=== PATIENT | female | born 1955 | race Caucasian/White ===

== ENCOUNTER → 2020-04-24 09:17 | Outpatient (BNVA) | payer BC, SELFPAY | PROVIDERS: Visit Provider Internal Medicine ==

== ENCOUNTER → 2020-07-05 14:10 | Outpatient (BNVA) | payer BC, SELFPAY | PROVIDERS: PCP Physician Assistant; Visit Provider Surgery Vascular Surgery ==

== ENCOUNTER 2020-07-18 12:45 | Outpatient (REF) | payer MEDICARE, SELFPAY ==
--- NOTE | ~2020-07-18 | US_ITS ---
EXAMINATION: US BILATERAL LOWER EXTREMITY VENOUS ULTRASOUND (REFLUX EXAM) CLINICAL INDICATION: Lower extremity varicose veins. COMPARISON: None. TECHNIQUE: Color flow triplex imaging and compression Doppler was performed to evaluate both the deep and the superficial systems bilaterally. To evaluate the superficial system, the examination was performed in the upright position. Color-flow Doppler ultrasound and compression ultrasound were utilized. In addition, maneuvers were utilized to demonstrate reflux. FINDINGS: 1. DEEP VENOUS ULTRASOUND OF THE RIGHT LOWER EXTREMITY: Common Femoral Vein: Compressible, normal respiratory variation and augmented flow. Femoral Vein: Compressible, normal color flow and augmentation. Popliteal Vein: Compressible, normal augmentation. Deep Reflux: There is no evidence of reflux in the deep system in either the common femoral vein or the popliteal vein. There is a right-sided Dent's cyst measuring 1.9 x 0.6 x 1.1 cm. 2. SUPERFICIAL ULTRASOUND WITH DOPPLER OF RIGHT LOWER EXTREMITY GREAT SAPHENOUS VEIN: Saphenofemoral junction: 0.4 cm; greater is than 1.7 seconds of reflux. Proximal/Mid thigh: 0.4 cm; greater than 2.3 seconds of reflux. Above knee: 0.4 cm; greater than 3 seconds of reflux. At knee: 0.3 cm; greater than 2.7 seconds of reflux. Below knee: 0.3 cm; greater than 1.1 seconds of reflux. Mid calf: 0.3 cm; greater than 0.7 seconds of reflux. Ankle: 0.2 cm; No evidence of reflux. DUPLICATED GREAT SAPHENOUS VEIN: Lateral: 0.2 cm, no evidence of reflux. SMALL SAPHENOUS VEIN: Saphenopopliteal junction/proximal small saphenous: 0.2 cm; greater than 1 second of reflux. Mid calf: 0.3 cm; greater than 1 second of reflux. Distal calf: 0.3 cm; greater than 1.5 seconds of reflux. VEIN OF GIACOMINI: None imaged. PERFORATORS: Distal thigh arising from the great saphenous vein, 0.3 cm, no reflux. Distal thigh arising from the great saphenous vein, 0.2 cm, no evidence of reflux. Midcalf: 0.2 cm, no evidence of reflux. VARICOSITIES: Mid thigh: 0.3 cm, no reflux. 3. DEEP VENOUS ULTRASOUND OF THE LEFT LOWER EXTREMITY: Common Femoral Vein: Compressible, normal respiratory variation and augmented flow. Femoral Vein: Compressible, normal color flow and augmentation. Popliteal Vein: Compressible, normal augmentation. Deep Reflux: There is no evidence of reflux in the deep system in either the common femoral vein or the popliteal vein. There is no evidence of a Dent's cyst. 4. SUPERFICIAL ULTRASOUND WITH DOPPLER OF LEFT LOWER EXTREMITY: GREAT SAPHENOUS VEIN: Saphenofemoral junction: 0.8 cm; greater than 1.4 seconds of venous reflux. The saphenous vein within the thigh is not identified. At knee: 0.6 cm; greater than 2.7 seconds of reflux. Below knee: 0.3 cm; greater than 2.4 seconds of reflux. Mid calf: 0.2 cm; greater than 0.8 seconds of reflux. Ankle: 0.2 cm; greater than 0.6 seconds of reflux. DUPLICATED GREAT SAPHENOUS VEIN: None. SMALL SAPHENOUS VEIN: Saphenopopliteal junction: 0.2 cm; No evidence of reflux. Mid calf: 0.2 cm; No evidence of reflux. Distal calf: 0.2 cm; No evidence of reflux. VEIN OF GIACOMINI: None Imaged. PERFORATORS: Proximal calf, 0.2 cm, no reflux. Proximal calf, 0.2 cm, greater than 3.0 seconds of reflux. Distal thigh, 0.1 cm, no reflux. VARICOSITIES: Proximal thigh: 0.4 cm, greater than 1.7 seconds of reflux. Mid thigh: 0.7 cm, greater than 1.4 seconds of reflux. At knee: 0.5 cm, greater than 2.5 seconds of reflux. At knee: 0.4 cm, greater than 1.4 seconds of reflux. US/US venous duplex LE BI IMPRESSION: 1. Right great saphenous venous insufficiency. 2. Left great saphenous venous insufficiency. Of note, the great saphenous vein on the left within the thigh is not identified, perhaps related to prior treatment. 3. Right small saphenous venous insufficiency. 4. No evidence of left small saphenous venous insufficiency. 5. Bilateral lower extremity varicosities. There are multiple refluxing varicosities within the left lower extremity. 6. Right Dent's cyst measuring up to 1.9 cm. 7. No evidence of DVT or deep venous reflux.
== END 2020-07-18 12:46 | disposition home or self-care (01) ==
LOC: HO.US 12:45
PROVIDERS: PCP Physician Assistant; Visit Provider Surgery Vascular Surgery
DX: I83.893 Varicose veins of bilateral lower extremities with other complications (principal)
CPT/HCPCS: 93970

== ENCOUNTER → 2020-08-14 09:46 | Outpatient (BNVA) | payer MEDICARE, SELFPAY | PROVIDERS: PCP Physician Assistant; Visit Provider Surgery Vascular Surgery | DX: I83.12 Varicose veins of left lower extremity with inflammation (principal) | CPT/HCPCS: 99212 ==

== ENCOUNTER → 2020-08-24 10:25 | Outpatient (BNVA) | payer MEDICARE, SELFPAY | PROVIDERS: PCP Physician Assistant; Visit Provider Surgery Vascular Surgery | DX: I83.12 Varicose veins of left lower extremity with inflammation (principal) | CPT/HCPCS: 36482 ==

== ENCOUNTER 2020-08-27 11:04 | Outpatient (REF) | payer MEDICARE, SELFPAY ==
--- NOTE | ~2020-08-27 | US_ITS ---
EXAMINATION: TRIPLEX SCANNING OF LEFT LOWER EXTREMITY; SUPERFICIAL ULTRASOUND WITH DOPPLER OF LEFT LOWER EXTREMITY CLINICAL INFORMATION: The patient is status post VenaSeal closure of the distal left great saphenous. COMPARISON: Bilateral venous reflux study on 07/18/2020. TECHNIQUE: Color flow triplex imaging and compression Doppler were performed as well as superficial ultrasound with Doppler. FINDINGS: LEFT LOWER EXTREMITY DEEP VENOUS SYSTEM: Respiratory variation, normal compression and augmented flow are noted throughout the lower extremity. The visualized common femoral vein, femoral vein, profunda femoral vein, popliteal vein and the calf veins show no evidence of deep venous thrombosis. There is no evidence of Dent's cyst. SUPERFICIAL VENOUS SYSTEM: The proximal left great saphenous vein is patent from the saphenofemoral junction to the mid/distal thigh. The left great saphenous vein is occluded from the level of the knee to the proximal calf. The very distal great saphenous vein at the level of the distal calf and ankle is patent. US/US venous duplex LE LT IMPRESSION: 1. No evidence of DVT. 2. The left great saphenous vein is occluded from the level of the knee to the proximal calf. The left great saphenous vein remains patent from the saphenofemoral junction to the midthigh and at the distal calf and ankle.
== END 2020-08-27 11:05 | disposition home or self-care (01) ==
LOC: HO.US 11:04
PROVIDERS: Visit Provider Surgery Vascular Surgery
DX: M79.605 Pain in left leg (principal)
CPT/HCPCS: 93971

== ENCOUNTER → 2020-09-04 10:46 | Outpatient (BNVA) | payer MEDICARE, SELFPAY | PROVIDERS: PCP Physician Assistant; Visit Provider Surgery Vascular Surgery | DX: I83.12 Varicose veins of left lower extremity with inflammation (principal) | CPT/HCPCS: 99212 ==

== ENCOUNTER 2020-09-17 06:15 | Day surgery (SDC) | payer MEDICARE, SELFPAY ==
--- NOTE | 2020-09-13 11:47 | P.CONAN_ITS ---
Documented by User: Elena Trejo 09/13/20 11:49 HPI - Anesthesia Eval Consult details Narrative: 65yo F for Left Micro Phlebectomy PMFSH Active Problems Active Problems: All Active Problems (Updated 07/05/20 @ 14:43 by Cristóbal Nixon MD) Varicose veins of left lower extremity with inflammation (Acute) MDD (major depressive disorder), recurrent episode, moderate (Acute) Varicosities of leg (Acute) HLD (hyperlipidemia) (Acute) Smoker (Acute) HTN (hypertension) (Acute) Pulmonary nodules (Acute) COPD (chronic obstructive pulmonary disease) (Acute) Past Medical History Medical History COPD (chronic obstructive pulmonary disease) HLD (hyperlipidemia) HTN (hypertension) MDD (major depressive disorder), recurrent episode, moderate Pulmonary nodules Family History Family History Father Lung cancer Mother Heart attack Social History Social History Alcohol intake: current Patient Tobacco Use Status: Current someday Tobacco user Cigarette Packs Per Day: 0.5 Cigarettes Per Day: 10 Use of substances other than those prescribed or required for medical reasons: No Are you DNR?: No Advance Directives: Yes Advance Directives on File: Yes Advance Directives Date on File: 09/17/20 Current occupational status: employed Current occupation: [employer] Allergies Allergy/AdvReac Type Severity Reaction Status Date / Time Iodinated Contrast Media Allergy Mild HIVES AND Verified 09/04/20 10:52 [IV Dye, Iodine Containing] RASH propoxyphene [From Darvon] Allergy Mild N/V Verified 09/04/20 10:52 Home Medications Medication Instructions Recorded Confirmed Last Taken Type ascorbate calcium (vitamin C) 500 1,000 mg PO DAILY tab 06/20/20 06/20/20 Unknown History mg tablet cholecalciferol (vitamin D3) 50 50 mcg PO DAILY 06/20/20 06/20/20 Unknown History mcg (2,000 unit) tablet Exam Exam Date and Time: September 13, 2020 1147 Assessment and Plan Assessment Anesthesia Assessment: Chart Reviewed Documented by User: Charu Stern 09/17/20 07:54 PMFSH Past Medical History Medical History COPD (chronic obstructive pulmonary disease) HLD (hyperlipidemia) HTN (hypertension) MDD (major depressive disorder), recurrent episode, moderate Pulmonary nodules Family History Family History Father Lung cancer Mother Heart attack Social History Social History Alcohol intake: current Patient Tobacco Use Status: Current someday Tobacco user Cigarette Packs Per Day: 0.5 Cigarettes Per Day: 10 Use of substances other than those prescribed or required for medical reasons: No Are you DNR?: No Advance Directives: Yes Advance Directives on File: Yes Advance Directives Date on File: 09/17/20 Current occupational status: employed Current occupation: [employer] Allergies Allergy/AdvReac Type Severity Reaction Status Date / Time Iodinated Contrast Media Allergy Mild HIVES AND Verified 09/04/20 10:52 [IV Dye, Iodine Containing] RASH propoxyphene [From Darvon] Allergy Mild N/V Verified 09/04/20 10:52 Home Medications Medication Instructions Recorded Confirmed Last Taken Type ascorbate calcium (vitamin C) 500 1,000 mg PO DAILY tab 06/20/20 06/20/20 Unknown History mg tablet cholecalciferol (vitamin D3) 50 50 mcg PO DAILY 06/20/20 06/20/20 Unknown History mcg (2,000 unit) tablet Exam Airway Mallampati Class: II TM Dist: >3cm Neck ROM: Full Assessment and Plan Assessment Anesthesia Assessment: Anesthesia Plan Discussed, Smoking Cess. Discussed and Chart Reviewed Final Anesthetic Review NPO: Yes ASA Class: III Final Preanesthetic Review: No Changes in Pt Med Stat, Meds/Allgs Chart Reviewed, Consent Obtained/Reviewed and Anes Risks/Benef Reviewed Patient Risk: Intermediate Procedure Risk: Low Assessment/Block/Sedation in SS: Assess/Block/Sedation-SS Anesthetic Plan Anesthetic Plan: MAC: Disposition: Standard PACU
[2020-09-17 06:33] VITALS: BP 109/50; PULSE 65; RESP 18; TEMP 36.3; O2SAT 95; BMI 17.2
[2020-09-17] MEDS: Lactated Ringers 1,000 ML 100 ML IVCONT (07:15)
[2020-09-17 08:40] VITALS: BP 105/48; PULSE 63; RESP 16; TEMP 36.2; O2SAT 98
--- NOTE | 2020-09-17 08:51 | MHC.SHP ---
Pre-Procedural Eval Section B Chief Complaint: varicose vein Allergies: Allergies Allergy/AdvReac Type Severity Reaction Status Date / Time Iodinated Contrast Media Allergy Mild HIVES AND Verified 09/04/20 10:52 [IV Dye, Iodine Containing] RASH propoxyphene [From Darvon] Allergy Mild N/V Verified 09/04/20 10:52 Plan I have reviewed the history and physical and performed a pertinent physical examination on my patient. No changes have occurred unless specified.
--- NOTE | 2020-09-17 08:54 | W.PM.OPN ---
Operative Note Operative Note Date of Service: 09/17/20 Narrative: Diagnosis: Left Leg varicose veins with inflammation Procedure: 1. Left leg Microphlebectomy (21) 2. Ligation of venous cluster Anesthesia: Local with sedation Varicose veins were marked in the standing position on the left leg and the patient was then placed in the supine position. The left lower extremity was prepared and draped to allow knee flexion in the sterile field. The patient had large superficial varicose veins with significant symptoms of pain. It was therefore determined to perform microphlebectomies of the clusters of varicose veins. The patient had bulging varicose veins which were previously marked in the standing position. A small stab incision was made longitudinally directly overlying the varicose vein in the calf and the varicose vein was grasped with a hemostat aided by a vein hook. It was then dissected as far proximally and distally as possible and avulsed. A total of 21 stab incisions were made and the procedure of stab phlebectomies was repeated 21 times. In addition cluster was noted in left thigh. Was ligated and removed. Resudual varicosities was removed as well. Hemostasis was checked and stab incision sites were closed with steri-strips and sterile dressing was given with gauze and kerilex wrap followed by an sindhu bandage. There were no complications and blood loss was minimal. Post-Op instructions were given and a follow-up appointment was recommended.
[2020-09-17 08:58] VITALS: BP 108/66; PULSE 57; RESP 16; TEMP 36.2; O2SAT 95
== END 2020-09-17 09:46 | disposition home or self-care (01) ==
PROVIDERS: PCP Physician Assistant; Visit Provider Surgery Vascular Surgery
PROC: (CPT 37766; principal; 2020-09-17 07:30)
DX: I83.12 Varicose veins of left lower extremity with inflammation (principal); I10 Essential (primary) hypertension
CPT/HCPCS: 37766; 37785; 88304; J0690; J1100; J2370; J2405; J3010

== ENCOUNTER 2020-10-16 09:07 | Outpatient (REF) | payer MEDICARE, SELFPAY ==
[2020-10-16 10:45] LABS: Hemoglobin 14.4 g/dl (12.0-16.0); Mean Corpuscular HGB Conc 32.7 g/dl (31.0-35.0); Mean Corpuscular Hemoglobin 31.7 pg (27.0-33.0); Mean Corpuscular Volume 96.9 fL (80-98); Platelet Count 260 X10*3/uL (160-400); Red Blood Count 4.54 X10*6/uL (4.20-5.50); Red Cell Distribution Width 13.1 % (11.0-16.0); White Blood Count 7.9 X10*3/uL (4.8-10.8)
[2020-10-16 10:57] LABS: Estimated Average Glucose 114 mg/dL; Hemoglobin A1c % 5.6 %
[2020-10-16 11:00] LABS: Creatinine Urine 66.05 mg/dL; Microalbum/Creatinine Ratio Ur 13.6 ug/mg cr
[2020-10-16 11:11] LABS: Alanine Aminotransferase 17 U/L (0-31); Albumin Level 4.1 g/dL (3.5-5.0); Alkaline Phosphatase 72 U/L (39-117); Anion Gap 16 (12-20); Aspartate Amino Transferase 25 U/L (5-31); Bilirubin Total 0.5 mg/dL (0.0-1.0); Blood Urea Nitrogen 20 mg/dL (9-16); Calcium 9.8 mg/dL (8.4-10.2); Carbon Dioxide 24 mmol/L (22-29); Chloride 108 mmol/L (96-108); Cholesterol 205 mg/dL; Estimated Glomerular Filt Rate > 60; Glucose Fasting 90 mg/dL (60-99); HDL Cholesterol 73 mg/dL; LDL Cholesterol Calculated 112 mg/dl; Potassium 4.8 mmol/L (3.3-5.1); Sodium 143 mmol/L (135-145); Total Protein 6.8 g/dL (6.5-8.0); Triglycerides 101 mg/dL
[2020-10-16 11:21] LABS: TSH reflex Free T4 1.02 uIU/mL (0.32-4.0)
== END 2020-10-16 09:08 | disposition home or self-care (01) ==
LOC: HO.LAB 09:07
PROVIDERS: PCP Physician Assistant; Visit Provider Physician Assistant
DX: J44.9 Chronic obstructive pulmonary disease, unspecified (principal); I10 Essential (primary) hypertension; E78.2 Mixed hyperlipidemia; R91.8 Other nonspecific abnormal finding of lung field; F17.200 Nicotine dependence, unspecified, uncomplicated; Z71.6 Tobacco abuse counseling
CPT/HCPCS: 36415; 80053; 80061; 82043; 83036; 84443; 85027; 99212

== ENCOUNTER → 2020-10-18 10:08 | Outpatient (BNVA) | payer MEDICARE, SELFPAY | PROVIDERS: PCP Physician Assistant; Visit Provider Surgery Vascular Surgery | DX: I83.12 Varicose veins of left lower extremity with inflammation (principal) | CPT/HCPCS: 99212 ==

== ENCOUNTER 2020-12-05 10:39 | Outpatient (REF) | payer MEDICARE, SELFPAY ==
--- NOTE | ~2020-12-05 | CT_ITS ---
EXAMINATION: CT CHEST SCREENING CLINICAL INFORMATION: Current smoker. 40 pack year history. COMPARISON: Previous chest CT scans most recent September 2019 TECHNIQUE: Multidetector volumetric CT imaging of the chest is performed without contrast using low dose technique. Additional 2D coronal and sagittal reformatted images and axial 3D maximum intensity projection (MIP) images are generated on the CT workstation. This CT examination was performed using dose optimization techniques as appropriate, variously including the following: *Automated exposure control *Adjustment of mA and/or kV according to patient size (this includes techniques or standardized protocols for targeted exams where dose is matched to indication/reason for exam; i.e. extremities or head) *Use of iterative reconstruction technique DLP: 33 mGy-cm FINDINGS: LUNGS: There is evidence of emphysema. There is mild biapical pleural and parenchymal scarring. The right upper lobe nodules are stable. Largest nodules are a 5 mm peripheral or subpleural right upper lobe solid nodule axial image 49 series 5 and a heterogeneous partially cystic partially groundglass attenuation right upper lobe nodule axial image 105 series 5 that is stable. There are clustered peribronchial nodules and bronchial wall thickening in the right upper lobe suggestive of airways disease for example axial image 217 series 5 that is stable. There are subtler changes seen in the lateral segment of the right middle lobe that appears improved compared to September 2019 exam. There is evidence of mild airways disease with clustered peribronchial nodules and bronchial wall thickening in the inferior segment of the lingula that appears unchanged. No new pulmonary nodules are seen. MEDIASTINUM: There is evidence of atherosclerotic disease. The heart does not appear enlarged. There is mild coronary artery calcification. There is no pericardial effusion. The thoracic aorta is normal in caliber. There are no enlarged hilar or mediastinal lymph nodes. PLEURA: There is no pleural effusion. No pleural mass or thickening. AXILLA: No lymphadenopathy. UPPER ABDOMEN: Unremarkable OSSEOUS STRUCTURES: There are degenerative changes of the spine. CT/CT lung screening IMPRESSION: Emphysema. Mild biapical pleural parenchymal scarring. Stable right upper lobe nodules. Scattered areas of disease with clustered peribronchial nodules and bronchial wall thickening. ASSESSMENT: Lung-RADS category 2: Benign RECOMMENDATION: Annual low-dose chest CT follow-up recommended.
== END 2020-12-05 10:40 | disposition home or self-care (01) ==
LOC: HO.CT 10:39
PROVIDERS: Visit Provider Physician Assistant Medical
DX: Z12.2 Encounter for screening for malignant neoplasm of respiratory organs (principal); Z87.891 Personal history of nicotine dependence
CPT/HCPCS: 71271

== ENCOUNTER 2020-12-29 10:16 | Outpatient (REF) | payer MEDICARE, SELFPAY ==
--- NOTE | ~2020-12-29 | MM_ITS ---
EXAMINATION: MM SCREENING DIGITAL BREAST TOMOSYNTHESIS, BILATERAL CLINICAL INFORMATION: Screening. Asymptomatic. The lifetime risk of breast cancer based on the Tyrer-Cuzick Model is 7%. COMPARISON: Mammography: 11/07/2019, 11/01/2018, 07/15/2017 TECHNIQUE: Digital breast tomosynthesis is performed in both the craniocaudal and mediolateral oblique views along with computer-aided detection (CAD). Synthesized 2D images are generated from the tomosynthesis. FINDINGS: There are scattered areas of fibroglandular density (ACR BI-RADS breast composition Category b). There are no significant masses, abnormal calcifications, or other abnormalities. Breast tissue composition borders on heterogeneously dense. Parenchymal pattern is similar to prior studies. There are dermal lesions again seen overlying the posterior upper left breast and anterior upper outer right breast. MM/MM tomosynthesis screening BI IMPRESSION: No mammographic evidence of malignancy. ASSESSMENT: BI-RADS 2: Benign RECOMMENDATION: Routine annual mammography screening. This patient's information was entered into a reminder system with a target due date for their next mammogram.
== END 2020-12-29 10:17 | disposition home or self-care (01) ==
LOC: HO.MAMMO 10:16
PROVIDERS: PCP Physician Assistant; Visit Provider Physician Assistant
DX: Z12.31 Encounter for screening mammogram for malignant neoplasm of breast (principal)
CPT/HCPCS: 77063; 77067

== ENCOUNTER 2021-02-14 09:18 | Outpatient (REF) | payer MEDICARE, SELFPAY ==
[2021-02-14 10:08] LABS: Appearance Urine CLOUDY; Color Urine YELLOW; Glucose Urine UA NEG (NEG); Leukocyte Esterase Urine 2+ (NEG); Nitrite Urine POS (NEG); Specific Gravity - Urine 1.025 (1.005-1.025); UACC Culture Trigger YES; Urine Blood 1+ (NEG); Urine Ketones 5 MG/DL (NEG); Urine Protein 2+ MG/DL (NEG-TRACE)
[2021-02-14 10:13] LABS: Hematocrit 40.9 % (37.0-47.0); Hemoglobin 13.1 g/dl (12.0-16.0); Mean Corpuscular Hemoglobin 31.8 pg (27.0-33.0); Mean Corpuscular Volume 99.3 fL (80.0-98.0); Mean Platelet Volume 9.7 fL (9.4-12.3); Platelet Count 380 X10*3/uL (160-400); Red Blood Count 4.12 X10*6/uL (4.20-5.50); Red Cell Distribution Width 12.7 % (11.0-16.0); White Blood Count 10.6 X10*3/uL (4.8-10.8)
[2021-02-14 10:20] LABS: Bacteria Urine 2+ /LPF; Squamous Epithelial Cell Urine 2+ /LPF; WBC Urine 50-75 /HPF (0-4)
[2021-02-14 10:51] LABS: Alanine Aminotransferase 13 U/L (0-31); Albumin Level 3.5 g/dL (3.5-5.0); Alkaline Phosphatase 87 U/L (39-117); Anion Gap 11 (12-20); Aspartate Amino Transferase 19 U/L (5-31); Bilirubin Total 0.2 mg/dL (0.0-1.0); Blood Urea Nitrogen 17 mg/dL (9-16); Calcium 9.2 mg/dL (8.4-10.2); Carbon Dioxide 29 mmol/L (22-29); Chloride 105 mmol/L (96-108); Cholesterol 134 mg/dL; Estimated Glomerular Filt Rate > 60; Glucose Fasting 101 mg/dL (60-99); HDL Cholesterol 43 mg/dL; LDL Cholesterol Calculated 69 mg/dl; Potassium 4.5 mmol/L (3.3-5.1); Sodium 140 mmol/L (135-145); Total Protein 6.3 g/dL (6.5-8.0); Triglycerides 110 mg/dL
== END 2021-02-14 09:19 | disposition home or self-care (01) ==
LOC: HO.LAB 09:18
PROVIDERS: PCP Physician Assistant; Visit Provider Physician Assistant
DX: E78.2 Mixed hyperlipidemia (principal); I10 Essential (primary) hypertension
CPT/HCPCS: 36415; 80053; 80061; 81001; 85027; 87086; 87088; 87186

== ENCOUNTER 2021-03-18 13:06 | Outpatient (REF) | payer MEDICARE, SELFPAY ==
--- NOTE | ~2021-03-18 | XR_ITS ---
EXAMINATION: XR RIBS, LEFT CLINICAL INFORMATION: Pleurodynia. COMPARISON: Chest radiograph done on 03/01/2019. TECHNIQUE: 3 views of the left ribs were obtained. The site of the left lower hemithoracic pain as was pointed out with the patient was marked with a cutaneous BB marker corresponding to posterolateral aspect of the left 11th rib. FINDINGS: Corresponding to the site of the BB marker adjacent to the posterolateral aspect of the left 11th rib, no underlying osseous abnormalities including fracture and/or cortical destruction or soft tissue mass identified. The remainder of the entire left hemithorax appears asymmetric as compared to the contralateral right side and appear unremarkable. No evidence of any hemopneumothorax or lung contusion. Cardiac mediastinal silhouette is within normal limit. Overall, no significant change since 03/01/2019. XR/XR ribs LT min 3V w CXR1V IMPRESSION: 1. No radiographic evidence of any displaced rib fracture or osseous or soft tissue abnormalities identified corresponding to the site of the left lower posterior lateral hemithoracic pain which was marked with a cutaneous BB marker corresponding to left 11th rib. 2. Overall, no significant change since 03/01/2019.
== END 2021-03-18 13:07 | disposition home or self-care (01) ==
LOC: HO.XRAY 13:06
PROVIDERS: PCP Physician Assistant; Visit Provider Physician Assistant
DX: R07.81 Pleurodynia (principal)
CPT/HCPCS: 71101

== ENCOUNTER 2021-05-23 10:34 | Outpatient (REF) | payer MEDICARE, SELFPAY ==
--- NOTE | ~2021-05-23 | MM_ITS ---
EXAMINATION: BONE DENSITOMETRY CLINICAL INDICATION: Asymptomatic menopausal state. COMPARISON: Baseline BD dated 09/07/2009. TECHNIQUE: Using a [employer] DXA System (software version: 13.1) manufactured by [employer], dual-energy x-ray absorptiometry was performed of the lumbar spine and left hip. The images are of good technical quality. Summary results are attached. FINDINGS: AP SPINE L1-L4 (excluding L3): The data of L1-L4 has been changed to exclude the L3 vertebral body, because degenerative changes at this level may cause overestimation of lumbar spine density. Current: BMD 1.054 g/cm2, Z-score 1.3, T-score -1.0, normal, 12.7% decrease from baseline (<5% change is not significant). Baseline: BMD 1.208 g/cm2. LEFT FEMUR, NECK: Current: BMD 0.739 g/cm2, Z-score -0.2, T-score -2.2, osteopenia. Baseline: BMD 0.822 g/cm2. LEFT FEMUR, TOTAL: Current: BMD 0.780 g/cm2, Z-score 0.0, T-score -1.8, osteopenia, 19.5% decrease from baseline (<5% change is not significant). Baseline: BMD 0.969 g/cm2. IDENTIFIED RISK FACTORS: Low body weight, tobacco use (current smoker), history of fracture (adult), menopause. HISTORY OF FRACTURE: Pelvis. MEDICATIONS: Calcium supplements or multivitamin, vitamin D. MM/XR DEXA axial skeleton IMPRESSION: 1. DIAGNOSIS: Osteopenia based on the lowest T-score value of -2.2 in the femoral neck applying World Health Organization criteria. 2. 10-YEAR FRACTURE RISK PREDICTION, FRAX: Major osteoporotic fracture (clinical spine, forearm, hip or shoulder) 16.5%. Hip fracture 5.3%. 3. Treatment Recommendations: NOF guidelines recommend consideration for treatment in postmenopausal women and men age 50 and older presenting with the following: -A hip or vertebral (clinical or morphometric) fracture. -T-score less than or equal to -2.5 at the femoral neck or spine after appropriate evaluation to exclude secondary causes. -Low bone mass at the hip or spine and a 10-year fracture probability by FRAX of greater than or equal to 3% for hip fracture or greater than or equal to 20% for major osteoporotic fracture based on the [place] adapted WHO algorithm. 4. Other Recommendations: All treatment decisions require clinical judgment and consideration of individual patient factors, including patient preferences, comorbidities, previous drug use, risk factors not captured in the FRAX model (e.g. frailty, falls, vitamin D deficiency, increased bone turnover, interval significant decline in bone density) and possible under or overestimation of fracture risk by FRAX. Additional medical evaluation for secondary cause of low bone mineral density may be appropriate. FUTURE SCAN RECOMMENDATION: People with diagnosed cases of osteoporosis or at high risk for fracture should have regular bone mineral density tests. For patients eligible for Medicare, routine testing is allowed once every 2 years. The testing frequency can be increased to one year for patients who have rapidly progressing disease, those who are receiving or discontinuing medical therapy to restore bone mass, or have additional risk factors.
== END 2021-05-23 10:35 | disposition home or self-care (01) ==
LOC: HO.MAMMO 10:34
PROVIDERS: PCP Physician Assistant; Visit Provider Physician Assistant
DX: Z13.820 Encounter for screening for osteoporosis (principal); Z78.0 Asymptomatic menopausal state; M85.80 Other specified disorders of bone density and structure, unspecified site; Z79.899 Other long term (current) drug therapy
CPT/HCPCS: 77080

== ENCOUNTER 2021-10-21 06:10 | Outpatient (REF) | payer MEDICARE, SELFPAY ==
[2021-10-21 07:50] LABS: Alanine Aminotransferase 16 U/L (0-31); Albumin Level 3.8 g/dL (3.5-5.0); Alkaline Phosphatase 77 U/L (39-117); Anion Gap 11 (12-20); Aspartate Amino Transferase 24 U/L (5-31); Bilirubin Total 0.3 mg/dL (0.0-1.0); Blood Urea Nitrogen 19 mg/dL (9-16); Calcium 8.8 mg/dL (8.4-10.2); Carbon Dioxide 27 mmol/L (22-29); Chloride 107 mmol/L (96-108); Cholesterol 162 mg/dL; Estimated Glomerular Filt Rate > 60; Glucose Fasting 102 mg/dL (60-99); HDL Cholesterol 71 mg/dL; LDL Cholesterol Calculated 73 mg/dl; Potassium 3.8 mmol/L (3.3-5.1); Sodium 141 mmol/L (135-145); Total Protein 6.4 g/dL (6.5-8.0); Triglycerides 91 mg/dL
[2021-10-21 09:38] LABS: Appearance Urine HAZY; Color Urine YELLOW; Glucose Urine UA NEG (NEG); Leukocyte Esterase Urine NEG (NEG); Nitrite Urine NEG (NEG); Specific Gravity - Urine >= 1.030 (1.005-1.025); UACC Culture Trigger NO; Urine Blood 3+ (NEG); Urine Ketones 5 MG/DL (NEG); Urine Protein 1+ MG/DL (NEG-TRACE)
[2021-10-21 09:45] LABS: Squamous Epithelial Cell Urine TRACE /LPF; WBC Urine 0 /HPF (0-4)
[2021-10-21 09:46] LABS: Hyaline Casts Urine 0-2 /LPF; Mucus Urine TRACE /LPF
[2021-10-21 09:54] LABS: Creatinine Urine 330.72 mg/dL
== END 2021-10-21 06:11 | disposition home or self-care (01) ==
LOC: HO.LAB 06:10
PROVIDERS: PCP Physician Assistant; Visit Provider Physician Assistant
DX: E78.2 Mixed hyperlipidemia (principal); I10 Essential (primary) hypertension
CPT/HCPCS: 36415; 80053; 80061; 81001; 82043

== ENCOUNTER 2021-10-27 10:14 | Emergency (ER) | payer MEDICARE, SELFPAY ==
--- NOTE | ~2021-10-27 | CT_ITS ---
EXAMINATION: CT ABDOMEN AND PELVIS WITHOUT CONTRAST CLINICAL INFORMATION: Pain and diarrhea COMPARISON: None TECHNIQUE: Multidetector volumetric imaging was performed from the superior aspect of the liver through the pubic symphysis. Sagittal and coronal reformatted images were obtained on the technologist's workstation. This CT examination was performed using dose optimization techniques as appropriate, variously including the following: *Automated exposure control *Adjustment of mA and/or kV according to patient size (this includes techniques or standardized protocols for targeted exams where dose is matched to indication/reason for exam; i.e. extremities or head) *Use of iterative reconstruction technique DLP: 276 mGy-cm FINDINGS: LUNG BASES: The visualized lung bases are unremarkable. LIVER, GALLBLADDER, AND BILIARY TREE: The liver is normal in size, shape, and attenuation. No focal hepatic lesion or biliary ductal dilatation is present. The gallbladder is unremarkable with no evidence of radiopaque gallstones, gallbladder wall thickening, or obvious pericholecystic inflammatory changes. PANCREAS: Unremarkable. SPLEEN: Unremarkable. ADRENAL GLANDS: Unremarkable. KIDNEYS AND URETERS: The kidneys are normal in size, shape, and attenuation. No hydronephrosis, hydroureter, or calculi seen. No perinephric stranding. BLADDER: Unremarkable. GASTROINTESTINAL TRACT: There is large amount of retained feces in the colon but no evidence of colitis, or diverticulitis. Scattered diverticula are present in the sigmoid colon is unremarkable. No signs of small bowel obstruction. Appendix is unremarkable ABDOMINAL WALL: No significant hernia is appreciated. LYMPH NODES: Normal. VASCULAR: Unremarkable. PELVIC VISCERA: Uterus is retroverted OSSEOUS STRUCTURES: There are degenerative changes in lumbar spine CT/CT abdomen pelvis wo con IMPRESSION: Constipation. No acute abnormalities Fleischner guidelines were followed.
[2021-10-27 10:43] VITALS: BP 123/80; PULSE 84; RESP 16; O2SAT 97; BMI 16.9
--- NOTE | 2021-10-27 12:05 | ED_ITS ---
HPI - Abdominal Pain General Chief Complaint: Abdominal Pain Stated Complaint: reaction to medicine, black bowel Time Seen by Provider: 10/27/21 10:17 Source: patient Mode of arrival: ambulatory Limitations: no limitations History of Present Illness HPI narrative: Patient presents emergency department for evaluation of abdominal pain, diarrhea, black stools. Patient reports that she has been experiencing left lo wer quadrant abdominal pain with multiple episodes of diarrhea daily for the past few weeks. She was evaluated by her primary care provider 3 days ago, at that time she was started on antibiotics for possible colitis, was given a prescription for Cipro and Flagyl. She reports taking 3 doses of each medication but she felt that this was actually worsening her diarrhea. She contacted her primary care office again, she was advised to discontinue these antibiotics, was given a prescription for Augmentin. She states that since yesterday she has been having frequent loose black stools. Denies bright red blood. Denies fevers or chills. Has some associated nausea but no vomiting. Reports last colonoscopy was in 2019, stating that she had polyps removed at that time. Denies family history of colon cancer. She does report history of similar ?episodes? with weeks of diarrhea typically self resolve. Denies upper abdominal pain, chest pain, palpitations, shortness of breath, difficulty b reathing, dysuria urinary frequency/urgency/hesitancy, pelvic pain, abnormal vaginal discharge. Related Data Home Medications Medication Instructions Recorded Confirmed ascorbate calcium (vitamin C) 500 1,000 mg PO DAILY 06/20/20 10/24/21 mg tablet cholecalciferol (vitamin D3) 50 50 mcg PO DAILY 06/20/20 10/24/21 mcg (2,000 unit) tablet Previous Rx's Medication Instructions Recorded ipratropium 0.5 mg-albuterol 3 mg 3 ml inhalation Q4-6H PRN 10/16/20 (2.5 mg base)/3 mL nebulization wheezing/copd 30 days #90 mL soln atorvastatin 40 mg tablet 40 mg PO DAILY 90 days #90 tabs 01/09/21 carvedilol 3.125 mg tablet 3.125 mg PO BID 90 days #180 tabs 04/10/21 albuterol sulfate 90 mcg/actuation 2 puff PO Q6H PRN for wheezing 09/17/21 aerosol inhaler #25.5 grams sertraline 100 mg tablet 100 mg PO DAILY 90 days #90 tabs 10/10/21 blood pressure test kit-small #1 ea 10/24/21 amoxicillin 875 mg-potassium 1 tab PO Q12H 7 days #14 tabs 10/25/21 clavulanate 125 mg tablet Allergies Allergy/AdvReac Type Severity Reaction Status Date / Time Iodinated Contrast Media Allergy Mild HIVES AND Verified 10/24/21 09:55 [IV Dye, Iodine Containing] RASH propoxyphene [From Darvon] Allergy Mild N/V Verified 10/24/21 09:55 Review of Systems Review of Systems Constitutional : No Weight loss, No Fever, No Chills ENT/Mouth :? No sore throat, No Rhinorrhea Eyes: No Swelling, No Redness Cardiovascular : No Chest Pain, No SOB, No Edema Respiratory : No Cough, No Sputum, No Wheezing Gastrointestinal : Positive Nausea, no Vomiting, positive Diarrhea, positive abdominal pain, No Hematochezia, positive Melena Genitourinary : No Dysuria, No Urinary Frequency, No Hematuria, No Urgency? Musculoskeletal : No joint pain, No Myalgias, No Joint Swelling Skin : No Skin Lesions, No rash Neuro : No Weakness, No Numbness, No Dizziness, No Headache Psych : No Anxiety/Panic, No Depression Heme/Lymph: No Bruising, No Lymphadenopathy Endocrine : No Polyuria, No Polydipsia Yes all other systems are reviewed and are negative [facility], [facility] Past Medical History Attestation statement: The following information was validated with the patient. Source: old records reviewed Medical History COPD (chronic obstructive pulmonary disease) HLD (hyperlipidemia) HTN (hypertension) MDD (major depressive disorder), recurrent episode, moderate Pulmonary nodules Family History Family History Father Lung cancer Mother Heart attack Social History Social History Housing: Apartment Alcohol intake: current Alcohol intake frequency: a few times a month Alcohol type: beer Patient Tobacco Use Status: Current everyday Tobacco user Cigarette Packs Per Day: 0.5 Cigarettes Per Day: 10 e-Cigarette/Vaping Use: Never Used Second Hand Smoke Exposure: No Advance Directives: No Advance Directives Information Provided: Yes Advance Directives Date on File: 09/17/20 service: No Current occupational status: employed Current occupation: [employer] Cognitive needs: No Hearing needs: No Vision needs: No Physical Exam ED Vital Signs: Vital Signs - 24 hr 10/27/21 10:43 10/27/21 12:13 Temperature 97.7 F Pulse Rate 84 61 Respiratory Rate 16 16 Blood Pressure 123/80 138/67 Pulse Oximetry 97 97 Oxygen Delivery Method Room Air Room Air BMI result Body Mass Index 16.9 Vital signs have been reviewed as normal and appeared to be correct. Blood pressure normal.? Heart rate normal.? Respiration rate normal. Temperature normal 97.7.? Oxygen saturation normal. Appearance: Alert.?Oriented to person, place and time. No acute distress.?Normal affect. Eyes: Pupils equal, round and reactive to light.? ENT: Pharynx normal.?? Neck: Normal inspection.? Neck supple.?? CVS: Heart sounds normal. Normal heart rate and rhythm.? Pulses normal.?? Respiratory: No respiratory distress.? Lung sounds clear to auscultation bi laterally?? Abdomen: Soft with tenderness to palpation of the left lower quadrant. Normoactive bowel sounds. No pulsatile mass. No guarding. No rebound tenderness.?? Rectal: Performed with excel analyst ED RN, external hemorrhoids present, no active bleeding, stool obtained from rectum brown in color. Skin: Skin warm and dry.? Normal skin color.? ?? Extremities: No lower extremity edema.? Neuro: Moves all extremities spontaneously. Sensation intact bilaterally. CN II- XII intact. No focal neuro deficits. Ambulates with normal steady gait. Course Course Course Narrative: Patient is a 66-year-old female with a past medical history of hypertension, hyperlipidemia, COPD, pulmonary nodules presenting to emergency department for evaluation of abdominal pain and diarrhea. She is overall well appearing, vital signs are stable, in no apparent distress. Abdominal exam is significant for left lower quadrant tenderness, however no guarding or rebound. Exam concerning for diverticulitis versus colitis verses bowel obstruction, less likely appendicitis, cholecystitis, pancreatitis. Will obtain CBC to evaluate for leukocytosis/ anemia, CMP and lipase to evaluate for abnormal electrolytes /abnormal renal function/ abnormal hepatic/biliary function, Urinalysis, CT of the abdomen and pelvis, IV fluids, antiemetic, and Toradol. Disposition will be pending results. Reevaluation(s) Reevaluation #1: CBC is overall unremarkable no leukocytosis and no anemia. CMP is unremarkable. Lipase normal. No Lactic acidosis. Occult stool is negative. Declined to provide urinalysis as she had one last week, and has had no urinary symptoms. CT of the abdomen reveals a large amount of retained feces in the colon without evidence of colitis or diverticulitis, no signs of small-bowel obstruction, appendix is unremarkable, and otherwise no acute abnormalities. Discussed these findings with patient, recommended discontinuation of antibiotics at this time, staying well hydrated, bland diet, outpatient follow-up with her primary care provider within 1-2 days, reviewed worrisome signs and symptoms to return back to the emergency department for, all questions were answered, she is discharged home in stable condition. Time: 13:08 [facility] - Abdominal Pain Medical Records Attestation: I reviewed the patient's medical records. Lab Data Attestation: I reviewed the patient's lab results. Result diagrams: 10/27/21 12:26 10/27/21 12:26 Labs: Lab Results 10/27/21 10/27/21 10/27/21 Range/Units 12:26 12:26 12:26 WBC 8.5 (4.8-10.8) X10*3/uL RBC 4.58 (4.20-5.50) X10*6/uL Hgb 14.4 (12.0-16.0) g/dl Hct 45.0 (37.0-47.0) % MCV 98.3 H (80.0-98.0) fL MCH 31.4 (27.0-33.0) pg MCHC 32.0 (31.0-35.0) g/dl RDW 12.9 (11.0-16.0) % Plt Count 239 D (160-400) X10*3/uL MPV 9.6 (9.4-12.3) fL Immature Gran % (Auto) 0.1 (0.0-0.4) % Neut % (Auto) 61.1 (45-73) % Lymph % (Auto) 21.6 (20-40) % [place] % (Auto) 10.0 (2-11) % Eos % (Auto) 6.4 H (0-4) % Baso % (Auto) 0.8 (0-2) % Lymph # (Auto) 1.8 (1.2-4.9) X10*3/uL [place] # (Auto) 0.9 (0.1-1.2) X10*3/uL Eos # (Auto) 0.5 H (0.0-0.4) X10*3/uL Baso # (Auto) 0.1 (0.0-0.2) X10*3/uL Abs Immat Gran (auto) 0.01 (0.00-0.03) X10*3/uL Absolute Neuts (auto) 5.2 (2.0-8.3) x10*3/uL Absolute Nucleated RBC 0.000 (0.0-0.012) X10*3/uL Nucleated RBC % (auto) 0.0 (0.0-0.2) /100WBC Sodium 140 (135-145) mmol/L Potassium 4.3 (3.3-5.1) mmol/L Chloride 105 (96-108) mmol/L Carbon Dioxide 28 (22-29) mmol/L Anion Gap 11 L (12-20) BUN 14 (9-16) mg/dL Creatinine 0.77 (0.5-1.4) mg/dL Estim Creat Clear Calc 50.2 Estimated GFR > 60 Random Glucose 88 (60-115) mg/dL Lactic Acid (0.5-2.0) mmol/L Calcium 9.3 (8.4-10.2) mg/dL Magnesium 1.8 (1.6-2.6) mg/dL Total Bilirubin 0.3 (0.0-1.0) mg/dL Direct Bilirubin 0.2 (0.0-0.5) mg/dL AST 28 (5-31) U/L ALT 20 (0-31) U/L Alkaline Phosphatase 73 (39-117) U/L Total Protein 6.7 (6.5-8.0) g/dL Albumin 3.9 (3.5-5.0) g/dL Lipase 60 (8-78) U/L Stool Occult Blood (NEGATIVE) 10/27/21 10/27/21 Range/Units 12:26 12:26 WBC (4.8-10.8) X10*3/uL RBC (4.20-5.50) X10*6/uL Hgb (12.0-16.0) g/dl Hct (37.0-47.0) % MCV (80.0-98.0) fL MCH (27.0-33.0) pg MCHC (31.0-35.0) g/dl RDW (11.0-16.0) % Plt Count (160-400) X10*3/uL MPV (9.4-12.3) fL Immature Gran % (Auto) (0.0-0.4) % Neut % (Auto) (45-73) % Lymph % (Auto) (20-40) % [place] % (Auto) (2-11) % Eos % (Auto) (0-4) % Baso % (Auto) (0-2) % Lymph # (Auto) (1.2-4.9) X10*3/uL [place] # (Auto) (0.1-1.2) X10*3/uL Eos # (Auto) (0.0-0.4) X10*3/uL Baso # (Auto) (0.0-0.2) X10*3/uL Abs Immat Gran (auto) (0.00-0.03) X10*3/uL Absolute Neuts (auto) (2.0-8.3) x10*3/uL Absolute Nucleated RBC (0.0-0.012) X10*3/uL Nucleated RBC % (auto) (0.0-0.2) /100WBC Sodium (135-145) mmol/L Potassium (3.3-5.1) mmol/L Chloride (96-108) mmol/L Carbon Dioxide (22-29) mmol/L Anion Gap (12-20) BUN (9-16) mg/dL Creatinine (0.5-1.4) mg/dL Estim Creat Clear Calc Estimated GFR Random Glucose (60-115) mg/dL Lactic Acid 0.7 (0.5-2.0) mmol/L Calcium (8.4-10.2) mg/dL Magnesium (1.6-2.6) mg/dL Total Bilirubin (0.0-1.0) mg/dL Direct Bilirubin (0.0-0.5) mg/dL AST (5-31) U/L ALT (0-31) U/L Alkaline Phosphatase (39-117) U/L Total Protein (6.5-8.0) g/dL Albumin (3.5-5.0) g/dL Lipase (8-78) U/L Stool Occult Blood NEGATIVE (NEGATIVE) Imaging Data CT scan - abdomen: Radiologist's impression: CT/CT abdomen pelvis wo con IMPRESSION: Constipation. No acute abnormalities Discharge Plan Discharge Clinical Impression: Diarrhea Patient Disposition: Home, Self-Care Instructions: Acute Diarrhea (ED) Additional Instructions: As we discussed your lab work was all normal. There is no evidence of blood in your stool. This CT scan of your abdomen did not show any inflammation or infectious concerns, therefore we discussed stopping all antibiotics at this time, as they may actually worsen your diarrhea. CT scan does show that there is a large amount of stool retained in your colon, however as we discussed I would not recommend taking laxatives given your current state of diarrhea, additionally avoid Imodium over the counter. Be sure to stay well hydrated. Follow a bland diet, increase fiber intake follow-up with your primary care doctor within 2 days. You may return to emergency department with any new or worsening symptoms or co ncerns. Prescriptions: No Action atorvastatin 40 mg tablet 40 mg PO DAILY 90 Days Qty: 90 2RF carvedilol 3.125 mg tablet 3.125 mg PO BID 90 Days Qty: 180 2RF Rx Instructions: must administer with a meal/food albuterol sulfate 90 mcg/actuation HFA aerosol inhaler 2 puff PO Q6H PRN (Reason: for wheezing) Qty: 25.5 0RF sertraline 100 mg tablet 100 mg PO DAILY 90 Days Qty: 90 2RF amoxicillin-pot clavulanate 875-125 mg tablet 1 tab PO Q12H 7 Days Qty: 14 0RF (DME) blood pressure test kit-small Kit See Rx Instructions .Route Qty: 1 0RF Rx Instructions: As directed cholecalciferol (vitamin D3) 50 mcg (2,000 unit) tablet 50 mcg PO DAILY ascorbate calcium (vitamin C) 500 mg tablet 1,000 mg PO DAILY ipratropium-albuterol 0.5 mg-3 mg(2.5 mg base)/3 mL solution for nebulization 3 ml inhalation Q4-6H PRN (Reason: wheezing/copd) 30 Days Qty: 90 3RF Referrals: Ernst Huerta PA-C [Primary Care Provider] - 2 days Interventions: ED Discharge Assessment Last Done: 10/27/21 14:15 Discharge Date/Time: 10/27/21 14:16
[2021-10-27 12:13] VITALS: BP 138/67; PULSE 61; RESP 16; TEMP 36.5; O2SAT 97
[2021-10-27 12:32] LABS: Basophils Absolute Auto 0.1 X10*3/uL (0.0-0.2); Basophils Percent Auto 0.8 % (0-2); Eosinophils Absolute Auto 0.5 X10*3/uL (0.0-0.4); Eosinophils Percent Auto 6.4 % (0-4); Hemoglobin 14.4 g/dl (12.0-16.0); Imm Gran Abs Auto 0.01 X10*3/uL (0.00-0.03); Imm Gran Pct Auto 0.1 % (0.0-0.4); Lymphocytes Absolute Auto 1.8 X10*3/uL (1.2-4.9); Lymphocytes Percent Auto 21.6 % (20-40); MANUAL DIFF FLAG NO; Mean Corpuscular Hemoglobin 31.4 pg (27.0-33.0); Mean Corpuscular Volume 98.3 fL (80.0-98.0); Mean Platelet Volume 9.6 fL (9.4-12.3); Monocytes Absolute Auto 0.9 X10*3/uL (0.1-1.2); Neutrophils Absolute Auto 5.2 x10*3/uL (2.0-8.3); Neutrophils Percent Auto 61.1 % (45-73); Platelet Count 239 X10*3/uL (160-400); Red Blood Count 4.58 X10*6/uL (4.20-5.50); Red Cell Distribution Width 12.9 % (11.0-16.0); White Blood Count 8.5 X10*3/uL (4.8-10.8)
[2021-10-27] MEDS: ondansetron HCL 4 MG/2 ML VIAL IVPUSH (12:32)
[2021-10-27] MEDS: Ketorolac Tromethamine 15 MG/ML VIAL IVPUSH (12:32)
[2021-10-27] MEDS: 0.9 % Sodium Chloride 1,000 ML 999 ML IV (12:33)
[2021-10-27 12:36] LABS: OBS Int Ctl Valid YES; OBS1 NEGATIVE (NEGATIVE)
[2021-10-27 12:51] LABS: Lactic Acid 0.7 mmol/L (0.5-2.0)
[2021-10-27 12:53] LABS: Anion Gap 11 (12-20); Blood Urea Nitrogen 14 mg/dL (9-16); Calcium 9.3 mg/dL (8.4-10.2); Carbon Dioxide 28 mmol/L (22-29); Chloride 105 mmol/L (96-108); Creatinine Clr Calc Pharmacy 50.2; Estimated Glomerular Filt Rate > 60; Glucose Random 88 mg/dL (60-115); Potassium 4.3 mmol/L (3.3-5.1); Sodium 140 mmol/L (135-145)
[2021-10-27 12:56] LABS: Alanine Aminotransferase 20 U/L (0-31); Albumin Level 3.9 g/dL (3.5-5.0); Alkaline Phosphatase 73 U/L (39-117); Aspartate Amino Transferase 28 U/L (5-31); Bilirubin Direct 0.2 mg/dL (0.0-0.5); Bilirubin Total 0.3 mg/dL (0.0-1.0); Lipase 60 U/L (8-78); Magnesium 1.8 mg/dL (1.6-2.6); Total Protein 6.7 g/dL (6.5-8.0)
== END 2021-10-27 14:16 | disposition home or self-care (01) ==
PROVIDERS: Nurse Practitioner Family; Emergency Provider Emergency Medicine; PCP Physician Assistant
DX: R19.7 Diarrhea, unspecified (principal); I10 Essential (primary) hypertension; R10.9 Unspecified abdominal pain; F17.210 Nicotine dependence, cigarettes, uncomplicated; Z71.6 Tobacco abuse counseling; Z79.899 Other long term (current) drug therapy
CPT/HCPCS: 36415; 74176; 80048; 80076; 82272; 83605; 83690; 83735; 85025; 96374; 96375; 99284; J1885; J2405

== ENCOUNTER 2021-10-31 12:19 | Emergency (ER) | payer MEDICARE, SELFPAY ==
--- NOTE | ~2021-10-31 | CT_ITS ---
EXAMINATION: CT ABDOMEN AND PELVIS WITHOUT CONTRAST CLINICAL INFORMATION: Worsening abdominal pain and diarrhea COMPARISON: CT abdomen pelvis 10/27/2021 TECHNIQUE: Multidetector volumetric imaging was performed from the superior aspect of the liver through the pubic symphysis. Sagittal and coronal reformatted images were obtained on the technologist's workstation. This CT examination was performed using dose optimization techniques as appropriate, variously including the following: *Automated exposure control *Adjustment of mA and/or kV according to patient size (this includes techniques or standardized protocols for targeted exams where dose is matched to indication/reason for exam; i.e. extremities or head) *Use of iterative reconstruction technique DLP: 267 mGy-cm FINDINGS: LUNG BASES: The visualized lung bases are unremarkable. LIVER, GALLBLADDER, AND BILIARY TREE: The liver is normal in size, shape, and attenuation. No focal hepatic lesion or biliary ductal dilatation is present. The gallbladder is unremarkable with no evidence of radiopaque gallstones, gallbladder wall thickening, or obvious pericholecystic inflammatory changes. PANCREAS: Unremarkable. SPLEEN: Unremarkable. ADRENAL GLANDS: Unremarkable. KIDNEYS AND URETERS: The kidneys are normal in size, shape, and attenuation. No hydronephrosis, hydroureter, or calculi seen. No perinephric stranding. BLADDER: Diffusely thick-walled appearance favored due to limited distention. GASTROINTESTINAL TRACT: No dilated bowel loops. Sigmoid diverticulosis. Minimal pericolonic fat stranding in the left hemipelvis on series 2-52, suspicious for mild acute diverticulitis. No definite bowel wall thickening. Normal appendix. No ascites or free air. ABDOMINAL WALL: No significant hernia is appreciated. LYMPH NODES: No lymphadenopathy. VASCULAR: Moderate vascular calcifications. Normal caliber abdominal aorta. PELVIC VISCERA: Small 1.1 cm simple/benign appearing left adnexal cyst, unchanged. Gynecologic structures otherwise unremarkable. OSSEOUS STRUCTURES: No acute fracture or suspicious osseous lesion. Multilevel degenerative disc disease most advanced at L2-L3 and L5-S1. CT/CT abdomen pelvis wo con IMPRESSION: 1. Findings suspicious for mild acute sigmoid diverticulitis. Correlate clinically. No perforation or abscess.
[2021-10-31 13:21] VITALS: BP 127/67; PULSE 60; RESP 18; TEMP 36.9; O2SAT 97; BMI 17.9
[2021-10-31 13:26] LABS: MANUAL DIFF FLAG NO
[2021-10-31 13:27] LABS: Basophils Absolute Auto 0.1 X10*3/uL (0.0-0.2); Eosinophils Absolute Auto 0.5 X10*3/uL (0.0-0.4); Eosinophils Percent Auto 6.5 % (0-4); Hematocrit 39.8 % (37.0-47.0); Imm Gran Abs Auto 0.01 X10*3/uL (0.00-0.03); Imm Gran Pct Auto 0.1 % (0.0-0.4); Lymphocytes Absolute Auto 2.2 X10*3/uL (1.2-4.9); Lymphocytes Percent Auto 27.3 % (20-40); Mean Corpuscular HGB Conc 32.7 g/dl (31.0-35.0); Mean Corpuscular Hemoglobin 31.5 pg (27.0-33.0); Mean Corpuscular Volume 96.4 fL (80.0-98.0); Mean Platelet Volume 9.9 fL (9.4-12.3); Monocytes Absolute Auto 0.8 X10*3/uL (0.1-1.2); Monocytes Percent Auto 9.5 % (2-11); Neutrophils Absolute Auto 4.5 x10*3/uL (2.0-8.3); Neutrophils Percent Auto 55.6 % (45-73); Platelet Count 209 X10*3/uL (160-400); Red Blood Count 4.13 X10*6/uL (4.20-5.50); Red Cell Distribution Width 12.8 % (11.0-16.0); White Blood Count 8.1 X10*3/uL (4.8-10.8)
[2021-10-31 13:40] LABS: Appearance Urine CLEAR; Color Urine YELLOW; Glucose Urine UA NEG (NEG); Leukocyte Esterase Urine NEG (NEG); Nitrite Urine NEG (NEG); Specific Gravity - Urine 1.025 (1.005-1.025); Urine Blood NEG (NEG); Urine Ketones NEG (NEG); Urine Protein NEG (NEG-TRACE)
[2021-10-31 14:00] LABS: Anion Gap 11 (12-20); Blood Urea Nitrogen 19 mg/dL (9-16); Carbon Dioxide 25 mmol/L (22-29); Chloride 109 mmol/L (96-108); Creatinine Clr Calc Pharmacy 49.5; Estimated Glomerular Filt Rate > 60; Glucose Random 89 mg/dL (60-115); Potassium 4.1 mmol/L (3.3-5.1); Sodium 141 mmol/L (135-145)
[2021-10-31 16:22] LABS: Alanine Aminotransferase 19 U/L (0-31); Albumin Level 3.9 g/dL (3.5-5.0); Alkaline Phosphatase 81 U/L (39-117); Aspartate Amino Transferase 26 U/L (5-31); Bilirubin Direct 0.2 mg/dL (0.0-0.5); Bilirubin Total 0.3 mg/dL (0.0-1.0); Total Protein 6.4 g/dL (6.5-8.0)
[2021-10-31 16:59] LABS: Leukocytes Stool Qualitative FEW: < 2/OIF (NEGATIVE)
--- NOTE | 2021-10-31 17:31 | ED.ABDPAIN ---
HPI - Abdominal Pain General Chief Complaint: Abdominal Pain Stated Complaint: nausea headache back pain Time Seen by Provider: 10/31/21 15:34 Source: patient Mode of arrival: ambulatory Limitations: no limitations History of Present Illness HPI narrative: 66-year-old female with a past medical history of COPD, pulmonary nodules, hypertension who is presenting to the ER with complaints of diffuse abdominal pain/bloating/cramping associated light brown diarrhea that is now forming that has been present for the past 4 weeks/1 month. She reports she was seen here on 10/27/2021 and had labs and a CT scan of her abdomen and pelvis and then she was sent home although no symptomatic relief she was not sent home with anything and she continues to have the diarrhea. She also went to her PCP on 10/24/2021 and told them she was also having diarrhea and they placed her on Cipro and Flagyl and she had worsening symptoms therefore they told her to discontinue the antibiotics per the patient. She had a colonoscopy in 2019 which revealed a polyp otherwise no other acute processes that she was aware of. She reports that she has not been on any recent antibiotics, she denies any recent travel or sick contacts, she denies any possible bad food exposure, she denies any others with similar symptoms, she denies any fevers, nausea/vomiting, chest pain or shortness of breath, dyspnea on exertion, orthopnea, back pain, flank pain, dysuria, hematuria, abnormal vaginal discharge, black or bloody stools, constipation or any other symptoms complaints or concerns at this time. She denies a history of C diff that she is aware of. She reports that the stool was not mucousy. MD elicited complaint: abdominal pain Pertinent past history: other (See above) Onset (ago): month(s) (1) Pain Consistency: constant Location: diffuse Severity: moderate Quality: cramping, aching and fullness Radiation: none Migration to: no migration Exacerbating factors: eating Relieving factors: nothing Associated symptoms: diarrhea Related Data Home Medications Medication Instructions Recorded Confirmed ascorbate calcium (vitamin C) 500 1,000 mg PO DAILY 06/20/20 10/24/21 mg tablet cholecalciferol (vitamin D3) 50 50 mcg PO DAILY 06/20/20 10/24/21 mcg (2,000 unit) tablet Previous Rx's Medication Instructions Recorded ipratropium 0.5 mg-albuterol 3 mg 3 ml inhalation Q4-6H PRN 10/16/20 (2.5 mg base)/3 mL nebulization wheezing/copd 30 days #90 mL soln atorvastatin 40 mg tablet 40 mg PO DAILY 90 days #90 tabs 01/09/21 carvedilol 3.125 mg tablet 3.125 mg PO BID 90 days #180 tabs 04/10/21 albuterol sulfate 90 mcg/actuation 2 puff PO Q6H PRN for wheezing 09/17/21 aerosol inhaler #25.5 grams sertraline 100 mg tablet 100 mg PO DAILY 90 days #90 tabs 10/10/21 blood pressure test kit-small #1 ea 10/24/21 amoxicillin 875 mg-potassium 1 tab PO Q12H 7 days #14 tabs 10/25/21 clavulanate 125 mg tablet levofloxacin 750 mg tablet 750 mg PO DAILY 10 days #10 tabs 10/31/21 metronidazole 500 mg tablet 500 mg PO BID 10 days #20 tabs 10/31/21 Allergies Allergy/AdvReac Type Severity Reaction Status Date / Time Iodinated Contrast Media Allergy Mild HIVES AND Verified 10/24/21 09:55 [IV Dye, Iodine Containing] RASH propoxyphene [From Darvon] Allergy Mild N/V Verified 10/24/21 09:55 Review of Systems Review of Systems Constitutional : No Fever, No Chills, No Night Sweats, No Fatigue, No Malaise Cardiovascular : No Chest Pain, No SOB Respiratory : No Cough, No Sputum, No Wheezing, No Dyspnea Gastrointestinal : + Nausea, + Vomiting, No Diarrhea, + abdominal Pain, No Hematochezia, No Melena Genitourinary : No irregular bleeding, No Dysuria, No Urinary Frequency, No Hematuria,No Urinary Incontinence, No Urgency, No Flank Pain Musculoskeletal : No joint pain, No Myalgias, No Joint Swelling Skin : No Skin Lesions, No rash Neuro : No Weakness, No Numbness, No Paresthesias, No Loss of Consciousness, No Dizziness, No Headache Heme/Lymph: No Lymphadenopathy Endocrine : No Temperature Intolerance Yes all other systems are reviewed and are negative FOR[facility]LY [facility] Past Medical History Attestation statement: The following information was validated with the patient. Source: old records reviewed and nursing notes reviewed Medical History COPD (chronic obstructive pulmonary disease) HLD (hyperlipidemia) HTN (hypertension) MDD (major depressive disorder), recurrent episode, moderate Pulmonary nodules Family History Family History Father Lung cancer Mother Heart attack Social History Social History Housing: Apartment Alcohol intake: current Alcohol intake frequency: a few times a month Alcohol type: beer Patient Tobacco Use Status: Current everyday Tobacco user Cigarette Packs Per Day: 0.5 Cigarettes Per Day: 10 e-Cigarette/Vaping Use: Never Used Second Hand Smoke Exposure: No Advance Directives: No Advance Directives Information Provided: No Advance Directives Date on File: 09/17/20 service: No Current occupational status: employed Current occupation: [employer] Cognitive needs: No Hearing needs: No Vision needs: No Physical Exam ED Vital Signs: Vital Signs - 24 hr 10/31/21 13:21 Temperature 98.4 F Pulse Rate 60 Respiratory Rate 18 Blood Pressure 127/67 Pulse Oximetry 97 Oxygen Delivery Method Room Air BMI result Body Mass Index 17.9 Vital signs have been reviewed and all within normal limits Appearance: Alert. Oriented X3. No acute distress. Head: Normal external exam. Normocephalic. Eyes: PERRLA. EOMI. Conjunctiva and sclera normal. Eyelids normal. ENT: Pharynx normal. Uvula midline. Moist mucous membranes. No trismus noted. No drooling noted. No muffled voice noted. Neck: Normal inspection. Neck supple. FROM. No adenopathy. No meningeal signs. CVS: Normal heart rate and rhythm. Heart sound normal. No murmurs noted. Pulses normal throughout. Respiratory: No respiratory distress. Painless inspiration. Breath sounds normal. No wheezes/rales/rhonchi noted. Chest nontender. No accessory muscle usage noted or decreased air movement noted. Abdomen: Soft and moderate tenderness diffusely. Nondistended. No guarding. No rigidity. Bowel sounds normal in all 4 quadrants. No distention noted. No organomegaly noted. No visible injury noted. No rebound tenderness. Negative Rovsing sign. Negative obturator's sign. Negative psoas sign. Negative Rose sign. Back: No CVA tenderness. Full range of motion noted. Skin: Skin warm and dry. Normal skin color. Normal skin turgor. No rashes/lesions/lacerations noted. Extremities: Extremities exhibit normal range of motion. Extremities nontender. Neuro: Oriented X 3. No motor deficit. No sensory deficit. Reflexes normal. Normal steady gait. CN's II-XII intact bilaterally? Course Course Course Narrative: 13:15pm - 66-year-old female with a past medical history of COPD, pulmonary nodules, hypertension who is presenting to the ER with complaints of diffuse abdominal pain/bloating/cramping associated light brown diarrhea that is now forming that has been present for the past 4 weeks/1 month. She reports she was seen here on 10/27/2021 and had labs and a CT scan of her abdomen and pelvis and then she was sent home although no symptomatic relief she was not sent home with anything and she continues to have the diarrhea. She also went to her PCP on 10/24/2021 and told them she was also having diarrhea and they placed her on Cipro and Flagyl and she had worsening symptoms therefore they told her to discontinue the antibiotics per the patient. She had a colonoscopy in 2019 which revealed a polyp otherwise no other acute processes that she was aware of. She reports that she has not been on any recent antibiotics before her PCP placed her on some. Plan: Will obtain labs, C diff stool sample, stool sample for GI panel, UA, CT scan abdomen pelvis without IV contrast and re-evaluate Reevaluation(s) Reevaluation #1: - labs returned patient's chloride 109. Anion gap 11. BUN 19. Total protein 6.4. All other labs are within normal limits. UA within normal limits no evidence of UTI. - patient positive for C diff. - today CT scan shows now mild acute sigmoid diverticulitis no perforation or abscess. - therefore patient will be placed on Flagyl and Levaquin for C diff/diverticulitis and instructions to follow-up based PCP and will refer to gastroenterology and instructions return if any new or worsening symptoms. Patient understands agrees with this plan. Time: 18:17 [facility] - Abdominal Pain Medical Records Attestation: I reviewed the patient's medical records. Lab Data Attestation: I reviewed the patient's lab results. Result diagrams: 10/31/21 13:18 10/31/21 13:18 Labs: Lab Results 10/31/21 10/31/21 10/31/21 Range/Units 13:18 13:18 13:33 WBC 8.1 (4.8-10.8) X10*3/uL RBC 4.13 L (4.20-5.50) X10*6/uL Hgb 13.0 (12.0-16.0) g/dl Hct 39.8 (37.0-47.0) % MCV 96.4 (80.0-98.0) fL MCH 31.5 (27.0-33.0) pg MCHC 32.7 (31.0-35.0) g/dl RDW 12.8 (11.0-16.0) % Plt Count 209 (160-400) X10*3/uL MPV 9.9 (9.4-12.3) fL Immature Gran % (Auto) 0.1 (0.0-0.4) % Neut % (Auto) 55.6 (45-73) % Lymph % (Auto) 27.3 (20-40) % Berg[place] % (Auto) 9.5 (2-11) % Eos % (Auto) 6.5 H (0-4) % Baso % (Auto) 1.0 (0-2) % Lymph # (Auto) 2.2 (1.2-4.9) X10*3/uL Berg[place] # (Auto) 0.8 (0.1-1.2) X10*3/uL Eos # (Auto) 0.5 H (0.0-0.4) X10*3/uL Baso # (Auto) 0.1 (0.0-0.2) X10*3/uL Abs Immat Gran (auto) 0.01 (0.00-0.03) X10*3/uL Absolute Neuts (auto) 4.5 (2.0-8.3) x10*3/uL Absolute Nucleated RBC 0.000 (0.0-0.012) X10*3/uL Nucleated RBC % (auto) 0.0 (0.0-0.2) /100WBC Sodium 141 (135-145) mmol/L Potassium 4.1 (3.3-5.1) mmol/L Chloride 109 H (96-108) mmol/L Carbon Dioxide 25 (22-29) mmol/L Anion Gap 11 L (12-20) BUN 19 H (9-16) mg/dL Creatinine 0.75 (0.5-1.4) mg/dL Estim Creat Clear Calc 49.5 Estimated GFR > 60 Random Glucose 89 (60-115) mg/dL Calcium 9.0 (8.4-10.2) mg/dL Total Bilirubin 0.3 (0.0-1.0) mg/dL Direct Bilirubin 0.2 (0.0-0.5) mg/dL AST 26 (5-31) U/L ALT 19 (0-31) U/L Alkaline Phosphatase 81 (39-117) U/L Total Protein 6.4 L (6.5-8.0) g/dL Albumin 3.9 (3.5-5.0) g/dL Urine Color YELLOW Urine Appearance CLEAR Urine pH 6.0 (5.0-8.0) Ur Specific Paragon 1.025 (1.005-1.025) Urine Protein NEG (NEG-TRACE) MG/DL Urine Glucose (UA) NEG (NEG) MG/DL Urine Ketones NEG (NEG) MG/DL Urine Blood NEG (NEG) Urine Nitrite NEG (NEG) Ur Leukocyte Esterase NEG (NEG) Stool Leukocytes, Qual (NEGATIVE) C. difficile Tox B Gene (Negative) 10/31/21 10/31/21 Range/Units 16:19 16:19 WBC (4.8-10.8) X10*3/uL RBC (4.20-5.50) X10*6/uL Hgb (12.0-16.0) g/dl Hct (37.0-47.0) % MCV (80.0-98.0) fL MCH (27.0-33.0) pg MCHC (31.0-35.0) g/dl RDW (11.0-16.0) % Plt Count (160-400) X10*3/uL MPV (9.4-12.3) fL Immature Gran % (Auto) (0.0-0.4) % Neut % (Auto) (45-73) % Lymph % (Auto) (20-40) % Bergen % (Auto) (2-11) % Eos % (Auto) (0-4) % Baso % (Auto) (0-2) % Lymph # (Auto) (1.2-4.9) X10*3/uL Berg[place] # (Auto) (0.1-1.2) X10*3/uL Eos # (Auto) (0.0-0.4) X10*3/uL Baso # (Auto) (0.0-0.2) X10*3/uL Abs Immat Gran (auto) (0.00-0.03) X10*3/uL Absolute Neuts (auto) (2.0-8.3) x10*3/uL Absolute Nucleated RBC (0.0-0.012) X10*3/uL Nucleated RBC % (auto) (0.0-0.2) /100WBC Sodium (135-145) mmol/L Potassium (3.3-5.1) mmol/L Chloride (96-108) mmol/L Carbon Dioxide (22-29) mmol/L Anion Gap (12-20) BUN (9-16) mg/dL Creatinine (0.5-1.4) mg/dL Estim Creat Clear Calc Estimated GFR Random Glucose (60-115) mg/dL Calcium (8.4-10.2) mg/dL Total Bilirubin (0.0-1.0) mg/dL Direct Bilirubin (0.0-0.5) mg/dL AST (5-31) U/L ALT (0-31) U/L Alkaline Phosphatase (39-117) U/L Total Protein (6.5-8.0) g/dL Albumin (3.5-5.0) g/dL Urine Color Urine Appearance Urine pH (5.0-8.0) Ur Specific Paragon (1.005-1.025) Urine Protein (NEG-TRACE) MG/DL Urine Glucose (UA) (NEG) MG/DL Urine Ketones (NEG) MG/DL Urine Blood (NEG) Urine Nitrite (NEG) Ur Leukocyte Esterase (NEG) Stool Leukocytes, Qual FEW: < 2/OIF (NEGATIVE) C. difficile Tox B Gene POSITIVE A* (Negative) Imaging Data CT scan abdomen pelvis with IV contrast: Attestation: I personally reviewed and interpreted this imaging study as follows: Radiologist's impression: FINDINGS: LUNG BASES: The visualized lung bases are unremarkable.? LIVER, GALLBLADDER, AND BILIARY TREE: The liver is normal in size, shape, and attenuation. No focal hepatic lesion or biliary ductal dilatation is present. The gallbladder is unremarkable with no evidence of radiopaque gallstones, gallbladder wall thickening, or obvious pericholecystic inflammatory changes.? PANCREAS: Unremarkable.? SPLEEN: Unremarkable.? ADRENAL GLANDS: Unremarkable.? KIDNEYS AND URETERS: The kidneys are normal in size, shape, and attenuation. No hydronephrosis, hydroureter, or calculi seen. No perinephric stranding. ? BLADDER: Diffusely thick-walled appearance favored due to limited distention.? GASTROINTESTINAL TRACT: No dilated bowel loops. Sigmoid diverticulosis. Minimal pericolonic fat stranding in the left hemipelvis on series 2-52, suspicious for mild acute diverticulitis. No definite bowel wall thickening. Normal appendix. No ascites or free air. ABDOMINAL WALL: No significant hernia is appreciated.? LYMPH NODES: No lymphadenopathy. VASCULAR: Moderate vascular calcifications. Normal caliber abdominal aorta. PELVIC VISCERA: Small 1.1 cm simple/benign appearing left adnexal cyst, unchanged. Gynecologic structures otherwise unremarkable.? OSSEOUS STRUCTURES: No acute fracture or suspicious osseous lesion. Multilevel degenerative disc disease most advanced at L2-L3 and L5-S1. CT/CT abdomen pelvis wo con IMPRESSION: ? 1. Findings suspicious for mild acute sigmoid diverticulitis. Correlate clinically. No perforation or abscess. ? Critical Care Time Critical Care Time Critical Care Time: Yes Total Critical Care Time: 60 Attestation: I personally attest to this time spent taking care of the patient Discharge Plan Discharge Clinical Impression: Diverticulitis, C. difficile colitis Patient Disposition: Home, Self-Care Instructions: Diverticulitis (ED), C. Diff (Clostridioides Difficile) Infection (ED), Diverticulitis Diet (ED) Prescriptions: New metronidazole 500 mg tablet 500 mg PO BID 10 Days Qty: 20 0RF levofloxacin 750 mg tablet 750 mg PO DAILY 10 Days Qty: 10 0RF No Action atorvastatin 40 mg tablet 40 mg PO DAILY 90 Days Qty: 90 2RF carvedilol 3.125 mg tablet 3.125 mg PO BID 90 Days Qty: 180 2RF Rx Instructions: must administer with a meal/food albuterol sulfate 90 mcg/actuation HFA aerosol inhaler 2 puff PO Q6H PRN (Reason: for wheezing) Qty: 25.5 0RF sertraline 100 mg tablet 100 mg PO DAILY 90 Days Qty: 90 2RF amoxicillin-pot clavulanate 875-125 mg tablet 1 tab PO Q12H 7 Days Qty: 14 0RF (DME) blood pressure test kit-small Kit See Rx Instructions .Route Qty: 1 0RF Rx Instructions: As directed cholecalciferol (vitamin D3) 50 mcg (2,000 unit) tablet 50 mcg PO DAILY ascorbate calcium (vitamin C) 500 mg tablet 1,000 mg PO DAILY ipratropium-albuterol 0.5 mg-3 mg(2.5 mg base)/3 mL solution for nebulization 3 ml inhalation Q4-6H PRN (Reason: wheezing/copd) 30 Days Qty: 90 3RF Referrals: Ernst Huerta PA-C [Primary Care Provider] - 2 days Tomas Bryant MD [Physician] - 1 week Stand Alone Forms: Work/School Release Print Language: Kyrgyz
[2021-10-31 17:46] LABS: CDiff Gene PCR POSITIVE (Negative)
[2021-10-31 18:23] LABS: CDIFF Internal ctrl Dots and bkg OK (V)
[2021-10-31 18:26] LABS: CDiff Toxin Positive (Negative)
== END 2021-10-31 19:07 | disposition home or self-care (01) ==
PROVIDERS: Physician Assistant Medical; Emergency Provider Student in an Organized Health Care Education/Training Program; PCP Physician Assistant
DX: K57.92 Diverticulitis of intestine, part unspecified, without perforation or abscess without bleeding (principal); A04.72 Enterocolitis due to Clostridium difficile, not specified as recurrent; R10.9 Unspecified abdominal pain; I10 Essential (primary) hypertension; Z79.899 Other long term (current) drug therapy; F17.210 Nicotine dependence, cigarettes, uncomplicated; Z71.6 Tobacco abuse counseling
CPT/HCPCS: 36415; 74176; 80048; 80076; 81003; 85025; 87324; 87493; 89055; 99282; 99284

== ENCOUNTER 2021-11-05 11:47 | Outpatient (REF) | payer MEDICARE, SELFPAY ==
[2021-11-05 12:45] LABS: Hematocrit 46.6 % (37.0-47.0); Hemoglobin 15.2 g/dl (12.0-16.0); Mean Corpuscular HGB Conc 32.6 g/dl (31.0-35.0); Mean Corpuscular Hemoglobin 31.5 pg (27.0-33.0); Mean Corpuscular Volume 96.7 fL (80.0-98.0); Mean Platelet Volume 10.2 fL (9.4-12.3); Platelet Count 255 X10*3/uL (160-400); Red Blood Count 4.82 X10*6/uL (4.20-5.50); Red Cell Distribution Width 12.4 % (11.0-16.0); White Blood Count 8.7 X10*3/uL (4.8-10.8)
[2021-11-05 13:14] LABS: C Reactive Protein 0.39 mg/dL (< or = 0.50)
[2021-11-05 13:37] LABS: TSH reflex Free T4 1.69 uIU/mL (0.32-4.0)
[2021-11-05 13:47] LABS: Folate 13.2 ng/mL (> or = 4.0); Vitamin B12 397 pg/mL (200-900)
[2021-11-05 14:02] LABS: Appearance Urine HAZY; Color Urine DK YELLOW; Glucose Urine UA NEG (NEG); Leukocyte Esterase Urine NEG (NEG); Nitrite Urine POS (NEG); Specific Gravity - Urine >= 1.030 (1.005-1.025); UACC Culture Trigger YES; Urine Blood NEG (NEG); Urine Ketones 5 MG/DL (NEG); Urine Protein 1+ MG/DL (NEG-TRACE)
[2021-11-05 14:11] LABS: Bacteria Urine TRACE /LPF; Mucus Urine 3+ /LPF; RBC Urine 0-2 /HPF (0); Squamous Epithelial Cell Urine 2+ /LPF
[2021-11-05 14:12] LABS: Calcium Oxalate Crystals Urine 4+ /LPF
[2021-11-09 13:56] LABS: Vitamin D 25-OH, D2 <4 ng/mL; Vitamin D 25-OH, D3 24 ng/mL; Vitamin D 25-OH, Total 24 ng/mL (30-100)
== END 2021-11-05 11:48 | disposition home or self-care (01) ==
LOC: HO.LAB 11:47
PROVIDERS: PCP Physician Assistant; Visit Provider Nurse Practitioner Family
DX: A09 Infectious gastroenteritis and colitis, unspecified (principal); A04.72 Enterocolitis due to Clostridium difficile, not specified as recurrent; R10.32 Left lower quadrant pain; K58.9 Irritable bowel syndrome, unspecified; E55.9 Vitamin D deficiency, unspecified
CPT/HCPCS: 36415; 81001; 82306; 82607; 82746; 84443; 85027; 86140; 87086; 99202; 99212

== ENCOUNTER 2021-11-12 08:00 | Outpatient (REF) | payer MEDICARE, SELFPAY ==
[2021-11-12 10:55] LABS: Leukocytes Stool Qualitative NEGATIVE (NEGATIVE)
[2021-11-12 11:10] LABS: CDiff Gene PCR NEGATIVE (Negative)
[2021-11-12 13:05] LABS: Adenovirus F 40/41 Not Detected (Not Detect.); Astrovirus Not Detected (Not Detect.); Campylobacter Not Detected (Not Detect.); Cryptosporidium Not Detected (Not Detect.); Cyclospora cayetanensis Not Detected (Not Detect.); E. coli EAEC Not Detected (Not Detect.); E. coli EPEC Not Detected (Not Detect.); E. coli ETEC Not Detected (Not Detect.); E. coli STEC Not Detected (Not Detect.); Entamoeba histolytica Not Detected (Not Detect.); Giardia lamblia Not Detected (Not Detect.); Norovirus GI/GII Not Detected (Not Detect.); Plesiomonas shigelloides Not Detected (Not Detect.); Rotavirus A Not Detected (Not Detect.); Salmonella Not Detected (Not Detect.); Sapovirus Not Detected (Not Detect.); Shigella sp./EIEC Not Detected (Not Detect.); Vibrio Not Detected (Not Detect.); Vibrio Cholerae Not Detected (Not Detect.); Yersinia enterocolitica Not Detected (Not Detect.)
== END 2021-11-12 08:01 | disposition home or self-care (01) ==
LOC: HO.LNP 08:00
PROVIDERS: Physician Assistant; Visit Provider Nurse Practitioner Family
DX: R30.0 Dysuria (principal); R19.7 Diarrhea, unspecified
CPT/HCPCS: 36415; 81003; 82705; 87177; 87209; 87493; 87507; 89055

== ENCOUNTER → 2021-11-15 13:04 | Outpatient (BNVA) | payer MEDICARE, SELFPAY | PROVIDERS: PCP Physician Assistant; Visit Provider Nurse Practitioner Family | DX: Z01.818 Encounter for other preprocedural examination (principal); K59.00 Constipation, unspecified; R10.32 Left lower quadrant pain; A04.72 Enterocolitis due to Clostridium difficile, not specified as recurrent | CPT/HCPCS: 99212 ==

== ENCOUNTER 2021-11-29 11:46 | Day surgery (SDC) | payer MEDICARE, SELFPAY ==
[2021-11-29 12:03] VITALS: BMI 16.0
[2021-11-29 12:16] VITALS: BP 145/79; PULSE 72; RESP 18; TEMP 36.6; O2SAT 99
[2021-11-29] MEDS: Lactated Ringers 1,000 ML 100 ML IVCONT (12:29)
--- NOTE | 2021-11-29 13:01 | HO.ANESPROP2 ---
HPI - Anesthesia Eval Consult details Narrative: 66 yo female patient for colonoscopy PMF Active Problems Active Problems: All Active Problems (Updated 11/05/21 @ 11:53 by Jessica Ruth [facility]) C. difficile colitis (Acute) Dark stools (Acute) Microalbuminuria (Acute) LLQ abdominal pain (Acute) Postmenopausal (Acute) Costochondritis (Acute) HTN (hypertension) (Acute) Screening for osteoporosis (Acute) Rib pain on left side (Acute) Rib pain on right side (Acute) UTI (urinary tract infection) (Acute) HLD (hyperlipidemia) (Acute) Annual physical exam (Acute) Varicose veins of left lower extremity with inflammation (Acute) Varicosities of leg (Acute) Smoker (Acute)- Last cigarette this am Pulmonary nodules (Acute) COPD (chronic obstructive pulmonary disease) (Acute)- moderately severe. Uses inhaler prn Depression Past Medical History Medical History C. difficile colitis COPD (chronic obstructive pulmonary disease) HLD (hyperlipidemia) HTN (hypertension) MDD (major depressive disorder), recurrent episode, moderate Pulmonary nodules Family History Family History Father Lung cancer Mother Heart attack Family history of problems with anesthesia: No Surgical History History of Problems with Anesthesia: No Social History Social History (Updated 11/29/21 @ 13:09 by Miley Ramirez MD) Housing: Apartment Alcohol intake: current Alcohol intake frequency: a few times a month Alcohol type: beer Patient Tobacco Use Status: Current everyday Tobacco user Tobacco use type: Cigarette Cigarette Packs Per Day: 0.5 Cigarettes Per Day: 12.0 Smoked in Last 30 Days: Yes e-Cigarette/Vaping Use: Never Used Second Hand Smoke Exposure: No Use of substances other than those prescribed or required for medical reasons: No Are you DNR?: No Advance Directives: No Advance Directives Information Provided: Yes Advance Directives on File: No Advance Directives Date on File: 09/17/20 service: No Current occupational status: employed Current occupation: [employer] Cognitive needs: No Hearing needs: No Vision needs: No Meds Allergies Allergy/AdvReac Type Severity Reaction Status Date / Time Iodinated Contrast Media Allergy Mild HIVES AND Verified 11/15/21 13:19 [IV Dye, Iodine Containing] RASH propoxyphene [From Darvon] Allergy Mild N/V Verified 11/15/21 13:19 Active Medications: Current Medications Albuterol Sulfate (Albuterol Sulfate (0.083%) 2.5 Mg/3 Ml Vial.Neb) 2.5 mg INHALE ONCE PRN PRN Reason: Shortness of Breath/Wheezing Lactated Ringer's (Lr) 1,000 mls @ 100 mls/hr IVCONT .Q10H OTONIEL Last Admin: 11/29/21 12:29 Dose: 100 mls/hr Home Medications Medication Instructions Recorded Confirmed Last Taken Type ascorbate calcium (vitamin C) 500 1,000 mg PO DAILY 06/20/20 10/24/21 Unknown History mg tablet cholecalciferol (vitamin D3) 50 50 mcg PO DAILY 06/20/20 10/24/21 Unknown History mcg (2,000 unit) tablet Exam Exam Date and Time: November 29, 2021 1301 Height,Weight and Vital Signs: Height 5 ft 4 in Weight 42.184 kg Last Vital Signs Temp 97.8 F 11/29/21 12:16 Pulse 72 11/29/21 12:16 Resp 18 11/29/21 12:16 BP 145/79 H 11/29/21 12:16 Pulse Ox 99 11/29/21 12:16 O2 Del Method 11/29/21 12:16 Airway Mallampati Class: II TM Dist: >3cm Neck ROM: Full Partial: Upper and Lower Heart: RRR Lungs: CTAB Assessment and Plan Final Anesthetic Review Family History of Problems with Anesthesia: No History of Problems with Anesthesia: No NPO: Yes ASA Class: III Final Preanesthetic Review: No Changes in Pt Med Stat, Meds/Allgs Chart Reviewed, Consent Obtained/Reviewed and Anes Risks/Benef Reviewed Patient Risk: Intermediate Procedure Risk: Low Assessment/Block/Sedation in SS: Assess/Block/Sedation-SS Anesthetic Plan Anesthetic Plan: MAC: Disposition: Standard PACU
--- NOTE | 2021-11-29 13:41 | MHC.SHP ---
Pre-Procedural Eval Section A Date of Service: 11/29/21 The patient is an INPATIENT: No Changes since office visit: Yes Patient answered all questions; No Cold of Flu in the past 2 weeks, No New Medical Problems and No Changes in Medication The History & Physical has been completed within 30 days and I have reviewed it.: Yes Section B Chief Complaint: LLQ pain,enterocolitis Allergies: Allergies Allergy/AdvReac Type Severity Reaction Status Date / Time Iodinated Contrast Media Allergy Mild HIVES AND Verified 11/15/21 13:19 [IV Dye, Iodine Containing] RASH propoxyphene [From Darvon] Allergy Mild N/V Verified 11/15/21 13:19 Plan I have reviewed the history and physical and performed a pertinent physical examination on my patient. No changes have occurred unless specified.
--- NOTE | 2021-11-29 13:41 | PM.OP ---
Brief Operative Note Date of Service: 11/29/21 Pre-op diagnosis: abdominal pain, diarrhea, history of hyperplastic colon polyps Post-op diagnosis: other ( colon polyps, diverticulosis, hemorrhoids) Procedure: COLONOSCOPY TILL CECUM WITH BIOPSIES AND SNARE POLYPECTOMY Consent: Indications for the procedure and potential complications of bleeding, perforation, reaction to medications and missed diagnosis were discussed with the patient and informed consent was obtained. Instrument: Olympus PCF H 190 L variable stiffness pediatric colonoscope Monitoring: Vital signs and clinical assessment, intermittent blood pressure monitoring, continuous EKG monitoring, Pulse oximetry and Carbon Dioxide monitoring were done throughout the procedure. Colon withdrawl time was 18 minutes. Procedure: The patient was placed in the left lateral decubitis position and pre-procedure medications were administered. After a digital rectal examination of the ano-rectum, the video colonoscope was inserted into the rectum and advanced through the colon to the cecum. The colonoscope was slowly withdrawn in a retrograde panoramic fashion and the colon mucosa was carefully examined including a retroflexed view of the rectum. Findings and interventions are described below. Procedure Difficulty: colon was long and tortuous and there was spasm in some loop formation, no maneuvers were required Findings: Terminal Ileum: Not evaluated Cecum: Normal Ascending Colon: Two 5 to 6 mm diminutive appearing polyp in the proximal ascending colon removed with a cold biopsy. scattered moderate diverticulosis throughout the colon Transverse Colon: Two 8 to 12 mm sessile polyps removed with a hot snare. A 4-5 mm diminutive appearing polyp removed with a cold biopsy. Multiple 5 to 12 mm hyperplastic appearing polyps in the transverse, descending and sigmoid colon. Scattered moderate diverticulosis throughout the colon Descending Colon: Multiple 5 to 12 mm hyperplastic appearing polyps in the transverse, descending and sigmoid colon. moderate diverticulosis. Sigmoid Colon: Severe diverticulosis with luminal narrowing Rectum: Normal Ano-rectum: Moderate internal hemorrhoids Colon preparation: Good after some irrigation Impression and Post Procedure Diagnosis: Colonoscopy Findings: Five small to medium sized polyps removed (pt has a hx of hyperplastic polyps on past colonoscopies) Random biopsies were obtained from the right and left colon to check for microscopic colitis Moderate to severe diverticulosis seen in the entire colon, Lt > Rt Moderate hemorrhoids on retroflexed exam. Plan: Await pathology results Patient has an appointment on 12/13/21 in the GI Clinic with Jessica Ruth FNP-BC. Repeat Colonoscopy interval based on path results - in 3-5 years if polyps are adenomatous and 10 years if polyps are hyperplastic. Above findings were reviewed with the patient and colon polyps and diverticulosis handouts were given in the discharge area Surgeon: Clinton Ogden MD Anesthesia: MAC Was an Pump Attendant used for this Procedure?: Yes Pump Attendant: Charisma Torres Estimated blood loss (mL): 0 Pathology: other (A. ascending colon polyps (2) B. right colon bxs, R/O microscopic colitis C. transverse colon polyps (3) D. left colon bxs, R/O microscopic colitis) Condition: stable Disposition: PACU
--- NOTE | 2021-11-29 13:42 | W.PM.OPN ---
Operative Note Operative Note Date of Service: 11/29/21 Narrative: Pre-op diagnosis: abdominal pain, diarrhea,? history of hyperplastic colon polyps Post-op diagnosis:?other ( colon polyps, diverticulosis, hemorrhoids) Procedure: COLONOSCOPY TILL CECUM WITH BIOPSIES AND SNARE POLYPECTOMY Consent: Indications for the procedure and potential complications of bleeding, perforation, reaction to medications and missed diagnosis were discussed with the patient and informed consent was obtained. Instrument: Olympus PCF H 190 L variable stiffness pediatric colonoscope Monitoring: Vital signs and clinical assessment, intermittent blood pressure monitoring, continuous EKG monitoring, Pulse oximetry and Carbon Dioxide monitoring were done throughout the procedure. Colon withdrawl time was 18 minutes. Procedure: The patient was placed in the left lateral decubitis position and pre-procedure medications were administered. After a digital rectal examination of the ano-rectum, the video colonoscope was inserted into the rectum and advanced through the colon to the cecum. The colonoscope was slowly withdrawn in a retrograde panoramic fashion and the colon mucosa was carefully examined including a retroflexed view of the rectum. Findings and interventions are described below. Procedure Difficulty: ? colon was long and tortuous and there was spasm in some loop formation, no maneuvers were required Findings: Terminal Ileum: Not evaluated Cecum:? Normal Ascending Colon:? Two 5 to 6 mm? diminutive appearing polyp in the proximal ascending colon removed with a cold biopsy. ?scattered moderate diverticulosis throughout the colon Transverse Colon:? Two 8 to 12 mm? sessile polyps removed with a hot snare.? A 4-5 mm diminutive appearing polyp removed with a cold biopsy. Multiple 5 to 12 mm hyperplastic appearing polyps in the? transverse,? descending and sigmoid colon.? Scattered moderate diverticulosis throughout the colon Descending Colon:? Multiple 5 to 12 mm hyperplastic appearing polyps in the? transverse,? descending and sigmoid colon. ?moderate diverticulosis. Sigmoid Colon:? Severe diverticulosis with luminal narrowing Rectum:? Normal Ano-rectum:? Moderate internal hemorrhoids Colon preparation:? Good after some irrigation Impression and Post Procedure Diagnosis: Colonoscopy Findings: Five small to medium sized polyps removed (pt has a hx of hyperplastic polyps on past colonoscopies) Random biopsies were obtained from the right and left colon to check for microscopic colitis Moderate to severe diverticulosis seen in the entire colon, Lt > Rt Moderate hemorrhoids on retroflexed exam. Plan: Await pathology results Patient has an appointment on 12/13/21 in the GI Clinic with Jessica Ruth FNP-BC. Repeat Colonoscopy interval based on path results - in 3-5 years if polyps are adenomatous or hyperplastic. Above findings were reviewed with the patient and colon polyps and diverticulosis handouts were given in the discharge area From Uptodate: In patients with hyperplastic polyps > 10 mm, a repeat colonoscopy is suggested in three to five years. If there is concern about consistency in the distinction between SSP and HP locally, adequacy of the bowel preparation, or complete excision, we suggest a three-year follow-up interval. Otherwise a five-year interval is favored. Surgeon: Clinton Ogden MD Anesthesia:?MAC Was an Venetian Blind Tape Cutter used for this Procedure?:?Yes Venetian Blind Tape Cutter:?Charisma Torres Estimated blood loss (mL):?0 Pathology:?other (A. ascending colon polyps (2)? B. right colon bxs, R/O microscopic colitis? C. transverse colon polyps (3)? D. left colon bxs, R/O microscopic colitis) Condition:?stable Disposition:?PACU
[2021-11-29 14:25] VITALS: BP 119/55; PULSE 65; RESP 16; TEMP 36.4; O2SAT 100
[2021-11-29 14:40] VITALS: BP 120/72; PULSE 64; RESP 16; O2SAT 100
[2021-11-29 14:55] VITALS: BP 140/70; PULSE 64; RESP 16; TEMP 36.4; O2SAT 100
== END 2021-11-29 15:33 ==
LOC: HO.SSS 11:47
PROVIDERS: PCP Physician Assistant; Visit Provider Internal Medicine Gastroenterology
PROC: 0DJD8ZZ Inspection of Lower Intestinal Tract, Via Natural or Artificial Opening Endoscopic (ICD-10-PCS; CPT 45378; principal; 2021-11-29 13:10)
DX: R10.32 Left lower quadrant pain (principal); R19.7 Diarrhea, unspecified; A04.72 Enterocolitis due to Clostridium difficile, not specified as recurrent; D12.2 Benign neoplasm of ascending colon; K63.5 Polyp of colon; K57.30 Diverticulosis of large intestine without perforation or abscess without bleeding; K64.8 Other hemorrhoids; I10 Essential (primary) hypertension; E78.5 Hyperlipidemia, unspecified; J44.9 Chronic obstructive pulmonary disease, unspecified; R91.8 Other nonspecific abnormal finding of lung field; F33.1 Major depressive disorder, recurrent, moderate; Z79.899 Other long term (current) drug therapy; Z91.041 Radiographic dye allergy status; Z88.8 Allergy status to other drugs, medicaments and biological substances; F17.210 Nicotine dependence, cigarettes, uncomplicated
CPT/HCPCS: 45385; 45380; 88305

== ENCOUNTER → 2021-12-13 10:54 | Outpatient (BNVA) | payer MEDICARE, SELFPAY | PROVIDERS: PCP Physician Assistant; Visit Provider Nurse Practitioner Family | DX: D12.2 Benign neoplasm of ascending colon (principal); K63.5 Polyp of colon; K57.30 Diverticulosis of large intestine without perforation or abscess without bleeding; R10.32 Left lower quadrant pain; R19.7 Diarrhea, unspecified; K59.00 Constipation, unspecified; Z98.890 Other specified postprocedural states | CPT/HCPCS: 99212 ==

== ENCOUNTER 2021-12-16 17:10 | Outpatient (REF) | payer MEDICARE, SELFPAY ==
[2021-12-21 23:57] LABS: Pancreatic Elastase-1 >500 mcg/g
== END 2021-12-16 17:11 | disposition home or self-care (01) ==
LOC: HO.LNP 17:10
PROVIDERS: Visit Provider Nurse Practitioner Family
DX: R10.9 Unspecified abdominal pain (principal)
CPT/HCPCS: 82656

== ENCOUNTER → 2022-02-03 11:43 | Outpatient (BNVA) | payer MEDICARE, SELFPAY | PROVIDERS: PCP Physician Assistant; Visit Provider Nurse Practitioner Family | DX: K57.90 Diverticulosis of intestine, part unspecified, without perforation or abscess without bleeding (principal); K58.0 Irritable bowel syndrome with diarrhea | CPT/HCPCS: 99212 ==

== ENCOUNTER 2022-03-06 13:55 | Outpatient (REF) | payer MEDICARE, SELFPAY ==
--- NOTE | ~2022-03-06 | MM_ITS ---
EXAMINATION: MM SCREENING DIGITAL BREAST TOMOSYNTHESIS, BILATERAL CLINICAL INFORMATION: Screening. Asymptomatic. The lifetime risk of breast cancer based on the Tyrer-Cuzick Model is 4.2%. COMPARISON: Mammography: December 29, 2020 and studies dating back to July 06, 2015 TECHNIQUE: Digital breast tomosynthesis is performed in both the craniocaudal and mediolateral oblique views along with computer-aided detection (CAD). Synthesized 2D images are generated from the tomosynthesis. FINDINGS: The breasts are heterogeneously dense, which may obscure small masses (ACR BI-RADS breast composition Category c). There are no significant masses, abnormal calcifications, or other abnormalities. MM/MM tomosynthesis screening BI IMPRESSION: No significant changes from prior exam. ASSESSMENT: BI-RADS 1: Negative RECOMMENDATION: Routine annual mammography screening. This patient's information was entered into a reminder system with a target due date for their next mammogram.
== END 2022-03-06 13:56 | disposition home or self-care (01) ==
LOC: HO.MAMMO 13:55
PROVIDERS: PCP Physician Assistant; Visit Provider Physician Assistant
DX: Z12.31 Encounter for screening mammogram for malignant neoplasm of breast (principal)
CPT/HCPCS: 77063; 77067

== ENCOUNTER → 2022-06-03 13:43 | Outpatient (BNVA) | payer MEDICARE, SELFPAY | PROVIDERS: PCP Physician Assistant; Visit Provider Internal Medicine | DX: J41.0 Simple chronic bronchitis (principal); R91.8 Other nonspecific abnormal finding of lung field; F17.210 Nicotine dependence, cigarettes, uncomplicated | CPT/HCPCS: 99212 ==

== ENCOUNTER → 2022-08-01 10:58 | Outpatient (BNVA) | payer MEDICARE, SELFPAY | PROVIDERS: PCP Physician Assistant; Visit Provider Nurse Practitioner Family | DX: K58.9 Irritable bowel syndrome, unspecified (principal); R10.32 Left lower quadrant pain | CPT/HCPCS: 99212 ==

== ENCOUNTER 2022-09-17 13:10 | Outpatient (REF) | payer MEDICARE, SELFPAY ==
--- NOTE | ~2022-09-17 | XR_ITS ---
EXAMINATION: Lumbar spine and sacroiliac joint x-rays CLINICAL INFORMATION: Pain. Right-sided sciatica COMPARISON: None. TECHNIQUE: 3 views of the lumbar spine 3 views of the sacroiliac joints FINDINGS: Lumbar spine: There is curvature of the lower lumbar spine to the left. Bone alignment is otherwise normal. There is multilevel degenerative disc disease and spondylosis. There is lower lumbar spine facet arthritis. There is atherosclerotic disease. Sacroiliac joints are normal. No evidence of sacroiliitis. Small osteophytes at the bilateral hip joints. XR/XR sacroiliac joint 1-2V IMPRESSION: Lumbar spine: Mild scoliosis and multilevel degenerative changes. Normal sacroiliac joints.
--- NOTE | ~2022-09-17 | XR_ITS ---
EXAMINATION: Lumbar spine and sacroiliac joint x-rays CLINICAL INFORMATION: Pain. Right-sided sciatica COMPARISON: None. TECHNIQUE: 3 views of the lumbar spine 3 views of the sacroiliac joints FINDINGS: Lumbar spine: There is curvature of the lower lumbar spine to the left. Bone alignment is otherwise normal. There is multilevel degenerative disc disease and spondylosis. There is lower lumbar spine facet arthritis. There is atherosclerotic disease. Sacroiliac joints are normal. No evidence of sacroiliitis. Small osteophytes at the bilateral hip joints. XR/XR lumbar spine 2-3V IMPRESSION: Lumbar spine: Mild scoliosis and multilevel degenerative changes. Normal sacroiliac joints.
== END 2022-09-17 13:11 | disposition home or self-care (01) ==
LOC: HO.XRAY 13:10
PROVIDERS: PCP Physician Assistant; Visit Provider Physician Assistant
DX: M54.31 Sciatica, right side (principal)
CPT/HCPCS: 72100; 72200

== ENCOUNTER 2022-10-30 10:05 | Outpatient (AMB) | payer MEDICARE, SELFPAY ==
[2022-10-30 10:09] VITALS: BP 112/68; PULSE 87; O2SAT 96; BMI 15.9
--- NOTE | 2022-10-30 10:09 | MHC.PC.OV ---
Vital Signs 10/30/22 10:09 Height 5 ft 3 in Weight 90 lb BMI 15.9 BP 112/68 Blood Pressure Location Lt brachial Position Sitting Pulse 87 Pulse Source Pulse Oximeter Pulse Oximetry (%) 96 Oxygen Delivery Method Room Air Intake Visit Reasons: PE Allergies Iodinated Contrast Media [IV Dye, Iodine Containing] Allergy (Mild, Verified 10/30/22 10:31) HIVES AND RASH propoxyphene [From Darvon] Allergy (Mild, Verified 10/30/22 10:31) N/V Medication List - Last Reconciled 10/30/22 by Ernst Huerta PA-C albuterol sulfate 90 mcg/actuation 2 puffs PO Q6H PRN ascorbate calcium (vitamin C) 1,000 mg (2 x 500 mg) PO DAILY 90 days atorvastatin 40 mg PO DAILY 90 days azithromycin For 250 mg dose pack: take 500 mg today (day 1), then 250 mg for 4 days (days 2-5) PO benzonatate 100 mg PO BID PRN 7 days blood pressure test kit-small As directed carvedilol 3.125 mg PO BID 90 days cholecalciferol (vitamin D3) 50 mcg PO DAILY cyclobenzaprine 10 mg PO BEDTIME 14 days dicyclomine 10 mg PO TID PRN fluticasone propionate 50 mcg/actuation (Flonase Allergy Relief) 2 sprays intranasal DAILY ibuprofen 600 mg PO TID PRN 15 days ipratropium-albuterol 0.5 mg-3 mg(2.5 mg base)/3 mL 3 mL inhalation Q4-6H PRN 30 days loratadine 10 mg PO DAILY 60 days prednisone 10 mg PO DAILY sertraline 100 mg PO DAILY 90 days Tobacco use date assessed: 10/10/22 Fall risk assessment: No Falls in past year Last assessed Fall Risk: 10/30/22 Dental Screening Dental Screen Date: 10/30/22 Did you have a dental visit in the last 12 months?: Yes Did you have a dental problem in the last 6 months where you did not have access to dental care?: No Was dental information given to patient?: Patient has dentist HPI PE HPI Details Partient? is a 67-year-old female here today for an annual physical..? Patient has a past medical history significant for COPD, pulmonary nodules, hypertension. TODAY IN OFFICE APPEARS ILL DOES NOT HAVE HEARING AIDS SO IS VERY HARD OF HEARING AND IS READING LIPS. COMES IN WITH A FRIEND WHOM PRESENTS MOST OF THE HISTORY. PATIENT VERY UNSTABLE ON FEET. HAS RECENTLY BEEN STARTED ON ANTIBIOTIC FOR SINUS INFECTION THOUGH HAS NOT BEEN CLINICALLY IMPROVING. ADVISED TO GO TO ER CHRONIC MEDICAL CONDITIONS--> ? 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 Breathing has been stable, .. HTN: Doesn't check her BP at home.? Today in office blood pressures stableslightly elevated.? Has been on carvedilol for many years now with good results.? Denies any chest discomfort, palpitations, headaches. .. Low BMI:? She does report having low BMI for along time now and believes is due to stress.? Will continue to follow her weight. Vaccines:? Up-to-date pneumonia, up-to-date with COVID vaccine, up-to-date flu vac, Need Tdap. Colorectal cancer screening: done in 2019 Polyp found [facility] Medical History C. difficile colitis COPD (chronic obstructive pulmonary disease) Diverticulosis HLD (hyperlipidemia) HTN (hypertension) Irritable bowel syndrome without diarrhea LLQ abdominal pain MDD (major depressive disorder), recurrent episode, moderate Nicotine dependence, cigarettes, uncomplicated Osteopenia (~2009) Pulmonary nodules Tubular adenoma of colon Varicosities of leg Surgical History History of blepharoplasty History of colonoscopy History of ear surgery History of laparotomy History of pelvic surgery History of surgery on lower extremity Family History Father Lung cancer Mother Heart attack Social History Housing: Apartment Alcohol intake: current Alcohol intake frequency: a few times a month Alcohol type: beer Patient Tobacco Use Status: Former Tobacco user (3 months) Tobacco use type: Cigarette Cigarette Packs Per Day: 0.5 Cigarettes Per Day: 10 e-Cigarette/Vaping Use: Never Used Second Hand Smoke Exposure: No Advance Directives Date on File: 09/17/20 service: No Current occupational status: employed Current occupation: [employer] Cognitive needs: No Hearing needs: Yes Vision needs: Yes Questionnaire PHQ-9 Over the last 2 weeks, how often have you been bothered by any of the following problems? 1. Little interest or pleasure in doing things: not at all 2. Feeling down, depressed, or hopeless: not at all 3. Trouble falling or staying asleep, or sleeping too much: not at all 4. Feeling tired or having little energy: not at all 5. Poor appetite or overeating: not at all 6. Feeling bad about yourself - or that you are a failure or have let yourself or your family down: not at all 7. Trouble concentrating on things, such as reading the newspaper or watching television: not at all 8. Moving or speaking so slowly that other people could have noticed. Or the opposite - being so fidgety or restless that you have been moving around a lot more than usual: not at all 9. Thoughts that you would be better off or of hurting yourself in some way: not at all Total score: 0 Depression Screening Interpretation: Negative 20247 - PHQ-9 Billing: Yes Source: Developed by Drs. Julio Cornejo, Taina Brady, Ranulfo Anderson and colleagues, with an educational cleo from [employer]. Thrive Questionnaire Date Thrive assessed: 07/07/22 AUDIT C Alcohol Use Questionnaire (AUDIT-C) 1. How often do you have a drink containing alcohol?: Monthly or less 3. How often do you have six or more drinks on one occasion?: Never Total Score: 1 Score Reviewed/Action Taken: No JORGE-7 AMB Questionnaire JORGE-7 Date JORGE - 7 assessed: 07/07/22 Source: Developed by Drs. Julio Cornejo, Ranulfo Gonzales and colleagues, with an educational cleo from [employer]. Review of Systems Const Denies body aches, Denies chills, Denies excessive sweating, Denies fatigue, Denies fever(s) and Denies headache(s) Eyes Denies blurry vision ENT Denies dysphagia, Denies vertigo, Denies dizziness, Denies headache(s), Denies hearing loss and Denies tinnitus Card Denies chest pain, Denies chest pain with activity, Denies syncope, Denies irregular heart rhythm and Denies dyspnea Resp Denies chest congestion, Denies cough, Denies hemoptysis, Denies dyspnea and Denies wheezing GI Denies abdominal pain, Denies melena, Denies hematochezia, Denies coffee ground emesis, Denies dysphagia, Denies diarrhea, Denies nausea and Denies vomiting Denies urinary frequency, Denies dysuria, Denies urinary hesitancy and Denies urinary urgency Musc Denies arthralgias, Denies limited range of motion, Denies muscle cramps and Denies muscle weakness Skin/Breast Denies rash and Denies skin ulcer Neuro Denies Abnormal speech present, Denies confusion, Denies vertigo, Denies dizziness, Denies syncope, Denies headache(s), Denies memory loss and Denies seizure-like activity Psych Denies anxiety, Denies confusion, Denies depression, Denies memory loss, Denies panic attacks and Denies paranoia Endo Denies excessive sweating, Denies fatigue, Denies flushing, Denies polydipsia and Denies polyuria Aller/Immun Denies wheezing Physical exam (Primary Care) Vital Signs: Last Vital Signs Pulse 87 10/30/22 10:09 BP 112/68 10/30/22 10:09 Pulse Ox 96 10/30/22 10:09 Oxygen Delivery Method Room Air 10/30/22 10:09 BMI result Body Mass Index 15.9 BMI Assessment/Plan discussion: Low Tobacco/Smoking Status: Tobacco use Status Tobacco use date assessed 10/10/22 10/30/22 10:16 Patient Tobacco Use Status Former Tobacco user (3 10/30/22 10:16 months) Tobacco use type Cigarette 10/30/22 10:16 e-Cigarette/Vaping Use Never Used 10/30/22 10:16 PHQ-9: PHQ-9 Score PHQ-9: Total score 0 10/30/22 10:33 Depression Screening Interpretation: Negative Thrive Assessment: Date of Thrive Assessment Date Thrive assessed 07/07/22 10/30/22 10:16 Const Other: APPEARS THIN, DOES APPEAR SOMEWHAT PALE AND FATIGUED. General: cooperative, comfortable, no acute distress, alert and awake; No confusion Orientation/consciousness: oriented to person, oriented to place, patient oriented x3 and No confusion HENMT Head: Yes normocephalic Ears: external ears normal and TM's normal bilaterally Face and sinus: No sinus tenderness Mouth: Normal oral and palatal mucosa present and tongue normal Teeth and gingiva: dentition normal and gingiva normal Throat: Yes posterior oropharynx normal, Yes tonsils normal and Yes uvula midline Eyes Conjunctivae: conjunctivae normal Sclerae: sclerae normal Pupils: Equal, round and reactive pupils present EOM: EOMs intact bilaterally Direct Ophthalmoscopy: No no photophobia Neck Neck: Yes no lymphadenopathy, No tender and Yes no JVD Thyroid: Thyroid normal Carotids: no bruits Chest Chest palpation & inspection: no tenderness Resp Effort & Inspection: normal respiratory effort, no audible wheezes, not labored and no stridor Auscultation: no crackles, no rales, no rhonchi and no wheezes Cardio Jugular venous distension: no JVD Rate: regular rate, not bradycardic and not tachycardic Rhythm: regular rhythm Bruits: no carotid bruits Peripheral pulses: Peripheral pulses 2+ throughout GI Inspection: Yes normal to inspection, No abdominal wall ecchymosis and No visible herniation Palpation (GI): Soft to palpation, nontender, no guarding, not rigid and No hepatosplenomegaly present Auscultation: normoactive bowel sounds General: Yes no CVA tenderness Back/Spine/Pelvis Back: no CVA tenderness and No back tenderness Cervical Spine: cervical ROM normal Thoracic/Lumbar Spine: thoracic and lumbar spine normal to inspection, straight leg raise negative bilaterally, No thoraco-lumbar ROM limited and No lumbar spinal tenderness Skin Lesions: no lesions Rashes: no rashes Wounds: no wounds Neuro General: oriented to person, oriented to place, patient oriented x3, CN's II-XI intact bilaterally and No confusion Cranial nerves: Yes Equal, round and reactive pupils present and Yes Normal accommodation reflex present Cognition (Neuro): normal cognition Speech: No Abnormal speech present Gait exam (Neuro): Normal gait present Motor exam (neuro): 5/5 motor strength present throughout Extrem Right upper extremity: full ROM; no cyanosis Left upper extremity: full ROM; no cyanosis Right lower extremity: no edema Left lower extremity: no edema Psych Appearance: grossly normal Mental Status: mental status grossly normal Affect: normal affect Attitude: cooperative Thought process: Normal thought process present Assessment and Plan Assessment & Plan (1) Annual physical exam: Code(s): Z00.00 - Encounter for general adult medical examination without abnormal findings (2) Headache: Code(s): R51.9 - Headache, unspecified Qualifiers: Headache type: unspecified Headache chronicity pattern: acute headache Intractability: intractable Qualified Code(s): R51.9 - Headache, unspecified Plan: PATIENT CONTINUES TO HAVE HEADACHE AND NECK PAIN EVEN WITH BEING TREATED FOR THE SINUS INFECTION. APPEARS SOMEWHAT ILL TODAY IN OFFICE. HAS LOST 9 LB SINCE LAST OFFICE VISIT OVER LAST 2 WEEKS. FAILURE TO THRIVE. ADVISED TO GO TO ER. (3) HTN (hypertension): Code(s): I10 - Essential (primary) hypertension Qualifiers: Hypertension type: essential hypertension Qualified Code(s): I10 - Essential (primary) hypertension Plan: Blood pressure slightly low today in office. Has been somewhat ill over the last several weeks and likely not in taking fluids adequately. (4) COPD (chronic obstructive pulmonary disease): Comment: She is fully aware of the fact that she has moderately severe COPD. Symptoms are somewhat aggravated due to smoking. Advised to protects herself from the main triggers such as cold air and dust, Quit smoking. Meds : Duo Neb UDs tid . and use Albuterol inhalor as less as possible . Scrips are reviewed Code(s): J44.9 - Chronic obstructive pulmonary disease, unspecified Qualifiers: COPD type: chronic bronchitis Chronic bronchitis type: simple Qualified Code(s): J41.0 - Simple chronic bronchitis Plan: Followed by pulmonology. Previous smoker. Does use albuterol inhaler on a p.r.n. basis. Also has ipratropium albuterol solution for nebulizer that she uses on occasion. He (5) HLD (hyperlipidemia): Code(s): E78.5 - Hyperlipidemia, unspecified Qualifiers: Hyperlipidemia type: mixed hyperlipidemia Qualified Code(s): E78.2 - Mixed hyperlipidemia Plan: Continues on statin therapy. Will try to get fasting lipid panel in near future (6) Lumbar radiculopathy, acute: Code(s): M54.16 - Radiculopathy, lumbar region Plan: Has upcoming MRI lumbar spine due to continued lumbar spine radiculopathy (7) Weight loss: Code(s): R63.4 - Abnormal weight loss Plan: As above lost significant amount of weight over the last several weeks. Not eating due to feeling ill Medications: New ibuprofen 800 mg PO Q8H 7 days 21 tabs 0RF M54.16 - Radiculopathy, lumbar region Discontinued ibuprofen Discontinued Reason: Doctor's Order 600 mg PO TID 15 days PRN 45 tabs 0RF pain M54.31 - Sciatica, right side Coding Level of Care Code Est Pt Prev Care >65y(35936) Diagnoses Annual physical exam Z00.00 Headache R51.9 Headache type: unspecified Headache chronicity pattern: acute headache Intractability: intractable HTN (hypertension) I10 Hypertension type: essential hypertension COPD (chronic obstructive pulmonary disease) J41.0 COPD type: chronic bronchitis Chronic bronchitis type: simple HLD (hyperlipidemia) E78.2 Hyperlipidemia type: mixed hyperlipidemia Lumbar radiculopathy, acute M54.16 Weight loss R63.4
== END 2022-10-30 11:00 | disposition home or self-care (01) ==
PROVIDERS: Visit Provider Physician Assistant
DX: Z00.00 Encounter for general adult medical examination without abnormal findings (principal); I10 Essential (primary) hypertension; J41.0 Simple chronic bronchitis; R51.9 Headache, unspecified; E78.2 Mixed hyperlipidemia; M54.16 Radiculopathy, lumbar region; R63.4 Abnormal weight loss
CPT/HCPCS: 99397

== ENCOUNTER 2022-10-30 11:12 | Emergency (ER) | payer MEDICARE, SELFPAY ==
--- NOTE | ~2022-10-30 | CT_ITS ---
EXAMINATION: CT HEAD WITHOUT CONTRAST CLINICAL INFORMATION: New onset headache. COMPARISON: Head CT scan dated 05/20/2018. TECHNIQUE: Contiguous axial imaging was performed from the skull base to vertex without intravenous administration of contrast. Coronal and sagittal reformatted images were obtained. This CT examination was performed using dose optimization techniques as appropriate, variously including the following: *Automated exposure control *Adjustment of mA and/or kV according to patient size (this includes techniques or standardized protocols for targeted exams where dose is matched to indication/reason for exam; i.e. extremities or head) *Use of iterative reconstruction technique DLP: 575 mGy-cm FINDINGS: The cortical sulci are normal. The lateral ventricles are symmetrical. The third and fourth ventricles are in their normal midline position. The basilar and prepontine cisterns are unremarkable. There is no acute intra or extracerebral abnormality. There is no mass effect or midline shift. Sections through the bony calvarium are unremarkable. The paranasal sinuses are clear. Postsurgical changes are seen in the left mastoid air cells with hyperaeration. Hypoaeration of the mastoid air cells on the right. The bony orbits and orbital contents are unremarkable. CT/CT head/brain wo IV con IMPRESSION: No acute intracranial pathology.
[2022-10-30 11:40] VITALS: BP 157/74; PULSE 60; RESP 18; TEMP 36.6; O2SAT 98; BMI 16.5
--- NOTE | 2022-10-30 11:43 | ED.GENADULT ---
HPI - General Adult General Chief complaint: Headache Stated complaint: headache Time Seen by Provider: 10/30/22 18:18 Source: patient Mode of arrival: ambulatory Limitations: no limitations History of Present Illness HPI narrative: Patient is a 67-year-old female who presents emergency department for evaluation of nausea, generalized weakness, headache, neck pain, dizziness with onset of symptoms 2 weeks ago. She is currently on antibiotics for presumed sinus infection. Denies any fevers or chills. She was seen at her primary care provider's office today was advised to come to the emergency department. She is additionally reporting a 9 lb weight loss in the past 2 weeks, although she does admit that she has not been eating or drinking much as she does not have much of an appetite due to her chronic pain; lumbar radiculopathy for which she is awaiting outpatient MRI which is scheduled in 5 days. Denies lower abdominal pain, constipation, diarrhea, bloody or dark stools, hematuria, urinary frequency/urgency/hesitancy, bladder or bowel dysfunction. Related Data Previous Rx's Medication Instructions Recorded blood pressure test kit-small #1 ea 10/24/21 ascorbate calcium (vitamin C) 500 1,000 mg PO DAILY 90 days #180 tabs 02/17/22 mg tablet atorvastatin 40 mg tablet 40 mg PO DAILY 90 days #90 tabs 02/17/22 carvedilol 3.125 mg tablet 3.125 mg PO BID 90 days #180 tabs 02/17/22 cholecalciferol (vitamin D3) 50 50 mcg PO DAILY #90 tabs 02/17/22 mcg (2,000 unit) tablet albuterol sulfate 90 mcg/actuation 2 puff PO Q6H PRN for wheezing 06/03/22 aerosol inhaler #25.5 grams ipratropium 0.5 mg-albuterol 3 mg 3 ml inhalation Q4-6H PRN 06/03/22 (2.5 mg base)/3 mL nebulization wheezing/copd 30 days #90 mL soln dicyclomine 10 mg capsule 10 mg PO TID PRN abdominal 08/01/22 discomfort #90 caps benzonatate 100 mg capsule 100 mg PO BID PRN cough 7 days #14 08/19/22 caps sertraline 100 mg tablet 100 mg PO DAILY 90 days #90 tabs 08/19/22 fluticasone propionate 50 2 spray intranasal DAILY #16 grams 09/10/22 mcg/actuation nasal spray,suspension (Flonase Allergy Relief) loratadine 10 mg tablet 10 mg PO DAILY 60 days #60 tabs 09/15/22 cyclobenzaprine 10 mg tablet 10 mg PO BEDTIME 14 days #14 tabs 10/10/22 prednisone 10 mg tablet 10 mg PO DAILY #18 tabs 10/10/22 azithromycin 250 mg tablet See Rx Instructions PO .COMPLEX #6 10/27/22 tabs ibuprofen 800 mg tablet 800 mg PO Q8H 7 days #21 tabs 10/30/22 Allergies Allergy/AdvReac Type Severity Reaction Status Date / Time Iodinated Contrast Media Allergy Mild HIVES AND Verified 10/30/22 10:31 [IV Dye, Iodine Containing] RASH propoxyphene [From Darvon] Allergy Mild N/V Verified 10/30/22 10:31 Review of Systems Review of Systems: Constitutional: Positive weight loss. No fever. No chills. Positive generalized weakness. Positive fatigue. Eye: No swelling. No redness. ENT: No sore throat. No rhinorrhea. Positive nasal congestion. No sore throat. No difficulty swallowing. Skin: No rash. No itching. Cardiovascular: No chest pain. No chest pressure. No palpitations. No pedal edema. Respiratory: No shortness of breath. No cough. No sputum production. Gastrointestinal: Positive anorexia. Positive nausea. No vomiting. No diarrhea. No abdominal pain. No blood in stool. Genitourinary: No burning micturition. No urinary frequency. No incontinence. Neurologic: Positive headache. Positive dizziness. No pre-syncope/ syncope. No unilateral weakness. No ataxia. No change in bowel or bladder control. Musculoskeletal: No muscle pain. No back pain. No joint pain. No stiffness. Yes all other systems are reviewed and are negative PMFSH Past Medical History Attestation statement: The following information was validated with the patient. Source: old records reviewed Medical History C. difficile colitis COPD (chronic obstructive pulmonary disease) Diverticulosis HLD (hyperlipidemia) HTN (hypertension) Irritable bowel syndrome without diarrhea LLQ abdominal pain MDD (major depressive disorder), recurrent episode, moderate Nicotine dependence, cigarettes, uncomplicated Osteopenia (~2009) Pulmonary nodules Tubular adenoma of colon Varicosities of leg Surgical History History of blepharoplasty History of colonoscopy History of ear surgery History of laparotomy History of pelvic surgery History of surgery on lower extremity Family History Family History Father Lung cancer Mother Heart attack Social History Social History Housing: Apartment Alcohol intake: current Alcohol intake frequency: holidays/special occasions only Alcohol type: beer Patient Tobacco Use Status: Former Tobacco user (3 months) Tobacco use type: Cigarette Cigarette Packs Per Day: 0.5 Cigarettes Per Day: 10 Smoked in Last 30 Days: Yes e-Cigarette/Vaping Use: Never Used Second Hand Smoke Exposure: No Use of substances other than those prescribed or required for medical reasons: No Advance Directives: No Advance Directives Information Provided: No Advance Directives Date on File: 09/17/20 service: No Current occupational status: employed Current occupation: [employer] Cognitive needs: No Hearing needs: Yes Vision needs: Yes Physical Exam ED Vital Signs: Vital Signs - 24 hr 10/30/22 11:40 10/30/22 17:51 10/30/22 20:13 Temperature 97.8 F 98.5 F Pulse Rate 60 83 63 Respiratory Rate 18 19 18 Blood Pressure 157/74 H 149/68 H 148/49 H Pulse Oximetry 98 96 98 Oxygen Delivery Method Room Air Room Air Room Air BMI result Body Mass Index 16.5 Appearance: Alert.?Oriented to person, place and time. No acute distress.?Normal affect. Eyes: Pupils equal, round and reactive to light.? EOMI. No nystagmus. ENT: Pharynx normal.??TM normal bilaterally Neck: Normal inspection.? Neck supple.??No midline cervical spine tenderness, step-offs, deformities. CVS: Heart sounds normal. Normal heart rate and rhythm.? Pulses normal.?? Respiratory: No respiratory distress.? Lung sounds clear to auscultation bilaterally?? Abdomen: Soft and non-tender. Normoactive bowel sounds. ?? Skin: Skin warm and dry.? Normal skin color.? Extremities: No lower extremity edema.? No calf ttp? Neuro: Moves all extremities spontaneously. Sensation intact bilaterally. CN II-XII intact. No focal neuro deficits. No meningismus, negative Brudzinski and Kernig sign. Ambulates with slow antalgic gait gait. Course Course Course Narrative: This is an RME: Additional HPI, ROS, PE not included below will be deferred to primary provider. This is a [id number], hard of hearing - reads lips, and a past medical history of COPD, pulmonary nodules, hypertension who is presenting to the ER with complaints of nausea, weakness, headache, neck pain, dizziness x 2 weeks. On ABX for presumed sinus infection. Was sent in as an expect by Matthew Huerta. Hx of mastoid problems. Has lost 9lbs in 2 weeks. No chest pain or SOB. VSS in department. Plan: Labs, EKG, UA ordered. Further ED evaluation required. Reevaluation(s) Reevaluation #1: CBC reveals a mild leukocytosis of 12.9, likely reactive, urinalysis is without evidence of. CMP is overall unremarkable, elevated BUN normal creatinine, likely secondary to mild dehydration given poor oral intake. She received 1 L normal saline IV fluids while in the emergency department. Regarding the pain in the lumbar region of her spine, at this time feel that pain is most consistent with chronic lumbar radiculopathy, although cannot completely exclude herniated disc. There has been no recent injury. On neurological exam there are no deficits. Not consistent with spinal fracture, spinal infection, epidural abscess, AAA, or dissection. No high risk past medical history including incontinence, fever, immunosuppression, recent surgery or lumbar puncture, coagulopathy, significant trauma, pulsatile mass, history of cancer, history of TB, history of IV drug use that would warrant MRI or CT. Not consistent with pyelonephritis, urinary tract infection, renal calculi, pelvic infection, appendicitis, diverticulitis. On exam no concern for cauda equina syndrome. She has an outpatient MRI scheduled in 5 days for further evaluation of her chronic lumbar spine pain. CT of the head reveals no acute intracranial pathology. Headache with significant improvement after receiving IV fluids, Toradol, and tramadol, currently pain is 3/10. Reviewed these findings with patient, generalized weakness, headache, nausea, vomiting are likely due to her poor oral intake/biliary to thrive. Patient was offered evaluation by physical therapy/case management for potential short-term rehab. However patient declined. Would like to return home today. We reviewed worrisome signs and symptoms that would warrant re-evaluation in the emergency department. All questions were answered. Patient advised to contact her primary care provider for further follow-up. Time: 21:00 Medications Administered Discontinued Medications Generic Name Dose Route Start Last Admin Trade Name Ede PRN Reason Stop Dose Admin Sodium Chloride 1,000 mls @ 999 mls/hr 10/30/22 19:30 10/30/22 20:52 Ns IV 10/30/22 20:30 Infused .Q1H1M OTONIEL Infusion Ketorolac Tromethamine 15 mg 10/30/22 19:27 10/30/22 19:54 Ketorolac Tromethamine 15 Mg/Ml Vial IVPUSH 10/30/22 19:28 15 mg ONCE ONE Administration Ondansetron HCl 4 mg 10/30/22 19:27 10/30/22 19:54 Ondansetron Hcl 4 Mg/2 Ml Vial IVPUSH 10/30/22 19:28 4 mg ONCE ONE Administration Tramadol HCl 50 mg 10/30/22 19:27 10/30/22 19:47 Tramadol Hcl 50 Mg Tablet PO 10/30/22 19:28 50 mg ONCE ONE Administration Medical Decision Making Medical Decision Making MDM Narrative: Patient is a 59-year-old female with past medical history of COPD, hyperlipidemia, hypertension, IBS, depression, osteopenia, lumbar radiculopathy presenting to emergency department for evaluation of multiple complaints as per HPI. At the time of my examination she appears fatigued. She is significantly hard of hearing, she has a friend present with her who confirms her history. She was evaluated at her primary care doctor's office today was advised to come to the emergency department for intractable headache, I have reviewed the primary care office note, there was concern for adult failure to thrive additionally. Will obtain CBC to evaluate for leukocytosis/ anemia, CMP to evaluate for abnormal electrolytes /abnormal renal function/ abnormal hepatic function, EKG and troponin to evaluate for ischemia/ACS, CT of the head to evaluate for ICH/SAH/intracranial mass/infarct and Urinalysis. Differential Diagnosis Differential Diagnoses: The differential diagnosis associated with the presentation includes (As noted above) Admission/Observation Consideration of admission/observation: Escalation of care including admission/observation considered (I considered admission to the hospital for intractable headache. See course narrative for further evaluation) Lab Data MDM Lab Attestation statement: I reviewed the patient's lab results. (See course narrative) 10/30/22 12:07 10/30/22 12:07 Labs: Lab Results 10/30/22 10/30/22 10/30/22 Range/Units 12:07 12:07 12:07 WBC 12.9 H (4.8-10.8) X10*3/uL RBC 4.85 (4.20-5.50) X10*6/uL Hgb 15.2 (12.0-16.0) g/dl Hct 44.7 (37.0-47.0) % MCV 92.2 (80.0-98.0) fL MCH 31.3 (27.0-33.0) pg MCHC 34.0 (31.0-35.0) g/dl RDW 12.3 (11.0-16.0) % Plt Count 299 (160-400) X10*3/uL MPV 9.3 L (9.4-12.3) fL Immature Gran % (Auto) 0.3 (0.0-0.4) % Neut % (Auto) 74.6 H (45-73) % Lymph % (Auto) 17.9 L (20-40) % [place] % (Auto) 5.4 (2-11) % Eos % (Auto) 1.1 (0-4) % Baso % (Auto) 0.7 (0-2) % Lymph # (Auto) 2.3 (1.2-4.9) X10*3/uL [place] # (Auto) 0.7 (0.1-1.2) X10*3/uL Eos # (Auto) 0.1 (0.0-0.4) X10*3/uL Baso # (Auto) 0.1 (0.0-0.2) X10*3/uL Abs Immat Gran (auto) 0.04 H (0.00-0.03) X10*3/uL Absolute Neuts (auto) 9.6 H (2.0-8.3) x10*3/uL Absolute Nucleated RBC 0.000 (0.0-0.012) X10*3/uL Nucleated RBC % (auto) 0.0 (0.0-0.2) /100WBC Sodium 135 (135-145) mmol/L Potassium 3.6 (3.3-5.1) mmol/L Chloride 99 (96-108) mmol/L Carbon Dioxide 23 (22-29) mmol/L Anion Gap 17 (12-20) BUN 22 H (9-16) mg/dL Creatinine 0.85 (0.5-1.4) mg/dL Estim Creat Clear Calc 40.8 Estimated GFR > 60 Random Glucose 118 H (60-115) mg/dL Calcium 10.0 D (8.4-10.2) mg/dL Magnesium 1.9 (1.6-2.6) mg/dL Total Bilirubin 0.7 (0.0-1.0) mg/dL Direct Bilirubin 0.1 (0.0-0.5) mg/dL AST 26 (5-31) U/L ALT 13 (0-31) U/L Alkaline Phosphatase 65 (39-117) U/L Troponin I High Sens 4.3 (<3.5-17.0) ng/L Total Protein 7.5 (6.5-8.0) g/dL Albumin 3.9 (3.5-5.0) g/dL Urine Color Urine Appearance Urine pH (5.0-9.0) Ur Specific [place] (1.005-1.025) Urine Protein (Neg-Trace) mg/dL Urine Glucose (UA) (Negative) mg/dL Urine Ketones (Negative) mg/dL Urine Blood (Negative) Urine Nitrite (Negative) Ur Leukocyte Esterase (Negative) Urine RBC (0-2) /HPF Urine WBC (0-5) /HPF Ur Squamous Epith Cells (0-2) /HPF Calcium Oxalate Crystal Urine Bacteria (None Seen) Hyaline Casts (0-2) /LPF 10/30/22 Range/Units 18:40 WBC (4.8-10.8) X10*3/uL RBC (4.20-5.50) X10*6/uL Hgb (12.0-16.0) g/dl Hct (37.0-47.0) % MCV (80.0-98.0) fL MCH (27.0-33.0) pg MCHC (31.0-35.0) g/dl RDW (11.0-16.0) % Plt Count (160-400) X10*3/uL MPV (9.4-12.3) fL Immature Gran % (Auto) (0.0-0.4) % Neut % (Auto) (45-73) % Lymph % (Auto) (20-40) % [place] % (Auto) (2-11) % Eos % (Auto) (0-4) % Baso % (Auto) (0-2) % Lymph # (Auto) (1.2-4.9) X10*3/uL [place] # (Auto) (0.1-1.2) X10*3/uL Eos # (Auto) (0.0-0.4) X10*3/uL Baso # (Auto) (0.0-0.2) X10*3/uL Abs Immat Gran (auto) (0.00-0.03) X10*3/uL Absolute Neuts (auto) (2.0-8.3) x10*3/uL Absolute Nucleated RBC (0.0-0.012) X10*3/uL Nucleated RBC % (auto) (0.0-0.2) /100WBC Sodium (135-145) mmol/L Potassium (3.3-5.1) mmol/L Chloride (96-108) mmol/L Carbon Dioxide (22-29) mmol/L Anion Gap (12-20) BUN (9-16) mg/dL Creatinine (0.5-1.4) mg/dL Estim Creat Clear Calc Estimated GFR Random Glucose (60-115) mg/dL Calcium (8.4-10.2) mg/dL Magnesium (1.6-2.6) mg/dL Total Bilirubin (0.0-1.0) mg/dL Direct Bilirubin (0.0-0.5) mg/dL AST (5-31) U/L ALT (0-31) U/L Alkaline Phosphatase (39-117) U/L Troponin I High Sens (<3.5-17.0) ng/L Total Protein (6.5-8.0) g/dL Albumin (3.5-5.0) g/dL Urine Color Dark Yellow Urine Appearance Cloudy Urine pH 5.5 (5.0-9.0) Ur Specific [place] >= 1.030 H (1.005-1.025) Urine Protein 30 (1+) H (Neg-Trace) mg/dL Urine Glucose (UA) Negative (Negative) mg/dL Urine Ketones Trace (Negative) mg/dL Urine Blood Negative (Negative) Urine Nitrite Negative (Negative) Ur Leukocyte Esterase Trace H (Negative) Urine RBC 11-20 H (0-2) /HPF Urine WBC 0-5 (0-5) /HPF Ur Squamous Epith Cells 11-20 (0-2) /HPF Calcium Oxalate Crystal Present Urine Bacteria Trace (None Seen) Hyaline Casts >20 (0-2) /LPF Radiology Impression Discussion of test interpretation with radiology: I have reviewed the radiologist's reading. Radiologist Impression: CT/CT head/brain wo IV con IMPRESSION: No acute intracranial pathology. External Record Review External record reviewed: Outpatient record (As noted above) Tests considered The following testing was considered but not selected: Lumbar spine MRI; see course narrative Chronic Conditions Patient?s care impacted by: Hypertension Discharge Plan Discharge Clinical Impression: Headache, Lumbar radiculopathy Patient Disposition: Home, Self-Care Instructions: Acute Headache (ED), Lumbar Radiculopathy (ED) Additional Instructions: The CT scan of your head today did not reveal any abnormality. Your blood work revealed that you were mildly dehydrated. As discussed, it is important to eat small frequent meals and be sure to stay well hydrated. You can take Tylenol 500 mg, 2 tablets (1,000mg) every 4-6 hours as needed for pain, but not to exceed 3 doses daily (3,000mg).? You were offered to be evaluated by our physical therapy to department for potential recommendations of outpatient physical therapy versus short-term rehab however you declined. Please follow-up with your primary care provider for further management/treatment, and having your outpatient MRI as scheduled. Return back to emergency department any new or worsening symptoms or concerns. Prescriptions: No Action sertraline 100 mg tablet 100 mg PO DAILY 90 Days Qty: 90 2RF fluticasone propionate [Flonase Allergy Relief] 50 mcg/actuation spray,suspension 2 spray intranasal DAILY Qty: 16 3RF Rx Instructions: administer into each nostril loratadine 10 mg tablet 10 mg PO DAILY 60 Days Qty: 60 0RF azithromycin 250 mg tablet See Rx Instructions PO .COMPLEX Qty: 6 0RF Rx Instructions: For 250 mg dose pack: take 500 mg today (day 1), then 250 mg for 4 days (days 2-5) PO (DME) blood pressure test kit-small Kit See Rx Instructions .Route Qty: 1 0RF Rx Instructions: As directed atorvastatin 40 mg tablet 40 mg PO DAILY 90 Days Qty: 90 2RF ascorbate calcium (vitamin C) 500 mg tablet 1,000 mg PO DAILY 90 Days Qty: 180 2RF carvedilol 3.125 mg tablet 3.125 mg PO BID 90 Days Qty: 180 2RF Rx Instructions: must administer with a meal/food cholecalciferol (vitamin D3) 50 mcg (2,000 unit) tablet 50 mcg PO DAILY Qty: 90 2RF benzonatate 100 mg capsule 100 mg PO BID PRN (Reason: cough) 7 Days Qty: 14 0RF cyclobenzaprine 10 mg tablet 10 mg PO BEDTIME 14 Days Qty: 14 0RF prednisone 10 mg tablet 10 mg PO DAILY Qty: 18 0RF Rx Instructions: Take 3 tablets for 3 days then, Take 2 tablets 3 days then, Take 1 tablet 3 days and stop ibuprofen 800 mg tablet 800 mg PO Q8H 7 Days Qty: 21 0RF dicyclomine 10 mg capsule 10 mg PO TID PRN (Reason: abdominal discomfort) Qty: 90 2RF ipratropium-albuterol 0.5 mg-3 mg(2.5 mg base)/3 mL solution for nebulization 3 ml inhalation Q4-6H PRN (Reason: wheezing/copd) 30 Days Qty: 90 3RF albuterol sulfate 90 mcg/actuation HFA aerosol inhaler 2 puff PO Q6H PRN (Reason: for wheezing) Qty: 25.5 0RF Referrals: Ernst Huerta PA-C [Primary Care Provider] - Interventions: ED Discharge Assessment Last Done: 10/30/22 22:42 Discharge Date/Time: 10/30/22 22:44
--- NOTE | 2022-10-30 11:46 | ECG_ITS ---
Test Reason : WEAKNESS Blood Pressure : / mmHG Vent. Rate : 054 BPM Atrial Rate : 054 BPM P-R Int : 140 ms QRS Dur : 072 ms QT Int : 456 ms P-R-T Axes : 074 -51 037 degrees QTc Int : 432 ms Sinus bradycardia Left anterior fascicular block Abnormal ECG When compared with ECG of 20-MAY-2018 09:36, No significant change was found Referred By: Cheri Herrera Electronically Signed By:DIEGO HAYES MD
[2022-10-30 12:14] LABS: MANUAL DIFF FLAG NO
[2022-10-30 12:19] LABS: Basophils Absolute Auto 0.1 X10*3/uL (0.0-0.2); Basophils Percent Auto 0.7 % (0-2); Eosinophils Absolute Auto 0.1 X10*3/uL (0.0-0.4); Eosinophils Percent Auto 1.1 % (0-4); Hematocrit 44.7 % (37.0-47.0); Hemoglobin 15.2 g/dl (12.0-16.0); Imm Gran Abs Auto 0.04 X10*3/uL (0.00-0.03); Imm Gran Pct Auto 0.3 % (0.0-0.4); Lymphocytes Absolute Auto 2.3 X10*3/uL (1.2-4.9); Lymphocytes Percent Auto 17.9 % (20-40); Mean Corpuscular Hemoglobin 31.3 pg (27.0-33.0); Mean Corpuscular Volume 92.2 fL (80.0-98.0); Mean Platelet Volume 9.3 fL (9.4-12.3); Monocytes Absolute Auto 0.7 X10*3/uL (0.1-1.2); Monocytes Percent Auto 5.4 % (2-11); Neutrophils Absolute Auto 9.6 x10*3/uL (2.0-8.3); Neutrophils Percent Auto 74.6 % (45-73); Platelet Count 299 X10*3/uL (160-400); Red Blood Count 4.85 X10*6/uL (4.20-5.50); Red Cell Distribution Width 12.3 % (11.0-16.0); White Blood Count 12.9 X10*3/uL (4.8-10.8)
[2022-10-30 12:59] LABS: Troponin-I High Sensitivity 4.3 ng/L (<3.5-17.0)
[2022-10-30 13:04] LABS: Alanine Aminotransferase 13 U/L (0-31); Albumin Level 3.9 g/dL (3.5-5.0); Alkaline Phosphatase 65 U/L (39-117); Anion Gap 17 (12-20); Aspartate Amino Transferase 26 U/L (5-31); Bilirubin Direct 0.1 mg/dL (0.0-0.5); Bilirubin Total 0.7 mg/dL (0.0-1.0); Blood Urea Nitrogen 22 mg/dL (9-16); Carbon Dioxide 23 mmol/L (22-29); Chloride 99 mmol/L (96-108); Creatinine Clr Calc Pharmacy 40.8; Estimated Glomerular Filt Rate > 60; Glucose Random 118 mg/dL (60-115); Magnesium 1.9 mg/dL (1.6-2.6); Potassium 3.6 mmol/L (3.3-5.1); Sodium 135 mmol/L (135-145); Total Protein 7.5 g/dL (6.5-8.0)
[2022-10-30 17:51] VITALS: BP 149/68; PULSE 83; RESP 19; TEMP 36.9; O2SAT 96
[2022-10-30 18:47] LABS: Appearance Urine Cloudy; Color Urine Dark Yellow; Glucose Urine UA Negative (Negative); Leukocyte Esterase Urine Trace (Negative); Nitrite Urine Negative (Negative); PH 5.5 (5.0-9.0); Specific Gravity - Urine >= 1.030 (1.005-1.025); UMIC TRIGGER UACC YES; Urine Blood Negative (Negative); Urine Ketones Trace mg/dL (Negative); Urine Protein 30 (1+) mg/dL (Neg-Trace)
[2022-10-30 18:57] LABS: Bacteria Urine Trace (None Seen); Calcium Oxalate Crystals Urine Present; Hyaline Casts Urine >20 /LPF (0-2); WBC Urine 0-5 /HPF (0-5)
[2022-10-30] MEDS: traMADoL HCL 50 MG TABLET PO (19:47)
[2022-10-30] MEDS: 0.9 % Sodium Chloride 1,000 ML 999 ML IV (19:54)
[2022-10-30] MEDS: ondansetron HCL 4 MG/2 ML VIAL IVPUSH (19:54)
[2022-10-30] MEDS: Ketorolac Tromethamine 15 MG/ML VIAL IVPUSH (19:54)
[2022-10-30 20:13] VITALS: BP 148/49; PULSE 63; RESP 18; O2SAT 98
== END 2022-10-30 22:44 | disposition home or self-care (01) ==
PROVIDERS: Physician Assistant Medical; Emergency Provider Internal Medicine; PCP Physician Assistant
DX: R51.9 Headache, unspecified (principal); M54.16 Radiculopathy, lumbar region; R00.1 Bradycardia, unspecified; F17.210 Nicotine dependence, cigarettes, uncomplicated; Z71.6 Tobacco abuse counseling; Z79.899 Other long term (current) drug therapy
CPT/HCPCS: 36415; 70450; 80048; 80076; 81001; 83735; 84484; 85025; 93005; 96361; 96374; 96375; 99284; 99285; J1885; J2405

== ENCOUNTER → 2022-10-30 11:46 | Outpatient (BNV) | payer SELFPAY | PROVIDERS: PCP Physician Assistant; Visit Provider Internal Medicine Cardiovascular Disease | DX: R53.1 Weakness (principal) | CPT/HCPCS: 93010 ==

== ENCOUNTER 2022-11-04 19:13 | Outpatient (REF) | payer MEDICARE, SELFPAY ==
--- NOTE | ~2022-11-04 | MR_ITS ---
EXAMINATION: MR LUMBAR SPINE WITHOUT CONTRAST CLINICAL INFORMATION: Radiculopathy COMPARISON: Lumbar radiographs of 09/17/2022 TECHNIQUE: MRI of the lumbar spine was obtained using routine sequences without contrast. FINDINGS: Dextrocurvature of the lumbar spine, apex at L2-L3. Milder compensatory levocurvature at L4-L5. Straightening of the normal lumbar lordosis. Grade 1 retrolisthesis at L2-L3 greater than L5-S1 and grade 1 anterolisthesis at L3-L4. Vertebral body heights are maintained. There is no suspicious osseous lesion. There is diffuse disc desiccation with disc height loss most pronounced and severe eccentric to the left at L2-L3, moderate eccentric to the left at L1-L2, and severe marginally at L5-S1. Diffuse small endplate Schmorl's nodes with patchy type I and II Modic endplate changes, including type I Modic endplate changes most pronounced and eccentric to the left at L1-L2. Small spiculated STIR hyperintense lesion in the anterior L4 vertebral body may reflect focal red marrow. Multilevel anterior osteophytic spurring is seen.There are multilevel degenerative changes with level by level detail as follows: L1-L2: Annular disc bulge with left greater than right subarticular zone narrowing and abutment along the traversing left and possibly also right L2 nerve roots. No spinal canal or neural foraminal stenosis. L2-L3: Retrolisthesis with annular disc bulge and right foraminal/far lateral disc protrusion, left eccentric osteophytic ridging, and mild to moderate bilateral facet arthrosis with ligamentum flavum thickening. Minimal spinal canal narrowing and left greater than right subarticular zone narrowing with abutment along the traversing left L3 nerve root. Mild right and minimal left neural foraminal narrowing with encroachment upon the extraforaminal right L2 nerve root. L3-L4: Uncovered posterior disc material/disc bulge with advanced bilateral facet arthrosis and ligamentum flavum thickening. Mild spinal canal stenosis and subarticular zone narrowing with abutment along the traversing right L4 nerve root. Mild left greater than right neural foraminal narrowing. L4-L5: Annular disc bulge and moderate bilateral facet arthrosis with ligamentum flavum thickening. Mild spinal canal narrowing and subarticular zone stenosis with abutment along the traversing right greater than left L5 nerve roots. Mild right greater than left neural foraminal narrowing. L5-S1: Prominence of the epidural fat completely effaces the thecal sac. Disc osteophyte complex and moderate bilateral facet arthrosis with ligamentum flavum thickening. Disc osteophyte impresses upon the traversing left S1 nerve root in the subarticular zone. Severe right neural foraminal stenosis with compression of the exiting right L5 nerve root and mild left neural foraminal stenosis. The conus medullaris terminates at the level of L1. The distal spinal cord is normal in appearance. . No epidural fluid collection, hematoma, or mass. There is mild fatty atrophy of the paraspinal musculature. Limited evaluation of the intra-abdominal structures without significant abnormalities. The abdominal aorta is of normal contour and caliber. MR/MR lumbar spine wo con IMPRESSION: Dextrocurvature of the lumbar spine, apex at L2-L3, and mild compensatory levocurvature at L4-L5. Multilevel lumbar spondylosis with mild spinal canal narrowing at L3-L4 and L4-L5. Varying degrees of subarticular zone and neural foraminal stenosis throughout the lumbar spine. Of note, prominent epidural fat at L5-S1 completely effaces the thecal sac. At L5-S1, there is severe right neural foraminal stenosis with compression of the exiting right L5 nerve root. Disc osteophyte complex also impresses upon the traversing left S1 nerve root in the subarticular zone at this level. At L2-L3, a right foraminal/far lateral disc protrusion encroaches upon the extraforaminal right L2 nerve root.
== END 2022-11-04 19:14 | disposition home or self-care (01) ==
LOC: HO.MRI 19:13
PROVIDERS: PCP Physician Assistant; Visit Provider Physician Assistant
DX: M54.16 Radiculopathy, lumbar region (principal)
CPT/HCPCS: 72148

== ENCOUNTER 2022-11-10 08:23 | Outpatient (AMB) | payer BC, SELFPAY ==
[2022-11-10 08:31] VITALS: BP 128/76; PULSE 78; O2SAT 98; BMI 17.6
--- NOTE | 2022-11-10 08:31 | MHC.PC.OV ---
Vital Signs 11/10/22 08:31 Height 5 ft 2 in Weight 96 lb BMI 17.6 BP 128/76 Blood Pressure Location Lt brachial Position Sitting Pulse 78 Pulse Source Pulse Oximeter Pulse Oximetry (%) 98 Oxygen Delivery Method Room Air Intake Visit Reasons: F/u headaches Allergies Iodinated Contrast Media [IV Dye, Iodine Containing] Allergy (Mild, Verified 11/10/22 08:41) HIVES AND RASH propoxyphene [From Darvon] Allergy (Mild, Verified 11/10/22 08:41) N/V Medication List - Last Reconciled 11/10/22 by NOVA Islas-Alycia albuterol sulfate 90 mcg/actuation 2 puffs PO Q6H PRN ascorbate calcium (vitamin C) 1,000 mg (2 x 500 mg) PO DAILY 90 days atorvastatin 40 mg PO DAILY 90 days blood pressure test kit-small As directed carvedilol 3.125 mg PO BID 90 days cholecalciferol (vitamin D3) 50 mcg PO DAILY cyclobenzaprine 10 mg PO BEDTIME 14 days dicyclomine 10 mg PO TID PRN fluticasone propionate 50 mcg/actuation (Flonase Allergy Relief) 2 sprays intranasal DAILY ibuprofen 800 mg PO Q8H 7 days ipratropium-albuterol 0.5 mg-3 mg(2.5 mg base)/3 mL 3 mL inhalation Q4-6H PRN 30 days loratadine 10 mg PO DAILY 60 days sertraline 100 mg PO DAILY 90 days Tobacco use date assessed: 10/10/22 Fall risk assessment: No Falls in past year Last assessed Fall Risk: 11/10/22 Dental Screening Dental Screen Date: 11/10/22 Did you have a dental visit in the last 12 months?: Yes Did you have a dental problem in the last 6 months where you did not have access to dental care?: No Was dental information given to patient?: Patient has dentist HPI F/u headaches HPI Details Patient is a 67-year-old female here today for follow-up visit. Patient has a past medical history significant for hypertension, COPD, low BMI. Recently seen at the ER for acute weakness and dizziness. CT of head with without abnormalities. Patient was found to be somewhat dehydrated and was treated with IV fluids. She continues to have lower lumbar spine pain and unsteadiness on her feet. MRI of lumbar spine has been done though no radiology read out at this time. Has done physical therapy though felt it made her lower lumbar spine pain worse. Using medications such as NSAIDs, Tylenol and muscle relaxers without much relief. Also now has had a migraines over the least week. Has been using Tylenol and ibuprofen without much relief. Leaves her migraines were likely triggered by her dehydration and her chronic lumbar spine pain. [facility] Medical History (Updated 11/10/22 @ 08:58 by Ernst Huerta PA-C) C. difficile colitis COPD (chronic obstructive pulmonary disease) Diverticulosis HLD (hyperlipidemia) HTN (hypertension) Irritable bowel syndrome without diarrhea LLQ abdominal pain MDD (major depressive disorder), recurrent episode, moderate Nicotine dependence, cigarettes, uncomplicated Osteopenia (~2009) Pulmonary nodules Tubular adenoma of colon Varicosities of leg Surgical History History of blepharoplasty History of colonoscopy History of ear surgery History of laparotomy History of pelvic surgery History of surgery on lower extremity Family History Father Lung cancer Mother Heart attack Social History Housing: Apartment Alcohol intake: current Alcohol intake frequency: holidays/special occasions only Alcohol type: beer Patient Tobacco Use Status: Former Tobacco user (3 months) Tobacco use type: Cigarette Cigarette Packs Per Day: 0.5 Cigarettes Per Day: 10 e-Cigarette/Vaping Use: Never Used Second Hand Smoke Exposure: No Advance Directives Date on File: 09/17/20 service: No Current occupational status: employed Current occupation: [employer] Cognitive needs: No Hearing needs: Yes Vision needs: Yes Questionnaire PHQ-9 Over the last 2 weeks, how often have you been bothered by any of the following problems? 1. Little interest or pleasure in doing things: not at all 2. Feeling down, depressed, or hopeless: not at all 3. Trouble falling or staying asleep, or sleeping too much: not at all 4. Feeling tired or having little energy: not at all 5. Poor appetite or overeating: not at all 6. Feeling bad about yourself - or that you are a failure or have let yourself or your family down: not at all 7. Trouble concentrating on things, such as reading the newspaper or watching television: not at all 8. Moving or speaking so slowly that other people could have noticed. Or the opposite - being so fidgety or restless that you have been moving around a lot more than usual: not at all 9. Thoughts that you would be better off or of hurting yourself in some way: not at all Total score: 0 Depression Screening Interpretation: Negative [id number] - PHQ-9 Billing: Yes Source: Developed by Drs. Julio Cornejo, Taina Brady, Ranulfo Anderson and colleagues, with an educational cleo from [employer]. Thrive Questionnaire Date Thrive assessed: 07/07/22 AUDIT C Alcohol Use Questionnaire (AUDIT-C) 1. How often do you have a drink containing alcohol?: Monthly or less 3. How often do you have six or more drinks on one occasion?: Never Total Score: 1 Score Reviewed/Action Taken: No JORGE-7 AMB Questionnaire JORGE-7 Date JORGE - 7 assessed: 07/07/22 Source: Developed by Drs. Julio Cornejo, Taina Brady, Ranulfo Anderson and colleagues, with an educational cleo from [employer]. Review of Systems Const Denies headache(s) Eyes Denies loss of vision ENT Denies vertigo, Denies dizziness, Denies headache(s) and Denies sore throat Card Denies chest pain, Denies leg edema and Denies lightheadedness Resp Denies cough, Denies hemoptysis and Denies wheezing GI Denies abdominal pain, Denies melena, Denies constipation, Denies diarrhea and Denies vomiting Denies urinary frequency, Denies dysuria and Denies urinary urgency Musc Denies arthralgias, Denies joint swelling, Denies numbness and Denies tingling Neuro Denies Abnormal speech present, Denies behavioral changes, Denies vertigo, Denies dizziness, Denies headache(s), Denies loss of vision, Denies memory loss, Denies numbness and Denies tingling Psych Denies anxiety, Denies behavioral changes, Denies depression, Denies memory loss and Denies panic attacks Xiang/Lymph Denies easy bleeding and Denies easy bruising Aller/Immun Denies wheezing Physical exam (Primary Care) Vital Signs: Last Vital Signs Pulse 78 11/10/22 08:31 BP 128/76 11/10/22 08:31 Pulse Ox 98 11/10/22 08:31 Oxygen Delivery Method Room Air 11/10/22 08:31 BMI result Body Mass Index 17.6 Tobacco/Smoking Status: Tobacco use Status Tobacco use date assessed 10/10/22 11/10/22 08:38 Patient Tobacco Use Status Former Tobacco user (3 11/10/22 08:38 months) Tobacco use type Cigarette 11/10/22 08:38 e-Cigarette/Vaping Use Never Used 11/10/22 08:38 PHQ-9: PHQ-9 Score PHQ-9: Total score 0 11/10/22 08:45 Depression Screening Interpretation: Negative Thrive Assessment: Date of Thrive Assessment Date Thrive assessed 07/07/22 11/10/22 08:38 Const General: healthy appearing, no acute distress, alert and awake Nutritional Appearance: well nourished Orientation/consciousness: oriented to person, oriented to place and oriented to time HENMT Ears: TM's normal bilaterally General nose exam: Normal nasal mucous membranes and turbinates present Eyes Conjunctivae: conjunctivae normal Sclerae: sclerae normal Pupils: Equal, round and reactive pupils present Neck Neck: Yes no lymphadenopathy and Yes no JVD Thyroid: Thyroid normal Carotids: no bruits Resp Effort & Inspection: normal respiratory effort and not tachypneic Auscultation: no crackles, no rales, no rhonchi and no wheezes Cardio Rate: regular rate Rhythm: regular rhythm Heart sounds: no murmurs and normal S1 and S2 GI Palpation (GI): Soft to palpation, nontender, no hepatomegaly and no splenomegaly Auscultation: normal bowel sounds Skin General skin exam: no rashes or lesions noted and dry skin Neuro General: oriented to person, oriented to place and oriented to time Cranial nerves: Yes Equal, round and reactive pupils present Speech: No Abnormal speech present Gait exam (Neuro): Normal gait present Motor exam (neuro): no tremor noted Extrem Right upper extremity: full ROM Left upper extremity: full ROM Right lower extremity: full ROM; no edema Left lower extremity: full ROM; no edema Psych Mental Status: mental status grossly normal Speech and movement: Normal speech and movement present Affect: normal affect Attitude: cooperative Thought process: Normal thought process present Assessment and Plan Assessment & Plan (1) Headache: Code(s): R51.9 - Headache, unspecified Qualifiers: Headache type: new daily persistent Qualified Code(s): G44.52 - New daily persistent headache (NDPH) Plan: Has been having a new daily persistent headache since ER visit week and half ago. CT head without any intracranial pathology. Has been using Tylenol and ibuprofen without much relief. Will supply patient with your stat to use on a p.r.n. basis. (2) Lumbar radiculopathy, acute: Code(s): M54.16 - Radiculopathy, lumbar region Plan: Patient continues to have lower lumbar spine pain with radiculopathy symptoms in left lower extremity. Continues to have balance issue.. Physical therapy and medications have not been helpful. Pending MRI lumbar spine concerns for disc herniation and lower lumbar spine. (3) HTN (hypertension): Code(s): I10 - Essential (primary) hypertension Qualifiers: Hypertension type: essential hypertension Qualified Code(s): I10 - Essential (primary) hypertension Plan: Blood pressure acceptable today in office. Will continue her current dose of antihypertensive medication with goal blood pressure remain below 140/90. Orders: Orders Comprehensive [place]. Panel Fast 6 Months I10 - Essential (primary) hypertension Lipid Panel 6 Months E78.2 - Mixed hyperlipidemia Microalbumin, Random (w Creat) 6 Months R80.9 - Proteinuria, unspecified Complete Blood Count no Diff 6 Months I10 - Essential (primary) hypertension Referrals Pain Management Referral M54.16 - Radiculopathy, lumbar region Neurosurgery Referral M54.16 - Radiculopathy, lumbar region Medications: New dngptgezfr-bzitdixwikhlo-gtch 50-325-40 mg 1 cap PO Q6H 3 days 12 caps 0RF pain G43.909 - Migraine, unspecified, not intractable, without status migrainosus, R51.9 - Headache, unspecified riboflavin (vitamin B2) 50 mg PO DAILY 30 days 30 tabs 1RF R51.9 - Headache, unspecified magnesium oxide 400 mg PO DAILY 30 tabs 1RF 30 days G44.52 - New daily persistent headache (NDPH) Refilled sertraline 100 mg PO DAILY 90 days 90 tabs 2RF F33.1 - Major depressive disorder, recurrent, moderate atorvastatin 40 mg PO DAILY 90 days 90 tabs 2RF E78.2 - Mixed hyperlipidemia Coding Level of Care Code Est Pt Level 4 (79167) Diagnoses Headache G44.52 Headache type: new daily persistent Lumbar radiculopathy, acute M54.16 HTN (hypertension) I10 Hypertension type: essential hypertension
== END 2022-11-10 09:00 | disposition home or self-care (01) ==
PROVIDERS: PCP Physician Assistant; Visit Provider Physician Assistant
DX: G44.52 New daily persistent headache (NDPH) (principal); M54.16 Radiculopathy, lumbar region; I10 Essential (primary) hypertension
CPT/HCPCS: 99214

== ENCOUNTER 2022-11-19 11:20 | Outpatient (AMB) | payer BC, SELFPAY ==
--- NOTE | 2022-11-19 11:47 | MHC.OFFVIS ---
Intake Vital Signs 11/19/22 11:59 Height 5 ft 2 in Weight 95 lb 2 oz BMI 17.4 BP 136/86 Blood Pressure Location Lt brachial Position Sitting Respiration 14 Pulse 69 Pulse Source Pulse Oximeter Pulse Oximetry (%) 96 Oxygen Delivery Method Room Air Intake Visit Reasons: Radiculopathy, lumbar region Intake Note: patient comes in for initial visit was referred by Primary care doctor. Allergies Iodinated Contrast Media [IV Dye, Iodine Containing] Allergy (Mild, Verified 11/10/22 08:41) HIVES AND RASH propoxyphene [From Darvon] Allergy (Mild, Verified 11/10/22 08:41) N/V HPI HPI Comments History of Present Illness Details Kim is very pleasant 67 years old female who is in my office with complaining on severe lower back pain radiating into the bilateral lower extremities but mostly to the left lower extremity all the way down to the foot with sensation of the pins and needles and tingling in the toes. 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 She reports associated numbness in cough and awkwardness and weakness in the left lower extremity. She reports that prolong sitting aggravates her pain as well as climbing up stairs and flexing forward aggravates her pain. She reports that she cannot sleep normally cannot do activities of daily living she can take care of herself and she can not function more less normally. This is not workman's comp case. She reports applications of the heat and cold make slight improvement of her pain while she is position in bed and applies the temperature. If she gets up her pain becomes more severe. Pain is not variable during the daytime, and it is constant she reports her pain in terms of tissue damage is throbbing, shooting, pinching, pulling, tingling, aching, tiring, punishing. She tried ibuprofen for her pain 800 mg twice a day prescribed by primary care physician and she did not receive any pain relief from this medication she tried cyclobenzaprine with no help. She went for 8 sessions of physical therapy and she reports that the each session makes her pain only worse. She tries acupuncture and 6 sessions of acupuncture brought no help to her. She tries 10 unit and she use it 5-6 I am without improvement. She never had any injections. She had an MRI of the lumbar spine results of which dictated as below. Her past medical history significant for headaches hypertension and depression her past surgical history significant for of 4 surgeries on mastoids bilaterally 2 at each year. She is partially deaf. She admits smoking cigarettes 10 cigarettes a day she drinks about 3 beers a week. She denies recreational drugs. [facility] Medical History (Updated 11/19/22 @ 13:33 by Antoine Martinez MD) C. difficile colitis COPD (chronic obstructive pulmonary disease) Diverticulosis HLD (hyperlipidemia) HTN (hypertension) Irritable bowel syndrome without diarrhea LLQ abdominal pain MDD (major depressive disorder), recurrent episode, moderate Nicotine dependence, cigarettes, uncomplicated Osteopenia (~2009) Pulmonary nodules Tubular adenoma of colon Varicosities of leg Surgical History History of blepharoplasty History of colonoscopy History of ear surgery History of laparotomy History of pelvic surgery History of surgery on lower extremity Family History Father Lung cancer Mother Heart attack Social History Housing: Apartment Alcohol intake: current Alcohol intake frequency: holidays/special occasions only Alcohol type: beer Patient Tobacco Use Status: Former Tobacco user (3 months) Tobacco use type: Cigarette Cigarette Packs Per Day: 0.5 Cigarettes Per Day: 10 e-Cigarette/Vaping Use: Never Used Second Hand Smoke Exposure: No Advance Directives Date on File: 09/17/20 service: No Current occupational status: employed Current occupation: [employer] Cognitive needs: No Hearing needs: Yes Vision needs: Yes Review of Systems Const All systems reviewed & are unremarkable except as noted in HPI and below Reports no additional complaints Eyes Reports no additional complaints ENT Reports as per HPI and Denies Normal hearing present Card Reports no additional complaints Resp Reports no additional complaints GI Reports no additional complaints Musc Reports as per HPI Neuro Reports as per HPI, Denies Normal hearing present, Denies Abnormal speech present and Denies Sensory deficit (Neuro) Physical Exam Vital Signs: Last Vital Signs Pulse 69 11/19/22 11:59 Resp 14 11/19/22 11:59 BP 136/86 11/19/22 11:59 Pulse Ox 96 11/19/22 11:59 Oxygen Delivery Method Room Air 11/19/22 11:59 BMI result Body Mass Index 17.4 Const General: alert, Physically active, in distress, anxious and well groomed Nutritional Appearance: thin and underweight Orientation/consciousness: patient oriented x3 Eyes General: appearance normal, both eyes and all related structures Pupils: Equal, round and reactive pupils present EOM: EOMs intact bilaterally Neck Neck: Yes full ROM Chest Chest palpation & inspection: normal inspection of the chest Resp Effort & Inspection: normal respiratory effort, able to speak in complete sentences, normal respiratory pattern, no audible wheezes and no cough Cardio Jugular venous distension: no JVD GI Inspection: Yes normal to inspection Back/Spine/Pelvis Other: She is able to stand on bilateral tiptoes and on bilateral heels without difficulty she is able to lift her great off of the ground without lifting the rest of the toes bilaterally without difficulty this demonstrates normal strength of bilateral lower extremities. He is able to flex forward and backwards and both of these maneuvers aggravate her pain in the same extent. Loading test is negative bilaterally. SLR is positive on the left. Lassegue test is positive on the left. Sudarshan test is positive on the left. Pelvic compression test is positive on the left but not pelvic distruction test. Stinchfield test is positive on the left. Gaenslen test is positive on the left. Neuro General: patient oriented x3 and gait normal Cranial nerves: Yes CN's II-XII intact bilaterally, Yes Equal, round and reactive pupils present, No Normal hearing present and Yes Ability to bilaterally elevate shoulders present Speech: No Abnormal speech present Gait exam (Neuro): Normal gait present Motor exam (neuro): 5/5 motor strength present throughout Sensory Exam: No Sensory deficit (Neuro) Extrem General: No pedal edema Psych Speech and movement: Normal speech and movement present Affect: normal affect Attitude: cooperative Thought process: Normal thought process present Thought content: Normal thought content present Insight: Good insight present (Psych) Judgement: Good judgement present (Psych) Results Reviewed Results Reviewed: MR LUMBAR SPINE WITHOUT CONTRAST CLINICAL INFORMATION: Radiculopathy COMPARISON: Lumbar radiographs of 09/17/2022 TECHNIQUE: MRI of the lumbar spine was obtained using routine sequences without contrast. FINDINGS: Dextrocurvature of the lumbar spine, apex at L2-L3. Milder compensatory levocurvature at L4-L5. Straightening of the normal lumbar lordosis. Grade 1 retrolisthesis at L2-L3 greater than L5-S1 and grade 1 anterolisthesis at L3-L4. Vertebral body heights are maintained. There is no suspicious osseous lesion. There is diffuse disc desiccation with disc height loss most pronounced and severe eccentric to the left at L2-L3, moderate eccentric to the left at L1-L2, and severe marginally at L5-S1. Diffuse small endplate Schmorl's nodes with patchy type I and II Modic endplate changes, including type I Modic endplate changes most pronounced and eccentric to the left at L1-L2. Small spiculated STIR hyperintense lesion in the anterior L4 vertebral body may reflect focal red marrow. Multilevel anterior osteophytic spurring is seen.There are multilevel degenerative changes with level by level detail as follows: L1-L2: Annular disc bulge with left greater than right subarticular zone narrowing and abutment along the traversing left and possibly also right L2 nerve roots. No spinal canal or neural foraminal stenosis. L2-L3: Retrolisthesis with annular disc bulge and right foraminal/far lateral disc protrusion, left eccentric osteophytic ridging, and mild to moderate bilateral facet arthrosis with ligamentum flavum thickening. Minimal spinal canal narrowing and left greater than right subarticular zone narrowing with abutment along the traversing left L3 nerve root. Mild right and minimal left neural foraminal narrowing with encroachment upon the extraforaminal right L2 nerve root.? ? L3-L4: Uncovered posterior disc material/disc bulge with advanced bilateral facet arthrosis and ligamentum flavum thickening. Mild spinal canal stenosis and subarticular zone narrowing with abutment along the traversing right L4 nerve root. Mild left greater than right neural foraminal narrowing.? L4-L5: Annular disc bulge and moderate bilateral facet arthrosis with ligamentum flavum thickening. Mild spinal canal narrowing and subarticular zone stenosis with abutment along the traversing right greater than left L5 nerve roots. Mild right greater than left neural foraminal narrowing. L5-S1: Prominence of the epidural fat completely effaces the thecal sac. Disc osteophyte complex and moderate bilateral facet arthrosis with ligamentum flavum thickening. Disc osteophyte impresses upon the traversing left S1 nerve root in the subarticular zone. Severe right neural foraminal stenosis with compression of the exiting right L5 nerve root and mild left neural foraminal stenosis. The conus medullaris terminates at the level of L1.? The distal spinal cord is normal in appearance.? . No epidural fluid collection, hematoma, or mass. There is mild fatty atrophy of the paraspinal musculature.? Limited evaluation of the intra-abdominal structures without significant abnormalities. The abdominal aorta is of normal contour and caliber. IMPRESSION: ? Dextrocurvature of the lumbar spine, apex at L2-L3, and mild compensatory levocurvature at L4-L5. Multilevel lumbar spondylosis with mild spinal canal narrowing at L3-L4 and L4-L5. Varying degrees of subarticular zone and neural foraminal stenosis throughout the lumbar spine. Of note, prominent epidural fat at L5-S1 completely effaces the thecal sac. At L5-S1, there is severe right neural foraminal stenosis with compression of the exiting right L5 nerve root. Disc osteophyte complex also impresses upon the traversing left S1 nerve root in the subarticular zone at this level. At L2-L3, a right foraminal/far lateral disc protrusion encroaches upon the extraforaminal right L2 nerve root. ? Assessment & Plan Assessment & Plan (1) Spondylosis of lumbar spine: Code(s): M47.816 - Spondylosis without myelopathy or radiculopathy, lumbar region (2) Disc degeneration, lumbar: Code(s): M51.36 - Other intervertebral disc degeneration, lumbar region (3) Radiculopathy, lumbar region: Code(s): M54.16 - Radiculopathy, lumbar region (4) Chronic pain syndrome: Code(s): G89.4 - Chronic pain syndrome (5) Sacroiliitis: Code(s): M46.1 - Sacroiliitis, not elsewhere classified (6) Sacroiliac joint dysfunction of left side: Code(s): M53.3 - Sacrococcygeal disorders, not elsewhere classified Plan On physical exam some of the pain of the patient possibly related to left sacroiliitis. However most of the pain radiating down to the lower extremity most likely related to the nerve root compression of the passing S1 left nerve root. This patient had extensive physical therapy, conservative treatments with NSAIDs and muscle relaxants, acupuncture, 10s unit none of it was effective for the patient's pain. She exhausted conservative measures. She is not on any blood thinners. I would like to schedule her for left diagnostic sacroiliac joint injection. In 2 weeks interval I would like to perform after sacroiliac joint injection the other injection of the transforaminal epidural steroid injection L5-S1 on the left. potentially some of her the pain of the patient is coming from the Modic type changes 1 and 2. and vertebra genic in nature. She is allergic to IV contrast dyes and she will receive 25 mg of Benadryl deep intramuscularly 20 minutes before the procedure. I would like to start her on gabapentin moderate dose 300 mg t.i.d. to help her pain. Side effects of gabapentin including nausea vomiting dizziness drowsiness weight gain and depression exacerbation were explained to the patient. Needs for dose adjustment of depression medication if gabapentin causes a depression exacerbation explained to the patient. Medications: New gabapentin 300 mg PO TID 90 caps 8RF 30 days Coding Level of Care Code New Pt Level 4 (41543) Diagnoses 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 Disc degeneration, lumbar M51.36 Radiculopathy, lumbar region M54.16 Chronic pain syndrome G89.4 Sacroiliitis M46.1 Sacroiliac joint dysfunction of left side M53.3
[2022-11-19 11:59] VITALS: BP 136/86; PULSE 69; RESP 14; O2SAT 96; BMI 17.4
== END 2022-11-19 12:43 | disposition home or self-care (01) ==
PROVIDERS: PCP Physician Assistant; Visit Provider Anesthesiology
DX: M47.816 Spondylosis without myelopathy or radiculopathy, lumbar region (principal); M51.36 Other intervertebral disc degeneration, lumbar region; M54.16 Radiculopathy, lumbar region; G89.4 Chronic pain syndrome; M46.1 Sacroiliitis, not elsewhere classified; M53.3 Sacrococcygeal disorders, not elsewhere classified
CPT/HCPCS: 99204

== ENCOUNTER → 2022-11-19 11:20 | Outpatient (BNVA) | payer BC, SELFPAY | PROVIDERS: PCP Physician Assistant; Visit Provider Anesthesiology ==

== ENCOUNTER 2022-12-03 15:23 | Outpatient (REF) | payer MEDICARE, SELFPAY ==
--- NOTE | ~2022-12-03 | CT_ITS ---
EXAMINATION: CT CHEST SCREENING CLINICAL INFORMATION: Nicotine dependence, cigarettes, uncomplicated; current smoker with 30 pack year history of smoking COMPARISON: 12/05/2020 TECHNIQUE: Multidetector volumetric CT imaging of the chest is performed without contrast using low dose technique. Additional 2D coronal and sagittal reformatted images and axial 3D maximum intensity projection (MIP) images are generated on the CT workstation. This CT examination was performed using dose optimization techniques as appropriate, variously including the following: *Automated exposure control *Adjustment of mA and/or kV according to patient size (this includes techniques or standardized protocols for targeted exams where dose is matched to indication/reason for exam; i.e. extremities or head) *Use of iterative reconstruction technique DLP: 30 mGy-cm FINDINGS: LUNGS: The lungs are well expanded. There is mild emphysematous change with an upper lobe predominance. Pleural and subpleural scarring at the lung apices appears stable. There is mild reticulonodular opacity in both anterior lung bases which is likely inflammatory. There is peribronchial thickening and occasional opacifying endobronchial secretions in the lower lungs. There is a 6 mm pleural-based nodule in the medial right upper lobe (6/61) which remains stable. There is an irregular part solid 5 x 4 mm nodular density centrally in the right upper lobe (6/110) which is unchanged. No developing lung nodules are identified. There is elongated endotracheal soft tissue density in the left posterior lateral aspect of the distal trachea and extending into the left main bronchus, appearing to represent mucous secretions. MEDIASTINUM: The mediastinum is normal. CORONARY ARTERY CALCIFICATION: None visualized on this study. PLEURA: There is no pleural effusion. No pleural mass or thickening. AXILLA: No lymphadenopathy. UPPER ABDOMEN: Unremarkable OSSEOUS STRUCTURES: Unremarkable. CT/CT lung screening IMPRESSION: Nodules in the right upper lung remain stable as described. Mild airway inflammatory changes are seen. Pulmonary emphysema ASSESSMENT: Lung-RADS category 2: Benign RECOMMENDATION: Routine annual low-dose CT screening in 12 months.
== END 2022-12-03 15:24 | disposition home or self-care (01) ==
LOC: HO.CT 15:23
PROVIDERS: PCP Physician Assistant; Visit Provider Physician Assistant Medical
DX: Z12.2 Encounter for screening for malignant neoplasm of respiratory organs (principal); F17.210 Nicotine dependence, cigarettes, uncomplicated
CPT/HCPCS: 71271

== ENCOUNTER 2022-12-04 13:14 | Outpatient (AMB) | payer MEDICARE, SELFPAY ==
--- NOTE | 2022-12-04 13:19 | MHC.PC.OV ---
Vital Signs 12/04/22 13:20 Height 5 ft 2 in Weight 97 lb BMI 17.7 BP 132/88 Blood Pressure Location Lt brachial Position Sitting Pulse 91 Pulse Source Pulse Oximeter Pulse Oximetry (%) 95 Oxygen Delivery Method Room Air Intake Visit Reasons: dizziness Intake Note: Pt is here today for experiencing dizziness. Rehabilitation Construction Specialist Required: No Accompanied by: Self / Same As Patient Allergies Iodinated Contrast Media [IV Dye, Iodine Containing] Allergy (Mild, Verified 12/04/22 13:26) HIVES AND RASH propoxyphene [From Darvon] Allergy (Mild, Verified 12/04/22 13:26) N/V Tobacco use date assessed: 10/10/22 Fall risk assessment: No Falls in past year Last assessed Fall Risk: 12/04/22 Dental Screening Dental Screen Date: 12/04/22 Did you have a dental visit in the last 12 months?: Yes Did you have a dental problem in the last 6 months where you did not have access to dental care?: No Was dental information given to patient?: Patient has dentist HPI HPI Comments History of Present Illness Details Patient is a 67-year-old female here today for follow-up visit.? Patient has a past medical history significant for hypertension, COPD, low BMI.? Recently seen at the ER for acute weakness and dizziness.? CT of head with without abnormalities.? Patient was found to be somewhat dehydrated and was treated with IV fluids. She continues to have lower lumbar spine pain and unsteadiness on her feet. Has done physical therapy though felt it made her lower lumbar spine pain worse.? Using medications such as NSAIDs, Tylenol and muscle relaxers without much relief. MRI Lumbar spine MR/MR lumbar spine wo con IMPRESSION: ? Dextrocurvature of the lumbar spine, apex at L2-L3, and mild compensatory levocurvature at L4-L5. Multilevel lumbar spondylosis with mild spinal canal narrowing at L3-L4 and L4-L5. Varying degrees of subarticular zone and neural foraminal stenosis throughout the lumbar spine. Of note, prominent epidural fat at L5-S1 completely effaces the thecal sac. At L5-S1, there is severe right neural foraminal stenosis with compression of the exiting right L5 nerve root. Disc osteophyte complex also impresses upon the traversing left S1 nerve root in the subarticular zone at this level. At L2-L3, a right foraminal/far lateral disc protrusion encroaches upon the extraforaminal right L2 nerve root. Patient reports has appointment with Neurosurgery scheduled for February. Patient reports today for of weird feeling in her head that it is difficult for her to explain, like a lightheaded feeling with a headache pain behind bilateral eyes. And she feels occasionally off balance. Denies any overt dizziness or room spinning, denies any visual changes. Denies any chest pain, palpitations shortness of breath or syncope. Patient takes [id number] Tylenol or ibuprofen as needed for pain with not much relief. Patient reports saw her ENT recently, no sinus infection. Denies recent eye exam, referral entered for harpoon engagement planning operator to ensure patient is not receiving bilateral frontal headache spine the high due to straining. [facility] Medical History (Updated 12/04/22 @ 13:38 by LEDY Nieves) C. difficile colitis COPD (chronic obstructive pulmonary disease) Diverticulosis HLD (hyperlipidemia) HTN (hypertension) Irritable bowel syndrome without diarrhea LLQ abdominal pain MDD (major depressive disorder), recurrent episode, moderate Nicotine dependence, cigarettes, uncomplicated Osteopenia (~2009) Pulmonary nodules Tubular adenoma of colon Varicosities of leg Surgical History History of blepharoplasty History of colonoscopy History of ear surgery History of laparotomy History of pelvic surgery History of surgery on lower extremity Family History Father Lung cancer Mother Heart attack Social History Housing: Apartment Alcohol intake: current Alcohol intake frequency: holidays/special occasions only Alcohol type: beer Patient Tobacco Use Status: Former Tobacco user (3 months) Tobacco use type: Cigarette Cigarette Packs Per Day: 0.5 Cigarettes Per Day: 10 e-Cigarette/Vaping Use: Never Used Second Hand Smoke Exposure: No Advance Directives Date on File: 09/17/20 service: No Current occupational status: employed Current occupation: [employer] Cognitive needs: No Hearing needs: Yes Vision needs: Yes Questionnaire Thrive Questionnaire Date Thrive assessed: 07/07/22 JORGE-7 AMB Questionnaire JORGE-7 Date JORGE - 7 assessed: 07/07/22 Source: Developed by Drs. Julio Cornejo, Taina Brady, Ranulfo Anderson and colleagues, with an educational cleo from [employer]. Review of Systems Const Denies chills, Denies fatigue, Denies fever(s) and Denies poor appetite Eyes Denies no additional complaints ENT Reports Normal hearing present Card Denies chest pain, Denies syncope, Denies rapid heart rate and Denies dyspnea Resp Denies cough and Denies dyspnea GI Denies change in stool character, Denies constipation, Denies diarrhea, Denies nausea and Denies vomiting Denies urinary frequency, Denies dysuria and Denies urinary urgency Neuro Reports Normal hearing present, Denies confusion and Denies syncope Psych Denies confusion Endo Denies fatigue Physical exam (Primary Care) Vital Signs: Last Vital Signs Pulse 91 12/04/22 13:20 BP 132/88 12/04/22 13:20 Pulse Ox 95 12/04/22 13:20 Oxygen Delivery Method Room Air 12/04/22 13:20 BMI result Body Mass Index 17.7 Tobacco/Smoking Status: Tobacco use Status Tobacco use date assessed 10/10/22 12/04/22 13:21 Patient Tobacco Use Status Former Tobacco user (3 12/04/22 13:21 months) Tobacco use type Cigarette 12/04/22 13:21 e-Cigarette/Vaping Use Never Used 12/04/22 13:21 Thrive Assessment: Date of Thrive Assessment Date Thrive assessed 07/07/22 12/04/22 13:21 Const General: No confusion Orientation/consciousness: No confusion HENMT Head: Yes normocephalic and Yes atraumatic Ears: external ears normal and TM's normal bilaterally General nose exam: Normal external nose present and Normal nasal mucous membranes and turbinates present Face and sinus: Yes normal facial exam and Yes sinuses nontender Eyes Conjunctivae: conjunctivae normal Sclerae: sclerae normal Pupils: Equal, round and reactive pupils present and Pupils normal by confrontation EOM: EOMs intact bilaterally Direct Ophthalmoscopy: normal light reflex Chest Chest palpation & inspection: normal inspection of the chest Resp Effort & Inspection: normal respiratory effort Auscultation: clear to auscultation bilaterally, no crackles, no rhonchi and no wheezes Cardio Rate: regular rate Rhythm: regular rhythm Heart sounds: S1 normal heart sound present and S2 normal heart sound present GI Inspection: Yes normal to inspection Neuro General: No confusion Cranial nerves: Yes Equal, round and reactive pupils present and Yes Normal hearing present Extrem General: No edema Assessment and Plan Assessment & Plan (1) Light-headed feeling: Code(s): R42 - Dizziness and giddiness Plan: CMP and CBC ordered to further evaluate for any anemia or possible dehydration. Patient advised to increase water intake. (2) Headache: Code(s): R51.9 - Headache, unspecified Qualifiers: Headache type: new daily persistent Qualified Code(s): G44.52 - New daily persistent headache (NDPH) Plan: Will trial a sumatriptan for migraine headache. Referral made to harpoon engagement planning operator for routine eye exam. (3) HTN (hypertension): Code(s): I10 - Essential (primary) hypertension Qualifiers: Hypertension type: essential hypertension Qualified Code(s): I10 - Essential (primary) hypertension Plan: Continue on carvedilol 3.125 mg b.i.d. Follow low-salt diet and exercise. (4) Spondylosis of lumbar spine: Code(s): M47.816 - Spondylosis without myelopathy or radiculopathy, lumbar region Plan: Keep scheduled appointment with Neurosurgery. Plan Keep scheduled follow-up with PCP or follow-up sooner if needed. Orders: Orders Comprehensive [place]. Panel Fast Today R42 - Dizziness and giddiness, R51.9 - Headache, unspecified Complete Blood Count Auto Diff Today R42 - Dizziness and giddiness, R51.9 - Headache, unspecified Referrals Ophthalmology Referral Z01.00 - Encounter for examination of eyes and vision without abnormal findings Medications: New sumatriptan succinate take 1 tab at onset of headache; if no relief may repeat 1 tab after at least 2 hrs; max = 4 tabs/24 hr PO 14 tabs 0RF Coding Level of Care Code Est Pt Level 4 (17881) Diagnoses Light-headed feeling R42 Headache G44.52 Headache type: new daily persistent HTN (hypertension) I10 Hypertension type: essential hypertension 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
[2022-12-04 13:20] VITALS: BP 132/88; PULSE 91; O2SAT 95; BMI 17.7
== END 2022-12-04 13:46 | disposition home or self-care (01) ==
PROVIDERS: PCP Physician Assistant; Visit Provider Nurse Practitioner Family
DX: R42 Dizziness and giddiness (principal); G44.52 New daily persistent headache (NDPH); I10 Essential (primary) hypertension; M47.816 Spondylosis without myelopathy or radiculopathy, lumbar region
CPT/HCPCS: 99214

== ENCOUNTER 2022-12-29 13:53 | Outpatient (AMB) | payer MEDICARE, SELFPAY ==
[2022-12-29 14:40] VITALS: BP 120/80; PULSE 65; O2SAT 97; BMI 18.1
--- NOTE | 2022-12-29 14:40 | MHC.OFFVIS ---
Intake Vital Signs 12/29/22 14:40 Height 5 ft 2 in Weight 99 lb BMI 18.1 BP 120/80 Blood Pressure Location Lt brachial Position Sitting Pulse 65 Pulse Source Pulse Oximeter Pulse Oximetry (%) 97 Oxygen Delivery Method Room Air Intake Visit Reasons: Obstructive sleep apnea Intake Note: pt is here for follow up and states she is little wheezy. Dealing with a back issue since July. Nursing Home Manager Required: No Allergies Iodinated Contrast Media [IV Dye, Iodine Containing] Allergy (Mild, Verified 12/29/22 15:00) HIVES AND RASH propoxyphene [From Darvon] Allergy (Mild, Verified 12/29/22 15:00) N/V Medication List - Last Reconciled 12/29/22 by Eleanor Sherwood MD albuterol sulfate 90 mcg/actuation 2 puffs PO Q6H PRN ascorbate calcium (vitamin C) 1,000 mg (2 x 500 mg) PO DAILY 90 days atorvastatin 40 mg PO DAILY 90 days blood pressure test kit-small As directed carvedilol 3.125 mg PO BID 90 days cholecalciferol (vitamin D3) 50 mcg PO DAILY fluticasone propionate 50 mcg/actuation (Flonase Allergy Relief) 2 sprays intranasal DAILY ibuprofen 800 mg PO Q8H 7 days ipratropium-albuterol 0.5 mg-3 mg(2.5 mg base)/3 mL 3 mL inhalation Q4-6H PRN 30 days loratadine 10 mg PO DAILY PRN magnesium oxide 400 mg PO DAILY 30 days riboflavin (vitamin B2) 50 mg PO DAILY 30 days sertraline 100 mg PO DAILY 90 days sumatriptan succinate take 1 tab at onset of headache; if no relief may repeat 1 tab after at least 2 hrs; max = 4 tabs/24 hr PO tizanidine 2 mg PO Q8H 10 days Do you need a note to return to daycare/school/sports/work: No HPI Obstructive sleep apnea HPI Details THIS 67 YEARS OLD FEMALE OF A THIN BUILD, HISTORY OF SMOKING FOR LONG TIME, HAS MODERATE DEGREE OF OBSTRUCTIVE AIRWAY DISORDER. COMING AFTER 6 MONTHS FOR FOLLOW-UP. CLAIMS THAT IN JULY OF THIS YEAR SHE HURT HER BACK, AND HAS NOT BEEN ABLE TO GO BACK TO WORK. BECAUSE SHE HAS BEEN HOMEBOUND MOSTLY, SHE WENT BACK TO SMOKING. SHE IS TRYING TO CONTROL IT TO NO MORE THAN HALF BACK IN 1 WEEK ( NO MORE THAN 2 OR 3 CIGARETTES A DAY) SHE IS OUT OF HER INHALATION SOLUTION, SO FEELS. LITTLE BIT MORE WHEEZY THAN USUAL SHE HAS HAD NO RECENT RESPIRATORY INFECTION. [facility]LY [facility], [facility] Medical History (Updated 12/29/22 @ 16:15 by Eleanor Sherwood MD) Smoker Irritable bowel syndrome without diarrhea Nicotine dependence, cigarettes, uncomplicated Tubular adenoma of colon Osteopenia (~2009) Diverticulosis C. difficile colitis LLQ abdominal pain MDD (major depressive disorder), recurrent episode, moderate Varicosities of leg HLD (hyperlipidemia) HTN (hypertension) Pulmonary nodules COPD (chronic obstructive pulmonary disease) Surgical History History of laparotomy History of pelvic surgery History of blepharoplasty History of colonoscopy History of surgery on lower extremity History of ear surgery Family History Father Lung cancer Mother Heart attack Social History Housing: Apartment Alcohol intake: current Alcohol intake frequency: holidays/special occasions only Alcohol type: beer Patient Tobacco Use Status: Former Tobacco user (3 months) Tobacco use type: Cigarette Cigarette Packs Per Day: 0.5 Cigarettes Per Day: 10 e-Cigarette/Vaping Use: Never Used Second Hand Smoke Exposure: No Advance Directives Date on File: 09/17/20 service: No Current occupational status: employed Current occupation: [employer] Cognitive needs: No Hearing needs: Yes Vision needs: Yes Review of Systems Const All systems reviewed & are unremarkable except as noted in HPI and below Card Reports dyspnea on exertion Resp Reports cough (mild intermittent ) and Reports dyspnea on exertion Physical Exam Vital Signs: Last Vital Signs Pulse 65 12/29/22 14:40 BP 120/80 12/29/22 14:40 Pulse Ox 97 12/29/22 14:40 Oxygen Delivery Method Room Air 12/29/22 14:40 BMI result Body Mass Index 18.1 Const Other: She is of a thin build, as usual, General: comfortable, no acute distress, alert and awake Orientation/consciousness: patient oriented x3 HEENT Head: Yes normal to inspection General nose exam: No nasal polyps present and No nasal discharge present Face and sinus: Yes sinuses nontender Mouth: oropharynx normal Throat: Yes posterior oropharynx normal Eyes General: appearance normal, both eyes and all related structures Neck Neck: Yes normal visual inspection, Yes no lymphadenopathy, Yes trachea midline and Yes no JVD Thyroid: Thyroid normal Chest Chest palpation & inspection: normal inspection of the chest, normal palpation of entire chest wall and no tenderness Resp Other: PERCUSSION NOTE IS HYPER-RESONANT, BREATH SOUNDS ARE EQUAL AND SLIGHTLY DISTANT ON BOTH SIDES. AFEW FINE EXP. WHEEZES ARE HEARD TODAY. NO CREPITATIONS OR RHONCHI ARE HEARD TODAY. Cardio Palpation: normal PMI Rate: regular rate Rhythm: regular rhythm Heart sounds: no gallops and no murmurs GI Palpation (GI): Soft to palpation, nontender, No hepatosplenomegaly present and no masses Auscultation: normal bowel sounds Back/Spine/Pelvis Thoracic/Lumbar Spine: thoracic and lumbar spine normal to inspection Skin General skin exam: no rashes or lesions noted Neuro General: patient oriented x3 and no focal motor deficits Cranial nerves: Yes CN's II-XII intact bilaterally Extrem General: Yes normal to inspection, Yes no clubbing, cyanosis or edema and Yes no calf tenderness Psych Speech and movement: Normal speech and movement present Assessment & Plan Assessment & Plan (1) COPD (chronic obstructive pulmonary disease): Comment: She is fully aware of the fact that she has moderately severe COPD. Symptoms are somewhat aggravated due to smoking. Advised to protects herself from the main triggers such as cold air and dust, Quit smoking. Meds : Duo Neb UDs tid . and use Albuterol inhalor as less as possible . Scrips are renewed. Code(s): J44.9 - Chronic obstructive pulmonary disease, unspecified Qualifiers: COPD type: chronic bronchitis Chronic bronchitis type: simple Qualified Code(s): J41.0 - Simple chronic bronchitis (2) Pulmonary nodules: Comment: She has had annual CT scans and, pulmonary nodules about 3 mm in size have remained stable, thus considered benign, Code(s): R91.8 - Other nonspecific abnormal finding of lung field (3) Smoker: Comment: Patient does have past history of smoking and she had. Stopped for a while Now, since July of 2022 after a back injury .she is more homebound She started smoking again. She is smoking about 2 or 3 cigarettes a day at this time. I have urged her to stop smoking completely. Code(s): F17.200 - Nicotine dependence, unspecified, uncomplicated Medications: Refilled ipratropium-albuterol 0.5 mg-3 mg(2.5 mg base)/3 mL 3 mL inhalation Q4-6H 30 days PRN 90 mL 3RF wheezing/copd albuterol sulfate 90 mcg/actuation 2 puffs PO Q6H PRN 25.5 grams 3RF for wheezing Coding Level of Care Code Est Pt Level 3 (59830) Diagnoses Simple chronic bronchitis J41.0 COPD type: chronic bronchitis Chronic bronchitis type: simple Pulmonary nodules R91.8 Smoker F17.200
== END 2022-12-29 15:01 | disposition home or self-care (01) ==
PROVIDERS: PCP Physician Assistant; Visit Provider Internal Medicine
DX: J41.0 Simple chronic bronchitis (principal); R91.8 Other nonspecific abnormal finding of lung field; F17.200 Nicotine dependence, unspecified, uncomplicated
CPT/HCPCS: 99213

== ENCOUNTER → 2022-12-29 13:53 | Outpatient (BNVA) | payer MEDICARE, SELFPAY | PROVIDERS: Visit Provider Internal Medicine | DX: J41.0 Simple chronic bronchitis (principal); R91.8 Other nonspecific abnormal finding of lung field; F17.210 Nicotine dependence, cigarettes, uncomplicated | CPT/HCPCS: 99212 ==

== ENCOUNTER 2023-05-05 13:27 | Outpatient (AMB) | payer MEDICARE, SELFPAY ==
--- NOTE | 2023-05-05 13:32 | MHC.OFFVIS ---
Intake Vital Signs 05/05/23 13:33 Height 5 ft 2 in Weight 102 lb BMI 18.7 BP 110/70 Blood Pressure Location Lt brachial Position Sitting Pulse 58 Pulse Source Pulse Oximeter Pulse Oximetry (%) 97 Oxygen Delivery Method Room Air Intake Visit Reasons: COPD follow-up Intake Note: pt is here for follow up and still dealing with back issues, seing pain management, sleeping and breathing is both doing okay Sample Preparation Supervisor Required: No Allergies Iodinated Contrast Media [IV Dye, Iodine Containing] Allergy (Mild, Verified 05/05/23 13:39) HIVES AND RASH propoxyphene [From Darvon] Allergy (Mild, Verified 05/05/23 13:39) N/V Medication List - Last Reconciled 05/05/23 by Eleanor Sherwood MD albuterol sulfate 90 mcg/actuation 2 puffs PO Q6H PRN amitriptyline 25 mg PO DAILY 30 days ascorbate calcium (vitamin C) 1,000 mg (2 x 500 mg) PO DAILY 90 days atorvastatin 40 mg PO DAILY 90 days blood pressure test kit-small As directed carvedilol 3.125 mg PO BID 90 days cholecalciferol (vitamin D3) 50 mcg PO DAILY fluticasone propionate 50 mcg/actuation (Flonase Allergy Relief) 2 sprays intranasal DAILY ibuprofen 800 mg PO Q8H 7 days ipratropium-albuterol 0.5 mg-3 mg(2.5 mg base)/3 mL 3 mL inhalation Q4-6H PRN 30 days loratadine 10 mg PO DAILY PRN magnesium oxide 400 mg PO DAILY 30 days riboflavin (vitamin B2) 50 mg PO DAILY 30 days sertraline 100 mg PO DAILY 90 days sumatriptan succinate take 1 tab at onset of headache; if no relief may repeat 1 tab after at least 2 hrs; max = 4 tabs/24 hr PO tizanidine 2 mg PO Q8H 10 days Do you need a note to return to daycare/school/sports/work: No HPI COPD follow-up HPI Details Kim , 67 years old female of a thin build, is here for 6 months follow-up for her COPD. She is still suffering from back pain and remains in the house mostly Smoking is down to only 2 cigarettes a day. Breathing is better and stable. She has her usual intermittent cough without much production. She gets short of breath only if she walks fast or climbs stairs but she does not do that much anyway. Overall breathing status is staying stable. [facility] Medical History (Updated 05/05/23 @ 13:51 by Eleanor Sherwood MD) Smoker Irritable bowel syndrome without diarrhea Nicotine dependence, cigarettes, uncomplicated Tubular adenoma of colon Osteopenia (~2009) Diverticulosis C. difficile colitis LLQ abdominal pain MDD (major depressive disorder), recurrent episode, moderate Varicosities of leg HLD (hyperlipidemia) HTN (hypertension) Pulmonary nodules COPD (chronic obstructive pulmonary disease) Surgical History History of laparotomy History of pelvic surgery History of blepharoplasty History of colonoscopy History of surgery on lower extremity History of ear surgery Family History Father Lung cancer Mother Heart attack Social History Housing: Apartment Alcohol intake: current Alcohol intake frequency: holidays/special occasions only Alcohol type: beer Patient Tobacco Use Status: Current someday Tobacco user (3 months) Tobacco use type: Cigarette Cigarette Packs Per Day: 0.5 Cigarettes Per Day: 2 e-Cigarette/Vaping Use: Never Used Second Hand Smoke Exposure: No Advance Directives Date on File: 09/17/20 service: No Current occupational status: employed Current occupation: [employer] Cognitive needs: No Hearing needs: Yes Vision needs: Yes Review of Systems Const All systems reviewed & are unremarkable except as noted in HPI and below Card Reports dyspnea on exertion Resp Reports cough (mild intermittent ) and Reports dyspnea on exertion Physical Exam Const Other: She is of a thin build, as usual, General: comfortable, no acute distress, alert and awake Orientation/consciousness: patient oriented x3 HEENT Head: Yes normal to inspection General nose exam: No nasal polyps present and No nasal discharge present Face and sinus: Yes sinuses nontender Mouth: oropharynx normal Throat: Yes posterior oropharynx normal Eyes General: appearance normal, both eyes and all related structures Neck Neck: Yes normal visual inspection, Yes no lymphadenopathy, Yes trachea midline and Yes no JVD Thyroid: Thyroid normal Chest Chest palpation & inspection: normal inspection of the chest, normal palpation of entire chest wall and no tenderness Resp Other: PERCUSSION NOTE IS HYPER-RESONANT, BREATH SOUNDS ARE EQUAL AND SLIGHTLY DISTANT ON BOTH SIDES. NO WHEEZES OR CREPITATIONS ARE HEARD TODAY. Cardio Palpation: normal PMI Rate: regular rate Rhythm: regular rhythm Heart sounds: no gallops and no murmurs GI Palpation (GI): Soft to palpation, nontender, No hepatosplenomegaly present and no masses Auscultation: normal bowel sounds Back/Spine/Pelvis Thoracic/Lumbar Spine: thoracic and lumbar spine normal to inspection Skin General skin exam: no rashes or lesions noted Neuro General: patient oriented x3 and no focal motor deficits Cranial nerves: Yes CN's II-XII intact bilaterally Extrem General: Yes normal to inspection, Yes no clubbing, cyanosis or edema and Yes no calf tenderness Psych Speech and movement: Normal speech and movement present Assessment & Plan Assessment & Plan (1) COPD (chronic obstructive pulmonary disease): Comment: MODERATELY SEVERE CHRONIC OBSTRUCTIVE PULMONARY DISEASE, RELATIVELY STABLE AT THIS TIME . She is using DuoNeb updrafts only once or twice a week. And albuterol HFA about once a day. Code(s): J44.9 - Chronic obstructive pulmonary disease, unspecified Qualifiers: COPD type: chronic bronchitis Chronic bronchitis type: simple Qualified Code(s): J41.0 - Simple chronic bronchitis Plan: Meds : Duo Neb UDs tid prn . and use Albuterol inhalor as less as possible . Scrips are renewed. (2) Pulmonary nodules: Comment: She has had annual CT scans and, pulmonary nodules about 3 mm in size have remained stable, thus considered benign, Code(s): R91.8 - Other nonspecific abnormal finding of lung field Plan: Advised to continue participating in annual lung screening program (3) Smoker: Comment: Patient does have past history of smoking and she had. Stopped for a while Now, since July of 2022 after a back injury .she is more homebound She started smoking again. She is smoking about 2 or 3 cigarettes a day at this time. I have urged her to stop smoking completely. Code(s): F17.200 - Nicotine dependence, unspecified, uncomplicated Plan: Once again urged to quit smoking completely, and at least 2 not go above 2 cigarettes a day. Medications: Refilled ipratropium-albuterol 0.5 mg-3 mg(2.5 mg base)/3 mL 3 mL inhalation Q4-6H PRN 90 mL 3RF wheezing/copd 30 days Coding Level of Care Code Est Pt Level 3 (37993) Diagnoses Simple chronic bronchitis J41.0 COPD type: chronic bronchitis Chronic bronchitis type: simple Pulmonary nodules R91.8 Smoker F17.200
[2023-05-05 13:33] VITALS: BP 110/70; PULSE 58; O2SAT 97; BMI 18.7
== END 2023-05-05 13:48 | disposition home or self-care (01) ==
PROVIDERS: PCP Physician Assistant; Visit Provider Internal Medicine
DX: J41.0 Simple chronic bronchitis (principal); R91.8 Other nonspecific abnormal finding of lung field; F17.200 Nicotine dependence, unspecified, uncomplicated
CPT/HCPCS: 99213

== ENCOUNTER → 2023-05-05 13:27 | Outpatient (BNVA) | payer MEDICARE, SELFPAY | PROVIDERS: PCP Physician Assistant; Visit Provider Internal Medicine | DX: J41.0 Simple chronic bronchitis (principal); R91.8 Other nonspecific abnormal finding of lung field; F17.210 Nicotine dependence, cigarettes, uncomplicated | CPT/HCPCS: 99212 ==

== ENCOUNTER 2023-09-07 10:26 | Outpatient (AMB) | payer MEDICARE, SELFPAY ==
[2023-09-07 10:35] VITALS: BP 118/58; PULSE 77; BMI 19.7
--- NOTE | 2023-09-07 10:35 | A.OFFVIS_ITS ---
Vital Signs 09/07/23 10:35 Height 5 ft 2 in Weight 107 lb 9.369 oz BMI 19.7 BP 118/58 L Blood Pressure Location Lt brachial Position Sitting Pulse 77 Intake Visit Reasons: IBS f/u Intake Note: Kim returns to in office follow up of IBS today. CC: Patient states that for the last month or two she has been feeling lousy and everything she puts in her mouths send her to the bathroom. Customer Service Administrator Required: No Allergies Iodinated Contrast Media [IV Dye, Iodine Containing] Allergy (Mild, Verified 09/07/23 10:38) HIVES AND RASH propoxyphene [From Darvon] Allergy (Mild, Verified 09/07/23 10:38) N/V HPI HPI IBS f/u: Details: LAST VISIT: 08/01/2022 LLQ abdominal pain Patient denies any abdominal discomfort. Patient is aware that she has to move her bowels. Patient was diagnosed with descending and sigmoid diverticulosis. Patient denies any nausea or vomiting. No diarrhea. Continue to monitor and continue to drink plenty fluids, increase activity to promote better bowel motility IBS (irritable bowel syndrome) Occasional abdominal cramping postprandially, however patient states that overall she has been feeling very well. Continue dicyclomine on as needed basis. Patient was instructed to be careful in using that as she can become more consti pated. She is aware that she to move her bowels and feel like she empties them completely. I will see her in 6 months, sooner on as needed basis. Patient is agreeable to this plan and verbalizes understanding of instructions. She was given the opportunity to ask questions and all questions answered. ? Thank you for allowing me to participate in her care Plan Medications Refilled dicyclomine 10 mg PO TID PRN 90 caps 2RF abdominal discomfort R10.32 - Left lower quadrant pain TODAY'S VISIT Patient is here today for requested visit. Patient reports past few weeks she has been having her symptoms of lower abdominal cramping and loose stools postprandially. Anything that she eats patient reports that she has to immediately go to the bathroom. Reports postprandial abdominal bloating. Patient denies any change in her diet. Denies recent travels or anyone around her with similar symptoms. Patient does have a history of C diff in the past and treated. No recent antibiotic therapy. Patient denies any nausea or vomiting. Denies any fever or chills. Occasional left abdominal cramping. Uses dicyclomine on as needed basis. Patient denies melena, hematochezia, unintentional weight loss or ribbon like stools. Patient gained few lb since the last time I have seen. Patient denies dyspepsia, dysphagia or odynophagia. [facility] Medical History (Updated 09/14/23 @ 11:13 by Jessica Ruth, [facility]) Irritable bowel syndrome without diarrhea Smoker Nicotine dependence, cigarettes, uncomplicated Tubular adenoma of colon Osteopenia (~2009) Diverticulosis C. difficile colitis LLQ abdominal pain MDD (major depressive disorder), recurrent episode, moderate Varicosities of leg HLD (hyperlipidemia) HTN (hypertension) Pulmonary nodules COPD (chronic obstructive pulmonary disease) Surgical History History of laparotomy History of pelvic surgery History of blepharoplasty History of colonoscopy History of surgery on lower extremity History of ear surgery Family History Father Lung cancer Mother Heart attack Social History Housing: Apartment Alcohol intake: current Alcohol intake frequency: holidays/special occasions only Alcohol type: beer Patient Tobacco Use Status: Current someday Tobacco user (3 months) Tobacco use type: Cigarette Cigarette Packs Per Day: 0.5 Cigarettes Per Day: 2 e-Cigarette/Vaping Use: Never Used Second Hand Smoke Exposure: No Advance Directives Date on File: 09/17/20 service: No Current occupational status: employed Current occupation: [employer] Cognitive needs: No Hearing needs: Yes Vision needs: Yes Review of Systems Const Denies weight gain and Denies weight loss ENT Reports no additional complaints, Denies dysphagia and Denies odynophagia Card Reports no additional complaints Resp Reports no additional complaints GI Reports abdominal pain, Denies belching, Denies melena, Denies bloating, Reports tenesmus, Denies dysphagia, Denies excessive flatus, Denies dyspepsia, Denies heartburn, Denies diarrhea, Reports loose stools, Denies nausea, Denies odynophagia and Denies vomiting Reports no additional complaints Musc Reports no additional complaints Neuro Reports no additional complaints Psych Reports no additional complaints Endo Reports no additional complaints Physical Exam Vital Signs: Last Vital Signs Pulse 77 09/07/23 10:35 BP 118/58 L 09/07/23 10:35 BMI result Body Mass Index 19.7 Const General: healthy appearing, no acute distress and well developed Nutritional Appearance: well nourished Orientation/consciousness: patient oriented x3 Resp Effort & Inspection: normal respiratory effort, able to speak in complete sentences, no tracheal deviation and symmetric chest movement Auscultation: clear to auscultation bilaterally Cardio Rate: regular rate GI Inspection: Yes normal to inspection and No distended Palpation (GI): Soft to palpation, not firm, nontender and No hepatosplenomegaly present Auscultation: normal bowel sounds General: Yes no CVA tenderness Back/Spine/Pelvis Back: no CVA tenderness Skin General skin exam: elasticity normal, turgor normal and dry skin Neuro General: patient oriented x3 Psych Appearance: grossly normal Mental Status: mental status grossly normal Assessment & Plan Assessment & Plan (1) LLQ abdominal pain: Code(s): R10.32 - Left lower quadrant pain Category: Medical (2) Diverticulosis: Code(s): K57.90 - Diverticulosis of intestine, part unspecified, without perforation or abscess without bleeding Category: Medical (3) IBS (irritable bowel syndrome): Code(s): K58.9 - Irritable bowel syndrome without diarrhea Qualifiers: Irritable bowel syndrome type: with diarrhea Qualified Code(s): K58.0 - Irritable bowel syndrome with diarrhea (4) Postprandial diarrhea: Code(s): K52.9 - Noninfective gastroenteritis and colitis, unspecified Plan Will check CRP, check C diff, history of C diff in the past, GI panel. Will check her thyroid as well as vitamin D, B12 and folate. Will check CBC and CMP. Patient was encouraged to increase fiber intake in her diet and follow low FODMAP diet as well. May take [id number] fiber supplements with probiotics. She will return in 3 months, sooner on as needed basis. Patient was encouraged to increase fluid intake and activity to promote better bowel motility. Patient will call the office if her symptoms will get worse or if she will experience any additional GI concerning symptoms. She is agreeable to this plan and verbalizes understanding of instructions. She was given the opportunity to ask questions and all questions answered. Thank you for allowing me to participate in her care Orders: Orders C Reactive Protein 09/07/23 K58.9 - Irritable bowel syndrome without diarrhea TSH reflex Free T4 09/07/23 K59.00 - Constipation, unspecified GI Panel 09/07/23 R19.7 - Diarrhea, unspecified CDiff Gene PCR 09/07/23 R19.7 - Diarrhea, unspecified Vitamin D 25-OH (D2 and D3) 09/07/23 E55.9 - Vitamin D deficiency, unspecified Vitamin B12 and Folate 09/07/23 R19.7 - Diarrhea, unspecified Complete Blood Count no Diff 09/07/23 K21.9 - Gastro-esophageal reflux disease without esophagitis Comprehensive Met. Panel 09/07/23 K21.9 - Gastro-esophageal reflux disease without esophagitis Coding Level of Care Code Est Pt Level 4 (72902) Diagnoses LLQ abdominal pain R10.32 Diverticulosis K57.90 Irritable bowel syndrome with diarrhea K58.0 Irritable bowel syndrome type: with diarrhea Postprandial diarrhea K52.9 Time Spent (min) 35 Comment 20 minutes spent with patient and additional 15 minutes spent reviewing her records
== END 2023-09-07 10:58 | disposition home or self-care (01) ==
PROVIDERS: PCP Physician Assistant; Visit Provider Nurse Practitioner Family
DX: K57.90 Diverticulosis of intestine, part unspecified, without perforation or abscess without bleeding (principal); K58.0 Irritable bowel syndrome with diarrhea
CPT/HCPCS: 99214

== ENCOUNTER 2023-09-07 10:26 | Outpatient (REF) | payer MEDICARE, SELFPAY ==
[2023-09-07 12:20] LABS: Hemoglobin 13.5 g/dl (12.0-16.0); Mean Corpuscular HGB Conc 32.1 g/dl (31.0-35.0); Mean Corpuscular Hemoglobin 31.2 pg (27.0-33.0); Mean Platelet Volume 10.3 fL (9.4-12.3); Platelet Count 292 X10*3/uL (160-400); Red Blood Count 4.33 X10*6/uL (4.20-5.50); Red Cell Distribution Width 13.9 % (11.0-16.0); White Blood Count 8.4 X10*3/uL (4.8-10.8)
[2023-09-07 12:53] LABS: Alanine Aminotransferase 13 U/L (0-31); Albumin Level 3.8 g/dL (3.5-5.0); Alkaline Phosphatase 74 U/L (39-117); Anion Gap 11 (12-20); Aspartate Amino Transferase 22 U/L (5-31); Bilirubin Total 0.3 mg/dL (0.0-1.0); Blood Urea Nitrogen 20 mg/dL (9-16); C Reactive Protein 0.18 mg/dL (< or = 0.50); Calcium 9.5 mg/dL (8.4-10.2); Carbon Dioxide 26 mmol/L (22-29); Chloride 109 mmol/L (96-108); Estimated Glomerular Filt Rate > 60; Glucose Random 81 mg/dL (60-115); Potassium 3.9 mmol/L (3.3-5.1); Sodium 142 mmol/L (135-145); Total Protein 6.7 g/dL (6.5-8.0)
[2023-09-07 13:09] LABS: TSH reflex Free T4 2.98 uIU/mL (0.32-4.0)
[2023-09-07 13:43] LABS: Folate > 20.0 ng/mL (> or = 4.0); Vitamin B12 279 pg/mL (200-900)
[2023-09-12 15:43] LABS: Vitamin D 25-OH, D2 <4 ng/mL; Vitamin D 25-OH, D3 11 ng/mL; Vitamin D 25-OH, Total 11 ng/mL (30-100)
== END 2023-09-07 10:27 | disposition home or self-care (01) ==
LOC: HO.LAB 10:26
PROVIDERS: PCP Physician Assistant; Visit Provider Nurse Practitioner Family
DX: K58.9 Irritable bowel syndrome, unspecified (principal); R19.7 Diarrhea, unspecified; K21.9 Gastro-esophageal reflux disease without esophagitis; K59.00 Constipation, unspecified; E55.9 Vitamin D deficiency, unspecified
CPT/HCPCS: 36415; 80053; 82306; 82607; 82746; 84443; 85027; 86140; 99212

== ENCOUNTER 2023-11-04 14:06 | Outpatient (AMB) | payer MEDICARE, SELFPAY ==
--- NOTE | 2023-11-04 14:14 | A.OFFPC_ITS ---
Vital Signs 11/04/23 14:15 Height 5 ft 2 in Weight 106 lb 4 oz BMI 19.4 BP 106/70 Blood Pressure Location Lt brachial Position Sitting Pulse 76 Pulse Source Pulse Oximeter Pulse Oximetry (%) 95 Oxygen Delivery Method Room Air Intake Visit Reasons: Annual exam Allergies Iodinated Contrast Media [IV Dye, Iodine Containing] Allergy (Mild, Verified 11/04/23 14:22) HIVES AND RASH propoxyphene [From Darvon] Allergy (Mild, Verified 11/04/23 14:22) N/V Medication List - Last Reconciled 11/04/23 by NOVA [place] albuterol sulfate 90 mcg/actuation 2 puffs PO Q6H PRN amitriptyline 25 mg PO DAILY 30 days ascorbate calcium (vitamin C) 1,000 mg (2 x 500 mg) PO DAILY 90 days atorvastatin 40 mg PO DAILY 90 days blood pressure test kit-small As directed carvedilol 3.125 mg PO BID 90 days cholecalciferol (vitamin D3) 50 mcg PO DAILY dicyclomine 10 mg PO BID PRN fluticasone propionate 50 mcg/actuation (Flonase Allergy Relief) 2 sprays intranasal DAILY ibuprofen 800 mg PO Q8H 7 days ipratropium-albuterol 0.5 mg-3 mg(2.5 mg base)/3 mL 3 mL inhalation Q4-6H PRN 30 days loratadine 10 mg PO DAILY PRN magnesium oxide 400 mg PO DAILY 30 days methylcellulose (laxative) (Citrucel) 500 mg PO DAILY riboflavin (vitamin B2) 50 mg PO DAILY 30 days sennosides (Natural Senna Laxative) 17.2 mg (2 x 8.6 mg) PO BEDTIME sertraline 100 mg PO DAILY 90 days sumatriptan succinate take 1 tab at onset of headache; if no relief may repeat 1 tab after at least 2 hrs; max = 4 tabs/24 hr PO tizanidine 2 mg PO Q8H 10 days Tobacco use date assessed: 10/10/22 Dental Screening Dental Screen Date: 12/04/22 HPI Annual exam HPI Details Partient? is a 68-year-old female here today for an annual physical..? Patient has a past medical history significant for COPD, pulmonary nodules, hypertension. Multiple concerns-- Report having difficulty sleeping , only able to get to sleep at 5am. She reports over last 4 weeks having episodes of diaphoresis and dry heaving. ? Patient is followed by international sales representative and has been stable on her maintenance inhaler, has had CT of her chest showing 3 stable nodules. Breathing has been stable, . . Lumbar disc disease: Patient continu es to have lower lumbar spine pain that bothers her. She would like to reestablish care with pain management for possible injection. She is interested in trying something to help her with pain. .. COPD: Continues to follow pulmonology, she does use an updraft as maintenance a few times a week. Otherwise denies any acute exacerbations. Unfortunately continues to smoke a few cigarettes per day and does understand she needs to quit smoking .. HTN: Doesn't check her BP at home.? Today in office blood pressures stableslightly elevated.? Has been on carvedilol for many years now with good results.? Denies any chest discomfort, palpitations, headaches. .. Low BMI:? Has gained some weight since last office visit, now retired and not as active. . mamm: Need up to date mammo. .. Vaccines:? Up-to-date pneumonia, up-to-date with COVID vaccine, up-to-date flu vac, up-to-date tetanus Colorectal cancer screening: done in 2019 Polyp found- repeat in 10 years [facility] Medical History Irritable bowel syndrome without diarrhea Smoker Nicotine dependence, cigarettes, uncomplicated Tubular adenoma of colon Osteopenia (~2009) Diverticulosis C. difficile colitis LLQ abdominal pain MDD (major depressive disorder), recurrent episode, moderate Varicosities of leg HLD (hyperlipidemia) HTN (hypertension) Pulmonary nodules COPD (chronic obstructive pulmonary disease) Surgical History History of laparotomy History of pelvic surgery History of blepharoplasty History of colonoscopy History of surgery on lower extremity History of ear surgery Family History Father Lung cancer Mother Heart attack Social History (Updated 11/04/23 @ 14:30 by Ernst Huerta PA-C) Housing: Apartment Alcohol intake: current Alcohol intake frequency: a few times a month Alcohol type: beer Patient Tobacco Use Status: Current someday Tobacco user (3 months) Tobacco use type: Cigarette Cigarettes Per Day: 3 e-Cigarette/Vaping Use: Never Used Second Hand Smoke Exposure: No Advance Directives Date on File: 09/17/20 service: No Current occupational status: retired Cognitive needs: No Hearing needs: Yes Vision needs: Yes Questionnaire PHQ-9 Over the last 2 weeks, how often have you been bothered by any of the following problems? 1. Little interest or pleasure in doing things: nearly every day 2. Feeling down, depressed, or hopeless: nearly every day 3. Trouble falling or staying asleep, or sleeping too much: nearly every day 4. Feeling tired or having little energy: nearly every day 5. Poor appetite or overeating: several days 6. Feeling bad about yourself - or that you are a failure or have let yourself or your family down: not at all 7. Trouble concentrating on things, such as reading the newspaper or watching television: several days 8. Moving or speaking so slowly that other people could have noticed. Or the opposite - being so fidgety or restless that you have been moving around a lot more than usual: several days 9. Thoughts that you would be better off or of hurting yourself in some way: not at all Total score: 15 Depression Screening Interpretation: Positive Depression Screening Follow-up: Existing condition and Declines treatment Depression Screening Done: Yes 69312 - PHQ-9 Billing: Yes Source: Developed by Drs. Julio Cornejo, Taina Brady, Ranulfo Anderson and colleagues, with an educational cleo from [employer]. Thrive Questionnaire Date Thrive assessed: 11/04/23 I am a: Patient What is your living situation today?: I have a steady place to live Within the past 12 months, did the food you bought not last and you didn't have the money to get more?: Never true Within the past 12 months, did you worry whether your food would run out before you got money to buy more?: Never true Do you have trouble paying for medicines?: No Do you have trouble getting transportation to medical appointments?: No Do you have trouble paying your heating and electricity bill?: No Do you have trouble taking care of your child, family member or friend?: No Do you have trouble with day-to-day activities such as bathing, preparing meals, shopping, managing finances, etc.?: No Are you currently unemployed and looking for a job?: No Are you interested in more education?: No Please select the resources that you would like help with: None Currently or been in a relationship where the following occur: No concerns reported THRIVE Score: 0 JORGE-7 AMB Questionnaire JORGE-7 Date JORGE - 7 assessed: 11/04/23 Feeling nervous, anxious, or on edge: 0 = Not at all Not being able to stop or control worryin = Not at all Worrying too much about different things: 0 = Not at all Trouble relaxin = Not at all Being so restless that it is hard to sit still: 0 = Not at all Becoming easily annoyed or irritable: 0 = Not at all Feeling afraid as if something awful might happen: 0 = Not at all Total JORGE-7 score (0-4 normal; 5-9 mild; 10-14 moderate; 15-21 severe): 0 Source: Developed by Drs. Julio Cornejo, Taina Brady, Ranulfo Anderson and colleagues, with an educational cleo from [employer]. JORGE-7 Assessment Billing JORGE-7 Assessment Tool: JORGE-7 Assessment 35730 Review of Systems Const Denies body aches, Denies chills, Denies excessive sweating, Denies fatigue, Denies fever(s) and Denies headache(s) Eyes Denies blurry vision ENT Denies dysphagia, Denies vertigo, Denies dizziness, Denies headache(s), Denies hearing loss and Denies tinnitus Card Denies syncope and Reports dyspnea on exertion Resp Reports dyspnea on exertion and Denies wheezing GI Denies abdominal pain, Denies melena, Denies hematochezia, Denies coffee ground emesis, Denies dysphagia, Denies diarrhea, Denies nausea and Denies vomiting Denies urinary frequency, Denies dysuria, Denies urinary hesitancy and Denies urinary urgency Musc Denies arthralgias, Denies limited range of motion, Denies muscle cramps and Denies muscle weakness Skin/Breast Denies rash and Denies skin ulcer Neuro Denies Abnormal speech present, Denies confusion, Denies vertigo, Denies dizziness, Denies syncope, Denies headache(s), Denies memory loss and Denies seizure-like activity Psych Denies anxiety, Denies confusion, Denies depression, Denies memory loss, Denies panic attacks and Denies paranoia Endo Denies excessive sweating, Denies fatigue, Denies flushing, Denies polydipsia and Denies polyuria Aller/Immun Denies wheezing Physical exam (Primary Care) Vital Signs: Last Vital Signs Pulse 76 11/04/23 14:15 BP 106/70 11/04/23 14:15 Pulse Ox 95 11/04/23 14:15 Oxygen Delivery Method Room Air 11/04/23 14:15 BMI result Body Mass Index 19.4 Tobacco/Smoking Status: Tobacco use Status Tobacco use date assessed 10/10/22 11/04/23 14:15 Patient Tobacco Use Status Current someday Tobacco (3 11/04/23 14:15 months) Tobacco use type Cigarette 11/04/23 14:15 e-Cigarette/Vaping Use Never Used 11/04/23 14:15 PHQ-9: PHQ-9 Score PHQ-9: Total score 15 11/04/23 14:20 Depression Screening Interpretation: Positive Depression Screening Follow-up: Existing condition and Declines treatment Thrive Assessment: Date of Thrive Assessment Date Thrive assessed 11/04/23 11/04/23 14:15 Currently or been in a relationship where the following occur: No concerns reported Const General: cooperative, comfortable, no acute distress, alert and awake; No confusion Orientation/consciousness: oriented to person, oriented to place, patient oriented x3 and No confusion HENMT Head: Yes normocephalic Ears: external ears normal and TM's normal bilaterally Face and sinus: No sinus tenderness Mouth: Normal oral and palatal mucosa present and tongue normal Teeth and gingiva: dentition normal and gingiva normal Throat: Yes posterior oropharynx normal, Yes tonsils normal and Yes uvula midline Eyes Conjunctivae: conjunctivae normal Sclerae: sclerae normal Pupils: Equal, round and reactive pupils present EOM: EOMs intact bilaterally Direct Ophthalmoscopy: No no photophobia Neck Neck: Yes no lymphadenopathy, No tender and Yes no JVD Thyroid: Thyroid normal Carotids: no bruits Chest Chest palpation & inspection: no tenderness Resp Effort & Inspection: normal respiratory effort, no audible wheezes, not labored and no stridor Auscultation: no crackles, no rales, no rhonchi and no wheezes Cardio Jugular venous distension: no JVD Rate: regular rate, not bradycardic and not tachycardic Rhythm: regular rhythm Bruits: no carotid bruits Peripheral pulses: Peripheral pulses 2+ throughout GI Inspection: Yes normal to inspection, No abdominal wall ecchymosis and No visible herniation Palpation (GI): Soft to palpation, nontender, no guarding, not rigid and No hepatosplenomegaly present Auscultation: normoactive bowel sounds General: Yes no CVA tenderness Back/Spine/Pelvis Back: no CVA tenderness and No back tenderness Cervical Spine: cervical ROM normal Thoracic/Lumbar Spine: thoracic and lumbar spine normal to inspection, straight leg raise negative bilaterally, No thoraco-lumbar ROM limited and No lumbar spinal tenderness Skin Lesions: no lesions Rashes: no rashes Wounds: no wounds Neuro General: oriented to person, oriented to place, patient oriented x3, CN's II-XI intact bilaterally and No confusion Cranial nerves: Yes Equal, round and reactive pupils present and Yes Normal accommodation reflex present Cognition (Neuro): normal cognition Speech: No Abnormal speech present Gait exam (Neuro): Normal gait present Motor exam (neuro): 5/5 motor strength present throughout Extrem Right upper extremity: full ROM; no cyanosis Left upper extremity: full ROM; no cyanosis Right lower extremity: no edema Left lower extremity: no edema Psych Appearance: grossly normal Mental Status: mental status grossly normal Affect: normal affect Attitude: cooperative Thought process: Normal thought process present Assessment and Plan Assessment & Plan (1) Annual physical exam: Code(s): Z00.00 - Encounter for general adult medical examination without abnormal findings (2) SOB (shortness of breath) on exertion: Code(s): R06.02 - Shortness of breath Plan: Reports having some shortness of breath and diaphoresis on minimal exertion as of late. She does report this has been evident over the last 4 weeks. Will send for nuclear cardiac stress test to evaluate for cardiac ischemia on physical exam. (3) Smoker: Comment: Patient does have past history of smoking and she had. Stopped for a while Now, since July of 2022 after a back injury .she is more homebound She started smoking again. She is smoking about 2 or 3 cigarettes a day at this time. I have urged her to stop smoking completely. Code(s): F17.200 - Nicotine dependence, unspecified, uncomplicated Plan: Unfortunately continues to smoke a few cigarettes per day and does understand she needs to quit smoking. Declines my offer to start nicotine replacement again. (4) Radiculopathy, lumbar region: Code(s): M54.16 - Radiculopathy, lumbar region Plan: As per HPI has been having difficulty with her lower back pain. Has done physical therapy, chiropractics in medication all without any significant relief. She was told to call pain management back when has increased lower lumbar spine pain. She would like a new referral to [facility] pain management for evaluation and possible cortisone injection and back. (5) HTN (hypertension): Code(s): I10 - Essential (primary) hypertension Qualifiers: Hypertension type: essential hypertension Qualified Code(s): I10 - Essential (primary) hypertension Plan: Blood pressure slightly low today in office. Has been somewhat ill over the last several weeks and likely not in taking fluids adequately. (6) COPD (chronic obstructive pulmonary disease): Comment: MODERATELY SEVERE CHRONIC OBSTRUCTIVE PULMONARY DISEASE, RELATIVELY STABLE AT THIS TIME . She is using DuoNeb updrafts only once or twice a week. And albuterol HFA about once a day. Code(s): J44.9 - Chronic obstructive pulmonary disease, unspecified Qualifiers: COPD type: chronic bronchitis Chronic bronchitis type: simple Qualified Code(s): J41.0 - Simple chronic bronchitis Plan: Followed by pulmonology. Does smoke a few cigarettes per day. Does use albuterol inhaler on a p.r.n. b asis. Also has ipratropium albuterol solution for nebulizer that she uses on occasion. He (7) HLD (hyperlipidemia): Code(s): E78.5 - Hyperlipidemia, unspecified Qualifiers: Hyperlipidemia type: mixed hyperlipidemia Qualified Code(s): E78.2 - Mixed hyperlipidemia Plan: Continues on statin therapy. Will try to get fasting lipid panel in near future (8) Dermatitis: Code(s): L30.9 - Dermatitis, unspecified Plan: Does have a vesicular rash over the back of her neck. Will supply patient with steroid ointment Orders: Orders Microalbumin, Random (w Creat) Today I10 - Essential (primary) hypertension Comprehensive [place]. Panel Fast Today I10 - Essential (primary) hypertension CA lexiscan stress w efrain Today R06.02 - Shortness of breath Lipid Panel Today E78.2 - Mixed hyperlipidemia Complete Blood Count no Diff Today I10 - Essential (primary) hypertension NM cardiolite stress test Today R06.02 - Shortness of breath Referrals Pain Management Referral M51.36 - Other intervertebral disc degeneration, lumbar region Medications: New triamcinolone acetonide 0.1% 1 appl topical DAILY 30 days 30 grams 0RF L30.9 - Dermatitis, unspecified tramadol 50 mg PO BID 7 days PRN 14 tabs 0RF pain M51.36 - Other intervertebral disc degeneration, lumbar region Refilled ibuprofen 800 mg PO Q8H 7 days 21 tabs 0RF M54.16 - Radiculopathy, lumbar region tizanidine 2 mg PO Q8H 10 days 30 tabs 0RF muscle spasticity M46.1 - Sacroiliitis, not elsewhere classified Discontinued amitriptyline Discontinued Reason: Doctor's Order 25 mg PO DAILY 30 days 30 tabs 1RF M53.3 - Sacrococcygeal disorders, not elsewhere classified Coding Level of Care Code Est Pt Prev Care >65y(29239) Diagnoses Annual physical exam Z00.00 SOB (shortness of breath) on exertion R06.02 Smoker F17.200 Radiculopathy, lumbar region M54.16 Essential hypertension I10 Hypertension type: essential hypertension Simple chronic bronchitis J41.0 COPD type: chronic bronchitis Chronic bronchitis type: simple Mixed hyperlipidemia E78.2 Hyperlipidemia type: mixed hyperlipidemia Dermatitis L30.9 Additional Codes JORGE-7 Assessment Billing - JORGE-7 Assessment Tool: JORGE-7 Assessment 95671 ([id number])
[2023-11-04 14:15] VITALS: BP 106/70; PULSE 76; O2SAT 95; BMI 19.4
== END 2023-11-04 14:45 | disposition home or self-care (01) ==
PROVIDERS: PCP Physician Assistant; Visit Provider Physician Assistant
DX: Z00.00 Encounter for general adult medical examination without abnormal findings (principal); J41.0 Simple chronic bronchitis; F17.210 Nicotine dependence, cigarettes, uncomplicated; M54.16 Radiculopathy, lumbar region; I10 Essential (primary) hypertension; E78.2 Mixed hyperlipidemia; L30.9 Dermatitis, unspecified
CPT/HCPCS: 99397

== ENCOUNTER → 2023-12-21 08:20 | Outpatient (REF) | payer MEDICARE, SELFPAY ==
--- NOTE | ~2023-12-21 | NM_ITS ---
Lexiscan Myocardial perfusion study Indication: Shortness of breath to evaluate for myocardial ischemia Technique: The patient was brought in for a Lexiscan perfusion study on 12/21/2023 and was injected 0.4 mg of Lexiscan intravenously. Within a minute of this injection 25 mCi of sestamibi was given intravenously. Images were obtained using the SPECT gamma camera interlaced with the gating device. Images were obtained in supine position. Resting perfusion study was performed on 12/25/2023. Patient was administered 25 mCi of sestamibi intravenously at rest. Images were then obtained in supine position. Images obtained without without CT attenuation. Total DLP 73 mGy-cm. Images were processed with the software and compared side to side in short axis, horizontal long axis and vertical long axis views. Findings: The stress perfusion study showed nonattenuated images show some thinning of the distal anterior wall of the myocardium otherwise normal uptake of radiotracer in all segments of the LV myocardium. Attenuated corrected images show mildly reduced uptake in the distal anterior wall of the myocardium. The gated study shows normal LV systolic function with calculated LVEF of 71%. LV cavity is normal in size. The gated study shows normal systolic wall thickening and contraction of segments. Resting study shows no change in perfusion pattern compared to stress perfusion study. Gating at rest reveals normal systolic wall motion with ejection fraction at greater than 60%. The findings are consistent with normal myocardial perfusion. NM/NM cardiolite stress test Impression: 1. Myocardial perfusion imaging study shows normal myocardial perfusion 2. Gated LVEF is 71% 3. Transient ischemic dilatation not present Nondiagnostic changes on EKG. Electronically signed by: Fausto Nelson MD 12/25/2023 03:03 PM EDT
--- NOTE | 2023-12-21 08:23 | CA_ITS ---
Acquisition Time: 2023-12-21 08:28:37 Total Exercise Time: 00:02:00 Test Indications: Dyspnea Medications: SEE H Protocol: LEXISCAN Max HR: 109 BPM 72% of Pred: 151 BPM Max BP: 118/074 mmHG Max Work Load: 1.0 METS Pharmacological stress test with Lexiscan injection while sitting and kicking her legs, without anginal symptoms, with isolated PVC, with normotensive response to injection, with nondiagnoisitic EKGs. Aminophylline 75mg IVP given to reverse Lexiscan. Nuclear images pending. Test reviewed with Dr Pal Referred By: Ernst Huerta Overread By: Cristina Schumacher
== END ==
LOC: HO.CARD 08:20
PROVIDERS: PCP Physician Assistant; Visit Provider Physician Assistant
DX: R06.02 Shortness of breath (principal)
CPT/HCPCS: 78452; 93017; A9500; J0280; J2785

== ENCOUNTER → 2023-12-21 08:23 | Outpatient (BNV) | payer MEDICARE, SELFPAY | PROVIDERS: PCP Physician Assistant; Visit Provider Nurse Practitioner | DX: R06.02 Shortness of breath (principal) | CPT/HCPCS: 78452; 93016; 93018 ==

== ENCOUNTER 2024-01-23 15:15 | Emergency (ER) | payer MEDICARE, SELFPAY ==
[2024-01-23] VITALS (12 sets, daily range): BP systolic 116–165; BP diastolic 53–89; PULSE 55–81; RESP 14–18; TEMP 36.5–37; O2SAT 96–98; BMI 17.0
--- NOTE | ~2024-01-23 | CT_ITS ---
EXAMINATION: CT HEAD WITHOUT CONTRAST CT CERVICAL SPINE WITHOUT CONTRAST CLINICAL INFORMATION: Fall, loss of consciousness COMPARISON: Head CT on 05/02/22 TECHNIQUE: Contiguous axial imaging was performed from the skull base to vertex without intravenous administration of contrast. In addition, helical noncontrast CT imaging was acquired through the cervical spine and source images were reviewed along with axial reconstructions and sagittal and coronal MPRs. DLP: 810 mGy-cm FINDINGS: HEAD: No intracranial mass, hemorrhage, or midline shift is visualized. The ventricles and sulci are age-appropriate. No extra-axial collections are identified. The paranasal sinuses are well aerated. Left posterior scalp hematoma. CERVICAL SPINE: There is no evidence of acute cervical spine fracture. Vertebral bodies remain normal in height, intervertebral disc spaces are preserved, and alignment is anatomic. No pre- or paravertebral soft tissue abnormality is identified. Limited assessment of the lung apices is unremarkable. Emphysema at the lung bases. CT/CT cervical spine wo IV con IMPRESSION: 1. No acute intracranial pathology. 2. No CT evidence of acute cervical spine fracture or traumatic subluxation 3. Left posterior scalp hematoma. Electronically signed by: Ashlyn Ablert MD 01/23/2024 05:25 PM EDT
--- NOTE | ~2024-01-23 | CT_ITS ---
EXAMINATION: CT angio chest PE protocol CLINICAL INFORMATION: syncope, elevated dimer COMPARISON: No pertinent prior studies are available for comparison. TECHNIQUE: Prior to contrast administration, noncontrast localization images were obtained following the administration of 70 mL Omnipaque 350 intravenous contrast. No contrast reaction reported Sagittal, coronal, and MIP oblique sagittal reformatted images were obtained on the CT workstation, uploaded to PACS, and reviewed. This CT examination was performed using dose optimization techniques as appropriate, variously including the following: * Automated exposure control * Adjustment of mA and/or kV according to patient size (this includes techniques or standardized protocols for targeted exams where dose is matched to indication/reason for exam; i.e. extremities or head) Use of iterative reconstruction technique Total exam dose-length product 197 mGy-cm FINDINGS: QUALITY OF STUDY/CONTRAST BOLUS: Satisfactory. PULMONARY ARTERIES: No central or segmental pulmonary emboli. THORACIC AORTA: No aneurysm or dissection. LUNG: There are changes of emphysema with increase interstitial markings in lingula and subpleural nodule in the right upper lobe measured 0.8 cm, image 34 series 5 PLEURA: No pleural effusion or pneumothorax. MEDIASTINUM: Normal heart size. No pericardial effusion. No hilar or mediastinal lymphadenopathy. No evidence of septal bowing or right heart strain. CHEST WALL/AXILLA: No axillary or internal mammary lymphadenopathy. Abdomen: No evidence of upper abdomen abnormalities and no significant reflux of contrast seen and IVC OSSEOUS STRUCTURES: No suspicious sclerotic or lytic bone lesions are identified. CT/CT angio chest PE protocol IMPRESSION: No evidence of pulmonary embolism. Mild interstitial changes in lingula and ill-defined nodule in right upper lobe. VTE: negative Electronically signed by: Elsy Quispe MD 01/23/2024 08:39 PM EDT
--- NOTE | ~2024-01-23 | CT_ITS ---
EXAMINATION: CT HEAD WITHOUT CONTRAST CT CERVICAL SPINE WITHOUT CONTRAST CLINICAL INFORMATION: Fall, loss of consciousness COMPARISON: Head CT on 05/02/22 TECHNIQUE: Contiguous axial imaging was performed from the skull base to vertex without intravenous administration of contrast. In addition, helical noncontrast CT imaging was acquired through the cervical spine and source images were reviewed along with axial reconstructions and sagittal and coronal MPRs. DLP: 810 mGy-cm FINDINGS: HEAD: No intracranial mass, hemorrhage, or midline shift is visualized. The ventricles and sulci are age-appropriate. No extra-axial collections are identified. The paranasal sinuses are well aerated. Left posterior scalp hematoma. CERVICAL SPINE: There is no evidence of acute cervical spine fracture. Vertebral bodies remain normal in height, intervertebral disc spaces are preserved, and alignment is anatomic. No pre- or paravertebral soft tissue abnormality is identified. Limited assessment of the lung apices is unremarkable. Emphysema at the lung bases. CT/CT head/brain wo IV con IMPRESSION: 1. No acute intracranial pathology. 2. No CT evidence of acute cervical spine fracture or traumatic subluxation 3. Left posterior scalp hematoma. Electronically signed by: Ashlyn Albert MD 01/23/2024 05:26 PM EDT
--- NOTE | 2024-01-23 15:32 | ECG_ITS ---
Test Reason : FALL Blood Pressure : / mmHG Vent. Rate : 064 BPM Atrial Rate : 064 BPM P-R Int : 144 ms QRS Dur : 068 ms QT Int : 448 ms P-R-T Axes : 082 -43 042 degrees QTc Int : 462 ms Normal sinus rhythm Possible Left atrial enlargement Left axis deviation Abnormal ECG When compared with ECG of 30-OCT-2022 12:01, No significant change was found Referred By: Generic ED Physician Electronically Signed By:VIVIEN CORNEJO
[2024-01-23 15:54] LABS: MANUAL DIFF FLAG NO
[2024-01-23 15:55] LABS: Basophils Absolute Auto 0.1 X10*3/uL (0.0-0.2); Basophils Percent Auto 0.7 % (0-2); Eosinophils Absolute Auto 0.4 X10*3/uL (0.0-0.4); Eosinophils Percent Auto 3.2 % (0-4); Hematocrit 40.2 % (37.0-47.0); Hemoglobin 13.3 g/dl (12.0-16.0); Imm Gran Abs Auto 0.06 X10*3/uL (0.00-0.03); Imm Gran Pct Auto 0.5 % (0.0-0.4); Lymphocytes Absolute Auto 1.2 X10*3/uL (1.2-4.9); Lymphocytes Percent Auto 10.9 % (20-40); Mean Corpuscular HGB Conc 33.1 g/dl (31.0-35.0); Mean Corpuscular Hemoglobin 31.1 pg (27.0-33.0); Mean Corpuscular Volume 93.9 fL (80.0-98.0); Mean Platelet Volume 9.7 fL (9.4-12.3); Monocytes Percent Auto 8.8 % (2-11); Neutrophils Absolute Auto 8.5 x10*3/uL (2.0-8.3); Neutrophils Percent Auto 75.9 % (45-73); Platelet Count 230 X10*3/uL (160-400); Red Blood Count 4.28 X10*6/uL (4.20-5.50); Red Cell Distribution Width 13.2 % (11.0-16.0); White Blood Count 11.2 X10*3/uL (4.8-10.8)
[2024-01-23 16:09] LABS: Alanine Aminotransferase 20 U/L (0-31); Albumin Level 3.8 g/dL (3.5-5.0); Alkaline Phosphatase 71 U/L (39-117); Anion Gap 13 (12-20); Aspartate Amino Transferase 27 U/L (5-31); Bilirubin Total 0.4 mg/dL (0.0-1.0); Blood Urea Nitrogen 22 mg/dL (9-16); Calcium 9.5 mg/dL (8.4-10.2); Carbon Dioxide 24 mmol/L (22-29); Chloride 107 mmol/L (96-108); Creatinine Clr Calc Pharmacy 42.1; Estimated Glomerular Filt Rate 58; Glucose Random 88 mg/dL (60-115); Potassium 3.9 mmol/L (3.3-5.1); Sodium 140 mmol/L (135-145); Total Protein 6.7 g/dL (6.5-8.0)
[2024-01-23 16:13] LABS: Prothrombin Time 11.4 SEC (10.9-12.4)
[2024-01-23 16:16] LABS: Troponin-I High Sensitivity 3.3 ng/L (<3.5-17.0)
--- NOTE | 2024-01-23 16:39 | ED_ITS ---
HPI - Fall General Chief Complaint: Fall Stated Complaint: SYNC EPIS,HIT HEAD W/CONTUSION,+LOC,+CCOL,-THINN Time Seen by Provider: 01/23/24 16:16 Source: patient and EMS Mode of arrival: EMS Limitations: no limitations History of Present Illness ED Provider: Dr. Laura Prince HPI Narrative: Patient comes to the emergency room via ambulance. Patient states that she was in a rachelle event, patient states that she remembers that she needed to go to the bathroom, got up in the next thing that she remembers she was on the floor with people around her asking if she was okay. According to the patient, bystanders state that she got up and passed out. Patient reports that people said she hit her head pretty hard. Patient denies any headache or neck pain. Patient denies pain anywhere else. Patient states that earlier today in the morning he had mild lightheadedness and the went away by itself. Patient denies chest pain or shortness of breath. Patient states that about a 3 to 4 months ago, patient has similar episode of syncope. Related Data Home Medications ?Medication ?Instructions ?Recorded ?Confirmed loratadine 10 mg tablet 10 mg PO DAILY PRN 12/29/22 11/04/23 Previous Rx's ?Medication ?Instructions ?Recorded blood pressure test kit-small #1 ea 10/24/21 cholecalciferol (vitamin D3) 50 50 mcg PO DAILY #90 tabs 02/17/22 mcg (2,000 unit) tablet riboflavin (vitamin B2) 50 mg 50 mg PO DAILY 30 days #30 tabs 11/10/22 tablet fluticasone propionate 50 2 spray intranasal DAILY #16 grams 12/07/22 mcg/actuation nasal spray,suspension (Flonase Allergy Relief) sumatriptan succinate 25 mg tablet See Rx Instructions PO .COMPLEX 04/01/23 #14 tabs ipratropium 0.5 mg-albuterol 3 mg 3 ml inhalation Q4-6H PRN 05/08/23 (2.5 mg base)/3 mL nebulization wheezing/copd 30 days #90 mL soln albuterol sulfate 90 mcg/actuation 2 puff PO Q6H PRN for wheezing 05/13/23 aerosol inhaler #25.5 grams magnesium oxide 400 mg PO DAILY 30 days #30 tabs 06/08/23 carvedilol 3.125 mg tablet 3.125 mg PO BID 90 days #180 tabs 07/16/23 sertraline 100 mg tablet 100 mg PO DAILY 90 days #90 tabs 07/16/23 methylcellulose (laxative) 500 mg 500 mg PO DAILY #30 tabs 07/22/23 tablet (Citrucel) sennosides 8.6 mg tablet (Natural 17.2 mg (2 x 8.6 mg) PO BEDTIME 07/22/23 Senna Laxative) constipation #60 tabs dicyclomine 10 mg capsule 10 mg PO BID PRN abdominal 07/23/23 discomfort #30 caps ascorbate calcium (vitamin C) 500 1,000 mg (2 x 500 mg) PO DAILY 90 09/07/23 mg tablet days #180 tabs atorvastatin 40 mg tablet 40 mg PO DAILY 90 days #90 tabs 09/17/23 ibuprofen 800 mg tablet 800 mg PO Q8H 7 days #21 tabs 11/04/23 tizanidine 2 mg tablet 2 mg PO Q8H muscle spasticity 10 11/04/23 days #30 tabs tramadol 50 mg tablet 50 mg PO BID PRN pain 7 days #14 11/04/23 tabs triamcinolone acetonide 0.1 % 1 appl topical DAILY 30 days #30 11/04/23 topical ointment grams Allergies Allergy/AdvReac Type Severity Reaction Status Date / Time Iodinated Contrast Media Allergy Mild HIVES AND Verified 01/23/24 15:29 [IV Dye, Iodine Containing] RASH propoxyphene [From Darvon] Allergy Mild N/V Verified 01/23/24 15:29 Review of Systems 2 Review of Systems: Constitutional : No Weight loss, No Fever, No Chills, No Night Sweats, No Fatigue, No Malaise ENT/Mouth : No Hearing loss, No Ear Pain, No Nasal Congestion, No Sinus Pain, No Hoarseness, No sore throat, No Rhinorrhea, No Swallowing Difficulty Eyes: No Eye Pain, No Swelling, No Redness, No Foreign Body, No Discharge, No Vision Changes Cardiovascular : No Chest Pain, No SOB, No Dyspnea on Exertion, No Orthopnea, No Edema, No Palpitations Respiratory : No Cough, No Sputum, No Wheezing, No Smoke Exposure, No Dyspnea Gastrointestinal : No Nausea, No Vomiting, No Diarrhea, No Constipation, No abdominal Pain, No Hematochezia, No Melena Genitourinary : no irregular bleeding, No Dysuria, No Urinary Frequency, No Hematuria, No Urinary Incontinence, No Urgency, No Flank Pain, No Urinary Flow Changes, No Hesitancy Musculoskeletal : No joint pain, No Myalgias, No Joint Swelling Skin : No Skin Lesions, No rash Neuro : No Weakness, No Numbness, No Paresthesias, No Loss of Consciousness, complaining of lightheadedness, syncopal episode Psych : No Anxiety/Panic, No Depression, No SI/HI/AH/VH, No Social Issues, Heme/Lymph: No Bruising, No Bleeding,No Lymphadenopathy Endocrine : No Polyuria, No Polydipsia, No Temperature Intolerance [facility] Past Medical History Medical History MDD (major depressive disorder), recurrent episode, moderate HTN (hypertension) HLD (hyperlipidemia) COPD (chronic obstructive pulmonary disease) Pulmonary nodules Nicotine dependence, cigarettes, uncomplicated Osteopenia (~2009) Irritable bowel syndrome without diarrhea Tubular adenoma of colon Diverticulosis C. difficile colitis LLQ abdominal pain Varicosities of leg Surgical History History of laparotomy History of pelvic surgery History of blepharoplasty History of colonoscopy History of surgery on lower extremity History of ear surgery Family History Family History Father Lung cancer Mother Heart attack Social History Social History (Updated 11/04/23 @ 14:30 by Ernst Huerta PA-C) Housing: Apartment Alcohol intake: current Alcohol intake frequency: holidays/special occasions only Alcohol type: beer Patient Tobacco Use Status: Current someday Tobacco user (3 months) Tobacco use type: Cigarette Cigarettes Per Day: 3 Smoked in Last 30 Days: Yes e-Cigarette/Vaping Use: Never Used Second Hand Smoke Exposure: No Use of substances other than those prescribed or required for medical reasons: No Advance Directives: No Advance Directives Information Provided: No Advance Directives Date on File: 09/17/20 Do you have a plan to hurt others: No Plan service: No Current occupational status: retired Cognitive needs: No Hearing needs: Yes Vision needs: Yes Physical Exam 2 Vital Signs: Vital Signs: Last Vital Signs Temp 98.3 F 01/23/24 20:52 Pulse 72 01/23/24 22:25 Resp 14 01/23/24 20:52 BP 140/89 H 01/23/24 22:25 Pulse Ox 97 01/23/24 20:52 O2 Del Method Room Air 01/23/24 20:52 BMI result Body Mass Index 17.0 Const: Other: Appearance: Alert. Oriented X3. No acute distress. Eyes: Pupils equal, round and reactive to light. ENT: Pharynx normal. Neck: Normal inspection. Neck supple. No lymph nodes noted. No crepitus, no palpable step-offs CVS: Normal heart rate and rhythm. Pulses normal. Normal S1 and S2 Respiratory: No respiratory distress. Breath sounds normal. No Wheezing. No rales Abdomen: Soft and nontender. No rigidity. No distention. Skin: Skin warm and dry. Normal skin color. Normal skin turgor. Extremities: No lower extremity edema. No Lacerations. No Rash Neuro: Oriented X 3. No motor deficit. No sensory deficit. Moving all extremities. No slurred speech. CN 2 through 12 grossly intact Psych: calm, cooperative, normal affect Medications Administered Discontinued Medications Generic Name Dose Route Start Last Admin Trade Name Freq PRN Reason Stop Dose Admin Diphenhydramine HCl 50 mg 01/23/24 19:12 01/23/24 19:18 Diphenhydramine Hcl 50 Mg/Ml Vial IVPUSH 01/23/24 19:13 50 mg ONCE ONE Administration Famotidine 20 mg 01/23/24 19:12 01/23/24 19:18 Famotidine/Pf 20 Mg/2 Ml Vial IVPUSH 01/23/24 19:13 20 mg ONCE ONE Administration Sodium Chloride 1,000 mls @ 999 mls/hr 01/23/24 17:20 01/23/24 19:18 Ns IVCONT 01/23/24 18:20 Infused .Q1H1M ONE Infusion Sodium Chloride 1,000 mls @ 999 mls/hr 01/23/24 20:36 01/23/24 22:42 Ns IVCONT 01/23/24 21:36 Infused .Q1H1M ONE Infusion Iohexol 100 ml 01/23/24 19:45 01/23/24 19:51 Iohexol 350 Mg/Ml 100 Ml Infus..Btl IV 01/23/24 19:46 70 ml ONCE ONE Administration Methylprednisolone Sodium Succinate 125 mg 01/23/24 19:12 01/23/24 19:18 Methylprednisolone Sod Succ 125 Mg/2 Ml Vial IVPUSH 01/23/24 19:13 125 mg ONCE ONE Administration Medical Decision Making Medical Decision Making MDM Narrative: My interpretation of EKG: Normal sinus rhythm, heart rate 64, no ST segment depression or elevation, no T-wave inversion, QTC 462 -my interpretation of labs, patient's white blood cell count slightly elevated 11.2, likely reactive leukocytosis, normal chemistry, normal LFTs, normal troponin -patient's orthostatic vitals are positive, especially from lying to sitting, blood pressure dropped more than 20 mmHg, patient receiving fluids -my interpretation of head CT: No intracranial bleed, no cervical spine injury. -patient's D-dimer is significantly elevated. Patient states that she has allergies to iodine contrast, states that she gets hives. Patient states that she had never had her throat closed or had any anaphylactic like reaction. I discussed with the patient that we can wait for a V/Q scan which may be done tomorrow, may be on Thursday, and we could prophylactically treat. However, patient and her family decided that they would like to try getting premedicated and then do the study with the contrast. -patient is getting IV Solu-Medrol, Pepcid and Benadryl. -patient's urinalysis has moderate leukocyte esterase. However, patient has a large amount of squamous epithelial cells and trace bacteria. Unlikely to be a UTI, patient does not have any UTI symptoms. -patient was premedicated and tolerated well the CT contrast. -My interpretation of CT scan: No obvious PE. -radiology report: Negative for PE, there is an ill-defined nodule in the right upper lobe. -I discussed the above-mentioned with the patient, patient states that she is a smoker. Patient was supposed to have a CT scan for lung cancer screening last week but she did not go. Patient will follow-up with Dr. Sherwood who is her personnel research scientist. Discussed with the patient to let him know that she had a CT scan today After 2 L of normal saline, patient's orthostatic vitals are negative and patient feels well to go home. Differential Diagnosis Differential Diagnoses: The differential diagnosis associated with the presentation includes (Vasovagal syncope, orthostatic hypotension, PE) Admission/Observation Consideration of admission/observation: Escalation of care including admission/observation considered (Given patient's history and presentation, admission/observation was considered) Lab Data MDM Lab Attestation statement: I reviewed the patient's lab results. 01/23/24 15:46 01/23/24 15:46 Labs: Lab Results 01/23/24 01/23/24 01/23/24 Range/Units 15:46 16:54 18:22 WBC 11.2 H (4.8-10.8) X10*3/uL RBC 4.28 (4.20-5.50) X10*6/uL Hgb 13.3 (12.0-16.0) g/dl Hct 40.2 (37.0-47.0) % MCV 93.9 (80.0-98.0) fL MCH 31.1 (27.0-33.0) pg MCHC 33.1 (31.0-35.0) g/dl RDW 13.2 (11.0-16.0) % Plt Count 230 (160-400) X10*3/uL MPV 9.7 (9.4-12.3) fL Immature Gran % (Auto) 0.5 H (0.0-0.4) % Neut % (Auto) 75.9 H (45-73) % Lymph % (Auto) 10.9 L (20-40) % [place] % (Auto) 8.8 (2-11) % Eos % (Auto) 3.2 (0-4) % Baso % (Auto) 0.7 (0-2) % Lymph # (Auto) 1.2 (1.2-4.9) X10*3/uL [place] # (Auto) 1.0 (0.1-1.2) X10*3/uL Eos # (Auto) 0.4 (0.0-0.4) X10*3/uL Baso # (Auto) 0.1 (0.0-0.2) X10*3/uL Abs Immat Gran (auto) 0.06 H (0.00-0.03) X10*3/uL Absolute Neuts (auto) 8.5 H (2.0-8.3) x10*3/uL Absolute Nucleated RBC 0.000 (0.0-0.012) X10*3/uL Nucleated RBC % (auto) 0.0 (0.0-0.2) /100WBC PT 11.4 (10.9-12.4) SEC INR 1.0 (0.9-1.1) D-Dimer High Sensitivty 6526 NG/ML Sodium 140 (135-145) mmol/L Potassium 3.9 (3.3-5.1) mmol/L Chloride 107 (96-108) mmol/L Carbon Dioxide 24 (22-29) mmol/L Anion Gap 13 (12-20) BUN 22 H (9-16) mg/dL Creatinine 0.95 (0.5-1.4) mg/dL Estim Creat Clear Calc 42.1 Estimated GFR 58 Random Glucose 88 (60-115) mg/dL Calcium 9.5 (8.4-10.2) mg/dL Magnesium 2.0 (1.6-2.6) mg/dL Total Bilirubin 0.4 (0.0-1.0) mg/dL AST 27 (5-31) U/L ALT 20 (0-31) U/L Alkaline Phosphatase 71 (39-117) U/L Troponin I High Sens 3.3 (<3.5-17.0) ng/L Total Protein 6.7 (6.5-8.0) g/dL Albumin 3.8 (3.5-5.0) g/dL Urine Color Dark Yellow Urine Appearance Cloudy Urine pH 6.0 (5.0-9.0) Ur Specific [place] 1.025 (1.005-1.025) Urine Protein 30 (1+) H (Neg-Trace) mg/dL Urine Glucose (UA) Negative (Negative) mg/dL Urine Ketones 15 (Negative) mg/dL Urine Blood Negative (Negative) Urine Nitrite Negative (Negative) Ur Leukocyte Esterase Moderate (2+) H (Negative) Urine RBC 3-5 H (0-2) /HPF Urine WBC 6-10 (0-5) /HPF Ur Squamous Epith Cells 11-20 (0-2) /HPF Urine Bacteria Trace (None Seen) Hyaline Casts >20 (0-2) /LPF Granular Casts Present Independent Interpretation I performed an independent interpretation of an: CT Scan Radiology Impression Discussion of test interpretation with radiology: I have reviewed the radiologist's reading. Radiologist Impression: HEAD: No intracranial mass, hemorrhage, or midline shift is visualized. The ventricles and sulci are age-appropriate. No extra-axial collections are identified. The paranasal sinuses are well aerated. Left posterior scalp hematoma. CERVICAL SPINE: There is no evidence of acute cervical spine fracture. Vertebral bodies remain normal in height, intervertebral disc spaces are preserved, and alignment is anatomic. No pre- or paravertebral soft tissue abnormality is identified. Limited assessment of the lung apices is unremarkable. Emphysema at the lung bases. CT/CT head/brain wo IV con IMPRESSION: 1. No acute intracranial pathology. 2. No CT evidence of acute cervical spine fracture or traumatic subluxation 3. Left posterior scalp hematoma. Critical Care Time Critical Care Time Critical Care Time: Yes Total Critical Care Time: 60 Attestation: I have personally provided critical care time. Time includes review of lab data, radiology results, discussion with consultants, and monitoring for potential decompensation. Intervention performed as documented. Discharge Plan Discharge Clinical Impression: Orthostatic hypotension, Fall Patient Disposition: Home, Self-Care Instructions: Fall Prevention (ED), Hypotension (ED) Additional Instructions: Your CT scan was negative for blood clots. However, there was a nodule seen in your right lung. Please follow-up with your personnel research scientist. Please follow-up with your primary care physician tomorrow. If you have any worsening or new symptoms, please return to the emergency room or call 911 Prescriptions: No Action fluticasone propionate [Flonase Allergy Relief] 50 mcg/actuation spray,suspension 2 spray intranasal DAILY Qty: 16 3RF Rx Instructions: administer into each nostril sumatriptan succinate 25 mg tablet See Rx Instructions PO .COMPLEX Qty: 14 2RF Rx Instructions: take 1 tab at onset of headache; if no relief may repeat 1 tab after at least 2 hrs; max = 4 tabs/24 hr PO ipratropium-albuterol 0.5 mg-3 mg(2.5 mg base)/3 mL solution for nebulization 3 ml inhalation Q4-6H PRN (Reason: wheezing/copd) 30 Days Qty: 90 3RF albuterol sulfate 90 mcg/actuation HFA aerosol inhaler 2 puff PO Q6H PRN (Reason: for wheezing) Qty: 25.5 3RF magnesium oxide 400 mg magnesium tablet 400 mg PO DAILY 30 Days Qty: 30 3RF carvedilol 3.125 mg tablet 3.125 mg PO BID 90 Days Qty: 180 2RF Rx Instructions: must administer with a meal/food sertraline 100 mg tablet 100 mg PO DAILY 90 Days Qty: 90 2RF Citrucel 500 mg tablet 500 mg PO DAILY Qty: 30 0RF Rx Instructions: take it with full glass of water sennosides [Natural Senna Laxative] 8.6 mg tablet 17.2 mg PO BEDTIME Qty: 60 0RF dicyclomine 10 mg capsule 10 mg PO BID PRN (Reason: abdominal discomfort) Qty: 30 0RF ascorbate calcium (vitamin C) 500 mg tablet 1,000 mg PO DAILY 90 Days Qty: 180 2RF atorvastatin 40 mg tablet 40 mg PO DAILY 90 Days Qty: 90 2RF (DME) blood pressure test kit-small Kit See Rx Instructions .Route Qty: 1 0RF Rx Instructions: As directed cholecalciferol (vitamin D3) 50 mcg (2,000 unit) tablet 50 mcg PO DAILY Qty: 90 2RF riboflavin (vitamin B2) 50 mg tablet 50 mg PO DAILY 30 Days Qty: 30 1RF ibuprofen 800 mg tablet 800 mg PO Q8H 7 Days Qty: 21 0RF tramadol 50 mg tablet 50 mg PO BID PRN (Reason: pain) 7 Days Qty: 14 0RF tizanidine 2 mg tablet 2 mg PO Q8H 10 Days Qty: 30 0RF triamcinolone acetonide 0.1 % ointment 1 appl topical DAILY 30 Days Qty: 30 0RF loratadine 10 mg tablet 10 mg PO DAILY PRN Print Language: Lao
[2024-01-23 17:34] LABS: D Dimer High Sensitivity 6526 NG/ML
[2024-01-23] MEDS: 0.9 % Sodium Chloride 1,000 ML 999 ML IVCONT ×2 (17:40→20:55)
[2024-01-23 18:29] LABS: Appearance Urine Cloudy; Color Urine Dark Yellow; Glucose Urine UA Negative (Negative); Leukocyte Esterase Urine Moderate (2+) (Negative); Nitrite Urine Negative (Negative); Specific Gravity - Urine 1.025 (1.005-1.025); UMIC TRIGGER UACC YES; Urine Blood Negative (Negative); Urine Ketones 15 mg/dL (Negative); Urine Protein 30 (1+) mg/dL (Neg-Trace)
[2024-01-23 18:41] LABS: Bacteria Urine Trace (None Seen); Granular Casts Urine Present; Hyaline Casts Urine >20 /LPF (0-2); UACC Culture Trigger YES
[2024-01-23] MEDS: methylPREDNISolone Sod Succ 125 MG/2 ML VIAL IVPUSH (19:18)
[2024-01-23] MEDS: Famotidine/PF 20 MG/2 ML VIAL IVPUSH (19:18)
[2024-01-23] MEDS: diphenhydrAMINE HCL 50 MG/ML VIAL IVPUSH (19:18)
[2024-01-23] MEDS: iohexoL 350 MG/ML 100 ML INFUS..BTL IV (19:51)
--- NOTE | 2024-01-23 23:12 | PC.NURSE ---
Reviewed discharge instructions with pt. pt verbalized understanding, no sign of distress upon discharge, pt wheeled out to daughters car.
== END 2024-01-23 23:15 | disposition home or self-care (01) ==
PROVIDERS: Emergency Provider Emergency Medicine; PCP Physician Assistant
DX: I95.1 Orthostatic hypotension (principal); R06.02 Shortness of breath; Z91.81 History of falling; I10 Essential (primary) hypertension; E78.5 Hyperlipidemia, unspecified; F17.210 Nicotine dependence, cigarettes, uncomplicated; Z79.899 Other long term (current) drug therapy
CPT/HCPCS: 36415; 70450; 71275; 72125; 80053; 81001; 83735; 84484; 85025; 85379; 85610; 87086; 93005; 99285; J1200; J2919; Q9967

== ENCOUNTER → 2024-01-23 15:32 | Outpatient (BNV) | payer MEDICARE, SELFPAY | PROVIDERS: Emergency Provider Emergency Medicine; PCP Physician Assistant; Visit Provider Internal Medicine | DX: R94.31 Abnormal electrocardiogram [ECG] [EKG] (principal) | CPT/HCPCS: 93010 ==

== ENCOUNTER 2024-02-02 16:18 | Outpatient (REF) | payer MEDICARE, SELFPAY ==
[2024-02-02 16:56] LABS: Hematocrit 40.8 % (37.0-47.0); Hemoglobin 13.4 g/dl (12.0-16.0); Mean Corpuscular HGB Conc 32.8 g/dl (31.0-35.0); Mean Corpuscular Hemoglobin 31.2 pg (27.0-33.0); Mean Corpuscular Volume 95.1 fL (80.0-98.0); Mean Platelet Volume 9.8 fL (9.4-12.3); Platelet Count 365 X10*3/uL (160-400); Red Blood Count 4.29 X10*6/uL (4.20-5.50); Red Cell Distribution Width 13.7 % (11.0-16.0); White Blood Count 16.6 X10*3/uL (4.8-10.8)
[2024-02-02 17:34] LABS: Alanine Aminotransferase 18 U/L (0-31); Albumin Level 3.8 g/dL (3.5-5.0); Alkaline Phosphatase 86 U/L (39-117); Anion Gap 14 (12-20); Aspartate Amino Transferase 75 U/L (5-31); Bilirubin Total 0.3 mg/dL (0.0-1.0); Blood Urea Nitrogen 29 mg/dL (9-16); Calcium 9.3 mg/dL (8.4-10.2); Carbon Dioxide 26 mmol/L (22-29); Chloride 108 mmol/L (96-108); Cholesterol 177 mg/dL (<200); Estimated Glomerular Filt Rate 56; Glucose Fasting 99 mg/dL (60-99); HDL Cholesterol 75 mg/dL (>40); LDL Cholesterol Calculated 68 mg/dL (<100); Potassium 4.1 mmol/L (3.3-5.1); Sodium 144 mmol/L (135-145); Total Protein 6.7 g/dL (6.5-8.0); Triglycerides 172 mg/dL (<150)
[2024-02-02 17:54] LABS: Creatinine Urine 201.51 mg/dL; Microalbum/Creatinine Ratio Ur 44.6 ug/mg cr (<30)
== END 2024-02-02 16:19 | disposition home or self-care (01) ==
LOC: HO.LAB 16:18
PROVIDERS: PCP Physician Assistant; Visit Provider Physician Assistant
DX: I10 Essential (primary) hypertension (principal); E78.2 Mixed hyperlipidemia
CPT/HCPCS: 36415; 80053; 80061; 82043; 82570; 85027

== ENCOUNTER 2024-02-04 14:03 | Outpatient (AMB) | payer MEDICARE, SELFPAY ==
--- NOTE | 2024-02-04 14:14 | MHC.PC.OV ---
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 Accompanied by: Self / Same As Patient Allergies Iodinated Contrast Media [IV Dye, Iodine Containing] Allergy (Mild, Verified 02/04/24 14:29) HIVES AND RASH propoxyphene [From Darvon] Allergy (Mild, Verified 02/04/24 14:29) N/V Medication List - Last Reconciled 02/04/24 by Ernst Huerta PA-C albuterol sulfate 90 mcg/actuation 2 puffs PO Q6H PRN ascorbate calcium (vitamin C) 1,000 mg (2 x 500 mg) PO DAILY 90 days atorvastatin 40 mg PO DAILY 90 days blood pressure test kit-small As directed carvedilol 3.125 mg PO BID 90 days cholecalciferol (vitamin D3) 50 mcg PO DAILY dicyclomine 10 mg PO BID PRN fluticasone propionate 50 mcg/actuation (Flonase Allergy Relief) 2 sprays intranasal DAILY ibuprofen 800 mg PO Q8H 7 days ipratropium-albuterol 0.5 mg-3 mg(2.5 mg base)/3 mL 3 mL inhalation Q4-6H PRN 30 days loratadine 10 mg PO DAILY PRN magnesium oxide 400 mg PO DAILY 30 days methylcellulose (laxative) (Citrucel) 500 mg PO DAILY riboflavin (vitamin B2) 50 mg PO DAILY 30 days sennosides (Natural Senna Laxative) 17.2 mg (2 x 8.6 mg) PO BEDTIME sertraline 100 mg PO DAILY 90 days sumatriptan succinate take 1 tab at onset of headache; if no relief may repeat 1 tab after at least 2 hrs; max = 4 tabs/24 hr PO tizanidine 2 mg PO Q8H 10 days tramadol 50 mg PO BID PRN 7 days triamcinolone acetonide 0.1% 1 appl topical DAILY 30 days Tobacco use date assessed: 02/04/24 Fall risk assessment: No Falls in past year Last assessed Fall Risk: 02/04/24 Dental Screening Dental Screen Date: 02/04/24 Did you have a dental visit in the last 12 months?: Yes Did you have a dental problem in the last 6 months where you did not have access to dental care?: No Was dental information given to patient?: Patient has dentist HPI 3mth f/u HPI Details Partient? is a 68-year-old female here today for a follow-up visit? Patient has a past medical history significant for COPD, pulmonary nodules, hypertension. Patient recently seen at [facility] for an acute syncopal episode falling striking her posterior aspect of her head. She did lose consciousness. CT of head and neck without intracranial pathology though did have a hematoma. Also chest CT did show a right lung nodule, of note she has had lung screening with a right lung nodule already noted on CT. PLAN: Will do a six-month follow-up CT scan --> her fall was thought to be due to orthostatic hypotension secondary to dehydration. She will try to stay well hydrated. .. Leukocytosis: Noted very elevated white blood cell count on most recent CBC. Of note patient recently did have a cortisone injection in her back and was given prednisone before her CT angiogram PLAN: Recheck CBC in 2 weeks ? . . Lumbar disc disease: As above recently got a cortisone injection in her back which has significantly helped her pain.. .. COPD: Continues to follow pulmonology, she does use an updraft as maintenance a few times a week. Otherwise denies any acute exacerbations. Unfortunately continues to smoke a few cigarettes per day and does understand she needs to quit smoking .. Insomnia: Patient reports she continues to have a lot of trouble sleeping often not able to fall asleep until 1 or 2 ain the morning. Has not used [id number] sleeping aids at this point. She is interested in trying hydroxyzine before bed to help her sleep .. HTN: Doesn't check her BP at home.? Today in office blood pressures stable slightly elevated.? Has been on carvedilol for many years now with good results.? Denies any chest discomfort, palpitations, headaches. [facility] Medical History MDD (major depressive disorder), recurrent episode, moderate HTN (hypertension) HLD (hyperlipidemia) COPD (chronic obstructive pulmonary disease) Pulmonary nodules Nicotine dependence, cigarettes, uncomplicated Osteopenia (~2009) Irritable bowel syndrome without diarrhea Tubular adenoma of colon Diverticulosis C. difficile colitis LLQ abdominal pain Varicosities of leg Surgical History History of laparotomy History of pelvic surgery History of blepharoplasty History of colonoscopy History of surgery on lower extremity History of ear surgery Family History Father Lung cancer Mother Heart attack Social History Housing: Apartment Alcohol intake: current Alcohol intake frequency: holidays/special occasions only Alcohol type: beer Patient Tobacco Use Status: Current someday Tobacco user (3 months) Tobacco use type: Cigarette Cigarettes Per Day: 3 e-Cigarette/Vaping Use: Never Used Second Hand Smoke Exposure: No Advance Directives Date on File: 09/17/20 service: No Current occupational status: retired Cognitive needs: No Hearing needs: Yes Vision needs: Yes Questionnaire Thrive Questionnaire Date Thrive assessed: 11/04/23 AUDIT C Alcohol Use Questionnaire (AUDIT-C) 2. How many drinks containing alcohol do you have on a typical day when you are drinking?: 1 or 2 3. How often do you have six or more drinks on one occasion?: Never Total Score: 0 JORGE-7 AMB Questionnaire JORGE-7 Date JORGE - 7 assessed: 11/04/23 Source: Developed by Drs. Julio Cornejo, Taina Brady, Ranulfo Anderson and colleagues, with an educational cleo from [employer] ([email or web address]). Review of Systems Const Denies headache(s) Eyes Denies loss of vision ENT Denies vertigo, Denies dizziness, Denies headache(s) and Denies sore throat Card Denies chest pain, Denies leg edema and Denies lightheadedness Resp Denies cough, Denies hemoptysis and Denies wheezing GI Denies abdominal pain, Denies melena, Denies constipation, Denies diarrhea and Denies vomiting Denies urinary frequency, Denies dysuria and Denies urinary urgency Musc Denies arthralgias, Denies joint swelling, Denies numbness and Denies tingling Neuro Denies Abnormal speech present, Denies behavioral changes, Denies vertigo, Denies dizziness, Denies headache(s), Denies loss of vision, Denies memory loss, Denies numbness and Denies tingling Psych Denies anxiety, Denies behavioral changes, Denies depression, Denies memory loss and Denies panic attacks Xiang/Lymph Denies easy bleeding and Denies easy bruising Aller/Immun Denies wheezing Physical exam (Primary Care) Vital Signs: Last Vital Signs Pulse 77 02/04/24 14:15 BP 140/64 H 02/04/24 14:15 Pulse Ox 96 02/04/24 14:15 Oxygen Delivery Method Room Air 02/04/24 14:15 BMI result Body Mass Index 16.9 Tobacco/Smoking Status: Tobacco use Status Tobacco use date assessed 02/04/24 02/04/24 14:25 Patient Tobacco Use Status Current someday Tobacco (3 02/04/24 14:15 months) Tobacco use type Cigarette 02/04/24 14:15 e-Cigarette/Vaping Use Never Used 02/04/24 14:15 Thrive Assessment: Date of Thrive Assessment Date Thrive assessed 11/04/23 02/04/24 14:15 Const General: healthy appearing, no acute distress, alert and awake Nutritional Appearance: well nourished Orientation/consciousness: oriented to person, oriented to place and oriented to time HENMT Ears: TM's normal bilaterally General nose exam: Normal nasal mucous membranes and turbinates present Eyes Conjunctivae: conjunctivae normal Sclerae: sclerae normal Pupils: Equal, round and reactive pupils present Neck Neck: Yes no lymphadenopathy and Yes no JVD Thyroid: Thyroid normal Carotids: no bruits Resp Effort & Inspection: normal respiratory effort and not tachypneic Auscultation: no crackles, no rales, no rhonchi and no wheezes Cardio Rate: regular rate Rhythm: regular rhythm Heart sounds: no murmurs and normal S1 and S2 GI Palpation (GI): Soft to palpation, nontender, no hepatomegaly and no splenomegaly Auscultation: normal bowel sounds Skin General skin exam: no rashes or lesions noted and dry skin Neuro General: oriented to person, oriented to place and oriented to time Cranial nerves: Yes Equal, round and reactive pupils present Speech: No Abnormal speech present Gait exam (Neuro): Normal gait present Motor exam (neuro): no tremor noted Extrem Right upper extremity: full ROM Left upper extremity: full ROM Right lower extremity: full ROM; no edema Left lower extremity: full ROM; no edema Psych Mental Status: mental status grossly normal Speech and movement: Normal speech and movement present Affect: normal affect Attitude: cooperative Thought process: Normal thought process present Coding Level of Care Code Est Pt Level 4 (68096) Diagnoses Leukocytosis, unspecified type D72.829 Leukocytosis type: unspecified Orthostatic hypotension I95.1 Essential hypertension I10 Hypertension type: essential hypertension Mixed hyperlipidemia E78.2 Hyperlipidemia type: mixed hyperlipidemia Primary insomnia F51.01 Insomnia type: primary Assessment & Plan Assessment & Plan (1) Leukocytosis: Code(s): D72.829 - Elevated white blood cell count, unspecified Category: Medical Qualifiers: Leukocytosis type: unspecified Qualified Code(s): D72.829 - Elevated white blood cell count, unspecified Plan: Noted leukocytosis on most recent CBC likely in the setting of getting cortisone injection in her back and also getting steroids before her contrast for her CT of chest. No infection reported Will recheck CBC in 2 weeks to trend white blood cell count (2) Orthostatic hypotension: Code(s): I95.1 - Orthostatic hypotension Category: Medical Plan: Patient had had a syncopal episode at a recent benefit hitting her head on the floor. It was thought to be due to orthostatic hypotension secondary to dehydration. She admits he does not stay hydrated to well and will work on this (3) HTN (hypertension): Code(s): I10 - Essential (primary) hypertension Category: Medical Qualifiers: Hypertension type: essential hypertension Qualified Code(s): I10 - Essential (primary) hypertension Plan: Patient's blood pressure slightly elevated today in office. Currently on carvedilol 3.1 mg b.i.d. Advised to monitor blood pressure at home with goal blood pressure to be below 140/90. She recently was seen at the ER for what is believed to be orthostatic hypotension, thus will not make changes in her blood pressure medication at this time and advised to stay well hydrated. (4) HLD (hyperlipidemia): Code(s): E78.5 - Hyperlipidemia, unspecified Category: Medical Qualifiers: Hyperlipidemia type: mixed hyperlipidemia Qualified Code(s): E78.2 - Mixed hyperlipidemia Plan: Patient's most recent lipid panel showing good control over total cholesterol and LDL. She will continue on statin therapy with goal LDL to remain below 100 (5) Insomnia: Code(s): G47.00 - Insomnia, unspecified Category: Medical Qualifiers: Insomnia type: primary Qualified Code(s): F51.01 - Primary insomnia Plan: Patient reports she has been having a lot of trouble getting to sleep. She reports not falling asleep until 2 or 3 in the morning. She is willing to try hydroxyzine 25 mg before bed to help sleep. Orders: Orders Microalbumin, Random (w Creat) 6 Months I10 - Essential (primary) hypertension Lipid Panel 6 Months E78.2 - Mixed hyperlipidemia Comprehensive [place]. Panel Fast 6 Months E78.2 - Mixed hyperlipidemia Complete Blood Count no Diff 6 Months D72.829 - Elevated white blood cell count, unspecified Complete Blood Count no Diff 2 Weeks D72.829 - Elevated white blood cell count, unspecified Medications: New hydroxyzine HCl 25 mg PO BEDTIME 30 tabs 0RF 30 days G47.00 - Insomnia, unspecified Discontinued tizanidine Discontinued Reason: Doctor's Order 2 mg PO Q8H 10 days 30 tabs 0RF muscle spasticity M46.1 - Sacroiliitis, not elsewhere classified riboflavin (vitamin B2) Discontinued Reason: Doctor's Order 50 mg PO DAILY 30 days 30 tabs 1RF R51.9 - Headache, unspecified tramadol Discontinued Reason: Doctor's Order 50 mg PO BID 7 days PRN 14 tabs 0RF pain M51.36 - Other intervertebral disc degeneration, lumbar region sennosides (Natural Senna Laxative) Discontinued Reason: Doctor's Order 17.2 mg (2 x 8.6 mg) PO BEDTIME 60 tabs 0RF constipation K59.00 - Constipation, unspecified dicyclomine Discontinued Reason: Doctor's Order 10 mg PO BID PRN 30 caps 0RF abdominal discomfort K58.9 - Irritable bowel syndrome, unspecified
[2024-02-04 14:15] VITALS: BP 140/64; PULSE 77; O2SAT 96; BMI 16.9
== END 2024-02-04 14:56 | disposition home or self-care (01) ==
LOC: HO.HMCH 14:04
PROVIDERS: PCP Physician Assistant; Visit Provider Physician Assistant
DX: D72.829 Elevated white blood cell count, unspecified (principal); I95.1 Orthostatic hypotension; I10 Essential (primary) hypertension; E78.2 Mixed hyperlipidemia; F51.01 Primary insomnia

== ENCOUNTER → 2024-02-04 14:03 | Outpatient (BNVA) | payer MEDICARE, SELFPAY | PROVIDERS: PCP Physician Assistant; Visit Provider Physician Assistant | DX: D72.829 Elevated white blood cell count, unspecified (principal); I95.1 Orthostatic hypotension; I10 Essential (primary) hypertension; E78.2 Mixed hyperlipidemia; F51.01 Primary insomnia | CPT/HCPCS: 99212 ==

== ENCOUNTER 2024-04-11 14:56 | Outpatient (REF) | payer MEDICARE, SELFPAY ==
[2024-04-11 15:31] LABS: Hematocrit 41.6 % (37.0-47.0); Hemoglobin 13.3 g/dl (12.0-16.0); Mean Corpuscular Hemoglobin 30.9 pg (27.0-33.0); Mean Corpuscular Volume 96.5 fL (80.0-98.0); Mean Platelet Volume 9.8 fL (9.4-12.3); Platelet Count 335 X10*3/uL (160-400); Red Blood Count 4.31 X10*6/uL (4.20-5.50); Red Cell Distribution Width 12.9 % (11.0-16.0); White Blood Count 12.4 X10*3/uL (4.8-10.8)
== END 2024-04-11 14:57 | disposition home or self-care (01) ==
LOC: HO.LAB 14:56
PROVIDERS: PCP Physician Assistant; Visit Provider Physician Assistant
DX: F17.210 Nicotine dependence, cigarettes, uncomplicated (principal); D72.829 Elevated white blood cell count, unspecified; J41.0 Simple chronic bronchitis; R91.8 Other nonspecific abnormal finding of lung field
CPT/HCPCS: 36415; 85027; 99212

== ENCOUNTER 2024-04-11 15:11 | Outpatient (AMB) | payer MEDICARE, SELFPAY ==
[2024-04-11 15:22] VITALS: BP 118/74; PULSE 71; O2SAT 98; BMI 16.6
--- NOTE | 2024-04-11 15:22 | A.OFFVIS_ITS ---
Vital Signs 04/11/24 15:22 Height 5 ft 6 in Weight 103 lb BMI 16.6 BP 118/74 Blood Pressure Location Lt brachial Position Sitting Pulse 71 Pulse Source Pulse Oximeter Pulse Oximetry (%) 98 Oxygen Delivery Method Room Air Intake Visit Reasons: Obstructive sleep apnea Intake Note: pt is here for follow up and states that albuterol is being used more than prior, and is having some short of breath with exertioni. 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 Allergies Iodinated Contrast Media [IV Dye, Iodine Containing] Allergy (Mild, Verified 04/11/24 15:57) HIVES AND RASH propoxyphene [From Darvon] Allergy (Mild, Verified 04/11/24 15:57) N/V Medication List - Last Reconciled 04/11/24 by Eleanor Sherwood MD albuterol sulfate 90 mcg/actuation 2 puffs PO Q6H PRN ascorbate calcium (vitamin C) 1,000 mg (2 x 500 mg) PO DAILY 90 days atorvastatin 40 mg PO DAILY 90 days blood pressure test kit-small As directed carvedilol 3.125 mg PO BID 90 days cholecalciferol (vitamin D3) 50 mcg PO DAILY fluticasone propionate 50 mcg/actuation (Flonase Allergy Relief) 2 sprays intranasal DAILY hydroxyzine HCl 25 mg PO BEDTIME 30 days ibuprofen 800 mg PO Q8H 7 days ipratropium-albuterol 0.5 mg-3 mg(2.5 mg base)/3 mL 3 mL inhalation Q4-6H PRN 30 days loratadine 10 mg PO DAILY PRN magnesium oxide 400 mg PO DAILY 30 days methylcellulose (laxative) (Citrucel) 500 mg PO DAILY sertraline 100 mg PO DAILY 90 days sumatriptan succinate take 1 tab at onset of headache; if no relief may repeat 1 tab after at least 2 hrs; max = 4 tabs/24 hr PO triamcinolone acetonide 0.1% 1 appl topical DAILY 30 days Do you need a note to return to daycare/school/sports/work: No HPI HPI Obstructive sleep apnea: Details: This 68 years old female is coming for follow-up after 6 months. She is a long-time smoker, claims that she has cut down to only a few cigarettes a day, but still smoking. She does have chronic obstructive pulmonary disease, and uses ipratropium- albuterol solution in the nebulizer about once or twice a day. In addition she also uses albuterol inhaler p.r.n.. She has mild chronic nasal congestion which is treated with Flonase 2 spray each nostril. In January of 2024 she fell down and was seen in the emergency room with chest pain. CTA scan of the chest was negative for pulmonary emboli or any fractures but a pulmonary nodule in right upper lobe 0.8 cm in size was noted. This patient has been in annual lung screening program however, she missed her low-dose CT scan in January 2024. [facility] Medical History MDD (major depressive disorder), recurrent episode, moderate HTN (hypertension) HLD (hyperlipidemia) COPD (chronic obstructive pulmonary disease) Pulmonary nodules Nicotine dependence, cigarettes, uncomplicated Osteopenia (~2009) Irritable bowel syndrome without diarrhea Tubular adenoma of colon Diverticulosis C. difficile colitis LLQ abdominal pain Varicosities of leg Surgical History History of laparotomy History of pelvic surgery History of blepharoplasty History of colonoscopy History of surgery on lower extremity History of ear surgery Family History Father Lung cancer Mother Heart attack Social History Housing: Apartment Alcohol intake: current Alcohol intake frequency: holidays/special occasions only Alcohol type: beer Patient Tobacco Use Status: Current someday Tobacco user (3 months) Tobacco use type: Cigarette Cigarettes Per Day: 3 e-Cigarette/Vaping Use: Never Used Second Hand Smoke Exposure: No Advance Directives Date on File: 09/17/20 service: No Current occupational status: retired Cognitive needs: No Hearing needs: Yes Vision needs: Yes Review of Systems Const All systems reviewed & are unremarkable except as noted in HPI and below Card Reports dyspnea on exertion Resp Reports cough (mild intermittent ) and Reports dyspnea on exertion Physical Exam Vital Signs: Last Vital Signs Pulse 71 04/11/24 15:22 BP 118/74 04/11/24 15:22 Pulse Ox 98 04/11/24 15:22 Oxygen Delivery Method Room Air 04/11/24 15:22 BMI result Body Mass Index 16.6 Const Other: She is of a thin build, as usual, General: comfortable, no acute distress, alert and awake Orientation/consciousness: patient oriented x3 HEENT Head: Yes normal to inspection General nose exam: No nasal polyps present and No nasal discharge present Face and sinus: Yes sinuses nontender Mouth: oropharynx normal Throat: Yes posterior oropharynx normal Eyes General: appearance normal, both eyes and all related structures Neck Neck: Yes normal visual inspection, Yes no lymphadenopathy, Yes trachea midline and Yes no JVD Thyroid: Thyroid normal Chest Chest palpation & inspection: normal inspection of the chest, normal palpation of entire chest wall and no tenderness Resp Other: PERCUSSION NOTE IS HYPER-RESONANT, BREATH SOUNDS ARE EQUAL AND SLIGHTLY DISTANT ON BOTH SIDES. NO WHEEZES OR CREPITATIONS ARE HEARD TODAY. Cardio Palpation: normal PMI Rate: regular rate Rhythm: regular rhythm Heart sounds: no gallops and no murmurs GI Palpation (GI): Soft to palpation, nontender, No hepatosplenomegaly present and no masses Auscultation: normal bowel sounds Back/Spine/Pelvis Thoracic/Lumbar Spine: thoracic and lumbar spine normal to inspection Skin General skin exam: no rashes or lesions noted Neuro General: patient oriented x3 and no focal motor deficits Cranial nerves: Yes CN's II-XII intact bilaterally Extrem General: Yes normal to inspection, Yes no clubbing, cyanosis or edema and Yes no calf tenderness Psych Speech and movement: Normal speech and movement present Results Reviewed Results Reviewed: Results of CTA of the chest on 01/1924 reviewed with the patient. Of concern is a pulmonary nodule in right upper lobe, 0.8 cm in size, in addition to finding of pulmonary emphysema . Assessment & Plan Assessment & Plan (1) Nicotine dependence, cigarettes, uncomplicated: Comment: (current smoker x 50+years, now <1/2ppd, 30+PYH), claims that now she has cut down to about 5 cigarettes a day. Code(s): F17.210 - Nicotine dependence, cigarettes, uncomplicated Category: Medical Plan: Talked to her in detail. Discuss the results of latest CT scan. Stressed that she should try to quit smoking completely. (2) COPD (chronic obstructive pulmonary disease): Comment: MODERATELY SEVERE CHRONIC OBSTRUCTIVE PULMONARY DISEASE, RELATIVELY STABLE AT THIS TIME . She is using DuoNeb updrafts only once or twice a week. Use of albuterol HFA has increased to once or twice a day. Code(s): J44.9 - Chronic obstructive pulmonary disease, unspecified Category: Medical Qualifiers: COPD type: chronic bronchitis Chronic bronchitis type: simple Qualified Code(s): J41.0 - Simple chronic bronchitis Plan: Advise that she can use ipratropium-albuterol solution in the nebulizer up to twice a day , and use albuterol HFA only p.r.n. when outdoors . (3) Pulmonary nodules: Comment: She has had annual CT scans and, pulmonary nodules about 3 mm in size have remained stable, thus considered benign, Last CT scan in January 2024, showed a pulmonary nodule of 0.8 cm in size. This is somewhat worrisome, Code(s): R91.8 - Other nonspecific abnormal finding of lung field Category: Medical Plan: I think she should have repeat CT scan at 6 months interval from January 2024. I stress that she must stop smoking . If pulmonary nodule grows in size then she would need percutaneous needle biopsy . Orders: Orders CT chest wo IV con 3 Months F17.210 - Nicotine dependence, cigarettes, uncomplicated, R91.8 - Other nonspecific abnormal finding of lung field Medications: Refilled ipratropium-albuterol 0.5 mg-3 mg(2.5 mg base)/3 mL 3 mL inhalation Q4-6H PRN 180 mL 3RF wheezing/copd 30 days Coding Level of Care Code Est Pt Level 3 (42191) Diagnoses Nicotine dependence, cigarettes, uncomplicated F17.210 Simple chronic bronchitis J41.0 COPD type: chronic bronchitis Chronic bronchitis type: simple Pulmonary nodules R91.8
--- OUTSIDE RECORDS SUMMARY | 2024-04-11 17:11 | XMS_ITS | Continuity of Care Document ---
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 Patient provided prescription for TobraDex drops to be used twice a day for 2 weeks. Audiometric testing was repeated today. She has bilateral severe mixed hearing loss. She falls within the bone-conduction guidelines for the Osia bone-conduction implant system bilaterally. We discussed how this bone-conduction implant technology would help to mitigate her hearing loss without the need for an occlusive earmold. She underwent bone-conduction demo today as noted below and she got good results from this demonstration. Informed Consent for Osia Implant The patient has been found to meet the audiologic and anatomic candidacy criteria for placement of left Osia bone conduction implant. Risks and benefits of Osia implantation discussed with patient, including but not limited to cosmetic deformity, bleeding, loss of hair, numbness of ear and scalp, wound infection, skin necrosis, Implant failure with or without the need for replacement, CSF leak, meningitis, and intracranial injury. Appropriate expectations reviewed. Patient voiced understanding and wishes to proceed with surgery. I have provided patient with the contact information for my surgical scrub technologist. We will begin the scheduling process and see the patient back at the time of surgery. Patient will require medical clearance from their primary care provider preoperatively. Not available 01/26/2024 10:36:16 Plan of Treatment Reminders Order Date Submit Date Provider Last Modified By Organization Details Last Modified Time Details Appointments None recorded. Lab None recorded. Referral None recorded. Procedures None recorded. Surgeries implantatio n of electromagn etic bone conduction hearing device in temporal bone (SURG) 2023 024 [email or web address] [id number] Not available 11:18:39 Imaging None recorded. Medication Orders tobramycin 0.3 %-dexametha sone 0.1 % eye drops,suspe nsion 2023 024 [id number], [address], [place], [address], 10:13:57 Patient TargetsNo targets recorded. Patient InstructionsNo instructions recorded. Reason for Referral None Reported. Results Created Date Observation Date Name Description Value Unit Range Abnormal Flag Note LastModifiedBy Organization Detail LastModifiedTime 01/26/20 24 audio gram No observ ation record ed. BARCODE Not Available 2023 13:49:38 Result Notes None recorded. Problems Name Problem SNOMED Code Status Onset Date Resolution Date Notes Provider Name and Address Organization Details Recorded Time Pain of left temporom andibula r joint [id number] 041185 Active 2016 Arthralg ia of left temporom andibula r joint; Note: Date Diagnose d: 03/18/20 11:11 AM (M26.622 ) Not Available [facility] 02:17:54 Foreign body in right ear [id number] 956186 Completed 202209/03/2023 Foreign body in right ear, initial encounte r; Note: Date Diagnose d: 03/17/20 23 9:34 AM (T16.1XX A) Note: Date Diagnose d: 03/17/20 9:34 AM (T16.1XX A) SCHUYLER GENTILE MD [address] [place] [address], [facility] [address] , [facility] - [facility] 4 13:30:34 Recurren t acute sinusiti s 609312655 Active 2017 Acute recurren t sinusiti s, unspecif ied; Note: Date Diagnose d: 8 11:53 AM (J01.91) Not Available [facility] 4 02:17:13 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 Other disorder s followin g mastoide ctomy, right ear; Note: Date Diagnose d: 03/21/20 15 4:47 PM (H95.191 ) Note: Date Diagnose d: 03/21/20 15 4:47 PM (H95.191 ) ; Start Date : 03/21/20 Other disorder s followin g mastoide ctomy, left ear; Note: Date Diagnose d: 06/05/2022 9:34 AM (H95.192 ) Note: Date Diagnose d: 06/05/2022 9:34 AM (H95.192 ) ; Start Date : 06/06/19 Other disorder s followin g mastoide ctomy, bilatera l ears; Note: Date Diagnose d: 3 9:29 AM (H95.193 ) Note: Date Diagnose d: 3 9:29 AM (H95.193 ) Not Available [facility] 4 00:53:09 Acute sinusiti s 26441059 Completed 201711/06/2023 Acute sinusiti s, unspecif ied; Note: Date Diagnose d: 04/10/2017 3:27 PM (J01.90) Not Available [facility] 4 02:17:22 Vasomoto r rhinitis 3137052 Active 2015 Vasomoto r rhinitis ; Note: Date Diagnose d: 6 11:39 AM (J30.0) Not Available [facility] 4 02:18:22 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 981392882 Completed 202111/06/2023 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, left ear; Note: Date Diagnose d: 2 9:05 AM (H95.02) 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, left ear; Note: Date Diagnose d: 01/25/20 16 2:52 PM (H95.02) ; Start Date : 01/25/20 16 Not Available [facility] 4 02:18:08 Injury of neck 87716842 Completed 201711/06/2023 Unspecif ied injury of neck, initial encounte r; Note: Date Diagnose d: 8 9:36 AM (S19.9XX A) Not Available [facility] 4 02:16:50 Marginal perforat ion of tympanic membrane 52834678 Active 2021 Other marginal perforat ions of tympanic membrane , right ear; Note: Date Diagnose d: 02/26/20 8:46 AM (H72.2X1 ) Note: Date Diagnose d: 02/26/20 8:46 AM (H72.2X1 ) ; Start Date : 02/26/20 Other marginal perforat ions of tympanic membrane , left ear; Note: Date Diagnose d: 2 9:06 AM (H72.2X2 ) Note: Date Diagnose d: 2 9:06 AM (H72.2X2 ) Not Available [facility] 4 00:53:28 Choleste atoma of left mastoid process 05120614429 18346 Completed 201411/06/2023 Choleste atoma of mastoid, left ear; Note: Date Diagnose d: 03/21/20 15 4:47 PM (H71.22) Not Available [facility] 4 02:17:47 Refracto ry migraine 635455790 Active 2022 Other migraine , intracta ble, without status migraino beena; Note: Date Diagnose d: 11/06/2022 2:14 PM (G43.819 ) Not Available [facility] 4 02:17:22 Granulat ions of mastoid cavity 072539859 Completed 201411/06/2023 Granulat ion of postmast oidectom y cavity, right ear; Note: Date Diagnose d: 03/21/20 15 4:47 PM (H95.121 ) Not Available [facility] 4 02:18:26 Partial loss of ear ossicles 57461488 Active 2015 Partial loss of ear ossicles , bilatera l; Note: Date Diagnose d: 6 11:52 AM (H74.323 ) Not Available [facility] 4 02:17:22 Otorrhea of bilatera l ears 97717491593 58407 Completed 202211/06/2023 Otorrhea , bilatera l; Note: Date Diagnose d: 11/06/2022 2:15 PM (H92.13) Otorrh ea, bilatera l; Note: Date Diagnose d: 03/21/20 15 4:47 PM (H92.13) ; Start Date : 03/21/20 Not Available [facility] 4 02:18:08 Mixed conducti ve and sensorin eural hearing loss, bilatera l 077442830 Active 2014 Mixed conducti ve and sensorin eural hearing loss, bilatera l; Note: Date Diagnose d: 03/21/20 4:48 PM (H90.6) Not Available [facility] 4 02:17:55 Marginal perforat ion of tympanic membrane 91803072 Active 2023 SCHUYLER GENTILE MD [address] [place] [address], [place], [address] , [facility] 4 13:31:10 Bilatera l chronic mastoidi tis 88304870866 90043 Active 2023 SCHUYLER GENTILE MD [address] [place] [address], [place], [address] , [facility] 4 13:31:39 Otorrhea of bilatera l ears 56562351058 73474 Active 2023 Otorrhea , bilatera l; Note: Date Diagnose d: 11/06/2022 2:15 PM (H92.13) Note: Date Diagnose d: 11/06/2022 2:15 PM (H92.13) Otorrh ea, bilatera l; Note: Date Diagnose d: 03/21/20 15 4:47 PM (H92.13) Note: Date Diagnose d: 03/21/20 15 4:47 PM (H92.13) ; Start Date : 03/21/20 15 SCHUYLER GENTILE MD [address] [facility],[place] [address], [place], [address] , [facility] - [facility] 4 13:31:50 Postmast oidectom y complica tion 97265301 Active 2023 SCHUYLER GENTILE MD [address] [facility],[place] [address], [place], [address] , [facility] - [facility] 4 13:40:58 Dysfunct ion of eustachi an tube 30193719 Active 2023 SCHUYLER GENTILE MD [address] [facility],[place] [address], [place], [address] , [facility] - [facility] 4 13:44:37 Partial loss of ear ossicles 74070747 Active 2023 SCHUYLER GENTILE MD [address] [facility],[place] [address], [place], [address] , [facility] - [facility] 4 13:44:59 Postoper ative follow-u p visit Active 2015 Post op; Note: Date Diagnose d: 6 2:57 PM (V67.00) Not Available [facility] 4 02:16:53 Perforat ion of tympanic membrane 00454567 Active 2015 Perforat ion of tympanic membrane ; Note: Date Diagnose d: 6 2:57 PM (384.20) Not Available [facility] 4 02:16:54 Disorder of left Eustachi an tube 56318498883 80965 Active 2015 Other specifie d disorder s of Eustachi an tube, left ear; Note: Date Diagnose d: 01/25/20 16 2:52 PM (H69.82) Not Available [facility] 4 02:17:12 Conducti ve hearing loss, bilatera l 116266237 Active 2014 Conducti ve hearing loss, bilatera l; Note: Date Diagnose d: 03/21/20 15 4:09 PM (H90.0) Not Available [facility] 4 02:17:18 Chronic right mastoidi tis 94049970978 24199 Active 2016 Chronic mastoidi tis, right ear; Note: Date Diagnose d: 04/01/20 17 12:33 PM (H70.11) Not Available [facility] 4 02:17:18 Otorrhea of left ear 01606090910 30576 Active 2021 Otorrhea , left ear; Note: Date Diagnose d: 2 3:23 PM (H92.12) Otorrh ea, left ear; Note: Date Diagnose d: 8 1:32 PM (H92.12) ; Start Date : 08/04/19 18 Not Available [facility] 4 02:17:28 Follow-u p visit Active 2022 Encounte r for follow-u p examinat ion after complete d treatmen t for conditio ns other than malignan t neoplasm ; Note: Date Diagnose d: 3 11:47 AM (Z09) Encoun ter for follow-u p examinat ion after complete d treatmen t for conditio ns other than malignan t neoplasm ; Note: Date Diagnose d: 04/13/2017 8:58 AM (Z09) ; Start Date : 04/13/19 18 Medic al surveill ance followin g complete d treatmen t; Note: Date Diagnose d: 02/01/20 16 11:30 AM (Z09) ; Start Date : 02/01/20 16 Medic al surveill ance followin g complete d treatmen t; Note: Date Diagnose d: 6 9:37 AM (Z09) ; Start Date : 05/24/19 16 Not Available [facility] 4 02:17:37 Otorrhea of right ear 53450429431 12384 Active 2020 Otorrhea , right ear; Note: Date Diagnose d: 1 9:15 AM (H92.11) Otorrh ea, right ear; Note: Date Diagnose d: 6 2:52 PM (H92.11) ; Start Date : 05/31/19 16 Not Available [facility] 4 02:17:49 Impacted cerumen in left ear 38600491583 52293 Active 2017 Impacted cerumen, left ear; Note: Date Diagnose d: 8 8:29 AM (H61.22) Not Available [facility] 4 02:17:52 Otalgia of left ear 3586784351 Active 2016 Otalgia, left ear; Note: Date Diagnose d: 03/18/20 17 11:11 AM (H92.02) Not Available [facility] 4 02:18:47 Problem Notes None recorded. Procedures Surgical History Date Name Laterality Status Provider Name and Address Organization Details Recorded Time 4 Comp Audio with Tymps (07662 & 65284) completed EMILIE PRIETO [address] [facility],[address], [address], [facility] 01/26/2024 10:09:17 4 Debridement of Mastoid Cavity bilat completed SCHUYLER GENTILE MD [address] [facility],[address], [address], [facility] 01/26/2024 09:19:32 4 Debridement of Mastoid Cavity bilat completed SHANNAN TELLES PA-C [address] [facility],[address], [address], [facility] 09/21/2023 10:54:36 4 Debridement of Mastoid Cavity bilat completed SCHUYLER GENTILE MD [address] [facility],[address], [address], [facility] 09/03/2023 13:15:49 Imaging Results None recorded. Procedure Notes None recorded. Medical Equipment None Reported. Allergies No known drug allergies Medications Name Sig Start Date Stop Date Status Note LastModified by Organization Details LastModified Time cyclobenz aprine 10 mg tablet TAKE 1 TABLET BY MOUTH EVERYDAY AT BEDTIME FOR 14 DAYS 09/20 completed Not Available Not Available Not Available atorvasta tin 40 mg tablet TAKE 1 TABLET BY MOUTH EVERY DAY active Not Available Not Available No t Available prednison e 10 mg tablet TAKE 3 TABLETS FOR 3 DAYS THEN, TAKE 2 TABLETS 3 DAYS THEN, TAKE 1 TABLET 3 DAYS AND STOP 09/20 completed Not Available Not Available Not Available doxycycli ne hyclate 100 mg capsule 05/29 completed Medicati on ID: [id number] P maurice benavidez By Name: MILDRED Moran nd Name: doxycycl ine hyclate Send Method: E-Prescr ibed Sub s Allowed: subs OK Speci al Instruct ion: Take 1 PO bid X 2 weeks Me dication GenericN marylin: doxycycl ine hyclate Not Available Not Available Not Available ipratropi um 0.5 mg-albute rol 3 mg (2.5 mg base)/3 mL nebulizat ion soln INHALE 3 ML BY NEBULIZA TION EVERY 4 TO 6 HOURS NEEDED FOR WHEEZING /COPD FOR 30 DAYS 09/20 completed Not Available Not Available Not Available tizanidin e 2 mg tablet TAKE 1 TABLET BY MOUTH EVERY 8 HOURS FOR MUSCLE SPASTICI TY FOR 10 DAYS active Not Available Not Available No t Available Vitamin C 500 mg tablet TAKE 2 TABLETS BY MOUTH EVERY DAY active Not Available Not Available No t Available azithromy ramiro 250 mg tablet TAKE 2 TABLETS BY MOUTH TODAY, THEN TAKE 1 TABLET DAILY FOR 4 DAYS 09/20 completed Not Available Not Available Not Available ibuprofen 800 mg tablet TAKE 1 TABLET BY MOUTH EVERY 8 HOURS FOR 7 DAYS active Not Available Not Available No t Available sumatript an 25 mg tablet PLEASE SEE ATTACHED FOR DETAILED DIRECTIO NS 01/25 completed Not Available Not Available Not Available prednison e 20 mg tablet TAKE 1 TABLET ORALLY DAILY FOR 5 DAYS 09/20 completed Not Available Not Available Not Available sertralin e 100 mg tablet TAKE 1 TABLET BY MOUTH EVERY DAY active Not Available Not Available No t Available acetamino phen 300 mg-codein e 30 mg tablet TAKE 1 TABLET BY MOUTH EVERY 8 HOURS NEEDED FOR PAIN FOR 4 DAYS 09/20 completed Not Available Not Available Not Available Ciloxan 0.3 % eye drops 09/20 completed Medicati on ID: [id number] D uration Value: 10 Brand Name: Ciloxan Send Method: E-Prescr ibed Sub s Allowed: subs OK Speci al Instruct ion: Instill 4 drops twice a day into the affected ear. [facility] Ciloxan Medicati on ID: [id number] D uration Value: 10 Brand Name: Ciloxan Send Method: E-Prescr ibed Sub s Allowed: subs OK Speci al Instruct ion: Instill 4 drops twice a day into the affected ear. [facility] Ciloxan Not Available Not Available Not Available tramadol 50 mg tablet TAKE 1 TABLET BY MOUTH TWICE A DAY NEEDED FOR PAIN FOR 7 DAYS active Not Available Not Available No t Available butalbita l-acetami nophen-ca ffeine 50 mg-325 mg-40 mg tablet TAKE 1 TABLET BY MOUTH EVERY 6 HOURS NEEDED FOR PAIN FOR 3 DAYS 09/20 completed Not Available Not Available Not Available amoxicill in 500 mg tablet 1 tablet by mouth 09/20 completed Medicati on ID: [id number] D uration Value: 7 Prescri bed By Name: MILDRED Pineda nd Name: amoxicil pavel Send Method: E-Prescr ibed Sub s Allowed: subs OK Medic ationGen ericName : amoxicil pavel Medi cation ID: [id number] D uration Value: 7 Prescri bed By Name: MILDRED Pineda nd Name: amoxicil pavel Send Method: E-Prescr ibed Sub s Allowed: subs OK Medic ationGen ericName : amoxicil pavel Not Available Not Available Not Available carvedilo l 3.125 mg tablet TAKE 1 TABLET BY MOUTH 2 TIMES A DAY WITH A MEAL/NAYE D active Not Available Not Available No t Available ofloxacin 0.3 % ear drops Apply 4 drop into left ear twice a day 07/01 completed Medicati on ID: [id number] D uration Value: 45 Prescri bed By Name: Blaise Richards nd Name: ofloxaci n Send Method: E-Prescr ibed Sub s Allowed: subs OK Speci al Instruct ion: x 45 days [facility] ofloxaci n Not Available Not Available Not Available amitripty line 25 mg tablet TAKE 1 TABLET BY MOUTH EVERY DAY 01/25 completed Not Available Not Available Not Available magnesium oxide 400 mg (241.3 mg magnesium ) tablet TAKE 1 TABLET BY MOUTH EVERY DAY 09/20 completed Not Available Not Available Not Available sulfaceta mide sodium 10 % eye drops 09/20 completed Medicati on ID: [id number] D uration Value: 14 Prescri bed By Name: Blaise Richards nd Name: sulfacet amide sodium S end Method: E-Prescr ibed Sub s Allowed: subs OK Speci al Instruct ion: 4 drops to affected ear BID x 14 days Med icationG enericNa me: sulfacet amide sodium M edicatio n ID: [id number] D uration Value: 14 Prescri bed By Name: Blaise Richards nd Name: sulfacet amide sodium S end Method: E-Prescr ibed Sub s Allowed: subs OK Speci al Instruct ion: 4 drops to affected ear BID x 14 days Med icationG enericNa me: sulfacet amide sodium Not Available Not Available Not Available prednisol one sodium phosphate 1 % eye drops Apply 4 drop twice a day 09/20 completed Medicati on ID: [id number] D uration Value: 14 Prescri bed By Name: MILDRED Zhang nd Name: predniso lone sodium phosphat e Send Method: E-Prescr ibed Sub s Allowed: subs OK Speci al Instruct ion: to left EAR Medi cationGe nericNam e: predniso lone sodium phosphat e Medica tion ID: [id number] D uration Value: 14 Prescri bed By Name: MILDRED Zhang nd Name: predniso lone sodium phosphat e Send Method: E-Prescr ibed Sub s Allowed: subs OK Speci al Instruct ion: to left EAR Medi cationGe nericNam e: predniso lone sodium phosphat e Not Available Not Available Not Available triamcino lone acetonide 0.1 % topical ointment APPLY TOPICALL Y DAILY FOR 30 DAYS active Not Available Not Available No t Available clotrimaz ole 1 % topical solution APPLY 4 DROPS DIRECTED TOPCIALL Y TO THE LEFT EAR (DO NOT PUT DROPS DIRECTLY INTO EAR CANAL) 09/20 completed Not Available Not Available Not Available hydroxyzi ne HCl 25 mg tablet TAKE 1 TABLET BY MOUTH AT BEDTIME active Not Available Not Available No t Available ibuprofen 600 mg tablet TAKE 1 TABLET BY MOUTH 3 TIMES A DAY NEEDED FOR PAIN FOR 15 DAYS 09/20 completed Not Available Not Available Not Available methylpre dnisolone 4 mg tablets in a dose pack TAKE 6 TABLETS ON DAY 1 DIRECTED ON PACKAGE AND DECREASE BY 1 TAB EACH DAY FOR A TOTAL OF 6 DAYS 01/25 completed Not Available Not Available Not Available albuterol sulfate HFA 90 mcg/actua tion aerosol inhaler INHALE 2 PUFFS BY MOUTH EVERY 6 HOURS NEEDED FOR WHEEZING active Not Available Not Available No t Available Lincoln 5 mg-325 mg tablet 1-2 tablet by mouth 01/25 completed Medicati on ID: [id number] D uration Value: 7 Prescri bed By Name: Blaise Richards nd Name: Malik nd Method: E-Prescr ibed Sub s Allowed: subs OK Medic ationGen ericName : Lincoln Not Available Not Available Not Available multivita min capsule 09/20 completed Medicati on ID: [id number] B rand Name: multivit triny benavidez Method: E-Prescr ibed Sub s Allowed: subs OK Medic ationGen ericName : multivit agosto Med ication ID: [id number] B rand Name: multivit triny benavidez Method: E-Prescr ibed Sub s Allowed: subs OK Medic ationGen ericName : multivit agosto Not Available Not Available Not Available fluticaso ne propionat e 50 mcg/actua tion nasal spray,beena pension SPRAY 2 SPRAYS INTO EACH NOSTRIL DAILY 01/25 completed Not Available Not Available Not Available dicyclomi ne 10 mg capsule TAKE 1 CAPSULE BY MOUTH TWICE A DAY NEEDED ABDOMNIA L DISCOMFO RT 09/20 completed Not Available Not Available Not Available ipratropi um bromide 21 mcg (0.03 %) nasal spray 2 spray into both nostrils 09/20 completed Medicati on ID: [id number] D uration Value: 30 Prescri bed By Name: MILDRED Moran nd Name: ipratrop ium bromide Send Method: E-Prescr ibed Sub s Allowed: subs OK Medic ationGen ericName : ipratrop ium bromide Medicati on ID: [id number] D uration Value: 30 Prescri bed By Name: MILDRED Moran nd Name: ipratrop ium bromide Send Method: E-Prescr ibed Sub s Allowed: subs OK Medic ationGen ericName : ipratrop ium bromide Not Available Not Available Not Available tobramyci n 0.3 %-dexamet hasone 0.1 % eye drops,beena pension APPLY 5 DROPS TO BOTH EARS TWICE A DAY FOR 14 DAYS active Not Available Not Available No t Available oxycodone 5 mg tablet Take 1 tablet by mouth every six hours as needed for pain 09/20 completed Medicati on ID: [id number] D uration Value: 5 Brand Name: oxycodon e Send Method: E-Prescr ibed Sub s Allowed: subs OK Medic ationGen ericName : oxycodon e Medica tion ID: [id number] D uration Value: 5 Brand Name: oxycodon e Send Method: E-Prescr ibed Sub s Allowed: subs OK Medic ationGen ericName : oxycodon e Not Available Not Available Not Available neomycin- polymyxin -hydrocor t 3.5 mg-10,000 unit/mL-1 % ear drops,beena p 04/01 completed Medicati on ID: [id number] P rescribe d By Name: Blaise Mendez nd Name: neomycin -polymyx in-HC Se nd Method: E-Prescr ibed Sub s Allowed: subs OK Speci al Instruct ion: 4 drops affected ear bid X 14 days Med icationG enericNa me: neomycin -polymyx in-HC Not Available Not Available Not Available Bactrim DS 800 mg-160 mg tablet Take 1 tablet by mouth twice a day 09/20 completed Medicati on ID: [id number] D uration Value: 14 Brand Name: Bactrim DS Send Method: E-Prescr ibed Sub s Allowed: subs OK Medic ationGen ericName : Bactrim DS Medic ation ID: [id number] D uration Value: 14 Brand Name: Bactrim DS Send Method: E-Prescr ibed Sub s Allowed: subs OK Medic ationGen ericName : Bactrim DS Not Available Not Available Not Available ciproflox acin 0.3 %-dexamet hasone 0.1 % ear drops,beena pension Apply 4 drop into both ears twice a day 09/20 completed Not Available Not Available Not Available magnesium 400 mg (as magnesium oxide) capsule TAKE 1 CAPSULE BY MOUTH EVERY DAY 09/20 completed Not Available Not Available Not Available magnesium 400 mg (as magnesium oxide) tablet TAKE 1 TABLET BY MOUTH EVERY DAY active Not Available Not Available No t Available Vitals Date Recorded Body height Body weight Provider Name and Address Organization Details Last Updated DateTime 01/26/2024 162.56 cm 99481.38 g Jazmine Mendez [place] - [facility] 01/26/2024 08:55:19 Social History None recorded. Functional Status None recorded. Mental Status None recorded. Family History Nothing Reported. Medical History Condition Response Allergies/Hayfever Y Hypertension Y Depression Y High Cholesterol Y Gynecological HistoryNo gynecological history recorded. Obstetrics History GPAL:G 0 P 0 0 0 0 Past Encounters Encounter ID Performer Location Encounter Start Date Encounter Closed Date Diagnosis/Indication Diagnosis SNOMED-CT Code Diagnosis ICD10 Code Diagnosis Note [id number] SCHUYLER GENTILE MD [facility] [address] [address] 01/26/2024 08:42:41 01/26/2024 10:35:50 Marginal perforation of tympanic membrane [id number] H72.2X2 Postmastoi dectomy complication 36662519 H95.193 Bilateral chronic mastoiditis [id number] 733962 H70.13 Otorrhea o f bilateral ears [id number] 185504 H92.13 Mixed cond uctive and sensorineural hearing loss, bilateral [id number] H90.6 Audiologic al evaluation results:Ri ght ear:{{Norm al sloping Mi ld Moderat e Moderate ly-severe* Severe Pr ofound Nor mal auditory thresholds }} {{sensorin eural hearing loss with condu ctive hearing loss with mixed hearing loss with*}} {{excellen t* good fa ir poor no t measurable }} word recognitio n.Left ear:{{Norm al sloping Mi ld* Modera te Moderat antonio-severe Severe Pr ofound Nor mal auditory thresholds }} to {{mild mod erate mode rately-sev ere severe profound* with}} {{sensorin eural hearing loss with condu ctive hearing loss with mixed hearing loss with*}} {{excellen t good* fa ir poor no t measurable }} word recognitio n.Tympanom etry:Right Ear:{{Type A Type As Type Ad Type C Type C, shallow & rounded Ty pe B Type B with large volume Cou ld not maintain a hermetic seal*}}Lef t Ear:{{Type A Type As Type Ad Type C Type C, shallow & rounded Ty pe B Type B with large volume Cou ld not maintain a hermetic seal*}} Bone conduction demo completed today as well. With BAHA6 Max and softband on her right ear she has a WRS of 68% at 65dB and 92% at 80dB. She is aware that research has shown significan t improvemen t of speech scores and clarity when using the Osia compared to the softband.S he is also aware of the 2-3 day battery life of the device. Partial lo ss of ear ossicles 44962905 H74.323 Dysfunctio n of eustachian tube 96342400 H69.93 Health Concerns Section Related Observation LastModified by Organization Detai ls LastModified Time None Recorded Concern Status LastModified by Organization Details LastModified Time None Recorded Payers Encounter Date Sequence Insurance Name Policy Number Policy Amador Covered Member ID Amador Member ID Guarantor Name 01/26/2024 1 BCBS-ID: SECURE [id number] (MEDICARE REPLACEMENT PPO) [id number] Kim Palafox [id number] Kim Palafox Notes Date Note Type Note Provider Name and Address Organization Details Recorded Time 01/26/2024 text/html 68 year old fema le with long-term history of right modified radical mastoidectomy and status post left modified radical mastoidectomy with meatoplasty on May 23, 2022 presents for follow up. Patient has had intermittent issues with otorrhea, recently worsened now that she is using full-time BTE amplification. I last saw her back in August, she had otorrhea which was treated with topical Otomax ointment. Patient seen by [facility] in mid September at which point the ears looked much better. She comes back for 4-month ear cleaning. Patient reports significant recent flareup of discharge on the left.At her prior visit we discussed her candidacy for the Osia bone-conduction implant in light of her difficulty with recurrent otorrhea with conventional hearing aid use. SCHUYLER GENTILE MD [address] [place] [address], [phone], [facility] - [facility] 01/26/2024 10:37:22 OBGyn Episode No OBEpisode recorded.
--- OUTSIDE RECORDS SUMMARY | 2024-04-11 17:11 | XMS_ITS | Continuity of Care Document ---
Author Organization [place] - [facility], [facility] Address [address] [place] [address] Care Team Providers Care Dermatology Sales Representative Name Role Phone AGUSTÍN PEREZ Referring Provider [phone] Assessment No assessment recorded. Plan of Treatment Reminders Order Date Submit Date Provider Last Modified By Organization Details Last Modified Time Details Appointments None record ed. Lab None record ed. Referral None record ed. Procedures None record ed. Surgeries None record ed. Imaging None record ed. Medication Orders None record ed. Patient TargetsNo targets recorded. Patient InstructionsNo instructions recorded. Reason for Referral None Reported. Problems Name Problem SNOMED Code Status Onset Date Resolution Date Notes Provider Name and Address Organization Details Recorded Time Pain of left temporom andibula r joint [id number] 337660 Active 2016 Arthralg ia of left temporom andibula r joint; Note: Date Diagnose d: 03/18/20 17 11:11 AM (M26.622 ) Not Available [facility] 4 02:17:54 Foreign body in right ear [id number] 515999 Completed 202209/03/2023 Foreign body in right ear, initial encounte r; Note: Date Diagnose d: 03/17/20 23 9:34 AM (T16.1XX A) Note: Date Diagnose d: 03/17/20 23 9:34 AM (T16.1XX A) SCHUYLER GENTILE MD [address] [address], [facility] [place], [address] , [place] - [facility] 4 13:30:34 Recurren t acute sinusiti s 559741338 Active 2017 Acute recurren t sinusiti s, unspecif ied; Note: Date Diagnose d: 8 11:53 AM (J01.91) Not Available [facility] 4 02:17:13 Postmast oidectom y complica tion 06035516 Active 2022 Other disorder s followin g [...] 3 9:29 AM (H95.193 ) Not Available [facility] 4 00:53:09 Acute sinusiti s 90497513 Completed 201711/06/2023 Acute sinusiti s, unspecif ied; Note: Date Diagnose d: 04/10/2017 3:27 PM (J01.90) Not Available [facility] 4 02:17:22 Vasomoto r rhinitis 4682860 Active 2015 Vasomoto r rhinitis ; Note: Date Diagnose d: 6 11:39 AM (J30.0) Not Available [facility] 4 02:18:22 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 914659274 Completed 202111/06/2023 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, left ear; Note: Date Diagnose d: 2 9:05 AM (H95.02) 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, left ear; Note: Date Diagnose d: 01/25/20 16 2:52 PM (H95.02) ; Start Date : 01/25/20 16 Not Available [facility] 4 02:18:08 Injury of neck 50725315 Completed 201711/06/2023 Unspecif ied injury of neck, initial encounte r; Note: Date Diagnose d: 8 9:36 AM (S19.9XX A) Not Available [facility] 4 02:16:50 Marginal perforat ion of tympanic membrane 64277494 Active 2021 Other marginal perforat ions of [...] 2 9:06 AM (H72.2X2 ) Not Available [facility] 4 00:53:28 Choleste atoma of left mastoid process 63183427434 25155 Completed 201411/06/2023 Choleste atoma of mastoid, left ear; Note: Date Diagnose d: 03/21/20 15 4:47 PM (H71.22) Not Available [facility] 4 02:17:47 Refracto ry migraine 341320431 Active 2022 Other migraine , intracta ble, without status migraino beena; Note: Date Diagnose d: 11/06/2022 2:14 PM (G43.819 ) Not Available [facility] 4 02:17:22 Granulat ions of mastoid cavity 464219142 Completed 201411/06/2023 Granulat ion of postmast oidectom y cavity, right ear; Note: Date Diagnose d: 03/21/20 15 4:47 PM (H95.121 ) Not Available [facility] 4 02:18:26 Partial loss of ear ossicles 41441847 Active 2015 Partial loss of ear ossicles , bilatera l; Note: Date Diagnose d: 6 11:52 AM (H74.323 ) Not Available [facility] 4 02:17:22 Otorrhea of bilatera l ears 37972718715 21707 Completed 202211/06/2023 Otorrhea , bilatera l; Note: Date Diagnose d: 11/06/2022 2:15 PM (H92.13) Otorrh ea, bilatera l; Note: Date Diagnose d: 03/21/20 4:47 PM (H92.13) ; Start Date : 03/21/20 Not Available [facility] 4 02:18:08 Mixed conducti ve and sensorin eural hearing loss, bilatera l 931730744 Active 2014 Mixed conducti ve and sensorin eural hearing loss, bilatera l; Note: Date Diagnose d: 03/21/20 15 4:48 PM (H90.6) Not Available [facility] 4 02:17:55 Marginal perforat ion of tympanic membrane 35108899 Active 2023 SCHUYLER GENTILE MD [address] [place] [address], [place], [address] , [facility] - [facility] 4 13:31:10 Bilatera l chronic mastoidi tis 04737124498 95663 Active 2023 SCHUYLER GENTILE MD [address] [place] [address], [place], [address] , [facility] - [facility] 4 13:31:39 Otorrhea of bilatera l ears 07074669109 92809 Active 2023 Otorrhea , bilatera l; Note: Date Diagnose d: 11/06/2022 2:15 PM (H92.13) Note: Date Diagnose d: 11/06/2022 2:15 PM (H92.13) Otorrh ea, bilatera l; Note: Date Diagnose d: 03/21/20 15 4:47 PM (H92.13) Note: Date Diagnose d: 03/21/20 15 4:47 PM (H92.13) ; Start Date : 03/21/20 15 SCHUYLER GENTILE MD [address], [place], [place], [address] , [place] - [facility] [place] 4 13:31:50 Postmast oidectom y complica tion 59035067 Active 2023 SCHUYLER GENTILE MD [address], [place], [place], [address] , [place] - [facility] [place] 4 13:40:58 Dysfunct ion of eustachi an tube 45300535 Active 2023 SCHUYLER GENTILE MD [address], [place], [place], [address] , [place] - [facility] [place] 4 13:44:37 Partial loss of ear ossicles 61166244 Active 2023 SCHUYLER GENTILE MD [address] [facility],[address], [place], [place], [address] , [place] - [facility] 4 13:44:59 Postoper ative follow-u p visit Active 2015 Post op; Note: Date Diagnose d: 6 2:57 PM (V67.00) Not Available [facility] 4 02:16:53 Perforat ion of tympanic membrane 81678853 Active 2015 Perforat ion of tympanic membrane ; Note: Date Diagnose d: 6 2:57 PM (384.20) Not Available [facility] 4 02:16:54 Disorder of left Eustachi an tube 96911035291 78448 Active 2015 Other specifie d disorder s of Eustachi an tube, left ear; Note: Date Diagnose d: 01/25/20 16 2:52 PM (H69.82) Not Available [facility] 4 02:17:12 Conducti ve hearing loss, bilatera l 400133301 Active 2014 Conducti ve hearing loss, bilatera l; Note: Date Diagnose d: 03/21/20 15 4:09 PM (H90.0) Not Available [facility] 4 02:17:18 Chronic right mastoidi tis 20789047751 68161 Active 2016 Chronic mastoidi tis, right ear; Note: Date Diagnose d: 04/01/20 17 12:33 PM (H70.11) Not Available [facility] 4 02:17:18 Otorrhea of left ear 34543977997 10325 Active 2021 Otorrhea , left ear; Note: Date Diagnose d: 2 3:23 PM (H92.12) Otorrh ea, left ear; Note: Date Diagnose d: 8 1:32 PM (H92.12) ; Start Date : 08/04/19 18 Not Available [facility] 4 02:17:28 Follow-u p visit Active [...] Start Date : 05/24/19 16 Not Available [facility] 4 02:17:37 Otorrhea of right ear 04076368210 52585 Active 2020 Otorrhea , right ear; Note: Date Diagnose d: 1 9:15 AM (H92.11) Otorrh ea, right ear; Note: Date Diagnose d: 6 2:52 PM (H92.11) ; Start Date : 05/31/19 16 Not Available [facility] 4 02:17:49 Impacted cerumen in left ear 24881346418 71148 Active 2017 Impacted cerumen, left ear; Note: Date Diagnose d: 8 8:29 AM (H61.22) Not Available [facility] 4 02:17:52 Otalgia of left ear 7554591118 Active 2016 Otalgia, left ear; Note: Date Diagnose d: 03/18/20 17 11:11 AM (H92.02) Not Available [facility] 4 02:18:47 Problem Notes None recorded. Procedures Surgical History Date Name Laterality Status Provider Name and Address Organization Details Recorded Time 4 Comp Audio with Tymps (23849 & 92497) completed EMILIE PRIETO [address] [place] [address], [phone], [facility] - [facility] 01/26/2024 10:09:17 4 Debridement of Mastoid Cavity bilat completed SCHUYLER GENTILE MD [address] [place] [address], [phone], [facility] 01/26/2024 09:19:32 4 Debridement of Mastoid Cavity bilat completed SHANNAN TELLES PA-C [address] [place] [address], [phone], [facility] 09/21/2023 10:54:36 4 Debridement of Mastoid Cavity bilat completed SCHUYLER GENTILE MD [address] [place] [address], [phone], [facility] 09/03/2023 13:15:49 Imaging Results None recorded. Procedure [...] mg capsule 05/29 completed Medicati on ID: [id number] Adrian [place] By Name: MILDRED Moran nd Name: [...] eye drops 09/20 completed Medicati on ID: [id number] D uration Value: 10 Brand Name: Ciloxan Send Method: E-Prescr ibed Sub s Allowed: subs OK Speci al Instruct ion: Instill 4 drops twice a day into the affected ear. Med icationG enericNa me: Ciloxan Medicati on ID: [id number] D uration Value: 10 Brand Name: Ciloxan Send Method: E-Prescr ibed Sub s Allowed: subs OK Speci al Instruct ion: Instill 4 drops twice a day into the affected ear. Med icationG enericNa me: Ciloxan Not Available Not Available [...] by mouth 09/20 completed Medicati on ID: [id number] D uration Value: 7 Prescri bed By Name: MILDRED Pineda nd Name: amoxicil pavel Send Method: E-Prescr ibed Sub s Allowed: subs OK Medic ationGen ericName : amoxicil pavel Medi cation ID: [id number] D uration Value: 7 Prescri bed By [...] a day 07/01 completed Medicati on ID: [id number] D uration Value: 45 Prescri bed By Name: Blaise Richards nd Name: ofloxaci n Send Method: E-Prescr ibed Sub s Allowed: subs OK Speci al Instruct ion: x 45 days [facility] Not Available Not Available [...] eye drops 09/20 completed Medicati on ID: [id number] D uration Value: 14 Prescri bed By Name: Blaise Richards nd Name: sulfacet amide sodium S end Method: E-Prescr ibed Sub s Allowed: subs OK Umberto al Instruct ion: 4 drops to affected ear BID x 14 days Med [facility] sulfacet amide sodium M edicatio n ID: [id number] D uration Value: 14 Prescri bed By Name: Blaise Richards nd Name: sulfacet amide sodium S end Method: E-Prescr ibed Sub s Allowed: subs OK Speci al Instruct ion: 4 drops to affected ear BID x 14 days Med [facility] sulfacet amide sodium Not Available Not Available Not Available prednisol one sodium phosphate 1 % eye drops Apply 4 drop twice a day 09/20 completed Medicati on ID: [id number] D uration Value: 14 Prescri bed By Name: MILDRED Zhang nd Name: predniso lone sodium phosphat e Send Method: E-Prescr ibed Sub s Allowed: subs OK Speci al Instruct ion: to left EAR Medi cationGe nericNam e: predniso lone sodium phosphat e Medica tion ID: [id number] D uration Value: 14 Prescri bed By [...] Not Available Not Available No t Available Burnet 5 mg-325 mg tablet 1-2 tablet by mouth 01/25 completed Medicati on ID: [id number] D uration Value: 7 Prescri bed By Name: Blaise Richards nd Name: Malik Mora nd Method: E-Prescr ibed Sub s Allowed: subs OK Medic ationGen ericName : Burnet Not Available Not Available Not Available multivita min capsule 09/20 completed Medicati on ID: [id number] B rand Name: multivit agosto Sen d Method: E-Prescr ibed Sub s Allowed: subs OK Medic ationGen ericName : multivit agosto Med ication ID: [id number] B rand Name: multivit agosto Sen d Method: E-Prescr ibed Sub s Allowed: subs [...] both nostrils 09/20 completed Medicati on ID: [id number] D uration Value: 30 Prescri bed By Name: MILDRED Moran nd Name: ipratrop ium bromide Send Method: E-Prescr ibed Sub s Allowed: subs OK Medic ationGen ericName : ipratrop ium bromide Medicati on ID: [id number] D uration Value: 30 Prescri bed By [...] for pain 09/20 completed Medicati on ID: [id number] D uration Value: 5 Brand Name: oxycodon e Send Method: E-Prescr ibed Sub s Allowed: subs OK Medic ationGen ericName : oxycodon e Medica tion ID: [id number] D uration Value: 5 Brand Name: oxycodon e Send Method: E-Prescr ibed Sub s Allowed: subs OK Medic ationGen ericName : oxycodon e Not Available Not Available Not Available neomycin- polymyxin -hydrocor t 3.5 mg-10,000 unit/mL-1 % ear drops,beena p 04/01 completed Medicati on ID: [id number] P maurice d By Name: Blaise Mendez nd Name: [...] a day 09/20 completed Medicati on ID: [id number] D uration Value: 14 Brand Name: Bactrim DS Send Method: E-Prescr ibed Sub s Allowed: subs OK Medic ationGen ericName : Bactrim DS Medic ation ID: [id number] D uration Value: 14 Brand Name: Bactrim [...] Available Not Available No t Available Vitals None Recorded Social History None recorded. Functional Status None recorded. Mental Status None recorded. Family History Nothing Reported. Medical History Condition Response Allergies/Hayfever Y Depression Y High Cholesterol Y Hypertension Y Gynecological HistoryNo gynecological history recorded. Obstetrics History GPAL:G 0 P 0 0 0 0 Past Encounters Encounter ID Performer Location Encounter Start Date Encounter Closed Date Diagnosis/Indication Diagnosis SNOMED-CT Code Diagnosis ICD10 Code Diagnosis Note [id number] EMILIE REID [facility] of [address] [address] 03/25/2024 13:05:19 04/09/2024 09:04:54 Mixed conductive and sensorineural hearing loss, bilateral [id number] H90.6 Health Concerns Section Related Observation LastModified by Organization Detai ls LastModified Time None Recorded Concern Status LastModified by Organization Details LastModified Time None Recorded Payers Encounter Date Sequence Insurance Name Policy Number Policy Amador Covered Member ID Amador Member ID Guarantor Name 03/25/2024 1 BCBS-ID: MEME HARTMAN (MEDICARE REPLACEMENT PPO) [id number] Kim Palafox [id number] Kim Palafox Notes Date Note Type Note Provider Name and Address Organization Details Recorded Time 03/25/2024 text/html Not hearing well...Updated to her 5 receivers and showed her how to change the cerustops. She noticed an immediate improvement with her hearing...She will call if she needs anything. SAMPSON BALDERAS, [facility] [address] [facility],[address] [address], [place], [address], [facility] - [facility] 03/25/2024 13:10:26 OBGyn Episode No OBEpisode recorded.
== END 2024-04-11 15:50 | disposition home or self-care (01) ==
PROVIDERS: PCP Physician Assistant; Visit Provider Internal Medicine
DX: F17.210 Nicotine dependence, cigarettes, uncomplicated (principal); J41.0 Simple chronic bronchitis; R91.8 Other nonspecific abnormal finding of lung field
CPT/HCPCS: 99213

== ENCOUNTER 2024-07-11 12:43 | Outpatient (REF) | payer MEDICARE, SELFPAY ==
--- NOTE | ~2024-07-11 | CT_ITS ---
CLINICAL HISTORY: R91.8 - Other nonspecific abnormal finding of lung field CT chest without contrast Comparison: CT/GA/SR - CT LUNG SCREENING - 12/03/22 15:51 EDT Findings: The heart size is normal. The visualized thyroid and mediastinum are unremarkable. No pleural effusion. Moderate emphysema. Ground-glass and nodular opacity of the periphery of the right lung and in the lingula. Stable pleural-based opacity of the right upper lobe series 4, image 22. Stable 3 mm nodular density of the right upper lobe on image 37. The upper abdomen is unremarkable. No acute fractures. IMPRESSION: Opacity of the right lung and in the lingula lobe likely represents infectious/inflammatory process. Stable pulmonary nodules. This document has been electronically signed by: Xiomara Fortune MD on 07/12/2024 17:08:51
--- OUTSIDE RECORDS SUMMARY | 2024-07-11 15:01 | XMS_ITS | Data Portability ---
Author Organization [place] - [facility], Allergy Address [address] [address] Care Team Providers Care Civil Clerk Name Role Phone AGUSTÍN PEREZ Referring Provider Assessment Encounter Date Assessment Date Assessment LastModified by Organization Details LastModified Time 09/21/2023 09/21/2023 68-year-old female with bilateral canal wall down mastoidectomy presents for reevaluation. On examination there is a small amount of otomax within bilateral canals and mastoid cavities which were carefully removed today. No further drainage or sign of granulation today. Will continue dry ear precaution and follow-up in 4 months for mastoid cleaning. [email or web address] Not available 09/21/2023 10:56:24 01/26/2024 01/26/2024 Patient continues to get recurrent [...] with the contact information for my surgical coder. We will begin the scheduling process and see the patient back at the time of surgery. Patient will require medical clearance from their primary care provider preoperatively. [email or web address] Not available 01/26/2024 10:36:16 Plan of Treatment Reminders Order Date Submit Date Provider Last Modified By Organization Details Last Modified Time Details Appointments Test Results 2024 11:20A M SCHUYLER GENTILE MD Not available Not available Not available Lab None recorded. Referral None recorded. Procedures None recorded. Surgeries implantat ion of electroma gnetic bone conductio n hearing device in temporal bone (SURG) 2023 024 [email or web address] Not available 01/26/2024 11:18:39 Imaging None recorded. Medication Orders tobramyci n 0.3 %-dexamet hasone 0.1 % eye drops,beena pension [id number], [address] [facility], [place], [address], 01/26/2024 10:13:57 Patient TargetsNo targets recorded. Patient InstructionsNo instructions recorded. Reason for Referral None Reported. Results Created Date Observation Date Name Description Value Unit Range Abnormal Flag Note LastModifiedBy Organization Detail LastModifiedTime 11/25/1904/21/2022 imagi ng/di agnos tic resul t No observ ation record ed. [email or web address] Not Available 21:20:15 11/25/19 24 05/20/2018 imagi ng/di agnos tic resul t No observ ation record ed. [email or web address] Not Available 21:20:26 11/25/19 24 05/20/2018 imagi ng/di agnos tic resul t No observ ation record ed. [email or web address] Not Available 21:20:33 11/25/19 24 07/29/2022 imagi ng/di agnos tic resul t No observ ation record ed. [email or web address] Not Available 21:21:25 11/25/19 24 03/27/2022 imagi ng/di masoudos tic resul t No observ ation record ed. [email or web address] Not Available 21:22:49 11/25/19 24 04/11/2022 audio gram No observ ation record ed. [email or web address] Not Available 21:23:18 11/25/19 24 04/15/2022 audio gram No observ ation record ed. [email or web address] Not Available 21:23:24 11/25/19 24 04/29/2022 audio gram No observ ation record ed. [email or web address] Not Available 21:23:44 11/25/19 24 05/01/2022 audio gram No observ ation record ed. [email or web address] Not Available 21:23:45 11/25/19 24 05/30/2022 audio gram No observ ation record ed. [email or web address] Not Available 21:24:16 11/25/19 24 07/09/2021 audio gram No observ ation record ed. [email or web address] Not Available 21:24:49 11/25/19 24 07/09/2022 audio gram No observ ation record ed. [email or web address] Not Available 21:24:53 11/25/19 24 07/29/2022 audio gram No observ ation record ed. [email or web address] Not Available 21:25:33 11/25/19 24 07/31/2021 audio gram No observ ation record ed. [email or web address] Not Available 21:25:38 11/25/19 24 08/07/2021 audio gram No observ ation record ed. [email or web address] Not Available 21:25:45 11/25/19 24 08/11/2022 audio gram No observ ation record ed. [email or web address] Not Available 21:25:50 11/25/19 24 08/13/2021 audio gram No observ ation record ed. [email or web address] Not Available 21:25:57 11/25/19 24 08/16/2021 audio gram No observ ation record ed. [email or web address] Not Available 21:26:07 11/25/19 24 10/16/2021 audio gram No observ ation record ed. [email or web address] Not Available 21:26:25 11/25/19 24 10/31/2022 audio gram No observ ation record ed. [email or web address] Not Available 21:26:36 11/25/19 24 03/16/2023 audio gram No observ ation record ed. [email or web address] Not Available 21:28:09 11/25/19 24 03/27/2022 audio gram No observ ation record ed. [email or web address] Not Available 21:28:13 01/26/20 audio gram No observ ation record ed. [email or web address] Not Available 2023 13:49:38 Result Notes None recorded. Problems Name Problem SNOMED Code Status Onset Date Resolution Date Notes Provider Name and Address Organization Details Recorded Time Pain of left temporom andibula r joint 69037700168 752744 Active 2016 Arthralg ia of left temporom andibula r joint; Note: Date Diagnose d: 03/18/20 17 11:11 AM (M26.622 ) Not Available [facility] 02:17:54 Foreign body in right ear 08319006909 702369 Completed 202209/03/2023 Foreign body in right ear, initial encounte r; Note: Date Diagnose d: 03/17/20 9:34 AM (T16.1XX A) Note: Date Diagnose d: 03/17/20 9:34 AM (T16.1XX A) SCHUYLER GENTILE MD [address] [place] [address] 100, [facility] [place], [address] , [place] - [facility] 4 13:30:34 Recurren t acute sinusiti s 263349451 Active 2017 Acute recurren t sinusiti s, unspecif ied; Note: Date Diagnose d: 8 11:53 AM (J01.91) Not Available [facility] 4 02:17:13 Postmast oidectom y complica tion 98320193 Active 2022 Other disorder s followin g mastoide ctomy, right ear; Note: Date Diagnose d: 03/21/20 15 4:47 PM (H95.191 ) Note: Date Diagnose d: 03/21/20 4:47 PM (H95.191 ) ; Start Date [...] 3 9:29 AM (H95.193 ) Not Available [facility] 4 00:53:09 Acute sinusiti s 12904962 Completed 201711/06/2023 Acute sinusiti s, unspecif ied; Note: Date Diagnose d: 04/10/2017 3:27 PM (J01.90) Not Available [facility] 4 02:17:22 Vasomoto r rhinitis 6018768 Active 2015 Vasomoto r rhinitis ; Note: Date Diagnose d: 6 11:39 AM (J30.0) Not Available [facility] 4 02:18:22 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 811458041 Completed 202111/06/2023 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, left ear; Note: Date Diagnose d: 2 9:05 AM (H95.02) 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, left ear; Note: Date Diagnose d: 01/25/20 16 2:52 PM (H95.02) ; Start Date : 01/25/20 16 Not Available [facility] 4 02:18:08 Injury of neck 04141633 Completed 201711/06/2023 Unspecif ied injury of neck, initial encounte r; Note: Date Diagnose d: 8 9:36 AM (S19.9XX A) Not Available [facility] 4 02:16:50 Marginal perforat ion of tympanic membrane 52904505 Active 2021 Other marginal perforat ions of [...] 2 9:06 AM (H72.2X2 ) Not Available [facility] 4 00:53:28 Choleste atoma of left mastoid process 55579871038 07313 Completed 201411/06/2023 Choleste atoma of mastoid, left ear; Note: Date Diagnose d: 03/21/20 15 4:47 PM (H71.22) Not Available [facility] 4 02:17:47 Refracto ry migraine 752628532 Active 2022 Other migraine , intracta ble, without status migraino beena; Note: Date Diagnose d: 11/06/2022 2:14 PM (G43.819 ) Not Available [facility] 4 02:17:22 Granulat ions of mastoid cavity 051427167 Completed 201411/06/2023 Granulat ion of postmast oidectom y cavity, right ear; Note: Date Diagnose d: 03/21/20 15 4:47 PM (H95.121 ) Not Available [facility] 4 02:18:26 Partial loss of ear ossicles 47709753 Active 2015 Partial loss of ear ossicles , bilatera l; Note: Date Diagnose d: 6 11:52 AM (H74.323 ) Not Available [facility] 4 02:17:22 Otorrhea of bilatera l ears 38153768074 22032 Completed 202211/06/2023 Otorrhea , bilatera l; Note: Date Diagnose d: 11/06/2022 2:15 PM (H92.13) Otorrh ea, bilatera l; Note: Date Diagnose d: 03/21/20 15 4:47 PM (H92.13) ; Start Date : 03/21/20 Not Available [facility] 4 02:18:08 Mixed conducti ve and sensorin eural hearing loss, bilatera l 517684312 Active 2014 Mixed conducti ve and sensorin eural hearing loss, bilatera l; Note: Date Diagnose d: 03/21/20 15 4:48 PM (H90.6) Not Available [facility] 4 02:17:55 Marginal perforat ion of tympanic membrane 71443736 Active 2023 SCHUYLER GENTILE MD [address] [place] [address], [place], [address] , [facility] - [facility] 4 13:31:10 Bilatera l chronic mastoidi tis 52683151004 72778 Active 2023 SCHUYLER GENTILE MD [address] [place] [address], [place], [address] , [facility] - [facility] 4 13:31:39 Otorrhea of bilatera l ears 76052076153 96887 Active 2023 Otorrhea , bilatera l; Note: Date Diagnose d: 11/06/2022 2:15 PM (H92.13) Note: Date Diagnose d: 11/06/2022 2:15 PM (H92.13) Otorrh ea, bilatera l; Note: Date Diagnose d: 03/21/20 15 4:47 PM (H92.13) Note: Date Diagnose d: 03/21/20 15 4:47 PM (H92.13) ; Start Date : 03/21/20 15 SCHUYLER GENTILE MD [address] [place] [address], [place], [place], [address] , [facility] - [facility] [place] 4 13:31:50 Postmast oidectom y complica tion 22316418 Active 2023 [facility]ENTILE MD [address] [facility] [place] [facility], [place], [place], [address] , [facility] - [facility] [place] 4 13:40:58 Dysfunct ion of eustachi an tube 73529981 Active 2023 SCHUYLER GENTILE MD [address] [facility],[place] [address], [place], [place], [address] , [facility] - [facility] [place] 4 13:44:37 Partial loss of ear ossicles 79294426 Active 2023 SCHUYLER GENTILE MD [address] [facility],[place] [address], [place], [place], [address] , [facility] - [facility] 4 13:44:59 Postoper ative follow-u p visit Active 2015 Post op; Note: Date Diagnose d: 6 2:57 PM (V67.00) Not Available [facility] 4 02:16:53 Perforat ion of tympanic membrane 19320874 Active 2015 Perforat ion of tympanic membrane ; Note: Date Diagnose d: 6 2:57 PM (384.20) Not Available [facility] 4 02:16:54 Disorder of left Eustachi an tube 96532603083 36204 Active 2015 Other specifie d disorder s of Eustachi an tube, left ear; Note: Date Diagnose d: 01/25/20 16 2:52 PM (H69.82) Not Available [facility] 4 02:17:12 Conducti ve hearing loss, bilatera l 811894072 Active 2014 Conducti ve hearing loss, bilatera l; Note: Date Diagnose d: 03/21/20 15 4:09 PM (H90.0) Not Available [facility] 4 02:17:18 Chronic right mastoidi tis 47445482785 48154 Active 2016 Chronic mastoidi tis, right ear; Note: Date Diagnose d: 04/01/20 17 12:33 PM (H70.11) Not Available [facility] 4 02:17:18 Otorrhea of left ear 40539703901 57053 Active 2021 Otorrhea , left ear; Note: Date Diagnose d: 2 3:23 PM (H92.12) Otorrh ea, left ear; Note: Date Diagnose d: 8 1:32 PM (H92.12) ; Start Date : 08/04/19 18 Not Available [facility] 4 02:17:28 Follow-u p visit Active 2022 [...] Start Date : 05/24/19 16 Not Available [facility] 4 02:17:37 Otorrhea of right ear 20647114081 31496 Active 2020 Otorrhea , right ear; Note: Date Diagnose d: 1 9:15 AM (H92.11) Otorrh ea, right ear; Note: Date Diagnose d: 6 2:52 PM (H92.11) ; Start Date : 05/31/19 16 Not Available [facility] 4 02:17:49 Impacted cerumen in left ear 25162893143 62833 Active 2017 Impacted cerumen, left ear; Note: Date Diagnose d: 8 8:29 AM (H61.22) Not Available [facility] 4 02:17:52 Otalgia of left ear 2979243196 Active 2016 Otalgia, left ear; Note: Date Diagnose d: 03/18/20 17 11:11 AM (H92.02) Not Available [facility] 4 02:18:47 Problem Notes None recorded. Procedures Surgical History Date Name Laterality Status Provider Name and Address Organization Details Recorded Time 4 Comp Audio with Tymps (49502 & 95584) completed EMILIE PRIETO [address] [place] [address], [address], [facility] - [facility] 01/26/2024 10:09:17 4 Debridement of Mastoid Cavity bilat completed SCHUYLER GENTILE MD [address] [place] [address], [address], [facility] - [facility] 01/26/2024 09:19:32 4 Debridement of Mastoid Cavity bilat completed SHANNAN TELLES PA-C [address] [facility],[address], [address], [facility] - [facility] 09/21/2023 10:54:36 4 Debridement of Mastoid Cavity bilat completed SCHUYLER GENTILE MD [address] [place] [address],[address], [address], [facility] - [facility] 09/03/2023 13:15:49 Imaging Results Imaging Date Name Status LastModified by [facility] Details LastModified Time 04/21/2022 imaging/diagno stic result completed Information not available 11/25/2023 21:20:15 05/20/2018 imaging/diagno stic result completed Information not available 11/25/2023 21:20:26 05/20/2018 imaging/diagno stic result completed Information not available 11/25/2023 21:20:33 07/29/2022 imaging/diagno stic result completed Information not available 11/25/2023 21:21:25 03/27/2022 imaging/diagno stic result completed Information not available 11/25/2023 21:22:49 04/11/2022 audiogram completed Information not available 11/25/2023 21:23:18 04/15/2022 audiogram completed Information not available 11/25/2023 21:23:24 04/29/2022 audiogram completed Information not available 11/25/2023 21:23:44 05/01/2022 audiogram completed Information not available 11/25/2023 21:23:45 05/30/2022 audiogram completed Information not available 11/25/2023 21:24:16 07/09/2021 audiogram completed Information not available 11/25/2023 21:24:49 07/09/2022 audiogram completed Information not available 11/25/2023 21:24:53 07/29/2022 audiogram completed Information not available 11/25/2023 21:25:33 07/31/2021 audiogram completed Information not available 11/25/2023 21:25:38 08/07/2021 audiogram completed Information not available 11/25/2023 21:25:45 08/11/2022 audiogram completed Information not available 11/25/2023 21:25:50 08/13/2021 audiogram completed Information not available 11/25/2023 21:25:57 08/16/2021 audiogram completed Information not available 11/25/2023 21:26:07 10/16/2021 audiogram completed Information not available 11/25/2023 21:26:25 10/31/2022 audiogram completed Information not available 11/25/2023 21:26:36 03/16/2023 audiogram completed Information not available 11/25/2023 21:28:09 03/27/2022 audiogram completed Information not available 11/25/2023 21:28:13 01/26/2024 audiogram completed BARCODE Information no t available 01/26/2024 13:49:38 Procedure Notes None recorded. Medical Equipment None [...] mg capsule 05/29 completed Medicati on ID: [id number] P maurice d By Name: MILDRED Moran nd Name: doxycycl ine hyclate Send Method: E-Prescr ibed Sub s Allowed: subs OK Speci al Instruct ion: Take 1 PO bid X 2 weeks Me dication GenericN marylin: doxycycl ine hyclate Not Available Not Available Not Available ipratropi um 0.5 mg-albute rol 3 mg (2.5 mg base)/3 mL nebulizat ion soln USE 1 VIAL VIA NEBULIZE R EVERY 4 TO 6 HOURS NEEDED FOR WHEEZING /COPD FOR 30 DAYS active Not Available Not Available No t Available tizanidin e 2 mg tablet TAKE [...] eye drops 09/20 completed Medicati on ID: [id number] D uration Value: 10 Brand Name: Ciloxan Send Method: E-Prescr ibed Sub s Allowed: subs OK Speci al Instruct ion: Instill 4 drops twice a day into the affected ear. Med icationG enericNa me: Ciloxan Medicati on ID: [id number] D uration Value: 10 Brand Name: Ciloxan [...] by mouth 09/20 completed Medicati on ID: [id number] D uration Value: 7 Prescri bed By Name: MILDRED Pineda nd Name: amoxicil pavel Send Method: E-Prescr ibed Sub s Allowed: subs OK Medic ationGen ericName : amoxicil pavel Medi cation ID: [id number] D uration Value: 7 Prescri bed By Name: MILDRED Pineda nd Name: amoxicil pavel Send Method: E-Prescr ibed Sub s Allowed: subs OK Medic Adeline ericName : amoxicil pavel Not Available Not Available Not Available carvedilo l 3.125 mg tablet TAKE 1 TABLET BY MOUTH 2 TIMES A DAY WITH A MEAL/NAYE D active Not Available Not Available No t Available ofloxacin 0.3 % ear drops Apply 4 drop into left ear twice a day 07/01 completed Medicati on ID: [id number] D uration Value: 45 Prescri bed By Name: Blaise Richards nd Name: ofloxaci n Send Method: E-Prescr ibed Sub s Allowed: subs OK Speci al Instruct ion: x 45 days Med icationG enericNa me: ofloxaci n Not Available Not [...] eye drops 09/20 completed Medicati on ID: [id number] D uration Value: 14 Prescri bed By Name: Blaise Richards nd Name: sulfacet amide sodium S end Method: E-Prescr ibed Sub s Allowed: subs OK Speci al Instruct ion: 4 drops to affected ear BID x 14 days Med icationG enericNa me: sulfacet amide sodium M edicatio n ID: [id number] D uration Value: 14 Prescri bed By [...] a day 09/20 completed Medicati on ID: [id number] D uration Value: 14 Prescri bed By Name: MILDRED Zhang nd Name: predniso lone sodium phosphat e Send Method: E-Prescr ibed Sub s Allowed: subs OK Speci al Instruct ion: to left EAR Medi cationGe nericNam e: predniso lone sodium phosphat e Medica tion ID: [id number] D uration Value: 14 Prescri bed By [...] Not Available Not Available No t Available Icard 5 mg-325 mg tablet 1-2 tablet by mouth 01/25 completed Medicati on ID: [id number] D uration Value: 7 Prescri bed By Name: Blaise Richards nd Name: Icard Se nd Method: E-Prescr ibed Sub s Allowed: subs OK Medic ationGen ericName : Icard Not Available Not Available Not Available multivita min capsule 12/16/ 2015 06/17 /2024 completed Medicati on ID: [id number] B rand Name: multivlibra agosto Sen d Method: E-Prescr ibed Sub s Allowed: subs OK Medic ationGen ericName : multivit agosto Med ication ID: [id number] B rand Name: multivlibra agosto Sen d Method: E-Prescr ibed Sub [...] both nostrils 09/20 completed Medicati on ID: [id number] D uration Value: 30 Prescri bed By Name: MILDRED Moran nd Name: ipratrop ium bromide Send Method: E-Prescr ibed Sub s Allowed: subs OK Medic ationGen ericName : ipratrop ium bromide Medicati on ID: [id number] D uration Value: 30 Prescri bed By [...] No t Available oxycodone 5 mg tablet TAKE 1 TABLET BY MOUTH EVERY 8 HOURS NEEDED FOR PAIN FOR 5 DAYS active Not Available Not Available No t Available neomycin- polymyxin -hydrocor t 3.5 mg-10,000 unit/mL-1 % ear drops,beena p 04/01 completed Medicati on ID: [id number] [place] By Name: Gilmar Miguel M.D. Bra nd Name: neomycin -polymyx in-HC Se nd Method: E-Prescr ibed Sub s Allowed: subs OK Speci al Instruct ion: 4 drops affected ear bid X 14 days Med icationG enericNa me: neomycin -polymyx in-HC Not Available Not Available Not Available Bactrim DS 800 mg-160 mg tablet Take 1 tablet by mouth twice a day 09/20 completed Medicati on ID: [id number] D uration Value: 14 Brand Name: Bactrim DS Send Method: E-Prescr ibed Sub s Allowed: subs OK Medic ationGen ericName : Bactrim DS Medic ation ID: [id number] D uration Value: 14 Brand Name: Bactrim [...] Available Vitals Date Recorded Body height Body mass index (BMI) Body weight Provider Name and Address Organization Details Last Updated DateTime 09/03/2023 162.56 cm 18 kg/m2 16722.2 g Yolande Winters [place] [facility] 09/03/2023 13:02:52 Date Recorded Body height Body weight Provider Name and Address Organization Details Last Updated DateTime 01/26/2024 162.56 cm 60960.38 g Jazmine Mendez [place] [facility] 01/26/2024 08:55:19 Date Recorded Body height Body mass index (BMI) Body weight Provider Name and Address Organization Details Last Updated DateTime 09/21/2023 162.56 cm 18.4 kg/m2 10105.38 g Cynthia Grant [place] - [facility] 09/21/2023 10:33:45 Social History None recorded. Functional Status None [...] SNOMED-CT Code Diagnosis ICD10 Code Diagnosis Note [id number] SCHUYLER GENTILE MD [facility] [address] [address] 09/03/2023 12:42:59 09/03/2023 13:30:45 Marginal perforation of tympanic membrane 48176091 H72.2X2 Both canal wall down mastoidect mai cavities are showing significan t purulent otorrhea. Both ears were thoroughly debrided today under the binocular microscope and Otomax ointment applied bilaterall y. No drops recommende d at the moment, but I will have her follow-up with Junie in 1 to 2 weeks for reevaluati on and applicatio n of additional ointment or drops as necessary. Mixed cond uctive and sensorineural hearing loss, bilateral 858372095 H90.6 Patient continues to get recurrent otorrhea from her canal wall down mastoidect mai cavities with the use of amplificat ion. In reviewing her last audiogram, a greater percentage of her hearing loss is conductive in nature rather than sensorineu ral. She falls within the bone-condu ction guidelines for the [employer] bone-condu ction implant system, at least in her left ear. We discussed how this bone-condu ction implant technology would help to mitigate her hearing loss without the need for an occlusive earmold. She would like to learn more about this, so we will set her up for a bone-condu ction implant demo. I have also given her the contact informatio n for the [employer] patient out reach representa tive so that she can learn more about this technology as well.If the patient decides that she wants to proceed with surgery, she will need updated audiometri c testing to confirm candidacy once the otorrhea has settled. Postmastoi dectomy complication 13715155 H95.193 Bilateral chronic mastoiditis 9911901421 537574 H70.13 Otorrhea o f bilateral ears 4442379399 732397 H92.13 Partial lo ss of ear ossicles 98272345 H74.323 Dysfunctio n of eustachian tube 28037324 H69.93 [id number] SCHUYLER GENTILE MD [facility] [address] [address] 09/21/2023 10:22:57 09/21/2023 10:49:15 Marginal perforation of tympanic membrane 11357265 H72.2X2 Mixed cond uctive and sensorineural hearing loss, bilateral 836653840 H90.6 Otorrhea o f bilateral ears 9929773919 392693 H92.13 Bilateral chronic mastoiditis 3648140979 951701 H70.13 [id number] SCHUYLER GENTILE MD [facility] [address] [address] 01/26/2024 08:42:41 01/26/2024 10:35:50 Marginal perforation of tympanic membrane 42232238 H72.2X2 Postmastoi dectomy complication 08854950 H95.193 Bilateral chronic mastoiditis 7941355285 207055 H70.13 Otorrhea o f bilateral ears 6029420543 115055 H92.13 Mixed cond uctive and sensorineural hearing loss, bilateral 518062172 H90.6 Audiologic al evaluation results:Ri t ear:{{Norm al sloping Mi ld Moderat e [...] device. Partial lo ss of ear ossicles 97849010 H74.323 Dysfunctio n of eustachian tube 73205348 H69.93 [id number] EMILIE REID [facility] [place] [address] [place] [address] 03/25/2024 13:05:19 04/09/2024 09:04:54 Mixed conductive and sensorineural hearing loss, bilateral 128535026 H90.6 [id number] EMILIE REID [place] [facility] [place] [address] [facility],[place] [address] [place] [address] 05/18/2024 12:12:33 05/19/2024 08:21:30 Mixed conductive and sensorineural hearing loss, bilateral 203189071 H90.6 Health Concerns Section Related Observation LastModified by Organization Detai ls LastModified Time None Recorded Concern Status LastModified by Organization Details LastModified Time None Recorded Advance Directives Directive None Recorded Payers Encounter Date Sequence Insurance Name Policy Number Policy Amador Covered Member ID Amador Member ID Guarantor Name 09/03/2023 1 [employer]-ID: SECURE BLUE (MEDICARE REPLACEMENT PPO) [id number] Kim Palafox [id number] Palafox 09/21/2023 1 [employer]-ID: SECURE BLUE (MEDICARE REPLACEMENT PPO) [id number] Kim Palafox [id number] Palafox 01/26/2024 1 BC[employer]-ID: SECURE BLUE (MEDICARE REPLACEMENT PPO) [id number] Kim Palafox [id number] Kim Palafox 03/25/2024 1 BCBS-ID: SECURE [id number] (MEDICARE REPLACEMENT PPO) [id number] Kim Palafox [id number] Kim Palafox 05/18/2024 1 BCBS-ID: SECURE [id number] (MEDICARE REPLACEMENT PPO) [id number] Kim Palafox [id number] [id number] Palafox Notes Date Note Type Note Provider Name and Address Organization Details Recorded Time 09/03/2023 text/html 68 year old percy beatty with long-term history of right modified radical mastoidectomy and status post left modified radical mastoidectomy with meatoplasty on May 23, 2022 presents for follow up. Patient has had intermittent issues with otorrhea, recently worsened now that she is using full-time BTE amplification. Last visit back in March 2023 after prolonged episode of otorrhea. Noting bilateral otorrhea for the last 2 to 3 weeks. She has not been on any medications recently. She no-showed a couple of visits with Junie in May and July because she was very sick this winter SCHUYLER GENTILE MD [address], [id number], [place] - [facility] 09/03/2023 13:45:16 09/21/2023 text/html 68-year-old percy beatty with history of bilateral canal wall down mastoidectomies presents for reevaluation. Has recently been managed for recurrent drainage. About 2 weeks ago she had bilateral otomax injections which she feels have helped significantly. She has no further drainage from the ears. SCHUYLER GENTILE MD [address] [facility],[address], [id number], [place] - [facility] 09/21/2023 14:01:09 01/26/2024 text/html 68 year old percy beatty with long-term history of right modified radical mastoidectomy and status post left modified radical mastoidectomy with meatoplasty on May 23, 2022 presents for follow up. Patient has had intermittent issues with otorrhea, recently worsened now that she is using full-time BTE amplification. I last saw her back in May, she had otorrhea which was treated with topical Otomax ointment. Patient seen by PA in mid September at which point the ears looked much better. She comes back for 4-month ear cleaning. Patient reports significant recent flareup of discharge on the left.At her prior visit we discussed her candidacy for the [place] bone-conduction implant in light of her difficulty with recurrent otorrhea with conventional hearing aid use. SCHUYLER GENTILE MD [address] [facility],[address], [phone], [facility] 01/26/2024 10:37:22 03/25/2024 text/html Not hearing well...Updated to her 5 receivers and showed her how to change the cerustops. She noticed an immediate improvement with her hearing...She will call if she needs anything. EMILIE REID 100 [facility],[address], [phone], [facility] 03/25/2024 13:10:26 05/18/2024 text/html R aid is not wor juan. I was able to get it to charge without issue on my senior behavioral scientist so I gave her another new senior behavioral scientist. I also reminded her that she can plug the aid into either port so she can try to troubleshoot and determine whether there is an issue with the aid or the senior behavioral scientist. She will call as needed. EMILIE REID [address] [facility],[address], [phone], [facility] 05/19/2024 09:05:55 OBGyn Episode No OBEpisode recorded.
== END 2024-07-11 12:44 | disposition home or self-care (01) ==
LOC: HO.CT 12:43
PROVIDERS: PCP Physician Assistant; Visit Provider Internal Medicine
DX: R91.8 Other nonspecific abnormal finding of lung field (principal); F17.210 Nicotine dependence, cigarettes, uncomplicated
CPT/HCPCS: 71250

== ENCOUNTER → 2024-07-11 12:45 | Outpatient (BNV) | payer MEDICARE, SELFPAY | PROVIDERS: PCP Physician Assistant; Visit Provider Nuclear Medicine | DX: R91.8 Other nonspecific abnormal finding of lung field (principal) | CPT/HCPCS: 71250 ==

== ENCOUNTER 2024-09-12 12:33 | Outpatient (REF) | payer MEDICARE, SELFPAY ==
[2024-09-12 12:44] LABS: MANUAL DIFF FLAG NO
[2024-09-12 13:13] LABS: Basophils Absolute Auto 0.1 X10*3/uL (0.0-0.2); Basophils Percent Auto 1.2 % (0-2); Eosinophils Absolute Auto 0.4 X10*3/uL (0.0-0.4); Eosinophils Percent Auto 5.2 % (0-4); Imm Gran Abs Auto 0.02 X10*3/uL (0.00-0.03); Imm Gran Pct Auto 0.2 % (0.0-0.4); Lymphocytes Absolute Auto 2.3 X10*3/uL (1.2-4.9); Lymphocytes Percent Auto 26.7 % (20-40); Mean Corpuscular HGB Conc 32.6 g/dl (31.0-35.0); Mean Corpuscular Hemoglobin 30.7 pg (27.0-33.0); Mean Corpuscular Volume 94.3 fL (80.0-98.0); Mean Platelet Volume 10.3 fL (9.4-12.3); Monocytes Absolute Auto 0.7 X10*3/uL (0.1-1.2); Monocytes Percent Auto 8.2 % (2-11); Neutrophils Absolute Auto 4.9 x10*3/uL (2.0-8.3); Neutrophils Percent Auto 58.5 % (45-73); Platelet Count 319 X10*3/uL (160-400); Red Blood Count 4.56 X10*6/uL (4.20-5.50); Red Cell Distribution Width 12.8 % (11.0-16.0); White Blood Count 8.4 X10*3/uL (4.8-10.8)
[2024-09-12 13:32] LABS: Alanine Aminotransferase 12 U/L (0-31); Albumin Level 3.9 g/dL (3.5-5.0); Alkaline Phosphatase 69 U/L (39-117); Anion Gap 12 (12-20); Aspartate Amino Transferase 31 U/L (5-31); Bilirubin Total 0.4 mg/dL (0.0-1.0); Blood Urea Nitrogen 16 mg/dL (9-16); Calcium 8.9 mg/dL (8.4-10.2); Carbon Dioxide 25 mmol/L (22-29); Chloride 111 mmol/L (96-108); Cholesterol 158 mg/dL (<200); Estimated Glomerular Filt Rate > 60; Glucose Fasting 110 mg/dL (60-99); HDL Cholesterol 51 mg/dL (>40); LDL Cholesterol Calculated 89 mg/dL (<100); Potassium 3.6 mmol/L (3.3-5.1); Sodium 144 mmol/L (135-145); Total Protein 6.6 g/dL (6.5-8.0); Triglycerides 92 mg/dL (<150)
[2024-09-12 13:57] LABS: Creatinine Urine 278.62 mg/dL; Microalbum/Creatinine Ratio Ur 33.3 ug/mg cr (<30)
--- OUTSIDE RECORDS SUMMARY | 2024-09-12 14:10 | XMS_ITS | Data Portability ---
Author Organization [place] - [facility], Allergy Address [address] [address] Care Team Providers Care Senior Ux Developer Name Role Phone AGUSTÍN PEREZ Referring Provider [...] follow-up in 4 months for mastoid cleaning. Not available 09/21/2023 10:56:24 01/26/2024 01/26/2024 Patient [...] with the contact information for my surgical endoscopist. We will begin the scheduling process and see the patient back at the time of surgery. Patient will require medical clearance from their primary care provider preoperatively. [email or web address] Not available 01/26/2024 10:36:16 07/14/2024 07/14/2024 Patient continues to get recurrent otorrhea from her canal wall down mastoidectomy cavities with the use of amplification. The left ear was thoroughly debrided today. Patient provided prescription for TobraDex drops to be used twice a day for 2 weeks. The right mastoid cavity was also cleaned today which appears to be free of inflammation. Audiometric testing from her last visit was reviewed today. She has bilateral severe mixed hearing loss. She continues to fall within the bone-conduction guidelines for the Osia bone-conduction implant system bilaterally. We discussed how this bone-conduction implant technology would help to mitigate her hearing loss without the need for an occlusive earmold. She underwent bone-conduction demo at her last visit and she got good results from this demonstration. Once again, we discussed the pros and cons of using bone-conduction implant technology to remedy her hearing loss, without the need for a earmold. This would not only help her hearing significantly, but would significantly reduce the incidence of mastoid otorrhea. Risks and benefits of Osia implantation discussed with patient, including but not limited to cosmetic deformity, bleeding, loss of hair, numbness of ear and scalp, wound infection, skin necrosis, Implant failure with or without the need for replacement, CSF leak, meningitis, and intracranial injury. Appropriate expectations reviewed. Patient voiced understanding and wishes to proceed with surgery with implantation of the left ear. I have provided patient with the contact information for my surgical endoscopist. We will begin the scheduling process and see the patient back at the time of surgery. Patient will require medical clearance from their primary care provider preoperatively. [email or web address] Not available 07/14/2024 13:05:04 Plan of Treatment Reminders Order Date Submit Date Provider Last Modified By Organization Details Last Modified Time Details Appointments None recorded. Lab None recorded. Referral None recorded. Procedures None recorded. Surgeries implantatio n of electromagn etic bone conduction hearing device in temporal bone (SURG) 04/10/ 2025 04/10/2 025 [email or web address] Not available 15:46:41 implantatio n of electromagn etic bone conduction hearing device in temporal bone (SURG) 2023 024 [email or web address] Not available 11:18:39 Imaging None recorded. Medication Orders tobramycin 0.3 %-dexametha sone 0.1 % eye drops,suspe nsion 2024 025 [facility] [id number], [address] [place], [address], 5 11:33:11 tobramycin 0.3 %-dexametha sone 0.1 % eye drops,suspe nsion 2023 024 [email or web address] [id number], [address] [place], [address], 5 11:11:07 Patient TargetsNo targets recorded. Patient InstructionsNo instructions recorded. Reason for Referral None Reported. Results Created Date Observation Date Name Description Value Unit Range Abnormal Flag Note LastModifiedBy Organization Detail LastModifiedTime 11/25/19 24 04/21/2022 imagi ng/di agnos tic resul t No [...] Available 21:21:25 11/25/19 24 03/27/2022 imagi ng/di agnos tic resul t No [...] Pain of left temporom andibula r joint [id number] 980319 Active 2016 Arthralg ia of left temporom andibula r joint; Note: Date Diagnose d: 03/18/20 11:11 AM (M26.622 ) Not Available [facility] 02:17:54 Foreign body in right ear 64532615042 438271 Completed 202209/03/2023 Foreign body in right ear, initial encounte r; Note: Date Diagnose d: 03/17/20 23 9:34 AM (T16.1XX A) Note: Date Diagnose d: 03/17/20 9:34 AM (T16.1XX A) SCHUYLER GENTILE MD [address] [place] [address], [facility] [place], [address] , [facility] - [facility] 4 13:30:34 Recurren t acute sinusiti s 821067912 Active 2017 Acute recurren t sinusiti s, unspecif ied; Note: Date Diagnose d: 8 11:53 AM (J01.91) Not Available [facility] 4 02:17:13 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 Other disorder s followin g [...] 3 9:29 AM (H95.193 ) Not Available [facility] 4 00:53:09 Acute sinusiti s 84883123 Completed 201711/06/2023 Acute sinusiti s, unspecif ied; Note: Date Diagnose d: 04/10/2017 3:27 PM (J01.90) Not Available [facility] 4 02:17:22 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 Active 2015 Vasomoto r rhinitis ; Note: Date Diagnose d: 6 11:39 AM (J30.0) Not Available [facility] 4 02:18:22 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 150290624 Completed 202111/06/2023 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, left ear; Note: Date Diagnose d: 2 9:05 AM (H95.02) 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, left ear; Note: Date Diagnose d: 01/25/20 16 2:52 PM (H95.02) ; Start Date : 01/25/20 16 Not Available [facility] 4 02:18:08 Injury of neck 73879642 Completed 201711/06/2023 Unspecif ied injury of neck, initial encounte r; Note: Date Diagnose d: 8 9:36 AM (S19.9XX A) Not Available [facility] 4 02:16:50 Marginal perforat ion of tympanic membrane 46723916 Active 2021 Other marginal perforat ions of [...] 2 9:06 AM (H72.2X2 ) Not Available [facility] 4 00:53:28 Choleste atoma of left mastoid process 64552223207 07914 Completed 201411/06/2023 Choleste atoma of mastoid, left ear; Note: Date Diagnose d: 03/21/20 15 4:47 PM (H71.22) Not Available [facility] 4 02:17:47 Refracto ry migraine 751452900 Active 2022 Other migraine , intracta ble, without status migraino beena; Note: Date Diagnose d: 11/06/2022 2:14 PM (G43.819 ) Not Available [facility] 4 02:17:22 Granulat ions of mastoid cavity 700233294 Completed 201411/06/2023 Granulat ion of postmast oidectom y cavity, right ear; Note: Date Diagnose d: 03/21/20 15 4:47 PM (H95.121 ) Not Available [facility] 4 02:18:26 Partial loss of ear ossicles 93938871 Active 2015 Partial loss of ear ossicles , bilatera l; Note: Date Diagnose d: 6 11:52 AM (H74.323 ) Not Available [facility] 4 02:17:22 Otorrhea of bilatera l ears 20599676145 17372 Completed 202211/06/2023 Otorrhea , bilatera l; Note: Date Diagnose d: 11/06/2022 2:15 PM (H92.13) Otorrh ea, bilatera l; Note: Date Diagnose d: 03/21/20 15 4:47 PM (H92.13) ; Start Date : 03/21/20 Not Available [facility] 4 02:18:08 Mixed conducti ve and sensorin eural hearing loss, bilatera l 839452367 Active 2014 Mixed conducti ve and sensorin eural hearing loss, bilatera l; Note: Date Diagnose d: 03/21/20 15 4:48 PM (H90.6) Not Available [facility] 4 02:17:55 Marginal perforat ion of tympanic membrane 48903910 Active 2023 SCHUYLER GENTILE MD [address] [place] [address], [place], [address] , [facility] 4 13:31:10 Bilatera l chronic mastoidi tis 51775703885 82361 Active 2023 SCHUYLER GENTILE MD [address] [place] [address], [place], [address] , [facility] 4 13:31:39 Otorrhea of bilatera l ears 24658396333 14964 Active 2023 Otorrhea , bilatera l; Note: Date Diagnose d: 11/06/2022 2:15 PM (H92.13) Note: Date Diagnose d: 11/06/2022 2:15 PM (H92.13) Otorrh ea, bilatera l; Note: Date Diagnose d: 03/21/20 15 4:47 PM (H92.13) Note: Date Diagnose d: 03/21/20 15 4:47 PM (H92.13) ; Start Date : 03/21/20 15 SCHUYLER GENTILE MD [address] [facility],[place] [address], [place], [address] , [facility] - [facility] [place] 4 13:31:50 Postmast oidectom y complica tion 41103579 Active 2023 SCHUYLER GENTILE MD [address] [facility],[place] [address], [place], [place], [address] , [facility] - [facility] [place] 4 13:40:58 Dysfunct ion of eustachi an tube 09136995 Active 2023 SCHUYLER GENTILE MD [address] [facility],[place] [address], [place], [place], [address] , [facility] - [facility] 4 13:44:37 Partial loss of ear ossicles 15945905 Active 2023 SCHUYLER GENTILE MD [address] [facility],[place] [address], [place], [address] , [facility] - [facility] 4 13:44:59 Postoper ative follow-u p visit Active 2015 Post op; Note: Date Diagnose d: 6 2:57 PM (V67.00) Not Available [facility] 4 02:16:53 Perforat ion of tympanic membrane 23954113 Active 2015 Perforat ion of tympanic membrane ; Note: Date Diagnose d: 6 2:57 PM (384.20) Not Available [facility] 4 02:16:54 Disorder of left Eustachi an tube 25914267664 55805 Active 2015 Other specifie d disorder s of Eustachi an tube, left ear; Note: Date Diagnose d: 01/25/20 16 2:52 PM (H69.82) Not Available [facility] 4 02:17:12 Conducti ve hearing loss, bilatera l 994036085 Active 2014 Conducti ve hearing loss, bilatera l; Note: Date Diagnose d: 03/21/20 15 4:09 PM (H90.0) Not Available [facility] 4 02:17:18 Chronic right mastoidi tis 14474681457 68855 Active 2016 Chronic mastoidi tis, right ear; Note: Date Diagnose d: 04/01/20 17 12:33 PM (H70.11) Not Available [facility] 4 02:17:18 Otorrhea of left ear 48325200081 38817 Active 2021 Otorrhea , left ear; Note: Date Diagnose d: 2 3:23 PM (H92.12) Otorrh ea, left ear; Note: Date Diagnose d: 8 1:32 PM (H92.12) ; Start Date : 08/04/19 18 Not Available [facility] 4 02:17:28 Follow-u p visit Active [...] Date : 05/24/19 16 Not Available [facility] 4 02:17:37 Otorrhea of right ear 70883139486 69020 Active 2020 Otorrhea , right ear; Note: Date Diagnose d: 1 9:15 AM (H92.11) Otorrh ea, right ear; Note: Date Diagnose d: 6 2:52 PM (H92.11) ; Start Date : 05/31/19 16 Not Available [facility] 4 02:17:49 Impacted cerumen in left ear 84882861448 59552 Active 2017 Impacted cerumen, left ear; Note: Date Diagnose d: 8 8:29 AM (H61.22) Not Available [facility] 4 02:17:52 Otalgia of left ear 2086395004 Active 2016 Otalgia, left ear; Note: Date Diagnose d: 03/18/20 17 11:11 AM (H92.02) Not Available [facility] 4 02:18:47 Problem Notes None recorded. Procedures Surgical History Date Name Laterality Status Provider Name and Address Organization Details Recorded Time 5 Debridement of Mastoid Cavity bilat completed SCHUYLER GENTILE MD [address] [facility],[address], [address], [facility] - [facility] 07/14/2024 13:04:34 4 Comp Audio with Tymps - 36970 & 60288 completed EMILIE PRIETO [address] [facility],[address], [address], [facility] - [facility] 01/26/2024 10:09:17 4 Debridement of Mastoid Cavity bilat completed SCHUYLER GENTILE MD [address] [facility],[address], [address], [facility] - [facility] 01/26/2024 09:19:32 4 Debridement of Mastoid Cavity bilat completed SHANNAN TELLES PA-C [address] [facility],[address], [address], [facility] - [facility] 09/21/2023 10:54:36 4 Debridement of Mastoid Cavity bilat completed SCHUYLER GENTILE MD [address] [facility],[address], [address], [facility] - [facility] 09/03/2023 13:15:49 Imaging Results None recorded. Procedure [...] mg capsule 05/29 completed Medicati on ID: [id number] P maurice d By Name: MILDRED Moran [...] FOR MUSCLE SPASTICI TY FOR 10 DAYS 03/23 completed Not Available Not Available Not Available Vitamin C 500 mg tablet TAKE 2 TABLETS BY MOUTH EVERY DAY active Not Available Not Available No t Available azithromy ramiro 250 mg tablet TAKE 2 TABLETS BY MOUTH TODAY, THEN TAKE 1 TABLET DAILY FOR 4 DAYS 09/20 completed Not Available Not Available Not Available ibuprofen 800 mg tablet TAKE 1 TABLET BY MOUTH EVERY 8 HOURS FOR 7 DAYS 07/14 completed Not Available Not Available Not Available sumatript an 25 mg tablet PLEASE [...] eye drops 09/20 completed Medicati on ID: [id number] D uration Value: 10 Brand Name: Ciloxan Send Method: E-Prescr ibed Sub s Allowed: subs OK Speci al Instruct ion: Instill 4 drops twice a day into the affected ear. Med icationG enericNa me: Ciloxan Medicati on ID: [id number] D uration Value: 10 Brand Name: Ciloxan Send Method: E-Prescr ibed Sub s Allowed: subs OK Speci al Instruct ion: Instill 4 drops twice a day into the affected ear. Med ication enericNa me: Ciloxan Not Available Not Available Not Available tramadol 50 mg tablet TAKE 1 TABLET BY MOUTH TWICE A DAY NEEDED FOR PAIN FOR 7 DAYS 03/23 completed Not Available Not Available Not Available butalbita l-acetami nophen-ca ffeine 50 mg-325 mg-40 mg tablet TAKE 1 TABLET BY MOUTH EVERY 6 HOURS NEEDED FOR PAIN FOR 3 DAYS 09/20 completed Not Available Not Available Not Available amoxicill in 500 mg tablet 1 tablet by mouth 09/20 completed Medicati on ID: [id number] D uration Value: 7 Prescri bed By Name: MILDRED Pineda nd Name: amoxicil pavel Send Method: E-Prescr ibed Sub s Allowed: subs OK Medic ationGen ericName : amoxicil pavel Medi cation ID: [id number] D uration Value: 7 Prescri bed By [...] a day 07/01 completed Medicati on ID: [id number] D uration Value: 45 Prescri bed By Name: Schuyler P. Richard, M.D. Bra nd Name: ofloxaci n Send Method: E-Prescr [...] eye drops 09/20 completed Medicati on ID: [id number] D uration Value: 14 Prescri bed By Name: Blaise Richards nd Name: sulfacet amide sodium S end Method: E-Prescr ibed Sub s Allowed: subs OK Speci al Instruct ion: 4 drops to affected ear BID x 14 days Med icationG enericNa me: sulfacet amide sodium M edicatio n ID: [id number] D uration Value: 14 Prescri bed By [...] a day 09/20 completed Medicati on ID: [id number] D uration Value: 14 Prescri bed By Name: MILDRED Zhang nd Name: predniso lone sodium phosphat e Send Method: E-Prescr ibed Sub s Allowed: subs OK Speci al Instruct ion: to left EAR Medi cationGe nericNam e: predniso lone sodium phosphat e Medica tion ID: [id number] D uration Value: 14 Prescri bed By Name: MILDRDE Zhang nd Name: predniso lone sodium phosphat e Send Method: E-Prescr ibed Sub s Allowed: subs OK Speci al Instruct ion: to left EAR Medi cationGe nericNam e: predniso lone sodium phosphat e Not Available Not Available Not Available triamcino lone acetonide 0.1 % topical ointment APPLY TOPICALL Y DAILY FOR 30 DAYS 03/23 completed Not Available Not Available Not Available clotrimaz ole 1 % topical solution [...] BY MOUTH EVERY 6 HOURS NEEDED FOR FOR WHEEZING active Not Available Not Available No t Available Scarbro 5 mg-325 mg tablet 1-2 tablet by mouth 01/25 completed Medicati on ID: [id number] D uration Value: 7 Prescri bed By Name: Blaise Richards nd Name: Malik nd Method: E-Prescr ibed Sub s Allowed: subs OK Medic ationGen ericName : Scarbro Not Available Not Available Not Available multivita min capsule 09/20 completed Medicati on ID: [id number] B rand Name: multivit agosto Sen d Method: E-Prescr ibed Sub s Allowed: subs OK Medic ationGen ericName : multivit agosto Med ication ID: [id number] B rand Name: multivit agosto Sen d [...] both nostrils 09/20 completed Medicati on ID: [id number] D uration Value: 30 Prescri bed By Name: MILDRED Moran nd Name: ipratrop ium bromide Send Method: E-Prescr ibed Sub s Allowed: subs OK Medic ationGen ericName : ipratrop ium bromide Medicati on ID: [id number] D uration Value: 30 Prescri bed By Name: MILDRED Moran nd Name: ipratrop ium bromide Send Method: E-Prescr ibed Sub s Allowed: subs OK Medic ationGen ericName : ipratrop ium bromide Not Available Not Available Not Available tobramyci n 0.3 %-dexamet hasone 0.1 % eye drops,beena pension INSTILL 4 DROPS INTO AFFECTED EAR(S) TWICE A DAY FOR 7 DAYS active Not Available Not Available No t Available oxycodone 5 mg tablet TAKE 1 TABLET BY MOUTH EVERY 8 HOURS NEEDED FOR PAIN FOR 5 DAYS active Not Available Not Available No t Available neomycin- polymyxin -hydrocor t 3.5 mg-10,000 unit/mL-1 % ear drops,beena p 04/01 completed Medicati on ID: [id number] P maurice d By Name: Blaise Mendez [...] a day 09/20 completed Medicati on ID: [id number] D uration Value: 14 Brand Name: Bactrim DS Send Method: E-Prescr ibed Sub s Allowed: subs OK Medic ationGen ericName : Bactrim DS Medic ation ID: [id number] D uration Value: 14 Brand Name: Bactrim DS Send Method: E-Prescr ibed Sub s Allowed: subs OK Medic ationGen ericName : Rolarim DS Not Available Not Available Not Available [...] and Address Organization Details Last Updated DateTime 07/14/2024 162.56 cm 86494.38 g Jazmine Mendez [place] - [facility] 07/14/2024 11:10:13 Date Recorded Body height Body mass index (BMI) Body weight Provider Name and Address Organization Details Last Updated DateTime 09/21/2023 162.56 cm 18.4 kg/m2 78436.38 g Cynthia Grant [place] - [facility] 09/21/2023 10:33:45 Date Recorded Body height Body weight Provider Name and Address Organization Details Last Updated DateTime 01/26/2024 162.56 cm 61294.38 g Jazmine Mendez [place] - [facility] 01/26/2024 08:55:19 Social History None recorded. Functional Status None recorded. Mental Status None recorded. Family History Nothing Reported. Medical History Condition Response Allergies/Hayfever Y Hearing Loss Y Hypertension Y Depression Y COPD Y High Cholesterol Y Gynecological HistoryNo gynecological history recorded. Obstetrics History GPAL:G 0 P 0 0 0 0 Past Encounters Encounter ID Performer Location Encounter Start Date Encounter Closed Date Diagnosis/Indication Diagnosis SNOMED-CT Code Diagnosis ICD10 Code Diagnosis Note [id number] SCHUYLER GENTILE MD [facility] [address] [address] 09/03/2023 12:42:59 09/03/2023 13:30:45 Marginal perforation of tympanic membrane 76841358 H72.2X2 Both canal wall down mastoidect mai [...] cond uctive and sensorineural hearing loss, bilateral 598889765 H90.6 Patient continues to get recurrent otorrhea [...] the otorrhea has settled. Postmastoi dectomy complication 98821273 H95.193 Bilateral chronic mastoiditis 4123568269 102261 H70.13 Otorrhea o f bilateral ears 8590971961 870851 H92.13 Partial lo ss of ear ossicles 28284110 H74.323 Dysfunctio n of eustachian tube 82703143 H69.93 [id number] SHANNAN TELLES PA-C [facility] [address] [address] 09/21/2023 10:22:57 09/21/2023 10:49:15 Marginal perforation of tympanic membrane 12757574 H72.2X2 Mixed cond uctive and sensorineural hearing loss, bilateral 384472450 H90.6 Otorrhea o f bilateral ears 3719215341 056460 H92.13 Bilateral chronic mastoiditis 8759606061 962454 H70.13 [id number] SCHUYLER GENTILE MD [facility] [address] [address] 01/26/2024 08:42:41 01/26/2024 10:35:50 Marginal perforation of tympanic membrane 38317554 H72.2X2 Postmastoi dectomy complication 47948497 H95.193 Bilateral chronic mastoiditis 5078960279 710521 H70.13 Otorrhea o f bilateral ears 5424078164 182924 H92.13 Mixed cond uctive and sensorineural hearing loss, bilateral 604004467 H90.6 Audiologic al evaluation results:Ri ght ear:Modera tely-sever e mixed hearing loss with excellent word recognitio n.Left ear:Mild to profound mixed hearing loss with good word recognitio n.Tympanom etry:Right Ear:Could not maintain a hermetic sealLeft Ear:Could not maintain a hermetic seal Bone conduction demo completed today as well. [...] device. Partial lo ss of ear ossicles 80875377 H74.323 Dysfunctio n of eustachian tube 16389176 H69.93 [id number] EMILIE REID [facility] [address] [address] 03/25/2024 13:05:19 04/09/2024 09:04:54 Mixed conductive and sensorineural hearing loss, bilateral 260741647 H90.6 [id number] EMILIE REID [place] [facility] [place] [address] [place] [address] [place] [address] 05/18/2024 12:12:33 05/19/2024 08:21:30 Mixed conductive and sensorineural hearing loss, bilateral 617473750 H90.6 [id number] SCHUYLER GENTILE MD [facility] [address] [place] [address] 07/14/2024 11:05:44 07/14/2024 11:42:52 Marginal perforation of tympanic membrane 62301761 H72.2X2 Postmastoi dectomy complication 94120485 H95.193 Partial lo ss of ear ossicles 05868201 H74.323 Dysfunctio n of eustachian tube 43796562 H69.93 Otorrhea of left ear 730 9624538 233180 H92.12 Mixed cond uctive and sensorineural hearing loss, bilateral 568786647 H90.6 Health Concerns Section Related Observation LastModified by Organization Detai ls LastModified Time None Recorded Concern Status LastModified by Organization Details LastModified Time None Recorded Advance Directives Directive None Recorded Payers Insurance Date Sequence Insurance Name Policy Number Policy Amador Covered Member ID Amador Member ID Guarantor Name 07/11/2024 1 [employer] BLUE CROSS (MEDICARE REPLACEMENT/ ADVANTAGE - PPO) [id number] Kim Palafox [id number] Kim Palafox Notes Date Note Type Note Provider Name and Address Organization Details Recorded Time 09/21/2023 text/html 68-year-old percy beatty with history of bilateral canal wall down mastoidectomies presents for reevaluation. Has recently been managed for recurrent drainage. About 2 weeks ago she had bilateral otomax injections which she feels have helped significantly. She has no further drainage from the ears. SCHUYLER GENTILE MD [address] [place] [address], [place], [address], [facility] - [facility] 09/21/2023 14:01:09 01/26/2024 text/html 68 year old [...] hearing aid use. SCHUYLER GENTILE MD [address] [facility],[place] [address], [place], [address], [facility] 01/26/2024 10:37:22 03/25/2024 text/html Not hearing well...Updated to her 5 receivers and showed her how to change the cerustops. She noticed an immediate improvement with her hearing...She will call if she needs anything. EMILIE REID [address] [facility],[address], [address], [facility] 03/25/2024 13:10:26 05/18/2024 text/html R aid is not wor juan. I was able to get it to charge without issue on my rn infusion so I gave her another new rn infusion. I also reminded her that she can plug the aid into either port so she can try to troubleshoot and determine whether there is an issue with the aid or the rn infusion. She will call as needed. EMILIE REID [address] [facility],[address], [address], [facility] 05/19/2024 09:05:55 07/14/2024 text/html 69 year old fema le with long-term history of right modified radical mastoidectomy and status post left modified radical mastoidectomy with meatoplasty on May 23, 2022 presents for follow up. Patient has had intermittent issues with otorrhea, recently worsened now that she is using full-time BTE amplification. Patient noticing recent increase in left-sided drainage. At her last visit we discussed her candidacy for the Osia bone-conduction implant in light of her difficulty with recurrent otorrhea with conventional hearing aid use. She had decided during the visit she wanted to schedule surgery, but then elected against it. She continues to work with [facility] in audiology for hearing aid maintenance. SCHUYLER GENTILE MD [address] [facility],[place] [address], [place], [address], [place] - [facility] 07/14/2024 13:05:48 OBGyn Episode No OBEpisode recorded.
== END 2024-09-12 12:34 | disposition home or self-care (01) ==
LOC: HO.LAB 12:33
PROVIDERS: PCP Physician Assistant; Visit Provider Physician Assistant
DX: I10 Essential (primary) hypertension (principal); E78.2 Mixed hyperlipidemia; D72.829 Elevated white blood cell count, unspecified
CPT/HCPCS: 36415; 80053; 80061; 82043; 82570; 85025; 85027

== ENCOUNTER 2024-09-13 14:06 | Outpatient (AMB) | payer MEDICARE, SELFPAY ==
[2024-09-13 14:11] VITALS: BP 88/56; PULSE 70; TEMP 36.3; O2SAT 92; BMI 16.4
--- NOTE | 2024-09-13 14:11 | A.OFFPC_ITS ---
Vital Signs 09/13/24 14:11 09/13/24 14:41 Height 5 ft 6 in Weight 101 lb 8 oz BMI 16.4 BP 88/56 L 101/60 Blood Pressure Location Lt brachial Position Sitting Pulse 70 Pulse Source Pulse Oximeter Temp 97.3 F Temp Source Temporal Artery Scan Pulse Oximetry (%) 92 Oxygen Delivery Method Room Air Intake Visit Reasons: 6mth f/u [employer] Processing Required: No Information Interpreted: non-clinical & clinical Tufter Hand: Not Required per policy Accompanied by: Self / Same As Patient Allergies Iodinated Contrast Media [IV Dye, Iodine Containing] Allergy (Mild, Verified 09/13/24 14:27) HIVES AND RASH propoxyphene [From Darvon] Allergy (Mild, Verified 09/13/24 14:27) N/V Medication List - Last Reconciled 09/13/24 by NOVA Islas-Alycia albuterol sulfate 90 mcg/actuation 2 puffs PO Q6H PRN ascorbate calcium (vitamin C) 1,000 mg (2 x 500 mg) PO DAILY 90 days atorvastatin 40 mg PO DAILY 90 days blood pressure test kit-small As directed carvedilol 3.125 mg PO BID 90 days cholecalciferol (vitamin D3) 50 mcg PO DAILY fluticasone propionate 50 mcg/actuation (Flonase Allergy Relief) 2 sprays intranasal DAILY hydroxyzine HCl 25 mg PO BEDTIME 30 days ibuprofen 800 mg PO Q8H 7 days ipratropium-albuterol 0.5 mg-3 mg(2.5 mg base)/3 mL 3 mL inhalation Q4-6H PRN 30 days loratadine 10 mg PO DAILY PRN magnesium oxide 400 mg PO DAILY 30 days methylcellulose (laxative) (Citrucel) 500 mg PO DAILY oxycodone 5 mg PO Q8H PRN 5 days sertraline 100 mg PO DAILY 90 days sumatriptan succinate take 1 tab at onset of headache; if no relief may repeat 1 tab after at least 2 hrs; max = 4 tabs/24 hr PO triamcinolone acetonide 0.1% 1 appl topical DAILY 30 days Tobacco use date assessed: 09/13/24 Fall risk assessment: No Falls in past year Last assessed Fall Risk: 09/13/24 Dental Screening Dental Screen Date: 09/13/24 Did you have a dental visit in the last 12 months?: No Did you have a dental problem in the last 6 months where you did not have access to dental care?: No Was dental information given to patient?: Patient has dentist HPI 6mth f/u HPI Details Partient? is a 69-year-old female here today for a follow-up visit? Patient has a past medical history significant for COPD, pulmonary nodules, hypertension. Concern--> Kim today complains chronic severe low back pain unrelieved by conservative measures including physical therapy, acupuncture, intensive care unit nurse, and pain management injections over the past two years. The symptoms are profoundly impacting her functional capacity and quality of life. She experiences significant nausea and occasional vomiting weekly, unrelated to meals and without hematemesis. 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 .. ? . . Lumbar disc disease: As above recent ly got a cortisone injection in her back which has significantly helped her pain.. .. COPD: Continues to follow pulmonology, she does use an updraft as maintenance a few times a week. Otherwise denies any acute exacerbations. Unfortunately continues to smoke a few cigarettes per day and does understand she needs to quit smoking .. Insomnia: Patient reports she continues to have a lot of trouble sleeping often not able to fall asleep until 1 or 2 ain the morning. Has not used [id number] sleeping aids at this point. .. HTN: Doesn't check her BP at home.? Today in office blood pressures stable slightly elevated.? Has been on carvedilol for many years now with good results.? Denies any chest discomfort, palpitations, headaches. PFSH Medical History MDD (major depressive disorder), recurrent episode, moderate HTN (hypertension) HLD (hyperlipidemia) COPD (chronic obstructive pulmonary disease) Pulmonary nodules Nicotine dependence, cigarettes, uncomplicated Osteopenia (~2009) Irritable bowel syndrome without diarrhea Tubular adenoma of colon Diverticulosis C. difficile colitis LLQ abdominal pain Varicosities of leg Surgical History History of laparotomy History of pelvic surgery History of blepharoplasty History of colonoscopy History of surgery on lower extremity History of ear surgery Family History Father Lung cancer Mother Heart attack Social History Housing: Apartment Alcohol intake: current Alcohol intake frequency: holidays/special occasions only Alcohol type: beer Patient Tobacco Use Status: Current someday Tobacco user (3 months) Tobacco use type: Cigarette Cigarettes Per Day: 3 e-Cigarette/Vaping Use: Never Used Second Hand Smoke Exposure: No Advance Directives Date on File: 09/17/20 service: No Current occupational status: retired Cognitive needs: No Hearing needs: Yes Vision needs: Yes Questionnaire PHQ-9 Over the last 2 weeks, how often have you been bothered by any of the following problems? 1. Little interest or pleasure in doing things: not at all 2. Feeling down, depressed, or hopeless: several days 3. Trouble falling or staying asleep, or sleeping too much: nearly every day 4. Feeling tired or having little energy: several days 5. Poor appetite or overeating: several days 6. Feeling bad about yourself - or that you are a failure or have let yourself or your family down: not at all 7. Trouble concentrating on things, such as reading the newspaper or watching television: not at all 8. Moving or speaking so slowly that other people could have noticed. Or the opposite - being so fidgety or restless that you have been moving around a lot more than usual: not at all 9. Thoughts that you would be better off or of hurting yourself in some way: not at all Total score: 6 Depression Screening Interpretation: Positive Depression Screening Follow-up: Existing condition Depression Screening Done: Yes 55187 - PHQ-9 Billing: Yes Source: Developed by Drs. Julio Cornejo, Taina Brady, Ranulfo Anderson and colleagues, with an educational cleo from [employer]. Thrive Questionnaire Date Thrive assessed: 09/13/24 I am a: Patient What is your living situation today?: I have a steady place to live Within the past 12 months, did the food you bought not last and you didn't have the money to get more?: Never true Within the past 12 months, did you worry whether your food would run out before you got money to buy more?: Never true Do you have trouble paying for medicines?: No Do you have trouble getting transportation to medical appointments?: No Do you have trouble paying your heating and electricity bill?: No Do you have trouble taking care of your child, family member or friend?: No Do you have trouble with day-to-day activities such as bathing, preparing meals, shopping, managing finances, etc.?: I choose not to answer this question Are you currently unemployed and looking for a job?: No Are you interested in more education?: No Please select the resources that you would like help with: None Currently or been in a relationship where the following occur: I choose not to answer THRIVE Score: 0 AUDIT C Alcohol Use Questionnaire (AUDIT-C) 1. How often do you have a drink containing alcohol?: 2-4 times a month 2. How many drinks containing alcohol do you have on a typical day when you are drinking?: 1 or 2 3. How often do you have six or more drinks on one occasion?: Never Total Score: 2 JORGE-7 AMB Questionnaire JORGE-7 Date JORGE - 7 assessed: 09/13/24 Feeling nervous, anxious, or on edge: 0 = Not at all Not being able to stop or control worryin = Not at all Worrying too much about different things: 0 = Not at all Trouble relaxin = Not at all Being so restless that it is hard to sit still: 0 = Not at all Becoming easily annoyed or irritable: 0 = Not at all Feeling afraid as if something awful might happen: 0 = Not at all Total JORGE-7 score (0-4 normal; 5-9 mild; 10-14 moderate; 15-21 severe): 0 Source: Developed by Drs. Julio Cornejo, Taina Brady, Ranulfo Anderson and colleagues, with an educational cleo from [employer]. JORGE-7 Assessment Billing JORGE-7 Assessment Tool: JORGE-7 Assessment 03419 Review of Systems Const Denies headache(s) Eyes Denies loss of vision ENT Denies vertigo, Denies dizziness, Denies headache(s) and Denies sore throat Card Denies chest pain, Denies leg edema and Denies lightheadedness Resp Denies cough, Denies hemoptysis and Denies wheezing GI Denies abdominal pain, Denies melena, Denies constipation, Denies diarrhea and Denies vomiting Denies urinary frequency, Denies dysuria and Denies urinary urgency Musc Denies arthralgias, Denies joint swelling, Denies numbness and Denies tingling Neuro Denies Abnormal speech present, Denies behavioral changes, Denies vertigo, Denies dizziness, Denies headache(s), Denies loss of vision, Denies memory loss, Denies numbness and Denies tingling Psych Denies anxiety, Denies behavioral changes, Denies depression, Denies memory loss and Denies panic attacks Xiang/Lymph Denies easy bleeding and Denies easy bruising Aller/Immun Denies wheezing Physical exam (Primary Care) Vital Signs: Last Vital Signs Temp 97.3 F 09/13/24 14:11 Pulse 70 09/13/24 14:11 BP 101/60 09/13/24 14:41 Pulse Ox 92 09/13/24 14:11 Oxygen Delivery Method Room Air 09/13/24 14:11 BMI result Body Mass Index 16.4 Tobacco/Smoking Status: Tobacco use Status Tobacco use date assessed 09/13/24 09/13/24 14:13 Patient Tobacco Use Status Current someday Tobacco (3 09/13/24 14:13 months) Tobacco use type Cigarette 09/13/24 14:13 e-Cigarette/Vaping Use Never Used 09/13/24 14:13 PHQ-9: PHQ-9 Score PHQ-9: Total score 6 09/13/24 14:31 Depression Screening Interpretation: Positive Depression Screening Follow-up: Existing condition Thrive Assessment: Date of Thrive Assessment Date Thrive assessed 09/13/24 09/13/24 14:13 Currently or been in a relationship where the following occur: I choose not to answer Const General: healthy appearing, no acute distress, alert and awake Nutritional Appearance: well nourished Orientation/consciousness: oriented to person, oriented to place and oriented to time HENMT Ears: TM's normal bilaterally General nose exam: Normal nasal mucous membranes and turbinates present Eyes Conjunctivae: conjunctivae normal Sclerae: sclerae normal Pupils: Equal, round and reactive pupils present Neck Neck: Yes no lymphadenopathy and Yes no JVD Thyroid: Thyroid normal Carotids: no bruits Resp Effort & Inspection: normal respiratory effort and not tachypneic Auscultation: no crackles, no rales, no rhonchi and no wheezes Cardio Rate: regular rate Rhythm: regular rhythm Heart sounds: no murmurs and normal S1 and S2 GI Palpation (GI): Soft to palpation, nontender, no hepatomegaly and no splenomegaly Auscultation: normal bowel sounds Skin General skin exam: no rashes or lesions noted and dry skin Neuro General: oriented to person, oriented to place and oriented to time Cranial nerves: Yes Equal, round and reactive pupils present Speech: No Abnormal speech present Gait exam (Neuro): Normal gait present Motor exam (neuro): no tremor noted Extrem Right upper extremity: full ROM Left upper extremity: full ROM Right lower extremity: full ROM; no edema Left lower extremity: full ROM; no edema Psych Mental Status: mental status grossly normal Speech and movement: Normal speech and movement present Affect: normal affect Attitude: cooperative Thought process: Normal thought process present Coding Level of Care Code Est Pt Level 4 (22904) Diagnoses 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 Nicotine dependence, cigarettes, uncomplicated F17.210 Simple chronic bronchitis J41.0 COPD type: chronic bronchitis Chronic bronchitis type: simple Pulmonary nodules R91.8 Additional Codes JORGE-7 Assessment Billing - JORGE-7 Assessment Tool: JORGE-7 Assessment 77128 ([id number]) PHQ-9 - 17944 - PHQ-9 Billing: Yes ([id number]) Assessment & Plan Assessment & Plan (1) Spondylosis of lumbar spine: Code(s): M47.816 - Spondylosis without myelopathy or radiculopathy, lumbar region Category: Medical Plan: Management includes referral for evaluation at a specialist center for possible minimally invasive procedures such as nerve ablation. A muscle relaxant is prescribed for night-time use to aid in improving sleep quality. (2) Nicotine dependence, cigarettes, uncomplicated: Comment: (current smoker x 50+years, now <1/2ppd, 30+PYH), claims that now she has cut down to about 5 cigarettes a day. Code(s): F17.210 - Nicotine dependence, cigarettes, uncomplicated Category: Medical Plan: Patient does understand she needs to quit smoking though was not willing to do so at this time. (3) COPD (chronic obstructive pulmonary disease): Comment: MODERATELY SEVERE CHRONIC OBSTRUCTIVE PULMONARY DISEASE, RELATIVELY STABLE AT THIS TIME . She is using DuoNeb updrafts only once or twice a week. Use of albuterol HFA has increased to once or twice a day. Code(s): J44.9 - Chronic obstructive pulmonary disease, unspecified Category: Medical Qualifiers: COPD type: chronic bronchitis Chronic bronchitis type: simple Qualified Code(s): J41.0 - Simple chronic bronchitis Plan: Advise that she can use ipratropium-albuterol solution in the nebulizer up to twice a day , and use albuterol HFA only p.r.n. when outdoors . (4) Pulmonary nodules: Comment: She has had annual CT scans and, pulmonary nodules about 3 mm in size have remained stable, thus considered benign, Last CT scan in January 2024, showed a pulmonary nodule of 0.8 cm in size. This is somewhat worrisome, Code(s): R91.8 - Other nonspecific abnormal finding of lung field Category: Medical Plan: I think she should have repeat CT scan at 6 months interval from January 2024. I stress that she must stop smoking . If pulmonary nodule grows in size then she would need percutaneous needle biopsy . Medications: New cyclobenzaprine 10 mg PO BID PRN 60 tabs 0RF muscle spasm 30 days M54.16 - Radiculopathy, lumbar region ondansetron 8 mg PO Q12H PRN 20 tabs 0RF nausea and vomiting 10 days Refilled oxycodone Partial Fill upon patient request. 5 mg PO Q8H PRN 15 tabs 0RF pain 5 days M54.16 - Radiculopathy, lumbar region
[2024-09-13 14:41] VITALS: BP 101/60
--- OUTSIDE RECORDS SUMMARY | 2024-09-13 16:54 | XMS_ITS | Data Portability ---
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 [email or web address] Not available 09/21/2023 10:56:24 01/26/2024 01/26/2024 Patient [...] with the contact information for my surgical technologist. We will begin the scheduling process and see the patient back at the time of surgery. Patient will require medical clearance from their primary care provider preoperatively. Not available 01/26/2024 10:36:16 07/14/2024 07/14/2024 Patient [...] with the contact information for my surgical technologist. We will begin the scheduling process and see the patient back at the time of surgery. Patient will require medical clearance from their primary care provider preoperatively. [email or web address] Not available 07/14/2024 13:05:04 Plan of Treatment Reminders Order Date Submit Date Provider Last Modified By Organization Details Last Modified Time Details Appointments None recorded. Lab None recorded. Referral None recorded. Procedures None recorded. Surgeries implantatio n of electromagn etic bone conduction hearing device in temporal bone (SURG) 04/10/ 2025 04/10/2 025 [email or web address] Not available 15:46:41 implantatio n of electromagn etic bone conduction hearing device in temporal bone (SURG) 2023 024 [email or web address] Not available 11:18:39 Imaging None recorded. Medication Orders tobramycin 0.3 %-dexametha sone 0.1 % eye drops,suspe nsion 2024 025 [place] [id number], [address] [place], [address], 5 11:33:11 tobramycin 0.3 %-dexametha sone 0.1 % eye drops,suspe nsion 2023 024 [email or web address] [id number], [address] [place], [address], 5 11:11:07 Patient TargetsNo targets recorded. Patient [...] Pain of left temporom andibula r joint [id number] 554874 Active 2016 Arthralg ia of left temporom andibula r joint; Note: Date Diagnose d: 03/18/20 11:11 AM (M26.622 ) Not Available [facility] 02:17:54 Foreign body in right ear [id number] 873046 Completed 202209/03/2023 Foreign body in right ear, initial encounte r; Note: Date Diagnose d: 03/17/20 23 9:34 AM (T16.1XX A) Note: Date Diagnose d: 03/17/20 9:34 AM (T16.1XX A) SCHUYLER GENTILE MD [address] [place] [address], [facility] [place], [address] , [facility] - [facility] 4 13:30:34 Recurren t acute sinusiti s 542406058 Active 2017 Acute recurren t sinusiti s, unspecif ied; Note: Date Diagnose d: 8 11:53 AM (J01.91) Not Available [facility] 4 02:17:13 Postmast oidectom y complica tion 63355437 Active 2022 Other disorder s followin g [...] 3 9:29 AM (H95.193 ) Not Available [facility] 4 00:53:09 Acute sinusiti s 18000026 Completed 201711/06/2023 Acute sinusiti s, unspecif ied; Note: Date Diagnose d: 04/10/2017 3:27 PM (J01.90) Not Available [facility] 4 02:17:22 Vasomoto r rhinitis 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 Active 2015 Vasomoto r rhinitis ; Note: Date Diagnose d: 6 11:39 AM (J30.0) Not Available [facility] 4 02:18:22 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 368409921 Completed 202111/06/2023 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, left ear; Note: Date Diagnose d: 2 9:05 AM (H95.02) 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, left ear; Note: Date Diagnose d: 01/25/20 16 2:52 PM (H95.02) ; Start Date : 01/25/20 16 Not Available [facility] 4 02:18:08 Injury of neck 25132162 Completed 201711/06/2023 Unspecif ied injury of neck, initial encounte r; Note: Date Diagnose d: 8 9:36 AM (S19.9XX A) Not Available [facility] 4 02:16:50 Marginal perforat ion of tympanic membrane 76126579 Active 2021 Other marginal perforat ions of [...] 2 9:06 AM (H72.2X2 ) Not Available [facility] 4 00:53:28 Choleste atoma of left mastoid process 27149018265 44128 Completed 201411/06/2023 Choleste atoma of mastoid, left ear; Note: Date Diagnose d: 03/21/20 15 4:47 PM (H71.22) Not Available [facility] 4 02:17:47 Refracto ry migraine 903040980 Active 2022 Other migraine , intracta ble, without status migraino beena; Note: Date Diagnose d: 11/06/2022 2:14 PM (G43.819 ) Not Available [facility] 4 02:17:22 Granulat ions of mastoid cavity 534489705 Completed 201411/06/2023 Granulat ion of postmast oidectom y cavity, right ear; Note: Date Diagnose d: 03/21/20 15 4:47 PM (H95.121 ) Not Available [facility] 4 02:18:26 Partial loss of ear ossicles 11594335 Active 2015 Partial loss of ear ossicles , bilatera l; Note: Date Diagnose d: 6 11:52 AM (H74.323 ) Not Available [facility] 4 02:17:22 Otorrhea of bilatera l ears 67864855127 95905 Completed 202211/06/2023 Otorrhea , bilatera l; Note: Date Diagnose d: 11/06/2022 2:15 PM (H92.13) Otorrh ea, bilatera l; Note: Date Diagnose d: 03/21/20 15 4:47 PM (H92.13) ; Start Date : 03/21/20 Not Available [facility] 4 02:18:08 Mixed conducti ve and sensorin eural hearing loss, bilatera l 940801468 Active 2014 Mixed conducti ve and sensorin eural hearing loss, bilatera l; Note: Date Diagnose d: 03/21/20 15 4:48 PM (H90.6) Not Available [facility] 4 02:17:55 Marginal perforat ion of tympanic membrane 65608364 Active 2023 SCHUYLER GENTILE MD [address] [place] [address], [place], [address] , [facility] 4 13:31:10 Bilatera l chronic mastoidi tis 88933903584 35340 Active 2023 SCHUYLER GENTILE MD [address] [place] [address], [place], [address] , [facility] 4 13:31:39 Otorrhea of bilatera l ears 36801892045 91774 Active 2023 Otorrhea , bilatera l; Note: Date Diagnose d: 11/06/2022 2:15 PM (H92.13) Note: Date Diagnose d: 11/06/2022 2:15 PM (H92.13) Otorrh ea, bilatera l; Note: Date Diagnose d: 03/21/20 15 4:47 PM (H92.13) Note: Date Diagnose d: 03/21/20 15 4:47 PM (H92.13) ; Start Date : 03/21/20 15 SCHUYLER GENTILE MD [address] [facility],[place] [address], [place], [address] , [facility] - [facility] 4 13:31:50 Postmast oidectom y complica tion 55581179 Active 2023 SCHUYLER GENTILE MD 100 [facility],[place] [address], [place], [place], [address] , [facility] - [facility] 4 13:40:58 Dysfunct ion of eustachi an tube 69503863 Active 2023 SCHUYLER GENTILE MD [address] [facility],[place] [address], [place], [place], [address] , [facility] - [facility] 4 13:44:37 Partial loss of ear ossicles 54036170 Active 2023 SCHUYLER GENTILE MD [address] [facility],[place] [address], [place], [address] , [facility] - [facility] 4 13:44:59 Postoper ative follow-u p visit Active 2015 Post op; Note: Date Diagnose d: 6 2:57 PM (V67.00) Not Available [facility] 4 02:16:53 Perforat ion of tympanic membrane 40983026 Active 2015 Perforat ion of tympanic membrane ; Note: Date Diagnose d: 6 2:57 PM (384.20) Not Available [facility] 4 02:16:54 Disorder of left Eustachi an tube 57723537420 73869 Active 2015 Other specifie d disorder s of Eustachi an tube, left ear; Note: Date Diagnose d: 01/25/20 16 2:52 PM (H69.82) Not Available [facility] 4 02:17:12 Conducti ve hearing loss, bilatera l 962459969 Active 2014 Conducti ve hearing loss, bilatera l; Note: Date Diagnose d: 03/21/20 15 4:09 PM (H90.0) Not Available [facility] 4 02:17:18 Chronic right mastoidi tis 73665536953 08622 Active 2016 Chronic mastoidi tis, right ear; Note: Date Diagnose d: 04/01/20 17 12:33 PM (H70.11) Not Available [facility] 4 02:17:18 Otorrhea of left ear 68980026234 02324 Active 2021 Otorrhea , left ear; Note: Date Diagnose d: 2 3:23 PM (H92.12) Otorrh ea, left ear; Note: Date Diagnose d: 8 1:32 PM (H92.12) ; Start Date : 08/04/19 18 Not Available [facility] 4 02:17:28 Follow-u p visit Active [...] Start Date : 05/24/19 16 Not Available [facility] 4 02:17:37 Otorrhea of right ear 01425644350 76353 Active 2020 Otorrhea , right ear; Note: Date Diagnose d: 1 9:15 AM (H92.11) Otorrh ea, right ear; Note: Date Diagnose d: 6 2:52 PM (H92.11) ; Start Date : 05/31/19 16 Not Available [facility] 4 02:17:49 Impacted cerumen in left ear 22127458414 20572 Active 2017 Impacted cerumen, left ear; Note: Date Diagnose d: 8 8:29 AM (H61.22) Not Available [facility] 4 02:17:52 Otalgia of left ear 4551342269 Active 2016 Otalgia, left ear; Note: Date Diagnose d: 03/18/20 17 11:11 AM (H92.02) Not Available [facility] 4 02:18:47 Problem Notes None recorded. Procedures Surgical History Date Name Laterality Status Provider Name and Address Organization Details Recorded Time 5 Debridement of Mastoid Cavity bilat completed SCHUYLER GENTILE MD [address] [facility],[address], [address], [facility] - [facility] 07/14/2024 13:04:34 4 Comp Audio with Tymps - 21000 & 72386 completed EMILIE PRIETO [address] [facility],[address], [address], [facility] - [facility] 01/26/2024 10:09:17 4 Debridement of Mastoid Cavity bilat completed SCHUYLER GENTILE MD [address] [facility],[address], [address], [facility] - [facility] 01/26/2024 09:19:32 4 Debridement of Mastoid Cavity bilat completed SHANNAN TELLES PA-C [address] [facility],[address], [address], [facility] - [facility] 09/21/2023 10:54:36 4 Debridement of Mastoid Cavity bilat completed SCHUYLER GENTILE MD [address] [facility],[address], [address], [facility] - [facility] 09/03/2023 13:15:49 Imaging Results None recorded. Procedure [...] mg capsule 05/29 completed Medicati on ID: [id number] P maurice d By Name: MILDRED Moran [...] eye drops 09/20 completed Medicati on ID: [id number] D uration Value: 10 Brand Name: Ciloxan Send Method: E-Prescr ibed Sub s Allowed: subs OK Speci al Instruct ion: Instill 4 drops twice a day into the affected ear. Med icationG enericNa me: Ciloxan Medicati on ID: [id number] D uration Value: 10 Brand Name: Ciloxan [...] by mouth 09/20 completed Medicati on ID: [id number] D uration Value: 7 Prescri bed By Name: MILDRED Pineda nd Name: amoxicil pavel Send Method: E-Prescr ibed Sub s Allowed: subs OK Medic ationGen ericName : amoxicil pavel Medi cation ID: [id number] D uration Value: 7 Prescri bed By [...] a day 07/01 completed Medicati on ID: [id number] D uration Value: 45 Prescri bed By [...] eye drops 09/20 completed Medicati on ID: [id number] D uration Value: 14 Prescri bed By Name: Blaise Richards nd Name: sulfacet amide sodium S end Method: E-Prescr ibed Sub s Allowed: subs OK Speci al Instruct ion: 4 drops to affected ear BID x 14 days Med icationG enericNa me: sulfacet amide sodium M edicatio n ID: [id number] D uration Value: 14 Prescri bed By [...] a day 09/20 completed Medicati on ID: [id number] D uration Value: 14 Prescri bed By Name: MILDRED Zhang nd Name: predniso lone sodium phosphat e Send Method: E-Prescr ibed Sub s Allowed: subs OK Speci al Instruct ion: to left EAR Medi cationGe nericNam e: predniso lone sodium phosphat e Medica tion ID: [id number] D uration Value: 14 Prescri bed By [...] Not Available Not Available No t Available [place] 5 mg-325 mg tablet 1-2 tablet by mouth 01/25 completed Medicati on ID: [id number] D uration Value: 7 Prescri bed By Name: Blaise Richards nd Name: Malik nd Method: E-Prescr ibed Sub s Allowed: subs OK Medic ationGen ericName : [place] Not Available Not Available Not Available multivita min capsule 09/20 completed Medicati on ID: [id number] B rand Name: multivit agosto Sen d Method: E-Prescr ibed Sub s Allowed: subs OK Medic ationGen ericName : multivit agosto Med ication ID: [id number] B rand Name: multivit agosto Sen d [...] both nostrils 09/20 completed Medicati on ID: [id number] D uration Value: 30 Prescri bed By Name: MILDRED Moran nd Name: ipratrop ium bromide Send Method: E-Prescr ibed Sub s Allowed: subs OK Medic ationGen ericName : ipratrop ium bromide Medicati on ID: [id number] D uration Value: 30 Prescri bed By [...] drops,beena p 04/01 completed Medicati on ID: [id number] P maurice d By Name: Blaise Mendez [...] a day 09/20 completed Medicati on ID: [id number] D uration Value: 14 Brand Name: Bactrim DS Send Method: E-Prescr ibed Sub s Allowed: subs OK Medic ationGen ericName : Bactrim DS Medic ation ID: [id number] D uration Value: 14 Brand Name: Bactrim [...] Details Last Updated DateTime 07/14/2024 162.56 cm 60870.38 g Jazmine Mendez [place] - [facility] 07/14/2024 11:10:13 Date Recorded Body height Body mass index (BMI) Body weight Provider Name and Address Organization Details Last Updated DateTime 09/21/2023 162.56 cm 18.4 kg/m2 02639.38 g Cynthia Grant [place] - [facility] 09/21/2023 10:33:45 Date Recorded Body height Body weight Provider Name and Address Organization Details Last Updated DateTime 01/26/2024 162.56 cm 66119.38 g Jazmine Mendez [place] - [facility] 01/26/2024 08:55:19 Social History None recorded. Functional [...] Note [id number] SCHUYLER GENTILE MD [facility] [address] [address] 09/03/2023 12:42:59 09/03/2023 13:30:45 Marginal perforation of tympanic membrane 87171733 H72.2X2 Both canal wall down mastoidect mai [...] cond uctive and sensorineural hearing loss, bilateral 603188253 H90.6 Patient continues to get recurrent otorrhea [...] the otorrhea has settled. Postmastoi dectomy complication 57238134 H95.193 Bilateral chronic mastoiditis 1619155534 862056 H70.13 Otorrhea o f bilateral ears 3556940164 828988 H92.13 Partial lo ss of ear ossicles 94465199 H74.323 Dysfunctio n of eustachian tube 22628910 H69.93 [id number] SHANNAN TELLES PA-C [facility] [address] [address] 09/21/2023 10:22:57 09/21/2023 10:49:15 Marginal perforation of tympanic membrane 14127882 H72.2X2 Mixed cond uctive and sensorineural hearing loss, bilateral 420772921 H90.6 Otorrhea o f bilateral ears 5283136907 845067 H92.13 Bilateral chronic mastoiditis 0944409822 335839 H70.13 [id number] SCHUYLER GENTILE MD [facility] [address] [address] 01/26/2024 08:42:41 01/26/2024 10:35:50 Marginal perforation of tympanic membrane 40594300 H72.2X2 Postmastoi dectomy complication 23420440 H95.193 Bilateral chronic mastoiditis 7157385896 715439 H70.13 Otorrhea o f bilateral ears 5005549467 164741 H92.13 Mixed cond uctive and sensorineural hearing loss, bilateral 703758934 H90.6 Audiologic al evaluation results:Ri ght ear:Modera [...] device. Partial lo ss of ear ossicles 81420936 H74.323 Dysfunctio n of eustachian tube 22977865 H69.93 [id number] EMILIE REID [facility] [address] [address] 03/25/2024 13:05:19 04/09/2024 09:04:54 Mixed conductive and sensorineural hearing loss, bilateral 819179462 H90.6 [id number] EMILIE REDI RIVER[place] - [place] [address] [place] [address] [place] [address] 05/18/2024 12:12:33 05/19/2024 08:21:30 Mixed conductive and sensorineural hearing loss, bilateral 419221526 H90.6 [id number] SCHUYLER GENTILE MD [facility] [address] [place] [address] 07/14/2024 11:05:44 07/14/2024 11:42:52 Marginal perforation of tympanic membrane 00737152 H72.2X2 Postmastoi dectomy complication 20235044 H95.193 Partial lo ss of ear ossicles 17396146 H74.323 Dysfunctio n of eustachian tube 31959247 H69.93 Otorrhea of left ear 377 6525042 237118 H92.12 Mixed cond uctive and sensorineural hearing loss, bilateral 990550132 H90.6 Health Concerns Section Related Observation LastModified by Organization Detai ls LastModified Time None Recorded Concern Status LastModified by Organization Details LastModified Time None Recorded Advance Directives Directive None Recorded Payers Insurance Date Sequence Insurance Name Policy Number Policy Amador Covered Member ID Amador Member ID Guarantor Name 07/11/2024 1 [employer] BLUE CROSS (MEDICARE REPLACEMENT/ ADVANTAGE - PPO) [id number] Kim Palafox [id number] Kim Palafox Notes Date Note Type [...] drainage from the ears. SCHUYLER GENTILE MD [address] [place] [address], [place], [address], [facility] - [facility] 09/21/2023 14:01:09 01/26/2024 text/html 68 year old [...] hearing aid use. SCHUYLER GENTILE MD [address] [facility],[place] [address], [place], [address], [facility] 01/26/2024 10:37:22 03/25/2024 text/html Not hearing well...Updated to her 5 receivers and showed her how to change the cerustops. She noticed an immediate improvement with her hearing...She will call if she needs anything. EMILIE REID 100 [facility],[address], [address], [facility] 03/25/2024 13:10:26 05/18/2024 text/html R aid is not wor juan. I was able to get it to charge without issue on my heavy equipment operating engineer so I gave her another new heavy equipment operating engineer. I also reminded her that she can plug the aid into either port so she can try to troubleshoot and determine whether there is an issue with the aid or the heavy equipment operating engineer. She will call as needed. EMILIE REID [address] [facility],[address], [address], [facility] 05/19/2024 09:05:55 07/14/2024 text/html 69 year old [...] hearing aid maintenance. SCHUYLER GENTILE MD [address] [facility],[place] [address], [place], [address], [place] - [facility] 07/14/2024 13:05:48 OBGyn Episode No OBEpisode recorded.
== END 2024-09-13 14:49 | disposition home or self-care (01) ==
LOC: HO.HMCH 14:07
PROVIDERS: PCP Physician Assistant; Visit Provider Physician Assistant
DX: M47.816 Spondylosis without myelopathy or radiculopathy, lumbar region (principal); F17.210 Nicotine dependence, cigarettes, uncomplicated; J41.0 Simple chronic bronchitis; R91.8 Other nonspecific abnormal finding of lung field

== ENCOUNTER → 2024-09-13 14:06 | Outpatient (BNVA) | payer MEDICARE, SELFPAY | PROVIDERS: PCP Physician Assistant; Visit Provider Physician Assistant | DX: M51.360 Other intervertebral disc degeneration, lumbar region with discogenic back pain only (principal); G47.00 Insomnia, unspecified; I10 Essential (primary) hypertension; M47.816 Spondylosis without myelopathy or radiculopathy, lumbar region; F17.210 Nicotine dependence, cigarettes, uncomplicated; J41.0 Simple chronic bronchitis; R91.8 Other nonspecific abnormal finding of lung field | CPT/HCPCS: 96127; 99212 ==

== ENCOUNTER 2024-11-07 13:02 | Outpatient (AMB) | payer MEDICARE, SELFPAY ==
--- NOTE | 2024-11-07 13:09 | MHC.PC.OV ---
Vital Signs 11/07/24 13:22 Height 5 ft 6 in Weight 98 lb 2 oz BMI 15.8 BP 120/66 Blood Pressure Location Lt brachial Position Sitting Temp 97.1 F Temp Source Temporal Artery Scan Intake Visit Reasons: Annual Exam - see comments Intake Note: Patient is here today for a physical. 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: Not Required per policy Accompanied by: Self / Same As Patient Allergies Iodinated Contrast Media (IV Dye, Iodine Containing) Allergy (Mild, Verified 11/07/24 13:31) HIVES AND RASH propoxyphene (From Darvon) Allergy (Mild, Verified 11/07/24 13:31) N/V Medication List - Last Reconciled 11/07/24 by Ernst Huerta PA-C albuterol sulfate 90 mcg/actuation 2 puffs PO Q6H PRN ascorbate calcium (vitamin C) 1,000 mg (2 x 500 mg) PO DAILY 90 days atorvastatin 40 mg PO DAILY 90 days blood pressure test kit-small As directed carvedilol 3.125 mg PO BID 90 days cholecalciferol (vitamin D3) 50 mcg PO DAILY fluticasone propionate 50 mcg/actuation (Flonase Allergy Relief) 2 sprays intranasal DAILY ipratropium-albuterol 0.5 mg-3 mg(2.5 mg base)/3 mL 3 mL inhalation Q4-6H PRN 30 days magnesium oxide 400 mg PO DAILY 30 days sertraline 100 mg PO DAILY 90 days triamcinolone acetonide 0.1% 1 appl topical DAILY 30 days Tobacco use date assessed: 11/07/24 Fall risk assessment: No Falls in past year Last assessed Fall Risk: 11/07/24 Dental Screening Dental Screen Date: 09/13/24 HPI Annual Exam - see comments HPI Details Partient? is a 69-year-old female here today for routine annual physical. Patient has a past medical history significant for COPD, pulmonary nodules, hypertension. Concern--> Orthostatic hypotension: The patient reports experiencing episodes of dizziness, sweating, nausea, and vomiting, which began occurring frequently over the past few weeks. The most recent episode occurred a week ago while dining out, where she experienced dizziness and sweating before vomiting. Her blood pressure was recorded at 95/63 mmHg by paramedics, indicating low blood pressure. The patient has a history of orthostatic hypotension, previously diagnosed after an emergency room visit following a fall where she hit her head. She is currently on carvedilol, which may be contributing to her low blood pressure, and has been advised to monitor her blood pressure at home. Recurrent rash at the base of posterior neck--?> The patient also reports a persistent rash on the nape of her neck, which has been present for about a month. The rash is itchy and has not improved with the use of prescribed ointment. .. Insomnia: Additionally, the patient experiences severe insomnia, often staying awake for 36 to 37 hours straight. She has previously been prescribed a muscle relaxant, which did not aid her sleep, and is now considering trazodone for sleep management. Lumbar disc disease: Patient now followed by [facility]. She has considering a nerve ablation in her lower back. She continues to complain of chronic severe low back pain unrelieved by conservative measures including physical therapy, acupuncture, manager critical care, and pain management injections over the past two years. The symptoms are profoundly impacting her functional capacity and quality of life. She experiences significant nausea and occasional vomiting weekly, unrelated to meals and without hematemesis. She reports significant sleep disturbances, with difficulty falling asleep until early interventionist hours, likely associated with her back pain. .. ? . . Lumbar disc disease: As above recently got a cortisone injection in her back which has significantly helped her pain.. .. COPD: Continues to follow pulmonology, she does use an updraft as maintenance a few times a week. Otherwise denies any acute exacerbations. Unfortunately continues to smoke a few cigarettes per day and does understand she needs to quit smoking .. Insomnia: Patient reports she continues to have a lot of trouble sleeping often not able to fall asleep until 1 or 2 ain the morning. Has not used [id number] sleeping aids at this point. .. HTN: Doesn't check her BP at home.? Today in office blood pressures stable slightly elevated.? Has been on carvedilol for many years now with good results.? Denies any chest discomfort, palpitations, headaches. Low BMI:? BMI today at 15.8 . mamm: Need up to date mammo. .. Vaccines:? Up-to-date pneumonia, up-to-date with COVID vaccine, up-to-date flu vac, up-to-date tetanus Colorectal cancer screening: done in 2019 Polyp found- repeat in 10 years [facility] Medical History MDD (major depressive disorder), recurrent episode, moderate HTN (hypertension) HLD (hyperlipidemia) COPD (chronic obstructive pulmonary disease) Pulmonary nodules Nicotine dependence, cigarettes, uncomplicated Osteopenia (~2009) Irritable bowel syndrome without diarrhea Tubular adenoma of colon Diverticulosis C. difficile colitis LLQ abdominal pain Varicosities of leg Surgical History History of laparotomy History of pelvic surgery History of blepharoplasty History of colonoscopy History of surgery on lower extremity History of ear surgery Family History Father Lung cancer Mother Heart attack Social History Housing: Apartment Alcohol intake: current Alcohol intake frequency: holidays/special occasions only Alcohol type: beer Patient Tobacco Use Status: Current someday Tobacco user (3 months) Tobacco use type: Cigarette Cigarette Packs Per Day: 0.5 Cigarettes Per Day: 8 e-Cigarette/Vaping Use: Never Used Second Hand Smoke Exposure: No Advance Directives Date on File: 09/17/20 service: No Current occupational status: retired Cognitive needs: No Hearing needs: Yes Vision needs: Yes Questionnaire Thrive Questionnaire Date Thrive assessed: 08/02/24 I am a: Patient What is your living situation today?: I have a steady place to live Within the past 12 months, did the food you bought not last and you didn't have the money to get more?: Never true Within the past 12 months, did you worry whether your food would run out before you got money to buy more?: Never true Do you have trouble paying for medicines?: No Do you have trouble getting transportation to medical appointments?: No Do you have trouble paying your heating and electricity bill?: No Do you have trouble taking care of your child, family member or friend?: No Do you have trouble with day-to-day activities such as bathing, preparing meals, shopping, managing finances, etc.?: I choose not to answer this question Are you currently unemployed and looking for a job?: No Are you interested in more education?: No Please select the resources that you would like help with: None Currently or been in a relationship where the following occur: I choose not to answer THRIVE Score: 0 JORGE-7 AMB Questionnaire JORGE-7 Date JORGE - 7 assessed: 09/13/24 Source: Developed by Drs. Julio Cornejo, Taina Brady, Ranulfo Anderson and colleagues, with an educational cleo from [employer]. Review of Systems Const Denies body aches, Denies chills, Denies excessive sweating, Denies fatigue, Denies fever(s) and Denies headache(s) Eyes Denies blurry vision ENT Denies dysphagia, Denies vertigo, Denies dizziness, Denies headache(s), Denies hearing loss and Denies tinnitus Card Denies chest pain, Denies chest pain with activity, Denies syncope, Denies irregular heart rhythm and Denies dyspnea Resp Denies chest congestion, Denies cough, Denies hemoptysis, Denies dyspnea and Denies wheezing GI Denies abdominal pain, Denies melena, Denies hematochezia, Denies coffee ground emesis, Denies dysphagia, Denies diarrhea, Denies nausea and Denies vomiting Denies urinary frequency, Denies dysuria, Denies urinary hesitancy and Denies urinary urgency Musc Denies arthralgias, Denies limited range of motion, Denies muscle cramps and Denies muscle weakness Skin/Breast Denies rash and Denies skin ulcer Neuro Denies Abnormal speech present, Denies confusion, Denies vertigo, Denies dizziness, Denies syncope, Denies headache(s), Denies memory loss and Denies seizure-like activity Psych Denies anxiety, Denies confusion, Denies depression, Denies memory loss, Denies panic attacks and Denies paranoia Endo Denies excessive sweating, Denies fatigue, Denies flushing, Denies polydipsia and Denies polyuria Aller/Immun Denies wheezing Physical exam (Primary Care) Vital Signs: Last Vital Signs Temp 97.1 F 11/07/24 13:22 BP 120/66 11/07/24 13:22 BMI result Body Mass Index 15.8 BMI Assessment/Plan discussion: Low BMI Low, Plan discussed: lifestyle, increase calorie intake and dietary Tobacco/Smoking Status: Tobacco use Status Tobacco use date assessed 11/07/24 11/07/24 13:25 Patient Tobacco Use Status Current someday Tobacco (3 11/07/24 13:28 months) Tobacco use type Cigarette 11/07/24 13:28 e-Cigarette/Vaping Use Never Used 11/07/24 13:28 Thrive Assessment: Date of Thrive Assessment Date Thrive assessed 08/02/24 11/07/24 13:10 Currently or been in a relationship where the following occur: I choose not to answer Const General: cooperative, comfortable, no acute distress, alert and awake; No confusion Orientation/consciousness: oriented to person, oriented to place, patient oriented x3 and No confusion HENMT Head: Yes normocephalic Head images:  1. AREA OF SMALL ULCERATIONS AND EXCORIATIONS Ears: external ears normal and TM's normal bilaterally Face and sinus: No sinus tenderness Mouth: Normal oral and palatal mucosa present and tongue normal Teeth and gingiva: dentition normal and gingiva normal Throat: Yes posterior oropharynx normal, Yes tonsils normal and Yes uvula midline Eyes Conjunctivae: conjunctivae normal Sclerae: sclerae normal Pupils: Equal, round and reactive pupils present EOM: EOMs intact bilaterally Direct Ophthalmoscopy: No no photophobia Neck Neck: Yes no lymphadenopathy, No tender and Yes no JVD Thyroid: Thyroid normal Carotids: no bruits Chest Chest palpation & inspection: no tenderness Resp Effort & Inspection: normal respiratory effort, no audible wheezes, not labored and no stridor Auscultation: no crackles, no rales, no rhonchi and no wheezes Cardio Jugular venous distension: no JVD Rate: regular rate, not bradycardic and not tachycardic Rhythm: regular rhythm Bruits: no carotid bruits Peripheral pulses: Peripheral pulses 2+ throughout GI Inspection: Yes normal to inspection, No abdominal wall ecchymosis and No visible herniation Palpation (GI): Soft to palpation, nontender, no guarding, not rigid and No hepatosplenomegaly present Auscultation: normoactive bowel sounds General: Yes no CVA tenderness Back/Spine/Pelvis Back: no CVA tenderness and No back tenderness Cervical Spine: cervical ROM normal Thoracic/Lumbar Spine: thoracic and lumbar spine normal to inspection, straight leg raise negative bilaterally, No thoraco-lumbar ROM limited and No lumbar spinal tenderness Skin Lesions: no lesions Rashes: no rashes Wounds: no wounds Neuro General: oriented to person, oriented to place, patient oriented x3, CN's II-XI intact bilaterally and No confusion Cranial nerves: Yes Equal, round and reactive pupils present and Yes Normal accommodation reflex present Cognition (Neuro): normal cognition Speech: No Abnormal speech present Gait exam (Neuro): Normal gait present Motor exam (neuro): 5/5 motor strength present throughout Extrem Right upper extremity: full ROM; no cyanosis Left upper extremity: full ROM; no cyanosis Right lower extremity: no edema Left lower extremity: no edema Psych Appearance: grossly normal Mental Status: mental status grossly normal Affect: normal affect Attitude: cooperative Thought process: Normal thought process present Coding Level of Care Code Est Pt Prev Care >65y(09193) Diagnoses Annual physical exam Z00.00 Orthostatic hypotension I95.1 Simple chronic bronchitis J41.0 COPD type: chronic bronchitis Chronic bronchitis type: simple Syncope, unspecified syncope type R55 Syncope type: unspecified Folliculitis barbae L73.8 Primary insomnia F51.01 Insomnia type: primary Assessment & Plan Assessment & Plan (1) Annual physical exam: Code(s): Z00.00 - Encounter for general adult medical examination without abnormal findings Category: Medical Plan: as per HPI (2) Orthostatic hypotension: Code(s): I95.1 - Orthostatic hypotension Category: Medical Plan: The patient is advised to discontinue carvedilol to assess if it is contributing to her low blood pressure and symptoms of dizziness and nausea. She is instructed to monitor her blood pressure at home regularly and maintain hydration with fluids containing electrolytes. A follow-up appointment is scheduled in three to four weeks to evaluate her condition without the medication. (3) COPD (chronic obstructive pulmonary disease): Comment: MODERATELY SEVERE CHRONIC OBSTRUCTIVE PULMONARY DISEASE, RELATIVELY STABLE AT THIS TIME . She is using DuoNeb updrafts only once or twice a week. Use of albuterol HFA has increased to once or twice a day. Code(s): J44.9 - Chronic obstructive pulmonary disease, unspecified Category: Medical Qualifiers: COPD type: chronic bronchitis Chronic bronchitis type: simple Qualified Code(s): J41.0 - Simple chronic bronchitis Plan: Patient does understand she needs to quit smoking. She does smoke 7-8 cigarettes per day still, she does have access to nicotine replacement. She denies any significant shortness of breath or coughing episodes. (4) Syncopal episodes: Code(s): R55 - Syncope and collapse Category: Medical Qualifiers: Syncope type: unspecified Qualified Code(s): R55 - Syncope and collapse Plan: Likely related to her low blood pressures Will hold carvedilol for now and monitor blood pressure. (5) Folliculitis barbae: Code(s): L73.8 - Other specified follicular disorders Category: Medical Plan: The patient is prescribed a new ointment containing an antibiotic to address the persistent rash, suspected to be folliculitis. (6) Insomnia: Code(s): G47.00 - Insomnia, unspecified Category: Medical Qualifiers: Insomnia type: primary Qualified Code(s): F51.01 - Primary insomnia Plan: The patient is prescribed trazodone to be taken half an hour before bedtime to help manage her insomnia. Medications: New mupirocin 2% (Centany) 1 appl topical BID 22 grams 1RF 4 weeks L73.8 - Other specified follicular disorders trazodone 50 mg PO BEDTIME 30 tabs 1RF 30 days F51.01 - Primary insomnia On Hold carvedilol Hold Comment: Doctor's Order 3.125 mg PO BID 180 tabs 2RF 90 days I10 - Essential (primary) hypertension
[2024-11-07 13:22] VITALS: BP 120/66; TEMP 36.2; BMI 15.8
== END 2024-11-07 13:55 | disposition home or self-care (01) ==
LOC: HO.HMCH 13:03
PROVIDERS: PCP Physician Assistant; Visit Provider Physician Assistant
DX: Z00.00 Encounter for general adult medical examination without abnormal findings (principal); I95.1 Orthostatic hypotension; J41.0 Simple chronic bronchitis; R55 Syncope and collapse; L73.8 Other specified follicular disorders; F51.01 Primary insomnia

== ENCOUNTER → 2024-11-07 13:02 | Outpatient (BNVA) | payer MEDICARE, SELFPAY | PROVIDERS: PCP Physician Assistant; Visit Provider Physician Assistant | DX: Z00.00 Encounter for general adult medical examination without abnormal findings (principal); J41.0 Simple chronic bronchitis; R19.8 Other specified symptoms and signs involving the digestive system and abdomen; I95.1 Orthostatic hypotension; R21 Rash and other nonspecific skin eruption; M47.816 Spondylosis without myelopathy or radiculopathy, lumbar region; I10 Essential (primary) hypertension; L98.499 Non-pressure chronic ulcer of skin of other sites with unspecified severity; L73.8 Other specified follicular disorders; F51.01 Primary insomnia | CPT/HCPCS: 99397 ==

== ENCOUNTER 2024-12-06 09:17 | Outpatient (AMB) | payer MEDICARE, SELFPAY ==
--- NOTE | 2024-12-06 09:22 | MHC.PC.OV ---
Vital Signs 12/06/24 09:23 Height 5 ft 6 in Weight 99 lb 2 oz BMI 16.0 BP 120/70 Blood Pressure Location Lt brachial Position Sitting Pulse 71 Pulse Source Pulse Oximeter Temp 97.1 F Temp Source Temporal Artery Scan Pulse Oximetry (%) 97 Oxygen Delivery Method Room Air Intake Visit Reasons: f/u blood pressure ( okay to double book in the AM Intake Note: Patient is here to follow up on Blood pressure check. 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 Assayer: Not Required per policy Accompanied by: Self / Same As Patient Allergies Iodinated Contrast Media (IV Dye, Iodine Containing) Allergy (Mild, Verified 12/06/24 09:33) HIVES AND RASH propoxyphene (From Darvon) Allergy (Mild, Verified 12/06/24 09:33) N/V trazodone Adverse Reaction (Intermediate, Verified 12/06/24 09:37) Insomnia Medication List - Last Reconciled 12/06/24 by Ernst Huerta PA-C albuterol sulfate 90 mcg/actuation 2 puffs PO Q6H PRN ascorbate calcium (vitamin C) 1,000 mg (2 x 500 mg) PO DAILY 90 days atorvastatin 40 mg PO DAILY 90 days blood pressure test kit-small As directed carvedilol 3.125 mg PO BID 90 days Held on 11/07/24. Instructions: Doctor's Order cholecalciferol (vitamin D3) 50 mcg PO DAILY fluticasone propionate 50 mcg/actuation (Flonase Allergy Relief) 2 sprays intranasal DAILY ipratropium-albuterol 0.5 mg-3 mg(2.5 mg base)/3 mL 3 mL inhalation Q4-6H PRN 30 days magnesium oxide 400 mg PO DAILY 30 days mupirocin 2% (Centany) 1 appl topical BID 4 weeks sertraline 100 mg PO DAILY 90 days triamcinolone acetonide 0.1% 1 appl topical DAILY 30 days Tobacco use date assessed: 12/06/24 Fall risk assessment: No Falls in past year Last assessed Fall Risk: 12/06/24 Dental Screening Dental Screen Date: 09/13/24 HPI f/u blood pressure ( okay to double book in the AM HPI Details Partient? is a 69-year-old female here today for a follow-up visit Patient has a past medical history significant for COPD, pulmonary nodules, hypertension. Concern--> Orthostatic hypotension: Has resolved since stopping carvidolol. The patient reports she was experiencing episodes of dizziness, sweating, nausea, and vomiting, which began occurring frequently over the past few weeks. The most recent episode occurred a week ago while dining out, where she experienced dizziness and sweating before vomiting. Blood pressures recorded at home 100s over 60 though she does have a very small diameter arm due to her low weight which may not be giving her accurate readings. .. Lumbar disc disease: Patient now followed by [facility]. She is awaiting surgery. She has considering a nerve ablation in her lower back. She continues to complain of chronic severe low back pain unrelieved by conservative measures including physical therapy, acupuncture, special needs caregiver, and pain management injections over the past two years. The symptoms are profoundly impacting her functional capacity and quality of life. She experiences significant nausea and occasional vomiting weekly, unrelated to meals and without hematemesis. 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 .. .. COPD: Continues to follow pulmonology, she does use an updraft as maintenance a few times a week. Otherwise denies any acute exacerbations. Unfortunately continues to smoke a few cigarettes per day and does understand she needs to quit smoking .. Insomnia: The insomnia has been persistent, with the patient reporting difficulty sleeping since Thursday night, leading to significant fatigue and physical toll. Previous medications, including trazodone, have been ineffective in managing her sleep disturbances. The chronic low back pain is described as excruciating and is awaiting surgical intervention, pending insurance approval. The pain significantly disrupts her sleep, causing her to change positions frequently throughout the night. .. HTN: Doesn't check her BP at home.? Today in office blood pressures stable slightly elevated.? Has been on carvedilol for many years now with good results.? Denies any chest discomfort, palpitations, headaches. Low BMI:? BMI today at . [facility]LY [facility], [facility] Medical History MDD (major depressive disorder), recurrent episode, moderate HTN (hypertension) HLD (hyperlipidemia) COPD (chronic obstructive pulmonary disease) Pulmonary nodules Nicotine dependence, cigarettes, uncomplicated Osteopenia (~2009) Irritable bowel syndrome without diarrhea Tubular adenoma of colon Diverticulosis C. difficile colitis LLQ abdominal pain Varicosities of leg Surgical History History of laparotomy History of pelvic surgery History of blepharoplasty History of colonoscopy History of surgery on lower extremity History of ear surgery Family History Father Lung cancer Mother Heart attack Social History Housing: Apartment Alcohol intake: current Alcohol intake frequency: a few times a week Alcohol type: beer Patient Tobacco Use Status: Current someday Tobacco user (3 months) Tobacco use type: Cigarette Cigarette Packs Per Day: 0.5 Cigarettes Per Day: 5 e-Cigarette/Vaping Use: Never Used Second Hand Smoke Exposure: Yes Advance Directives Date on File: 09/17/20 service: No Current occupational status: retired Cognitive needs: No Hearing needs: Yes Vision needs: Yes Questionnaire Thrive Questionnaire Date Thrive assessed: 08/02/24 I am a: Patient What is your living situation today?: I have a steady place to live Within the past 12 months, did the food you bought not last and you didn't have the money to get more?: Never true Within the past 12 months, did you worry whether your food would run out before you got money to buy more?: Never true Do you have trouble paying for medicines?: No Do you have trouble getting transportation to medical appointments?: No Do you have trouble paying your heating and electricity bill?: No Do you have trouble taking care of your child, family member or friend?: No Do you have trouble with day-to-day activities such as bathing, preparing meals, shopping, managing finances, etc.?: I choose not to answer this question Are you currently unemployed and looking for a job?: No Are you interested in more education?: No Please select the resources that you would like help with: None Currently or been in a relationship where the following occur: I choose not to answer THRIVE Score: 0 JORGE-7 AMB Questionnaire JORGE-7 Date JORGE - 7 assessed: 09/13/24 Source: Developed by Drs. Julio Cornejo, Taina Brady, Ranulfo Anderson and colleagues, with an educational cleo from [employer]. Review of Systems Const Denies headache(s) Eyes Denies loss of vision ENT Denies vertigo, Denies dizziness, Denies headache(s) and Denies sore throat Card Denies chest pain, Denies leg edema and Denies lightheadedness Resp Denies cough, Denies hemoptysis and Denies wheezing GI Denies abdominal pain, Denies melena, Denies constipation, Denies diarrhea and Denies vomiting Denies urinary frequency, Denies dysuria and Denies urinary urgency Musc Reports back pain, Denies arthralgias, Denies joint swelling, Denies numbness and Denies tingling Neuro Denies Abnormal speech present, Denies behavioral changes, Denies vertigo, Denies dizziness, Denies headache(s), Denies loss of vision, Denies memory loss, Denies numbness and Denies tingling Psych Reports abnormal sleep pattern, Denies anxiety, Denies behavioral changes, Denies depression, Denies memory loss and Denies panic attacks Xiang/Lymph Denies easy bleeding and Denies easy bruising Aller/Immun Denies wheezing Physical exam (Primary Care) Vital Signs: Last Vital Signs Temp 97.1 F 12/06/24 09:23 Pulse 71 12/06/24 09:23 BP 120/70 12/06/24 09:23 Pulse Ox 97 12/06/24 09:23 Oxygen Delivery Method Room Air 12/06/24 09:23 BMI result Body Mass Index 16.0 Tobacco/Smoking Status: Tobacco use Status Tobacco use date assessed 12/06/24 12/06/24 09:29 Patient Tobacco Use Status Current someday Tobacco (3 12/06/24 09:29 months) Tobacco use type Cigarette 12/06/24 09:29 e-Cigarette/Vaping Use Never Used 12/06/24 09:29 Thrive Assessment: Date of Thrive Assessment Date Thrive assessed 08/02/24 12/06/24 09:29 Currently or been in a relationship where the following occur: I choose not to answer Const General: healthy appearing, no acute distress, alert and awake Nutritional Appearance: well nourished Orientation/consciousness: oriented to person, oriented to place and oriented to time HENMT Ears: TM's normal bilaterally General nose exam: Normal nasal mucous membranes and turbinates present Eyes Conjunctivae: conjunctivae normal Sclerae: sclerae normal Pupils: Equal, round and reactive pupils present Neck Neck: Yes no lymphadenopathy and Yes no JVD Thyroid: Thyroid normal Carotids: no bruits Resp Effort & Inspection: normal respiratory effort and not tachypneic Auscultation: no crackles, no rales, no rhonchi and no wheezes Cardio Rate: regular rate Rhythm: regular rhythm Heart sounds: no murmurs and normal S1 and S2 GI Palpation (GI): Soft to palpation, nontender, no hepatomegaly and no splenomegaly Auscultation: normal bowel sounds Skin General skin exam: no rashes or lesions noted and dry skin Neuro General: oriented to person, oriented to place and oriented to time Cranial nerves: Yes Equal, round and reactive pupils present Speech: No Abnormal speech present Gait exam (Neuro): Normal gait present Motor exam (neuro): no tremor noted Extrem Right upper extremity: full ROM Left upper extremity: full ROM Right lower extremity: full ROM; no edema Left lower extremity: full ROM; no edema Psych Mental Status: mental status grossly normal Speech and movement: Normal speech and movement present Affect: normal affect Attitude: cooperative Thought process: Normal thought process present Coding Level of Care Code Est Pt Level 4 (34986) Diagnoses Orthostatic hypotension I95.1 Primary insomnia F5. Insomnia type: primary Assessment & Plan Assessment & Plan (1) Orthostatic hypotension: Code(s): I95.1 - Orthostatic hypotension Category: Medical Plan: Orthostatic hypotension syncopal episodes have resolved since holding carvedilol. Will continue to hold carvedilol and monitor blood pressure at home. She has been staying well hydrated at home. Goal blood pressures to be above 100/60 in below 140/90 (2) Insomnia: Code(s): G47.00 - Insomnia, unspecified Category: Medical Qualifiers: Insomnia type: primary Qualified Code(s): F51.01 - Primary insomnia Plan: Has tried trazodone 50 mg before bed though reports the medication not being effective. She reports only getting 2-3 hours of sleep. The patient will discontinue trazodone and start Zolpidem 5 mg, to be taken an hour before bedtime, to address her insomnia. 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
[2024-12-06 09:23] VITALS: BP 120/70; PULSE 71; TEMP 36.2; O2SAT 97; BMI 16.0
== END 2024-12-06 09:52 | disposition home or self-care (01) ==
LOC: HO.HMCH 09:18
PROVIDERS: PCP Physician Assistant; Visit Provider Physician Assistant
DX: I95.1 Orthostatic hypotension (principal); F51.01 Primary insomnia

== ENCOUNTER → 2024-12-06 09:17 | Outpatient (BNVA) | payer MEDICARE, SELFPAY | PROVIDERS: PCP Physician Assistant; Visit Provider Physician Assistant | DX: I10 Essential (primary) hypertension (principal); J44.9 Chronic obstructive pulmonary disease, unspecified; G47.00 Insomnia, unspecified; I95.1 Orthostatic hypotension; F51.01 Primary insomnia | CPT/HCPCS: 99212 ==

== ENCOUNTER 2025-01-02 10:14 | Outpatient (REF) | payer MEDICARE, SELFPAY ==
--- NOTE | ~2025-01-02 | MM_ITS ---
EXAMINATION: DXA BONE DENSITY AXIAL HISTORY: Z78.0 - Asymptomatic menopausal state TECHNIQUE: Anjuke Dual energy absorptiometry (DEXA) of the lumbar spine, total left hip, and femoral neck was performed. COMPARISON: Comparison is made with the prior examination dated 05/23/2021. FINDINGS: The bone mineral density of the lumbar spine is 0.960 g/cm2, corresponding to a T-score of -1.8, and a Z-score of 0.5. This is indicative of osteopenia. This represents a BMD change of -13.7% compared to the prior exam. This is statistically significant. The bone mineral density of the left total hip is 0.744 g/cm2, corresponding to a T-score of -2.1, and a Z-score of -0.1. This is indicative of osteopenia. This represents a BMD change of -4.6% compared to the prior exam. This is statistically significant. The bone mineral density of the left femoral neck is 0.690 g/cm2, corresponding to a T-score of -2.5, and a Z-score of -0.4. This is indicative of osteoporosis. This represents a BMD change of -6.6% compared to the prior exam. MM/XR DEXA axial skeleton IMPRESSION: Based on bone mineral density, and according to World Health Organization (WHO) criteria, the diagnosis is consistent with osteoporosis. Statistically, 68% of repeat scans fall within 1 SD (+/- 0.010 g/cm2 for AP spine L1-L4) and 1 SD (+/- 0.012 g/cm2 for femur total) FRAX is a trademark of the [employer]'s [employer] for Metabolic Bone Disease, a World Health Organization (WHO) Collaborating Center. Electronically signed by: Julio Edgar MD 01/02/2025 11:19 AM EDT
--- OUTSIDE RECORDS SUMMARY | 2025-01-02 11:22 | XMS_ITS | Data Portability ---
Author Organization [place] - [facility], Allergy Address [address] [address] Care Team Providers Care Film Flat Inspector Name Role Phone AGUSTÍN PEREZ Referring Provider [phone] Assessment Encounter Date Assessment Date Assessment LastModified [...] with the contact information for my surgical oncologist. We will begin the scheduling process and see the patient back at the time of surgery. Patient will require medical clearance from their primary care provider preoperatively. [email or web address] Not available 01/26/2024 10:36:16 07/14/2024 07/14/2024 Patient [...] with the contact information for my surgical oncologist. We will begin the scheduling process and see the patient back at the time of surgery. Patient will require medical clearance from their primary care provider preoperatively. [email or web address] Not available 07/14/2024 13:05:04 Plan of Treatment Reminders Order Date Submit Date Provider Last Modified By Organization Details Last Modified Time Details Appointments None recorded. Lab None recorded. Referral None recorded. Procedures None recorded. Surgeries implantatio n of electromagn etic bone conduction hearing device in temporal bone (SURG) 2024 025 [email or web address] [id number] Not available 5 15:46:41 implantatio n of electromagn etic bone conduction hearing device in temporal bone (SURG) 2023 024 [email or web address] [id number] Not available 4 11:18:39 Imaging None recorded. Medication Orders tobramycin 0.3 %-dexametha sone 0.1 % eye drops,suspe nsion 2024 025 [facility]/Pharmacy #[id number], [address] [place], [address], 5 11:33:11 tobramycin 0.3 %-dexametha sone 0.1 % eye drops,suspe nsion 2023 024 [email or web address] [facility]/Pharmacy #[id number], [address] [place], [address], 5 11:11:07 Patient TargetsNo targets recorded. Patient [...] Name and Address Organization Details Recorded Time Choleste atoma of left mastoid process [id number] 20271 Completed 201411/06/2023 Choleste atoma of mastoid, left ear; Note: Date Diagnose d: 03/21/20 15 4:47 PM (H71.22) Not Available [facility] 4 02:17:47 Granulat ions of mastoid cavity 947281074 Completed 201411/06/2023 Granulat ion of postmast oidectom y cavity, right ear; Note: Date Diagnose d: 03/21/20 15 4:47 PM (H95.121 ) Not Available [facility] 4 02:18:26 Mixed conducti ve and sensorin eural hearing loss, bilatera l 197313576 Active 2014 Mixed conducti ve and sensorin eural hearing loss, bilatera l; Note: Date Diagnose d: 03/21/20 15 4:48 PM (H90.6) SCHUYLER GENTILE MD [address] [place] [address], [facility] [place], [address] , [facility] 5 23:14:23 Conducti ve hearing loss, bilatera l 673186228 Active 2014 Conducti ve hearing loss, bilatera l; Note: Date Diagnose d: 03/21/20 15 4:09 PM (H90.0) Not Available [facility] 4 02:17:18 Vasomoto r rhinitis 0798584 Active 2015 Vasomoto r rhinitis ; Note: Date Diagnose d: 6 11:39 AM (J30.0) Not Available [facility] 4 02:18:22 Partial loss of ear ossicles 15414900 Active 2015 Partial loss of ear ossicles , bilatera l; Note: Date Diagnose d: 6 11:52 AM (H74.323 ) Not Available [facility] 4 02:17:22 Postoper ative follow-u p visit Active 2015 Post op; Note: Date Diagnose d: 6 2:57 PM (V67.00) Not Available [facility] 4 02:16:53 Perforat ion of tympanic membrane 14964157 Active 2015 Perforat ion of tympanic membrane ; Note: Date Diagnose d: 6 2:57 PM (384.20) Not Available [facility] 4 02:16:54 Disorder of left Eustachi an tube 37567474682 38264 Active 2015 Other specifie d disorder s of Eustachi an tube, left ear; Note: Date Diagnose d: 01/25/20 16 2:52 PM (H69.82) Not Available [facility] 4 02:17:12 Pain of left temporom andibula r joint 53689635767 409693 Active 2016 Arthralg ia of left temporom andibula r joint; Note: Date Diagnose d: 03/18/20 17 11:11 AM (M26.622 ) Not Available [facility] 4 02:17:54 Otalgia of left ear 0135896427 Active 2016 Otalgia, left ear; Note: Date Diagnose d: 03/18/20 17 11:11 AM (H92.02) Not Available [facility] 4 02:18:47 Chronic right mastoidi tis 45013406552 31746 Active 2016 Chronic mastoidi tis, right ear; Note: Date Diagnose d: 04/01/20 17 12:33 PM (H70.11) Not Available [facility] 4 02:17:18 Acute sinusiti s 32472665 Completed 201711/06/2023 Acute sinusiti s, unspecif ied; Note: Date Diagnose d: 04/10/2017 3:27 PM (J01.90) Not Available [facility] 4 02:17:22 Injury of neck 05033145 Completed 201711/06/2023 Unspecif ied injury of neck, initial encounte r; Note: Date Diagnose d: 8 9:36 AM (S19.9XX A) Not Available [facility] 4 02:16:50 Impacted cerumen in left ear 46142370986 03141 Active 2017 Impacted cerumen, left ear; Note: Date Diagnose d: 8 8:29 AM (H61.22) Not Available [facility] 4 02:17:52 Recurren t acute sinusiti s 577598603 Active 2017 Acute recurren t sinusiti s, unspecif ied; Note: Date Diagnose d: 8 11:53 AM (J01.91) Not Available [facility] 4 02:17:13 Otorrhea of right ear 75907789319 34974 Active 2020 Otorrhea , right ear; Note: Date Diagnose d: 1 9:15 AM (H92.11) Otorrh ea, right ear; Note: Date Diagnose d: 6 2:52 PM (H92.11) ; Start Date : 05/31/19 16 Not Available [facility] 4 02:17:49 Otorrhea of left ear 63171498648 07648 Active 2021 Otorrhea , left ear; Note: Date Diagnose d: 2 3:23 PM (H92.12) Otorrh ea, left ear; Note: Date Diagnose d: 8 1:32 PM (H92.12) ; Start Date : 08/04/19 SCHUYLER GENTILE MD [address] [place] [address], [place], [address] , [facility] - [facility] 5 23:14:23 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 524559653 Completed 202111/06/2023 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, left ear; Note: Date Diagnose d: 2 9:05 AM (H95.02) 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, left ear; Note: Date Diagnose d: 01/25/20 16 2:52 PM (H95.02) ; Start Date : 01/25/20 16 Not Available [facility] 4 02:18:08 Marginal perforat ion of tympanic membrane 44461230 Active 2021 Other marginal perforat ions of tympanic membrane , right ear; Note: Date Diagnose d: 02/26/20 22 8:46 AM (H72.2X1 ) Note: Date Diagnose d: 02/26/20 22 8:46 AM (H72.2X1 ) ; Start Date : 02/26/20 22 Other marginal perforat ions of tympanic membrane , left ear; Note: Date Diagnose d: 2 9:06 AM (H72.2X2 ) Note: Date Diagnose d: 2 9:06 AM (H72.2X2 ) Not Available [facility] 4 00:53:28 Follow-u p visit Active 2022 Encounte r [...] Start Date : 05/24/19 16 Not Available [facility] 4 02:17:37 Postmast oidectom y complica tion 62695922 Active 2022 Other disorder s followin g [...] 3 9:29 AM (H95.193 ) Not Available [facility] 4 00:53:09 Refracto ry migraine 404665077 Active 2022 Other migraine , intracta ble, without status migraino beena; Note: Date Diagnose d: 11/06/2022 2:14 PM (G43.819 ) Not Available [facility] 4 02:17:22 Otorrhea of bilatera l ears 71795917595 10777 Completed 202211/06/2023 Otorrhea , bilatera l; Note: Date Diagnose d: 11/06/2022 2:15 PM (H92.13) Otorrh ea, bilatera l; Note: Date Diagnose d: 03/21/20 15 4:47 PM (H92.13) ; Start Date : 03/21/20 15 Not Available [facility] 4 02:18:08 Foreign body in right ear 51230559385 277240 Completed 202209/03/2023 Foreign body in right ear, initial encounte r; Note: Date Diagnose d: 03/17/20 9:34 AM (T16.1XX A) Note: Date Diagnose d: 03/17/20 9:34 AM (T16.1XX A) SCHUYLER GENTILE MD 100 [facility],[place] [address], [place], [address] , [facility] - [facility] 4 13:30:34 Marginal perforat ion of tympanic membrane 81722492 Active 2023 SCHUYLER GENTILE MD 100 [facility],[place] [address], [place], [address] , [facility] - [facility] 5 23:14:23 Bilatera l chronic mastoidi tis 16595595159 60786 Active 2023 SCHUYLER GENTILE MD [address] [employer] [place] [address], [place], [address] , [facility] - [facility] 4 13:31:39 Otorrhea of bilatera l ears 59754769205 75313 Active 2023 Otorrhea , bilatera l; Note: Date Diagnose d: 11/06/2022 2:15 PM (H92.13) Note: Date Diagnose d: 11/06/2022 2:15 PM (H92.13) Otorrh ea, bilatera l; Note: Date Diagnose d: 03/21/20 15 4:47 PM (H92.13) Note: Date Diagnose d: 03/21/20 15 4:47 PM (H92.13) ; Start Date : 03/21/20 15 SCHUYLER GENTILE MD [address] [facility],[address], [place], [address] , [facility] - [facility] [place] 4 13:31:50 Postmast oidectom y complica tion 17747327 Active 2023 SCHUYLER GENTILE MD [address] [facility],[place] [address], [place], [address] , [place] - [facility] [place] 5 23:14:23 Dysfunct ion of eustachi an tube 32298678 Active 2023 SCHUYLER GENTILE MD [address] [facility],[place] [address], [place], [address] , [facility] - [facility] [place] 5 23:14:23 Partial loss of ear ossicles 86876480 Active 2023 SCHUYLER GENTILE MD [address] [facility],[place] [address], [facility] [place], [address] , [facility] - [facility] [place] 5 23:14:23 Problem Notes None recorded. Procedures Surgical History Date Name Laterality Status Provider Name and Address Organization Details Recorded Time 5 Debridement of Mastoid Cavity bilat completed SCHUYLER GENTILE MD 100 [facility],[address], [address], [place] - [facility] [place] 07/14/2024 13:04:34 4 Comp Audio with Tymps - 70696 & 38059 completed EMILIE PRIETO 100 [facility],[address], [address], [place] - [facility] [place] 01/26/2024 10:09:17 4 Debridement of Mastoid Cavity bilat completed SCHUYLER GENTILE MD 100 [facility],[address], [address], [place] - [facility] [place] 01/26/2024 09:19:32 4 Debridement of Mastoid Cavity bilat completed SHANNAN TELLES PA-C 100 [facility],[address], [address], [place] - [facility] [place] 09/21/2023 10:54:36 4 Debridement of Mastoid Cavity bilat completed SCHUYLER EGNTILE MD [address], [address], [place] - [facility] 09/03/2023 13:15:49 Imaging Results None recorded. Procedure Notes None recorded. Medical Equipment None Reported. Allergies No known drug allergies Medications Name Sig Start Date Stop Date Status Note LastModified by Organization Details LastModified Time cyclobenz aprine 10 mg tablet TAKE 1 TABLET BY MOUTH 2 TIMES A DAY NEEDED FOR MUSCLE SPASM FOR 30 DAYS active Not Available Not Available No t Available atorvasta tin 40 mg tablet TAKE [...] mg capsule 05/29 completed Medicati on ID: [id number] P elianribe d By Name: MILDRED Moran nd Name: [...] Not Available Not Available No t Available trazodone 50 mg tablet TAKE 1 TABLET BY [...] eye drops 09/20 completed Medicati on ID: [id number] D uration Value: 10 Brand Name: Ciloxan Send Method: E-Prescr ibed Sub s Allowed: subs OK Speci al Instruct ion: Instill 4 drops twice a day into the affected ear. Med icationG enericNa me: Ciloxan Medicati on ID: [id number] D uration Value: 10 Brand Name: Ciloxan [...] by mouth 09/20 completed Medicati on ID: [id number] D uration Value: 7 Prescri bed By Name: MILDRED Pineda nd Name: amoxicil pavel Send Method: E-Prescr ibed Sub s Allowed: subs OK Medic ationGen ericName : amoxicil pavel Medi cation ID: [id number] D uration Value: 7 Prescri bed By Name: MILDRED Pineda nd Name: amoxicil pavel Send Method: E-Prescr ibed Sub s Allowed: subs OK Medic ationGen ericName : amoxicil pavel Not Available Not Available Not Available carvedilo l 3.125 mg tablet TAKE 1 TABLET BY MOUTH 2 TIMES A DAY FOR 90 DAYS MUST ADMINIST ER WITH A MEAL/NAYE D active Not Available Not Available No t Available ondansetr on 8 mg disintegr ating tablet TAKE 1 TABLET BY MOUTH EVERY 12 HOURS NEEDED FOR NAUSEA AND VOMITING X10 DAYS active Not Available Not Available No t Available ofloxacin 0.3 % ear drops Apply 4 drop into left ear twice a day 07/01 completed Medicati on ID: [id number] D uration Value: 45 Prescri bed By [...] eye drops 09/20 completed Medicati on ID: [id number] D uration Value: 14 Prescri bed By Name: Blaise Richards nd Name: sulfacet amide sodium S end Method: E-Prescr ibed Sub s Allowed: subs OK Speci al Instruct ion: 4 drops to affected ear BID x 14 days Med icationG enericNa me: sulfacet amide sodium M edicatio n ID: [id number] D uration Value: 14 Prescri bed By [...] a day 09/20 completed Medicati on ID: [id number] D uration Value: 14 Prescri bed By Name: MILDRED Zhang nd Name: predniso lone sodium phosphat e Send Method: E-Prescr ibed Sub s Allowed: subs OK Speci al Instruct ion: to left EAR Medi cationGe nericNam e: predniso lone sodium phosphat e Medica tion ID: [id number] D uration Value: 14 Prescri bed By [...] Not Available Not Available No t Available mupirocin 2 % topical ointment APPLY TOPICALL Y 2 TIMES A DAY FOR 4 WEEKS active Not Available Not Available No t Available zolpidem 5 mg tablet TAKE 1 TABLET BY MOUTH EVERYDAY AT BEDTIME FOR 14 DAYS active Not Available Not [...] Not Available Not Available No t Available [place] 5 mg-325 mg tablet 1-2 tablet by mouth 01/25 completed Medicati on ID: [id number] D uration Value: 7 Prescri bed By Name: Blaise Richards nd Name: [place] Se nd Method: E-Prescr ibed Sub s Allowed: subs OK Medic ationGen ericName : [place] Not Available Not Available Not Available multivita min capsule 09/20 completed Medicati on ID: [id number] B rand Name: multivlibra agosto Sen d Method: E-Prescr ibed Sub s Allowed: subs OK Medic ationGen ericName : multivit agosto Med ication ID: [id number] B rand Name: multivlibra agosto Sen d [...] both nostrils 09/20 completed Medicati on ID: [id number] D uration Value: 30 Prescri bed By Name: MILDRED Moran nd Name: ipratrop ium bromide Send Method: E-Prescr ibed Sub s Allowed: subs OK Medic ationGen ericName : ipratrop ium bromide Medicati on ID: [id number] D uration Value: 30 Prescri bed By [...] TWICE A DAY NEEDED FOR PAIN FOR 5 DAYS active Not Available Not Available No t Available neomycin- polymyxin -hydrocor t 3.5 mg-10,000 unit/mL-1 % ear drops,beena p 04/01 completed Medicati on ID: [id number] P rescribe d By Name: Gilmar Miguel M.D. Bra nd [...] a day 09/20 completed Medicati on ID: [id number] D uration Value: 14 Brand Name: Bactrim DS Send Method: E-Prescr ibed Sub s Allowed: subs OK Medic ationGen ericName : Bactrim DS Medic ation ID: [id number] D uration Value: 14 Brand Name: Bactrim [...] Details Last Updated DateTime 07/14/2024 162.56 cm 66162.38 g Jazmine Mendez [facility] 07/14/2024 11:10:13 Date Recorded Body height Body weight Provider Name and Address Organization Details Last Updated DateTime 01/26/2024 162.56 cm 94563.38 g Jazmine Mendez [facility] 01/26/2024 08:55:19 Social History None recorded. [...] Diagnosis SNOMED-CT Code Diagnosis ICD10 Code Diagnosis IMO Codes Diagnosis Note [id number] SCHUYLER GENTILE MD [facility] [address] [address] 09/03/2023 12:42:59 09/03/2023 13:30:45 Marginal perforation of tympanic membrane 24462200 H72.2X2 Both canal wall down mastoidect mai [...] cond uctive and sensorineural hearing loss, bilateral 868121886 H90.6 Patient continues to get recurrent otorrhea [...] the otorrhea has settled. Postmastoi dectomy complication 70376105 H95.193 Bilateral chronic mastoiditis 0937120022 337658 H70.13 Otorrhea o f bilateral ears 6052560837 911361 H92.13 Partial lo ss of ear ossicles 02419934 H74.323 Dysfunctio n of eustachian tube 53606109 H69.93 4301 SHANNAN TELLES PA-C [facility] 100 [facility] [place] [address] 09/21/2023 10:22:57 09/21/2023 10:49:15 Marginal perforation of tympanic membrane 63264844 H72.2X2 Mixed cond uctive and sensorineural hearing loss, bilateral 201024668 H90.6 Otorrhea o f bilateral ears 0195003570 011579 H92.13 Bilateral chronic mastoiditis 3301802629 791271 H70.13 [id number] SCHUYLER GENTILE MD [facility] 100 [facility] [place] [address] 01/26/2024 08:42:41 01/26/2024 10:35:50 Marginal perforation of tympanic membrane 38080008 H72.2X2 Postmastoi dectomy complication 01420753 H95.193 Bilateral chronic mastoiditis 9497526550 871512 H70.13 Otorrhea o f bilateral ears 6143971976 381124 H92.13 Mixed cond uctive and sensorineural hearing loss, bilateral 839155974 H90.6 Audiologic al evaluation results:Ri ght ear:Modera [...] device. Partial lo ss of ear ossicles 56952526 H74.323 Dysfunctio n of eustachian tube 11755013 H69.93 [id number] EMILIE REID [facility] - [facility] 100 [facility] [place] [address] 03/25/2024 13:05:19 04/09/2024 09:04:54 Mixed conductive and sensorineural hearing loss, bilateral 301459012 H90.6 [id number] EMILIE REID [place] [facility] [place] [address] [place] [address] 05/18/2024 12:12:33 05/19/2024 08:21:30 Mixed conductive and sensorineural hearing loss, bilateral 156280151 H90.6 [id number] SCHUYLER GENTILE MD [facility] [address] [place] [address] 07/14/2024 11:05:44 07/14/2024 11:42:52 Marginal perforation of tympanic membrane 74262747 H72.2X2 Postmastoi dectomy complication 12545799 H95.193 Partial lo ss of ear ossicles 38797428 H74.323 Dysfunctio n of eustachian tube 16186656 H69.93 Otorrhea of left ear 903 4146468 767944 H92.12 Mixed cond uctive and sensorineural hearing loss, bilateral 546759942 H90.6 [id number] EMILIE REID [place] [facility] [place] 100 [facility] [address] [place] [address] 12/21/2024 13:45:14 12/23/2024 13:38:04 Mixed conductive and sensorineural hearing loss, bilateral 578563428 H90.6 Health Concerns Section Related Observation LastModified by Organization Detai ls LastModified Time None Recorded Concern Status LastModified by Organization Details LastModified Time None Recorded Advance Directives Directive None Recorded Payers Insurance Date Sequence Insurance Name Policy Number Policy Amador Covered Member ID Amador Member ID Guarantor Name 12/27/2024 1 [employer] BLUE CROSS (MEDICARE REPLACEMENT/ ADVANTAGE - PPO) [id number] Kim Palafox [id number] Kim Palafox Notes Date Note Type Note Provider Name and Address Organization Details Recorded Time 01/26/2024 text/html 68 year old female with long-term history of right modified radical [...] hearing aid use. SCHUYLER GENTILE MD 100 [facility],[address], [address], [facility] - [facility] 01/26/2024 10:37:22 03/25/2024 text/html Not hearing well...Updated to her 5 receivers and showed her how to change the cerustops. She noticed an immediate improvement with her hearing...She will call if she needs anything. EMILIE REID 100 [facility],[address], [address], [facility] 03/25/2024 13:10:26 05/18/2024 text/html R aid is not working. I was able to get it to charge without issue on my test borer so I gave her another new test borer. I also reminded her that she can plug the aid into either port so she can try to troubleshoot and determine whether there is an issue with the aid or the test borer. She will call as needed. EMILIE REID 100 [facility],[address], [address], [facility] - [facility] 05/19/2024 09:05:55 07/14/2024 text/html 69 year old female with long-term history of right modified radical [...] hearing aid maintenance. SCHUYLER GENTILE MD [address], [address], [facility] - [facility] 07/14/2024 13:05:48 12/21/2024 text/html C/o not hearing well especially on the phone (especially with the left aid). Turned both aids up. Tried to pair aids to katie on her Android but she does not have [employer] set up. Suggested that she try to have someone else set it up for her so she can have access to the katie. Her left ear looked very wet to me so I made her an appt to see TM next week.Switched both of her receivers to V5s. For some reason the left aid was showing power glass silverer As on [employer] although she is wearing an M so I updated that and reran the feedback test As. EMILIE REID [address] [place] [address], [place], [address], [facility] - [facility] [place] 12/21/2024 14:55:44 OBGyn Episode No OBEpisode recorded.
== END 2025-01-02 10:15 | disposition home or self-care (01) ==
LOC: HO.MAMMO 10:14
PROVIDERS: PCP Physician Assistant; Visit Provider Physician Assistant
DX: Z13.820 Encounter for screening for osteoporosis (principal); Z78.0 Asymptomatic menopausal state
CPT/HCPCS: 77080

== ENCOUNTER → 2025-01-02 10:30 | Outpatient (BNV) | payer MEDICARE, SELFPAY | PROVIDERS: PCP Physician Assistant; Visit Provider Radiology Diagnostic Radiology | DX: E28.39 Other primary ovarian failure (principal) | CPT/HCPCS: 77080 ==

== ENCOUNTER 2025-02-10 13:55 | Outpatient (AMB) | payer MEDICARE, SELFPAY ==
[2025-02-10 13:58] VITALS: BP 128/88; PULSE 92; TEMP 36.1; O2SAT 95; BMI 17.1
--- NOTE | 2025-02-10 13:58 | MHC.PC.OV ---
Vital Signs 02/10/25 13:58 Height 5 ft 6 in Weight 106 lb BMI 17.1 BP 128/88 Blood Pressure Location Lt brachial Position Sitting Pulse 92 Pulse Source Pulse Oximeter Temp 97.0 F Temp Source Temporal Artery Scan Pulse Oximetry (%) 95 Oxygen Delivery Method Room Air Intake Visit Reasons: dizziness/lightheadness Allergies Iodinated Contrast Media (IV Dye, Iodine Containing) Allergy (Mild, Verified 02/10/25 14:01) HIVES AND RASH propoxyphene (From Darvon) Allergy (Mild, Verified 02/10/25 14:01) N/V trazodone Adverse Reaction (Intermediate, Verified 02/10/25 14:01) Insomnia Medication List - Last Reconciled 02/10/25 by Michael Diaz MD albuterol sulfate 90 mcg/actuation 2 puffs PO Q6H PRN alendronate (Fosamax) 70 mg PO QWEEK 12 weeks ascorbate calcium (vitamin C) 1,000 mg (2 x 500 mg) PO DAILY 90 days atorvastatin 40 mg PO DAILY 90 days blood pressure test kit-small As directed carvedilol 3.125 mg PO BID 90 days Held on 11/07/24. Instructions: Doctor's Order cholecalciferol (vitamin D3) 50 mcg PO DAILY fluticasone propionate 50 mcg/actuation (Flonase Allergy Relief) 2 sprays intranasal DAILY ipratropium-albuterol 0.5 mg-3 mg(2.5 mg base)/3 mL 3 mL inhalation Q4-6H PRN 30 days magnesium oxide 400 mg PO DAILY 30 days sertraline 100 mg PO DAILY 90 days triamcinolone acetonide 0.1% 1 appl topical DAILY 30 days zolpidem 5 mg PO BEDTIME 14 days Tobacco use date assessed: 02/10/25 Fall risk assessment: 2 + Falls in past year Last assessed Fall Risk: 02/10/25 Dental Screening Dental Screen Date: 02/10/25 Did you have a dental visit in the last 12 months?: Yes Did you have a dental problem in the last 6 months where you did not have access to dental care?: No Was dental information given to patient?: Patient has dentist HPI HPI Comments History of Present Illness Details The patient is a 69-year-old female presenting to the clinic for a syncopal episode and insomnia. She reports feeling unwell and jittery. The patient experienced an episode of lightheadedness and dizziness resulting in a fall this past Thursday evening at a pharmacy. She was able to brace herself and did not hit her head. sas analyst were called, and her blood pressure was 103/63 mmHg. This is her first syncopal episode since her blood pressure medication was discontinued in December. Prior to that, she was having similar episodes every one to two weeks. The patient reports adequate intake of water and electrolytes. The patient also reports significant insomnia, stating she did not sleep for two consecutive days this week and typically has one sleepless night per week. She reports that previous sleep medications, including Trazodone and Zolpidem 5 mg, have been ineffective. [facility]LY [facility] Medical History MDD (major depressive disorder), recurrent episode, moderate HTN (hypertension) HLD (hyperlipidemia) COPD (chronic obstructive pulmonary disease) Pulmonary nodules Nicotine dependence, cigarettes, uncomplicated Osteopenia (~2009) Irritable bowel syndrome without diarrhea Tubular adenoma of colon Diverticulosis C. difficile colitis LLQ abdominal pain Varicosities of leg Surgical History History of laparotomy History of pelvic surgery History of blepharoplasty History of colonoscopy History of surgery on lower extremity History of ear surgery Family History Father Lung cancer Mother Heart attack Social History Housing: Apartment Alcohol intake: current Alcohol intake frequency: a few times a week Alcohol type: beer Patient Tobacco Use Status: Current someday Tobacco user (3 months) Tobacco use type: Cigarette Cigarette Packs Per Day: 0.5 Cigarettes Per Day: 5 e-Cigarette/Vaping Use: Never Used Second Hand Smoke Exposure: Yes Advance Directives Date on File: 09/17/20 service: No Current occupational status: retired Cognitive needs: No Hearing needs: Yes Vision needs: Yes Questionnaire PHQ-9 Over the last 2 weeks, how often have you been bothered by any of the following problems? 1. Little interest or pleasure in doing things: not at all 2. Feeling down, depressed, or hopeless: several days 3. Trouble falling or staying asleep, or sleeping too much: nearly every day 4. Feeling tired or having little energy: several days 5. Poor appetite or overeating: several days 6. Feeling bad about yourself - or that you are a failure or have let yourself or your family down: not at all 7. Trouble concentrating on things, such as reading the newspaper or watching television: not at all 8. Moving or speaking so slowly that other people could have noticed. Or the opposite - being so fidgety or restless that you have been moving around a lot more than usual: not at all 9. Thoughts that you would be better off or of hurting yourself in some way: not at all Total score: 6 Depression Screening Interpretation: Positive Depression Screening Follow-up: Existing condition Depression Screening Done: Yes Source: Developed by Drs. Julio Cornejo, Taina Brady, Ranulfo Anderson and colleagues, with an educational cleo from [employer]. Thrive Questionnaire Date Thrive assessed: 08/02/24 I am a: Patient What is your living situation today?: I have a steady place to live Within the past 12 months, did the food you bought not last and you didn't have the money to get more?: Never true Within the past 12 months, did you worry whether your food would run out before you got money to buy more?: Never true Do you have trouble paying for medicines?: No Do you have trouble getting transportation to medical appointments?: No Do you have trouble paying your heating and electricity bill?: No Do you have trouble taking care of your child, family member or friend?: No Do you have trouble with day-to-day activities such as bathing, preparing meals, shopping, managing finances, etc.?: I choose not to answer this question Are you currently unemployed and looking for a job?: No Are you interested in more education?: No Please select the resources that you would like help with: None Currently or been in a relationship where the following occur: I choose not to answer THRIVE Score: 0 AUDIT C Alcohol Use Questionnaire (AUDIT-C) 1. How often do you have a drink containing alcohol?: 2-4 times a month 2. How many drinks containing alcohol do you have on a typical day when you are drinking?: 1 or 2 3. How often do you have six or more drinks on one occasion?: Never Total Score: 2 JORGE-7 AMB Questionnaire JORGE-7 Date JORGE - 7 assessed: 09/13/24 Feeling nervous, anxious, or on edge: 0 = Not at all Not being able to stop or control worryin = Not at all Worrying too much about different things: 0 = Not at all Trouble relaxin = Not at all Being so restless that it is hard to sit still: 0 = Not at all Becoming easily annoyed or irritable: 0 = Not at all Feeling afraid as if something awful might happen: 0 = Not at all Total JORGE-7 score (0-4 normal; 5-9 mild; 10-14 moderate; 15-21 severe): 0 Source: Developed by Drs. Julio Cornejo, Taina Brady, Ranulfo Anderson and colleagues, with an educational cleo from [employer]. Review of Systems Const Details: As per HPI. Physical exam (Primary Care) Vital Signs: Last Vital Signs Temp 97.0 F 02/10/25 13:58 Pulse 92 02/10/25 13:58 BP 128/88 02/10/25 13:58 Pulse Ox 95 02/10/25 13:58 Oxygen Delivery Method Room Air 02/10/25 13:58 BMI result Body Mass Index 17.1 Tobacco/Smoking Status: Tobacco use Status Tobacco use date assessed 02/10/25 02/10/25 14:04 Patient Tobacco Use Status Current someday Tobacco (3 02/10/25 14:04 months) Tobacco use type Cigarette 02/10/25 14:04 e-Cigarette/Vaping Use Never Used 02/10/25 14:04 PHQ-9: PHQ-9 Score PHQ-9: Total score 6 02/10/25 14:04 Depression Screening Interpretation: Positive Depression Screening Follow-up: Existing condition Thrive Assessment: Date of Thrive Assessment Date Thrive assessed 08/02/24 02/10/25 14:04 Currently or been in a relationship where the following occur: I choose not to answer Const Other: Pertinent findings are in BOLD GENERAL APPEARANCE NAD, activity normal for age, well developed/ well nourished, no cyanosis, pallor, or diaphoresis. EYES lids/conjunctiva normal. EARS/NOSE/THROAT Mucous membranes moist, nares normal, lips/teeth normal uvula midline without oral pharyngeal erythema, exudate or swelling TMs normal bilaterally. No lymphangitis/lymphedema. HEAD/NECK normocephalic atraumatic, no facial trauma, neck is supple. RESPIRATORY respiratory effort normal, speaks in full sentences, no tripod position, no accessory muscle use. Lungs clear to auscultation without rhonchi, wheezes, rales CARDIAC Regular rate and rhythm, no edema. ABDOMINAL Soft, ND/NT. No evidence of fluid wave. No pulsatile masses on exam, rebound tenderness, Rose sign or pain over Mcburney's point. MUSCLES/EXTREMITIES No abnormal range of motion, no swelling. SKIN Warm, pink and dry. No rashes, dermatoses, petechiae or lesions. NEUROLOGICAL Speech is clear and appropriate. Normal level of consciousness. Gait and coordination are normal. 5/5 strength in all extremities. PSYCH Normal mood and affect. Judgement/competence is appropriate Coding Level of Care Code Tele Est Pt Level 4 (11759) Diagnoses Syncope, unspecified syncope type R55 Syncope type: unspecified Primary insomnia F51.01 Insomnia type: primary Time Spent (min) 30 Assessment & Plan Assessment & Plan (1) Syncopal episodes: Code(s): R55 - Syncope and collapse Category: Medical Qualifiers: Syncope type: unspecified Qualified Code(s): R55 - Syncope and collapse Plan: - The patient's recent fall was preceded by lightheadedness and dizziness. - These episodes are intermittent. - To investigate a potential cardiac cause for these symptoms, a 14-day Holter monitor is being ordered. - The patient was advised that she will receive a call to schedule the fitting of the monitor. - She will follow up with her primary provider, Matthew, in March to review the results. (2) Insomnia: Code(s): G47.00 - Insomnia, unspecified Category: Medical Qualifiers: Insomnia type: primary Qualified Code(s): F51.01 - Primary insomnia Plan: - The patient reports that Zolpidem 5 mg and prior trials of other medications, including Trazodone, are ineffective for her insomnia. - A trial of melatonin 10 mg at bedtime was recommended and a prescription was sent to her pharmacy. - The patient was advised to compare the cost of the prescription with the [id number] version. Plan I discussed with the patient that her intermittent episodes of lightheadedness and her recent fall are concerning, and while her blood pressure is currently stable, we need to rule out a cardiac etiology. To investigate this, I have ordered a 14-day Holter monitor. We addressed her chronic insomnia, noting that her current medication is not effective. I recommended she try melatonin 10 mg, and a prescription was sent to her pharmacy. Orders: Orders ECG 14 day holter monitor Today R55 - Syncope and collapse Medications: New melatonin 10 mg PO BEDTIME PRN 30 caps 1RF sleep
--- OUTSIDE RECORDS SUMMARY | 2025-02-10 15:48 | XMS_ITS | Continuity of Care Document ---
Author Organization [place] [facility] Address [address] [address] Care Team Providers Care Customer Success Advocate Name Role Phone AGUSTÍN PEREZ Referring Provider Assessment No assessment recorded. Plan of Treatment [...] Time Choleste atoma of left mastoid process [id number] Completed 201411/06/2023 Choleste atoma of mastoid, left ear; Note: Date Diagnose d: 03/21/20 15 4:47 PM (H71.22) Not Available [facility] 4 02:17:47 Granulat ions of mastoid cavity [id number] Completed 201411/06/2023 Granulat ion of postmast oidectom y cavity, right ear; Note: Date Diagnose d: 03/21/20 15 4:47 PM (H95.121 ) Not Available [facility] 4 02:18:26 Mixed conducti ve and sensorin eural hearing loss, bilatera l 134543075 Active 2014 Mixed conducti ve and sensorin eural hearing loss, bilatera l; Note: Date Diagnose d: 03/21/20 15 4:48 PM (H90.6) SCHUYLER GENTILE MD [address] [place] [address], [facility] [place], [address] , [facility] - [facility] 5 23:14:23 Conducti ve hearing loss, bilatera l 032716875 Active 2014 Conducti ve hearing loss, bilatera l; Note: Date Diagnose d: 03/21/20 15 4:09 PM (H90.0) Not Available [facility] 4 02:17:18 Vasomoto r rhinitis 5955853 Active 2015 Vasomoto r rhinitis ; Note: Date Diagnose d: 6 11:39 AM (J30.0) Not Available [facility] 4 02:18:22 Partial loss of ear ossicles 46994861 Active 2015 Partial loss of ear ossicles , bilatera l; Note: Date Diagnose d: 6 11:52 AM (H74.323 ) Not Available [facility] 4 02:17:22 Postoper ative follow-u p visit Active 2015 Post op; Note: Date Diagnose d: 6 2:57 PM (V67.00) Not Available [facility] 4 02:16:53 Perforat ion of tympanic membrane 95853455 Active 2015 Perforat ion of tympanic membrane ; Note: Date Diagnose d: 6 2:57 PM (384.20) Not Available [facility] 4 02:16:54 Disorder of left Eustachi an tube 78044898639 54309 Active 2015 Other specifie d disorder s of Eustachi an tube, left ear; Note: Date Diagnose d: 01/25/20 16 2:52 PM (H69.82) Not Available [facility] 4 02:17:12 Pain of left temporom andibula r joint 29163699102 574135 Active 2016 Arthralg ia of left temporom andibula r joint; Note: Date Diagnose d: 03/18/20 17 11:11 AM (M26.622 ) Not Available [facility] 4 02:17:54 Otalgia of left ear 5209348319 Active 2016 Otalgia, left ear; Note: Date Diagnose d: 03/18/20 17 11:11 AM (H92.02) Not Available [facility] 4 02:18:47 Chronic right mastoidi tis 65692533705 80379 Active 2016 Chronic mastoidi tis, right ear; Note: Date Diagnose d: 04/01/20 17 12:33 PM (H70.11) Not Available [facility] 4 02:17:18 Acute sinusiti s 01389653 Completed 201711/06/2023 Acute sinusiti s, unspecif ied; Note: Date Diagnose d: 04/10/2017 3:27 PM (J01.90) Not Available [facility] 4 02:17:22 Injury of neck 61785628 Completed 201711/06/2023 Unspecif ied injury of neck, initial encounte r; Note: Date Diagnose d: 8 9:36 AM (S19.9XX A) Not Available [facility] 4 02:16:50 Impacted cerumen in left ear 62726462397 45859 Active 2017 Impacted cerumen, left ear; Note: Date Diagnose d: 8 8:29 AM (H61.22) Not Available [facility] 4 02:17:52 Recurren t acute sinusiti s 373055956 Active 2017 Acute recurren t sinusiti s, unspecif ied; Note: Date Diagnose d: 8 11:53 AM (J01.91) Not Available [facility] 4 02:17:13 Otorrhea of right ear 39406437948 80190 Active 2020 Otorrhea , right ear; Note: Date Diagnose d: 1 9:15 AM (H92.11) Otorrh ea, right ear; Note: Date Diagnose d: 6 2:52 PM (H92.11) ; Start Date : 05/31/19 16 Not Available [facility] 4 02:17:49 Otorrhea of left ear 18312859102 61249 Active 2021 Otorrhea , left ear; Note: Date Diagnose d: 2 3:23 PM (H92.12) Otorrh ea, left ear; Note: Date Diagnose d: 8 1:32 PM (H92.12) ; Start Date : 08/04/19 18 SCHUYLER GENTILE MD [address] [place] [address], [facility] [place], [address] , [facility] - [facility] 5 23:14:23 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 550196975 Completed 202111/06/2023 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, left ear; Note: Date Diagnose d: 2 9:05 AM (H95.02) 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, left ear; Note: Date Diagnose d: 01/25/20 16 2:52 PM (H95.02) ; Start Date : 01/25/20 16 Not Available [facility] 4 02:18:08 Marginal perforat ion of tympanic membrane 03388757 Active 2021 Other marginal perforat ions of [...] 2 9:06 AM (H72.2X2 ) Not Available [facility] 4 00:53:28 Follow-u p visit Active 2022 [...] Start Date : 05/24/19 16 Not Available [facility] 4 02:17:37 Postmast oidectom y complica tion 08951378 Active 2022 Other disorder s followin g mastoide ctomy, right ear; Note: Date Diagnose d: 03/21/20 15 4:47 PM (H95.191 ) Note: Date Diagnose d: 03/21/20 15 4:47 PM (H95.191 ) ; Start Date : 03/21/20 15 Other disorder s followin g mastoide ctomy, left ear; Note: Date Diagnose d: 06/05/2022 9:34 AM (H95.192 ) Note: Date Diagnose d: 06/05/2022 9:34 AM (H95.192 ) ; Start Date : 06/06/19 23 Other disorder s followin g mastoide ctomy, bilatera l ears; Note: Date Diagnose d: 3 9:29 AM (H95.193 ) Note: Date Diagnose d: 3 9:29 AM (H95.193 ) Not Available [facility] 4 00:53:09 Refracto ry migraine 131529223 Active 2022 Other migraine , intracta ble, without status migraino beena; Note: Date Diagnose d: 11/06/2022 2:14 PM (G43.819 ) Not Available [facility] 4 02:17:22 Otorrhea of bilatera l ears 19411590834 17229 Completed 202211/06/2023 Otorrhea , bilatera l; Note: Date Diagnose d: 11/06/2022 2:15 PM (H92.13) Otorrh ea, bilatera l; Note: Date Diagnose d: 03/21/20 15 4:47 PM (H92.13) ; Start Date : 03/21/20 15 Not Available [facility] 4 02:18:08 Foreign body in right ear 15967650370 627200 Completed 202209/03/2023 Foreign body in right ear, initial encounte r; Note: Date Diagnose d: 03/17/20 9:34 AM (T16.1XX A) Note: Date Diagnose d: 03/17/20 9:34 AM (T16.1XX A) SCHUYLER GENTILE MD [address] [facility],[address], [place], [address] , [facility] - [facility] 4 13:30:34 Marginal perforat ion of tympanic membrane 54754697 Active 2023 SCHUYLER GENTILE MD [address] [facility],[place] [address], [place], [place], [address] , [facility] - [facility] 5 23:14:23 Bilatera l chronic mastoidi tis 59189814389 36548 Active 2023 SCHUYLER GENTILE MD [address] [facility], [place], [place], [address] , [facility] - [facility] 4 13:31:39 Otorrhea of bilatera l ears 36560663645 21357 Active 2023 Otorrhea , bilatera l; Note: Date Diagnose d: 11/06/2022 2:15 PM (H92.13) Note: Date Diagnose d: 11/06/2022 2:15 PM (H92.13) Otorrh ea, bilatera l; Note: Date Diagnose d: 03/21/20 15 4:47 PM (H92.13) Note: Date Diagnose d: 03/21/20 15 4:47 PM (H92.13) ; Start Date : 03/21/20 15 SCHUYLER GENTILE MD [address] [facility],[place] [address], [place], [address] , [place] [facility] 4 13:31:50 Postmast oidectom y complica tion 76797859 Active 2023 SCHUYLER GENTILE MD [address] [facility],[place] [address], [place], [address] , [place] [facility] 5 23:14:23 Dysfunct ion of eustachi an tube 89165602 Active 2023 SCHUYLER GENTILE MD [address] [facility],[place] [address], [place], [address] , [place] [facility] 5 23:14:23 Partial loss of ear ossicles 40304296 Active 2023 SCHUYLER GENTILE MD [address] [place] [address],[place] [address], [place], [address] , [place] [facility] 5 23:14:23 Problem Notes None recorded. Procedures Surgical History Date Name Laterality Status Provider Name and Address Organization Details Recorded Time 5 Debridement of Mastoid Cavity bilat completed SCHUYLER GENTILE MD [address] [place] [address], [address], [place] [facility] 07/14/2024 13:04:34 4 Comp Audio with Tymps - 81811 & 65460 completed EMILIE PRIETO [address] [place] [address],[address], [address], [place] [facility] 01/26/2024 10:09:17 4 Debridement of Mastoid Cavity bilat completed SCHUYLER GENTILE MD [address] [place] [address],[address], [address], [place] [facility] 01/26/2024 09:19:32 4 Debridement of Mastoid Cavity bilat completed SHANNAN TELLES PA-C [address] [facility],[address], [address], [place] [facility] 09/21/2023 10:54:36 Debridement of Mastoid Cavity bilat completed SCHUYLER GENTILE MD [address] [place] [address], [place], [address], [place] [facility] 09/03/2023 13:15:49 Imaging Results None recorded. Procedure [...] mg capsule 05/29 completed Medicati on ID: [id number] Adrian richards d By Name: MILDRED Moran nd Name: [...] eye drops 09/20 completed Medicati on ID: [id number] D uration Value: 10 Brand Name: Ciloxan Send Method: E-Prescr ibed Sub s Allowed: subs OK Speci al Instruct ion: Instill 4 drops twice a day into the affected ear. Med icationG enericNa me: Ciloxan Medicati on ID: [id number] D uration Value: 10 Brand Name: Ciloxan [...] by mouth 09/20 completed Medicati on ID: [id number] D uration Value: 7 Prescri bed By Name: MILDRED Pineda nd Name: amoxicil pavel Send Method: E-Prescr ibed Sub s Allowed: subs OK Medic ationGen ericName : amoxicil pavel Medi cation ID: [id number] D uration Value: 7 Prescri bed By [...] a day 07/01 completed Medicati on ID: [id number] D uration Value: 45 Prescri bed By [...] eye drops 09/20 completed Medicati on ID: [id number] D uration Value: 14 Prescri bed By Name: Blaise Richards nd Name: sulfacet amide sodium S end Method: E-Prescr ibed Sub s Allowed: subs OK Speci al Instruct ion: 4 drops to affected ear BID x 14 days Med icationG enericNa me: sulfacet amide sodium M edicatio n ID: [id number] D uration Value: 14 Prescri bed By [...] a day 09/20 completed Medicati on ID: [id number] D uration Value: 14 Prescri bed By Name: MILDRED Zhang nd Name: predniso lone sodium phosphat e Send Method: E-Prescr ibed Sub s Allowed: subs OK Speci al Instruct ion: to left EAR Medi cationGe nericNam e: predniso lone sodium phosphat e Medica tion ID: [id number] D uration Value: 14 Prescri bed By [...] Not Available Not Available No t Available Bentley 5 mg-325 mg tablet 1-2 tablet by mouth 01/25 completed Medicati on ID: [id number] D uration Value: 7 Prescri bed By Name: Blaise Richards nd Name: Malik Mora nd Method: E-Prescr ibed Sub s Allowed: subs OK Medic ationGen ericName : Bentley Not Available Not Available Not Available multivita min capsule 09/20 completed Medicati on ID: [id number] B rand Name: multivit agosto Sen d Method: E-Prescr ibed Sub s Allowed: subs OK Medic ationGen ericName : multivit agosto Med ication ID: [id number] B rand Name: multivit agosto Sen d [...] both nostrils 09/20 completed Medicati on ID: [id number] D uration Value: 30 Prescri bed By Name: MILDRED Moran nd Name: ipratrop ium bromide Send Method: E-Prescr ibed Sub s Allowed: subs OK Medic ationGen ericName : ipratrop ium bromide Medicati on ID: [id number] D uration Value: 30 Prescri bed By [...] drops,beena p 04/01 completed Medicati on ID: [id number] P rescribe d By Name: Gilmar Miguel [...] a day 09/20 completed Medicati on ID: [id number] D uration Value: 14 Brand Name: Bactrim DS Send Method: E-Prescr ibed Sub s Allowed: subs OK Medic ationGen ericName : Bactrim DS Medic ation ID: [id number] D uration Value: 14 Brand Name: Bactrim [...] ICD10 Code Diagnosis IMO Codes Diagnosis Note [id number] EMILIE REID [place] [address] [facility],[place] [address] [place] [address] 12/21/2024 13:45:14 12/23/2024 13:38:04 Mixed conductive and sensorineural hearing loss, bilateral [id number] H90.6 Health Concerns Section Related Observation LastModified by Organization Detai ls LastModified Time None Recorded Concern Status LastModified by Organization Details LastModified Time None Recorded Payers Encounter Date Sequence Insurance Name Policy Number Policy Amador Covered Member ID Amador Member ID Guarantor Name 12/21/2024 1 [employer] BLUE [employer] (MEDICARE REPLACEMENT/ ADVANTAGE - PPO) [id number] Kim Palafox [id number] Kim Palafox Notes Date Note Type Note Provider Name and Address Organization Details Recorded Time 12/21/2024 text/html C/o not hearing well especially [...] reason the left aid was showing power shirt trimmer As on [employer] although she is wearing an M so I updated that and reran the feedback test As. SAMPSON BALDERAS, [address],[place] [address], [place], [address], [facility] - [facility] 12/21/2024 14:55:44 OBGyn Episode No OBEpisode recorded.
--- OUTSIDE RECORDS SUMMARY | 2025-02-10 15:48 | XMS_ITS | Data Portability ---
Author Organization [place] - [facility], Allergy Address [address] [address] Care Team Providers Care Vice President [employer] Name Role Phone AGUSTÍN PEREZ Referring Provider [phone] Assessment Encounter Date Assessment Date Assessment LastModified [...] with the contact information for my surgical territory manager. We will begin the scheduling process and see the patient back at the time of surgery. Patient will require medical clearance from their primary care provider preoperatively. [email or web address] Not available 01/26/2024 10:36:16 07/14/2024 07/14/2024 Patient [...] with the contact information for my surgical territory manager. We will begin the scheduling process and see the patient back at the time of surgery. Patient will require medical clearance from their primary care provider preoperatively. [email or web address] Not available 07/14/2024 13:05:04 Plan of Treatment Reminders Order Date Submit Date Provider Last Modified By Organization Details Last Modified Time Details Appointments None recorded. Lab None recorded. Referral None recorded. Procedures None recorded. Surgeries implantatio n of electromagn etic bone conduction hearing device in temporal bone (SURG) 2024 025 [email or web address] Not available 5 15:46:41 implantatio n of electromagn etic bone conduction hearing device in temporal bone (SURG) 2023 024 9 Not available 4 11:18:39 Imaging None recorded. Medication Orders tobramycin 0.3 %-dexametha sone 0.1 % eye drops,suspe nsion 2024 025 CHELSEA [facility][id number], [address] [place], [address], 5 11:33:11 tobramycin 0.3 %-dexametha sone 0.1 % eye drops,suspe nsion 2023 024 [email or web address] [facility] #[id number], [address] [place], [address], 5 11:11:07 Patient TargetsNo targets recorded. Patient [...] Time Choleste atoma of left mastoid process [id number] 70594 Completed 201411/06/2023 Choleste atoma of mastoid, left ear; Note: Date Diagnose d: 03/21/20 15 4:47 PM (H71.22) Not Available [facility] 4 02:17:47 Granulat ions of mastoid cavity 403466710 Completed 201411/06/2023 Granulat ion of postmast oidectom y cavity, right ear; Note: Date Diagnose d: 03/21/20 15 4:47 PM (H95.121 ) Not Available [facility] 4 02:18:26 Mixed conducti ve and sensorin eural hearing loss, bilatera l 634012345 Active 2014 Mixed conducti ve and sensorin eural hearing loss, bilatera l; Note: Date Diagnose d: 03/21/20 15 4:48 PM (H90.6) SCHUYLER GENTILE MD [address] [place] [address], [facility] [place], [address] , [facility] 5 23:14:23 Conducti ve hearing loss, bilatera l 257051851 Active 2014 Conducti ve hearing loss, bilatera l; Note: Date Diagnose d: 03/21/20 15 4:09 PM (H90.0) Not Available [facility] 4 02:17:18 Vasomoto r rhinitis 9126787 Active 2015 Vasomoto r rhinitis ; Note: Date Diagnose d: 6 11:39 AM (J30.0) Not Available [facility] 4 02:18:22 Partial loss of ear ossicles 47486057 Active 2015 Partial loss of ear ossicles , bilatera l; Note: Date Diagnose d: 6 11:52 AM (H74.323 ) Not Available [facility] 4 02:17:22 Postoper ative follow-u p visit Active 2015 Post op; Note: Date Diagnose d: 6 2:57 PM (V67.00) Not Available [facility] 4 02:16:53 Perforat ion of tympanic membrane 68608695 Active 2015 Perforat ion of tympanic membrane ; Note: Date Diagnose d: 6 2:57 PM (384.20) Not Available [facility] 4 02:16:54 Disorder of left Eustachi an tube 49501049592 55036 Active 2015 Other specifie d disorder s of Eustachi an tube, left ear; Note: Date Diagnose d: 01/25/20 16 2:52 PM (H69.82) Not Available [facility] 4 02:17:12 Pain of left temporom andibula r joint 33790990835 440313 Active 2016 Arthralg ia of left temporom andibula r joint; Note: Date Diagnose d: 03/18/20 17 11:11 AM (M26.622 ) Not Available [facility] 4 02:17:54 Otalgia of left ear 1336682885 Active 2016 Otalgia, left ear; Note: Date Diagnose d: 03/18/20 17 11:11 AM (H92.02) Not Available [facility] 4 02:18:47 Chronic right mastoidi tis 73780029408 48506 Active 2016 Chronic mastoidi tis, right ear; Note: Date Diagnose d: 04/01/20 17 12:33 PM (H70.11) Not Available [facility] 4 02:17:18 Acute sinusiti s 23478035 Completed 201711/06/2023 Acute sinusiti s, unspecif ied; Note: Date Diagnose d: 04/10/2017 3:27 PM (J01.90) Not Available [facility] 4 02:17:22 Injury of neck 23044617 Completed 201711/06/2023 Unspecif ied injury of neck, initial encounte r; Note: Date Diagnose d: 8 9:36 AM (S19.9XX A) Not Available [facility] 4 02:16:50 Impacted cerumen in left ear 48083421858 75313 Active 2017 Impacted cerumen, left ear; Note: Date Diagnose d: 8 8:29 AM (H61.22) Not Available [facility] 4 02:17:52 Recurren t acute sinusiti s 610371649 Active 2017 Acute recurren t sinusiti s, unspecif ied; Note: Date Diagnose d: 8 11:53 AM (J01.91) Not Available [facility] 4 02:17:13 Otorrhea of right ear 64998810451 55756 Active 2020 Otorrhea , right ear; Note: Date Diagnose d: 1 9:15 AM (H92.11) Otorrh ea, right ear; Note: Date Diagnose d: 6 2:52 PM (H92.11) ; Start Date : 05/31/19 16 Not Available [facility] 4 02:17:49 Otorrhea of left ear 62509984439 04793 Active 2021 Otorrhea , left ear; Note: Date Diagnose d: 2 3:23 PM (H92.12) Otorrh ea, left ear; Note: Date Diagnose d: 8 1:32 PM (H92.12) ; Start Date : 08/04/19 SCHUYLER GENTILE MD [address] [place] [address], [place], [address] , [facility] - [facility] 5 23:14:23 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 619276169 Completed 202111/06/2023 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, left ear; Note: Date Diagnose d: 2 9:05 AM (H95.02) 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, left ear; Note: Date Diagnose d: 01/25/20 16 2:52 PM (H95.02) ; Start Date : 01/25/20 16 Not Available [facility] 4 02:18:08 Marginal perforat ion of tympanic membrane 86598416 Active 2021 Other marginal perforat ions of [...] 2 9:06 AM (H72.2X2 ) Not Available [facility] 4 00:53:28 Follow-u p visit Active 2022 [...] 4 02:17:37 Postmast oidectom y complica tion 78082100 Active 2022 Other disorder s followin g [...] 3 9:29 AM (H95.193 ) Not Available [facility] 4 00:53:09 Refracto ry migraine 979784880 Active 2022 Other migraine , intracta ble, without status migraino beena; Note: Date Diagnose d: 11/06/2022 2:14 PM (G43.819 ) Not Available [facility] 4 02:17:22 Otorrhea of bilatera l ears 00516690184 03514 Completed 202211/06/2023 Otorrhea , bilatera l; Note: Date Diagnose d: 11/06/2022 2:15 PM (H92.13) Otorrh ea, bilatera l; Note: Date Diagnose d: 03/21/20 15 4:47 PM (H92.13) ; Start Date : 03/21/20 15 Not Available [facility] 4 02:18:08 Foreign body in right ear 64763339595 291409 Completed 202209/03/2023 Foreign body in right ear, initial encounte r; Note: Date Diagnose d: 03/17/20 9:34 AM (T16.1XX A) Note: Date Diagnose d: 03/17/20 9:34 AM (T16.1XX A) SCHUYLER GENTILE MD 100 [facility],[place] [address], [place], [address] , [facility] - [facility] 4 13:30:34 Marginal perforat ion of tympanic membrane 23665473 Active 2023 SCHUYLER GENTILE MD 100 [facility],[place] [address], [place], [address] , [facility] - [facility] 5 23:14:23 Bilatera l chronic mastoidi tis 92376920617 69222 Active 2023 SCHUYLER GENTILE MD [address] [employer] [employer],[place] [address], [place], [address] , [facility] - [facility] 4 13:31:39 Otorrhea of bilatera l ears 38716648441 18653 Active 2023 Otorrhea , bilatera l; Note: Date Diagnose d: 11/06/2022 2:15 PM (H92.13) Note: Date Diagnose d: 11/06/2022 2:15 PM (H92.13) Otorrh ea, bilatera l; Note: Date Diagnose d: 03/21/20 15 4:47 PM (H92.13) Note: Date Diagnose d: 03/21/20 15 4:47 PM (H92.13) ; Start Date : 03/21/20 15 SCHUYLER GENTILE MD 100 [facility],[address], [place], [address] , [facility] - [facility] 4 13:31:50 Postmast oidectom y complica tion 76399720 Active 2023 SCHUYLER GENTILE MD 100 [facility],[place] [address], [place], [address] , [place] - [facility] 5 23:14:23 Dysfunct ion of eustachi an tube 80643262 Active 2023 SCHUYLER GENTILE MD 100 [facility],[place] [address], [place], [address] , [facility] - [facility] 5 23:14:23 Partial loss of ear ossicles 75202617 Active 2023 SCHUYLER GENTILE MD 100 [facility],[place] [address], [facility] [place], [address] , [facility] - [facility] 5 23:14:23 Problem Notes None recorded. Procedures Surgical History Date Name Laterality Status Provider Name and Address Organization Details Recorded Time 5 Debridement of Mastoid Cavity bilat completed SCHUYLER GENTILE MD 100 [facility],[address], [address], [place] - [facility] 07/14/2024 13:04:34 4 Comp Audio with Tymps - 63625 & 78733 completed EMILIE PRIETO 100 [facility],[address], [address], [place] - [facility] 01/26/2024 10:09:17 4 Debridement of Mastoid Cavity bilat completed SCHUYLER GENTILE MD 100 [facility],[address], [address], [place] - [facility] 01/26/2024 09:19:32 4 Debridement of Mastoid Cavity bilat completed SHANNAN TELLES PA-C 100 [facility],[address], [address], [place] - [facility] 09/21/2023 10:54:36 4 Debridement of Mastoid Cavity bilat completed SCHUYLER GENTILE MD [address], [address], [place] - [facility] 09/03/2023 13:15:49 Imaging Results None [...] mg capsule 05/29 completed Medicati on ID: [id number] P elianribe d By Name: MILDRED Moran [...] eye drops 09/20 completed Medicati on ID: [id number] D uration Value: 10 Brand Name: Ciloxan Send Method: E-Prescr ibed Sub s Allowed: subs OK Speci al Instruct ion: Instill 4 drops twice a day into the affected ear. Med icationG enericNa me: Ciloxan Medicati on ID: [id number] D uration Value: 10 Brand Name: Ciloxan [...] by mouth 09/20 completed Medicati on ID: [id number] D uration Value: 7 Prescri bed By Name: MILDRED Pineda nd Name: amoxicil pavel Send Method: E-Prescr ibed Sub s Allowed: subs OK Medic ationGen ericName : amoxicil pavel Medi cation ID: [id number] D uration Value: 7 Prescri bed By [...] a day 07/01 completed Medicati on ID: [id number] D uration Value: 45 Prescri bed By [...] eye drops 09/20 completed Medicati on ID: [id number] D uration Value: 14 Prescri bed By Name: Blaise Richards nd Name: sulfacet amide sodium S end Method: E-Prescr ibed Sub s Allowed: subs OK Speci al Instruct ion: 4 drops to affected ear BID x 14 days Med icationG enericNa me: sulfacet amide sodium M edicatio n ID: [id number] D uration Value: 14 Prescri bed By [...] a day 09/20 completed Medicati on ID: [id number] D uration Value: 14 Prescri bed By Name: MILDRED Zhang nd Name: predniso lone sodium phosphat e Send Method: E-Prescr ibed Sub s Allowed: subs OK Speci al Instruct ion: to left EAR Medi cationGe nericNam e: predniso lone sodium phosphat e Medica tion ID: [id number] D uration Value: 14 Prescri bed By [...] Not Available Not Available No t Available Pringle 5 mg-325 mg tablet 1-2 tablet by mouth 01/25 completed Medicati on ID: [id number] D uration Value: 7 Prescri bed By Name: Blaise Richards nd Name: Pringle Se nd Method: E-Prescr ibed Sub s Allowed: subs OK Medic ationGen ericName : Pringle Not Available Not Available Not Available multivita min capsule 09/20 completed Medicati on ID: [id number] B rand Name: multivlibra agosto Sen d Method: E-Prescr ibed Sub s Allowed: subs OK Medic ationGen ericName : multivit agosto Med ication ID: [id number] B rand Name: multivlibra agosto Sen d [...] both nostrils 09/20 completed Medicati on ID: [id number] D uration Value: 30 Prescri bed By Name: MILDRED Moran nd Name: ipratrop ium bromide Send Method: E-Prescr ibed Sub s Allowed: subs OK Medic ationGen ericName : ipratrop ium bromide Medicati on ID: [id number] D uration Value: 30 Prescri bed By [...] drops,beena p 04/01 completed Medicati on ID: [id number] P rescribe d By Name: Gilmar Miguel [...] a day 09/20 completed Medicati on ID: [id number] D uration Value: 14 Brand Name: Bactrim DS Send Method: E-Prescr ibed Sub s Allowed: subs OK Medic ationGen ericName : Bactrim DS Medic ation ID: [id number] D uration Value: 14 Brand Name: Bactrim [...] Details Last Updated DateTime 07/14/2024 162.56 cm 75267.38 g Jazmine Mendez [facility] 07/14/2024 11:10:13 Date Recorded Body height Body weight Provider Name and Address Organization Details Last Updated DateTime 01/26/2024 162.56 cm 37414.38 g Jazmine Mendez [place] [facility] 01/26/2024 08:55:19 Social History None [...] Note 2058 SCHUYLER GENTILE MD [facility] [address] [address] 09/03/2023 12:42:59 09/03/2023 13:30:45 Marginal perforation of tympanic membrane 17133121 H72.2X2 Both canal wall down mastoidect mai [...] cond uctive and sensorineural hearing loss, bilateral 043975212 H90.6 Patient continues to get recurrent otorrhea [...] the otorrhea has settled. Postmastoi dectomy complication 61587255 H95.193 Bilateral chronic mastoiditis 3128968923 874631 H70.13 Otorrhea o f bilateral ears 4122334412 657125 H92.13 Partial lo ss of ear ossicles 39453207 H74.323 Dysfunctio n of eustachian tube 35876786 H69.93 4301 SHANNAN TELLES PA-C [facility] 100 [place] [address] 09/21/2023 10:22:57 09/21/2023 10:49:15 Marginal perforation of tympanic membrane 98888493 H72.2X2 Mixed cond uctive and sensorineural hearing loss, bilateral 238176474 H90.6 Otorrhea o f bilateral ears 2898088550 509001 H92.13 Bilateral chronic mastoiditis 4200232761 570196 H70.13 [id number] SCHUYLER GENTILE MD [facility] 100 [place] [address] 01/26/2024 08:42:41 01/26/2024 10:35:50 Marginal perforation of tympanic membrane 42360650 H72.2X2 Postmastoi dectomy complication 02817746 H95.193 Bilateral chronic mastoiditis 8607830853 425346 H70.13 Otorrhea o f bilateral ears 3386590838 670342 H92.13 Mixed cond uctive and sensorineural hearing loss, bilateral 441914616 H90.6 Audiologic al evaluation results:Ri ght ear:Modera [...] device. Partial lo ss of ear ossicles 94633448 H74.323 Dysfunctio n of eustachian tube 22092194 H69.93 [id number] EMILIE REID [facility] 100 [place] [address] 03/25/2024 13:05:19 04/09/2024 09:04:54 Mixed conductive and sensorineural hearing loss, bilateral 383754747 H90.6 [id number] EMILIE REID [facility] [place] [address] [place] [address] 05/18/2024 12:12:33 05/19/2024 08:21:30 Mixed conductive and sensorineural hearing loss, bilateral 036171146 H90.6 [id number] SCHUYLER GENTILE MD [facility] 100 [place] [address] 07/14/2024 11:05:44 07/14/2024 11:42:52 Marginal perforation of tympanic membrane 37425006 H72.2X2 Postmastoi dectomy complication 12705218 H95.193 Partial lo ss of ear ossicles 33025039 H74.323 Dysfunctio n of eustachian tube 34256621 H69.93 Otorrhea of left ear 399 3203350 097115 H92.12 Mixed cond uctive and sensorineural hearing loss, bilateral 986325196 H90.6 [id number] EMILIE REID [facility] [place] 100 [facility] 100 [place] [address] 12/21/2024 13:45:14 12/23/2024 13:38:04 Mixed conductive and sensorineural hearing loss, bilateral 603068772 H90.6 Health Concerns Section Related Observation LastModified by Organization Detai ls LastModified Time None Recorded Concern Status LastModified by Organization Details LastModified Time None Recorded Advance Directives Directive None Recorded Payers Insurance Date Sequence Insurance Name Policy Number Policy Amador Covered Member ID Amador Member ID Guarantor Name 12/27/2024 1 [employer] BLUE CROSS (MEDICARE REPLACEMENT/ ADVANTAGE - PPO) [id number] Kim Palafox [id number] Kim Palafox Notes Date Note Type [...] hearing aid use. SCHUYLER GENTILE MD 100 [facility],[address], [address], [facility] - [facility] 01/26/2024 10:37:22 03/25/2024 text/html Not hearing well...Updated to her 5 receivers and showed her how to change the cerustops. She noticed an immediate improvement with her hearing...She will call if she needs anything. EMILIE REID 100 [facility],[address], [address], [facility] 03/25/2024 13:10:26 05/18/2024 text/html R aid is not working. I was able to get it to charge without issue on my field instructor so I gave her another new field instructor. I also reminded her that she can plug the aid into either port so she can try to troubleshoot and determine whether there is an issue with the aid or the field instructor. She will call as needed. EMILIE REID 100 [facility],[address], [address], [facility] - [facility] 05/19/2024 09:05:55 07/14/2024 text/html 70 [...] Lavonne in audiology for hearing aid maintenance. 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 EMILIE REID [address] [place] [address], [place], [address], [facility] - [facility] 12/21/2024 14:55:44 OBGyn Episode No OBEpisode recorded.
== END 2025-02-10 15:15 | disposition home or self-care (01) ==
LOC: HO.HMCH 13:56
PROVIDERS: PCP Physician Assistant; Visit Provider Internal Medicine
DX: R55 Syncope and collapse (principal); F51.01 Primary insomnia

== ENCOUNTER → 2025-02-10 13:55 | Outpatient (BNVA) | payer MEDICARE, SELFPAY | PROVIDERS: PCP Physician Assistant; Visit Provider Internal Medicine | DX: R42 Dizziness and giddiness (principal); R55 Syncope and collapse; F51.01 Primary insomnia | CPT/HCPCS: 96127; 99212 ==